=== PATIENT | male | born 1975 | race Caucasian/White ===

== ENCOUNTER 2023-11-27 23:06 | Inpatient (IN) | payer OTHER, SELFPAY ==
[2023-11-27 16:57] VITALS: BP 121/88
[2023-11-27 17:00] VITALS: BP 121/88
[2023-11-27 17:02] VITALS: BMI 22.4
[2023-11-27 17:19] LABS: % Basophils 0.9 % (0-2); % Eosinophils 2.1 % (0-6); % Immature Granulocytes 0.1 % (0-0.5); % Lymphocytes 33.2 % (20.5-51.1); % Neutrophils 55.7 % (42.2-75.2); Absolute Basophils 0.1 10^3/uL (0-0.2); Absolute Eosinophils 0.2 10^3/uL (0-0.7); Absolute Lymphocytes 2.9 10^3/uL (1.2-3.4); Absolute Monocytes 0.7 10^3/uL (0.1-0.6); Absolute Neutrophils 4.8 10^3/uL (1.4-6.5); Hematocrit 43.9 % (39.0-52.0); Hemoglobin 15.7 g/dL (13.0-18.0); Mean Corp Hgb Conc. 35.8 g/dL (33.0-37.0); Mean Corpuscular Hgb 34.9 pg (27.0-31.0); Mean Corpuscular Volume 97.6 fL (80.0-94.0); Mean Platelet Volume 10.1 fL (7.4-10.4); Nucleated Red Blood Cells % 0 % (-); Platelet Count 54 10^3/uL (130-400); Red Cell Dist. Width 15.9 % (11.5-14.5); White Blood Cell Count 8.6 10^3/uL (4.8-10.8)
[2023-11-27 17:39] LABS: ALT (SGPT) 108 U/L (0-50); AST (SGOT) 324 U/L (17-59); Albumin 3.6 g/dl (3.5-5.0); Alkaline Phosphatase 337 U/L (38-126); Blood Urea Nitrogen 4 mg/dl (9-20); Calcium 8.6 mg/dl (8.4-10.2); Carbon Dioxide 20 mmol/L (22-30); Chloride 105 mmol/L (98-107); Estimated Creatinine Clearance 109 ml/min; Glucose 125 mg/dl (70-99); Lipase 56 U/L (23-300); Sodium 136 mmol/L (135-145); Total Bilirubin 8.4 mg/dl (0.2-1.3); Total Protein 7.2 g/dl (6.3-8.2); eGFR > 60.00
[2023-11-27 18:00] VITALS: BP 116/87
--- NOTE | 2023-11-27 18:24 | ED.GENMED ---
History of Present Illness
General
Chief Complaint: Abdominal Pain
Source: patient
Time Seen by Provider: 11/27/23 18:05
Travel History
Have you had any contact with someone who has COVID-19?: No
Do you have any symptoms of coronavirus? Fever > 100 degrees, chills, cough, shortness of breath, sore throat, loss of taste or smell, muscle aches, or headache?: Yes
Symptoms:: chills
History of Present Illness
History of Present Illness:
48-year-old male with past medical history of hypertension, chronic alcohol abuse with alcoholic hepatitis, previous acute kidney injury presenting to the emergency department for evaluation via EMS for upper abdominal pain diffusely that has been
ongoing for around a week and a half accompanied with chills, decreased p.o. intake, intermittent vomiting and generally feeling unwell. Patient was recently at this facility for treatment of C. difficile colitis but he states he is no longer
having any diarrhea and he completed his antibiotics as prescribed. Patient does admit to still drinking heavily daily and also smokes 1 pack/day. He denies any chest pain, shortness of breath, palpitations, diaphoresis, exertional dyspnea,
orthopnea, lower extremity edema, melena or hematochezia, hematemesis or any other concerns.
Past History
Past History
ED Past Medical History: GERD, HTN, Renal failure and Other (Alcoholism, diverticulitis)
ED Past Surgical History: Orthopedic
Social History
Tobacco: Smoker
Alcohol: Chronic alcoholic
Drug: None
Personal: Single
Living: with family
Employment: Employed
Family History
Family History: Hypertension
Review of Systems
Review of Systems
All Other Systems: ROS reviewed and negative except as documented in HPI and ROS
Phy Exam
Physical Exam
Physical Exam:
GENERAL: Alert ,sleeping when entered the room but easily arousable to voice, appears older than stated age
EYE: Icteric sclera
HEAD: NCAT
ENT: o/p clr, mmm.
CARDIAC: Heart rate between 96 and 114 bpm
LUNGS: Clear breath sounds bilaterally, no acute respiratory distress, no wheezes/rales/rhonchi
ABDOMEN: Firm, diffusely tender, somewhat distended, no r/g, grimacing with palpation
NEUROLOGICAL: Alert and oriented
SKIN: Warm and dry, skin intact.
MUSCULOSKELETAL: No edema, well perfused.
PSYCH: Normal and appropriate interaction.
Scores
Heart Failure Risk
Heart Failure Risk Score: Not Applicable
Heart Score for Chest Pain Patients
STEMI patient?: Not applicable
Withdrawal Assessment of Alcohol
Withdrawal Assessment Completed?: Not applicable
Nausea and Vomiting: Mild nausea with no vomiting
Tactile Disturbances: None
Tremor: No tremor
Auditory Disturbances: Not present
Paroxysmal Sweats: No sweat visible
Visual Disturbances: Not present
Anxiety: No anxiety, at ease
Headache, Fullness in Head: Not present
Agitation: Normal activity
Orientation and clouding of sensorium: Oriented and can do serial additions
Total CIWA Score: 1
Alcohol Withdrawal Medication Recommendation: Equal to MSAS Score 0-4. Monitor & re-assess q2hrs, NO MEDICATION NEEDED
Course
Orders/Labs/Results
Orders:
Orders
11/27/23 17:06
Complete Blood Count/With Diff Urgent
Comprehensive Metabolic Panel Urgent
Lipase Urgent
11/27/23 18:14
0.9% Sodium Chloride 1000 ml [Nss] 1,000 ml IV BOLUS
Morphine Sulfate 4 mg IV NOW STA
11/27/23 18:17
CT Abd/pelvis W Iv Cont Urgent
Comment:
Reason For Exam: diffuse abd pain, hx of ETOH abuse
11/27/23 18:24
Blood Culture Q30M
MAHESH Source: Blood/Venous
Specimen Description:
11/27/23 18:25
Lactic Acid Q4H
Comment: CANCEL 2nd LACTIC ACID IF 1st LACTIC ACID IS LESS THAN 2
Magnesium Urgent
Blood Culture Q30M
MAHESH Source: Blood/Venous
Specimen Description:
11/27/23 18:55
0.9% Sodium Chloride 1000 ml [Nss] 1,300 ml IV NOW STA
11/27/23 19:39
US Abdomen Complete/Upper Urgent
Comment:
Reason For Exam: upper abd pain, gallstones
11/27/23 22:15
Lactic Acid Q4H
Comment: CANCEL 2nd LACTIC ACID IF 1st LACTIC ACID IS LESS THAN 2
11/27/23 22:23
Piperacillin/Tazo 3.375 Gram [Zosyn] 3.375 gram in 50 ml IV NOW
11/27/23 22:25
Potassium Chloride [KCl] 40 meq PO NOW STA
11/27/23 22:28
Morphine Sulfate 4 mg IV NOW STA
Ondansetron Injectable [Zofran] 4 mg IV NOW STA
Abnormal Lab Results
11/27/23 11/27/23
17:06 18:25
RBC 4.50 L 10^6/uL
(4.70-6.10)
MCV 97.6 H fL
(80.0-94.0)
MCH 34.9 H pg
(27.0-31.0)
RDW 15.9 H %
(11.5-14.5)
Plt Count 54 L 10^3/uL
(130-400)
Absolute Monos (auto) 0.7 H 10^3/uL
(0.1-0.6)
Potassium 3.0 L mmol/L
(3.5-5.1)
Carbon Dioxide 20 L mmol/L
(22-30)
BUN 4 L mg/dl
(9-20)
Glucose 125 H mg/dl
(70-99)
Lactic Acid 3.0 H mmol/L
(0.7-2.0)
Total Bilirubin 8.4 H mg/dl
(0.2-1.3)
AST 324 H U/L
(17-59)
ALT 108 H U/L
(0-50)
Alkaline Phosphatase 337 H U/L
(38-126)
11/27/23 17:06
11/27/23 17:06
Vital Signs
Initial and Last Documented VS:
Initial Vital Signs
Temp Pulse Resp BP Pulse Ox
97.6 F 102 18 121/88 96
11/27/23 16:57 11/27/23 16:57 11/27/23 16:57 11/27/23 16:57 11/27/23 16:57
Last Documented Vital Signs
Temp Pulse Resp BP Pulse Ox
97.6 F 99 18 124/89 94
11/27/23 16:57 11/27/23 21:00 11/27/23 21:00 11/27/23 21:00 11/27/23 21:00
MDM/Problems Addressed
Differential Diagnosis Includes:
Possible SBP given the reported chills combined with diffuse abdominal pain and distention, alcoholic gastritis, GERD, pancreatitis, cholecystitis, colitis, diverticulitis
MDM/Problems Addressed:
48-year-old male presenting emergency department for evaluation of abdominal pain that has been reportedly ongoing for about a week and a half. He appears chronically unwell. Tachycardia noted which could be either dehydration, alcohol withdrawal
versus infectious etiology. Patient did feel quite warm to the touch but was reportedly afebrile. Will repeat this. Labs had already been initiated in triage. There is no leukocytosis. Patient has hypokalemia likely secondary to alcohol use.
Liver function tests are chronically elevated and fall within patient's baseline. Normal renal function. Will check a CT. Pain control with morphine. Fluids ordered. Disposition pending but possible admission.
Chronic conditions affecting care: Psychiatric illness (Chronic alcohol use)
*Radiology
Radiology exam reviewed: radiology read reviewed
*Pulse Oximetry
Patient hypoxic: no
*Llama Farmer Interpretation
Rate: tachycardiac
Rhythm: sinus
*Critical Care Note
Total Time (30-74mins, 75-104mins- exclusive of procedures): Not Applicable
Data Reviewed
Review of Other/Old Records Reveals: Labs, Records and Discharge Summary
Source: patient and records
Comment
Comment:
7:45 PM: Patient's CT shows:
IMPRESSION:
1. Mild to moderate diffuse colonic wall thickening, which may be on the basis of an infectious/inflammatory colitis or portal colopathy.
2. Hepatosplenomegaly and hepatic steatosis.
3. Portal hypertension including recanalization of the umbilical vein, upper abdominal portosystemic collaterals, and distal paraesophageal varices.
4. Cholelithiasis and gallbladder distention.
5. Colonic diverticulosis.
There is no clear etiology for the cause of the patient's pain however given the cholelithiasis and gallbladder distention on the CT I decided to order an ultrasound of the abdomen to better evaluate the gallbladder. Patient remains resting and in
no acute distress. Disposition pending.
Patient Management
Discussion with other providers: Hospitalist and Classics Professor
Escalation/DeEscalation of care consider admission/obs:
10:15 PM: Patient's ultrasound shows cholelithiasis and mild gallbladder wall thickening which could be reactive or secondary to acute cholecystitis. There is also mild dilatation of the common bile duct measuring 9 mm. Based off patient's alcohol
history this could certainly be a contributing factor however his recurring pain, lab abnormalities and reported symptoms I do feel would be best for general surgery to evaluate the patient. Will start antibiotics preventatively. General surgery
is aware and will see in the morning. Hospitalist accepts for continued evaluation and treatment.
ED Attending Note
-
Portions of this chart may have been created with voice recognition software.� Occasional wrong word or��sound alike� substitutions may have occurred due to the inherent limitations of voice recognition software.
Discharge Plan
Departure
Patient Disposition: Admit
Date of Disposition: 11/27/23
Time of Disposition: 22:25
Presentation/result/management discussed w/ accepting MD/DO: Hospitalist
Discharge Problem:
Acute cholecystitis, Acute hypokalemia, Chronic alcohol use
Prescriptions:
No Action
folic acid 1 mg tablet
1 mg PO DAILY
gabapentin 300 mg capsule
300 mg PO TID
carvedilol [Coreg] 6.25 mg tablet
6.25 mg PO BID
trazodone 50 mg tablet
100 mg PO HS
duloxetine 30 mg capsule,delayed release(DR/EC)
30 mg PO DAILY
thiamine HCl (vitamin B1) 100 mg tablet
100 mg PO DAILY
midodrine 5 mg Tablet
5 mg PO Q4HPRN PRN (Reason: SBP<100) Qty: 30 0RF
Patient Comments:
10/08/2023, pt. states that he has never had to use this med.
potassium chloride 20 mEq Tablet,Er Particles/Crystals
40 meq PO DAILY Qty: 30 0RF
pantoprazole 40 mg tablet,delayed release (DR/EC)
40 mg PO DAILY Qty: 0 0RF
vancomycin 125 mg Capsule
125 mg PO Q6H
Patient Comments:
10/08/2023, pt. filled this med. on 10/01/2023 and is instructed to take one capsule Q6H for 14 days.
nicotine 14 mg/24 hr patch 24 hour
14 mg transdermal DAILY PRN (Reason: smoking cessation)
cholestyramine-aspartame [Cholestyramine Light] 4 gram Powder In Packet
4 g PO DAILY Qty: 60 0RF
Rx Instructions:
Separate from other medications by at least 4 hours
Referrals:
UNKNOWN - PT DOES,NOT KNOW [Family Provider] -
Interventions
Interventions:
*Risk Screen - Suicide Last Done: 11/27/23 16:57
*General Assessment Last Done: 11/27/23 16:57
*Neglect/Abuse Screening Last Done: 11/27/23 16:57
CM-Pcuytc-Tttofubkvj Assessment Last Done: 11/27/23 17:39
[2023-11-27] MEDS: NSS 1000 IV (18:25)
[2023-11-27] MEDS: MORPHINE SULFATE 4 MG IV ×2 (18:25→22:52)
[2023-11-27 19:22] VITALS: BP 125/97
[2023-11-27 19:25] LABS: Magnesium 1.7 mg/dl (1.6-2.3)
[2023-11-27] MEDS: NSS 1300 ML IV (19:40)
[2023-11-27 20:00] VITALS: BP 128/92
[2023-11-27 21:00] VITALS: BP 124/89
[2023-11-27 22:43] LABS: Lactic Acid 2.4 mmol/L (0.7-2.0)
[2023-11-27] MEDS: ZOSYN 50 IV (22:51)
[2023-11-27] MEDS: ZOFRAN 4 MG IV (22:52)
[2023-11-27] MEDS: KCL 40 MEQ PO (22:52)
--- NOTE | 2023-11-27 22:55 | HPS.HSE ---
Family Physician
-
Family Physician: NOT KNOW UNKNOWN - PT DOES
Chief Complaint
-
abdominal pain
History of Present Illness
48yo M alcoholic with liver cirrhosis came with 1.5 weeks of abdominal pain across his whole abdomen. STill was drinking pint of scotch daily, last drink at the night before admission. Lipase WNL. CT and US concerning for cholecystitis. Not much of
the signs of ascites
Medical History
Past Medical History
Past Medical History: Reports Other
Additional Past Medical History:
See HPI
Past Surgical History: Reports None
Social History
Tobacco: Smoker
Alcohol: Chronic Alcoholic
Drug: None
Family History
Family History: Not pertinent
Allergies / Home Medications
Allergies reflects when Allergies were last updated in [facility].
Home Medications with original date entered in [facility]
Allergy/Medication List:
Allergies
Allergy/AdvReac Type Severity Reaction Status Date / Time
wool Allergy Rash Verified 11/27/23 17:02
Home Medications
folic acid 1 mg tablet 1 mg PO DAILY Supplement 09/23/22
gabapentin 300 mg capsule 300 mg PO TID Pain 10/08/22
carvedilol 6.25 mg tablet (Coreg) 6.25 mg PO BID Blood Pressure 02/10/23
duloxetine 30 mg capsule,delayed release 30 mg PO DAILY Mental Health/Anxiety 09/14/23
thiamine HCl (vitamin B1) 100 mg tablet 100 mg PO DAILY energy 09/14/23
trazodone 50 mg tablet 100 mg PO HS Sleep 09/14/23
midodrine 5 mg tablet 5 mg PO Q4HPRN PRN SBP<100 #30 tabs 09/23/23
pantoprazole 40 mg tablet,delayed release 40 mg PO DAILY Gastrointestinal Issue #0 tabs 09/23/23
cholestyramine-aspartame 4 gram oral powder for susp in a packet (Prevalite) 1 ea PO DAILY 11/27/23
magnesium oxide 500 mg PO DAILY 11/27/23
Review of Systems
-
A 12 point ROS was completed and negative except as noted: Yes
Abdomen/GI: Reports See HPI
Physical Exam
Vital Signs
Vital Signs
Temp Pulse Resp BP Pulse Ox
97.6 F 99 18 124/89 94
11/27/23 16:57 11/27/23 21:00 11/27/23 21:00 11/27/23 21:00 11/27/23 21:00
Physical Exam
General: Well Developed and Well Nourished
HEENT: NormoCephalic and Other (icteric conjuctiva)
Respiratory: Clear; No Wheezes or Rales
Cardiac: S1/S2 and Regular Rhythm
GI: Tender and Distended
Musculoskeletal: No Clubbing, No Cyanosis and No Edema
Skin: Warm; No Dry or Rash
Neuro: Awake, Alert, Oriented and AO x 3
Hematologic/Lymphatic: No Lymphadenopathy
Psych: Calm
Laboratory Results
-
11/27/23 17:06
11/27/23 17:06
Laboratory Results
Lactic Acid 2.4 mmol/L (0.7-2.0) H 11/27/23 22:23
Total Bilirubin 8.4 mg/dl (0.2-1.3) H 11/27/23 17:06
AST 324 U/L (17-59) H 11/27/23 17:06
ALT 108 U/L (0-50) H 11/27/23 17:06
Alkaline Phosphatase 337 U/L (38-126) H 11/27/23 17:06
Lipase 56 U/L (23-300) 11/27/23 17:06
Data Reviewed
-
Diagnostic Radiology: Report Reviewed by me
Impression/Plan
-
A/P:
#cholecystitis
#Mild CBD dilation
NPO
Zosyn
GenSx
Bcx
#esophageal varices
#Alcoholic liver cirrhosis with acute on chronic transaminitis
#Chronic bilirubinemia
#Alcohol use d/o
MSAS protocol with Ativan
Thiamine/Folate
#Hypokalemia
replete and follow
#diffuse colonic wall thickening - unclear if colitis vs 2/2 portal HTN
follow clinically
Zosyn
DVT ppx hep
Full code
This encounter required high level of medical decision making due to complexity of PMHX and patient presenting symptoms
[2023-11-27 23:58] LABS: INR 1.52; PT 18.4 Sec (11.4-14.6)
[2023-11-28] MEDS: COMPAZINE 5 MG IV (01:56)
[2023-11-28] MEDS: DILAUDID 0.5 MG IV (02:21)
[2023-11-28] MEDS: D5W 1000 IV (04:47)
[2023-11-28] MEDS: ZOSYN 50 IV ×3 (05:45→17:11)
--- NOTE | 2023-11-28 06:38 | PTCARENOTE ---
Patient completed his pre-op wash. Patient ambulated back to bed and placed back on his IV fluids . Patient awaiting a time for OR .
[2023-11-28 07:23] LABS: % Basophils 0.9 % (0-2); % Eosinophils 1.1 % (0-6); % Immature Granulocytes 0.3 % (0-0.5); % Lymphocytes 16.7 % (20.5-51.1); % Monocytes 10.6 % (1.7-9.3); % Neutrophils 70.4 % (42.2-75.2); Absolute Basophils 0.1 10^3/uL (0-0.2); Absolute Eosinophils 0.1 10^3/uL (0-0.7); Absolute Lymphocytes 1.1 10^3/uL (1.2-3.4); Absolute Monocytes 0.7 10^3/uL (0.1-0.6); Absolute Neutrophils 4.5 10^3/uL (1.4-6.5); Hematocrit 39.9 % (39.0-52.0); Hemoglobin 14.2 g/dL (13.0-18.0); Mean Corp Hgb Conc. 35.6 g/dL (33.0-37.0); Mean Corpuscular Hgb 35.8 pg (27.0-31.0); Mean Corpuscular Volume 100.5 fL (80.0-94.0); Mean Platelet Volume 12.3 fL (7.4-10.4); Nucleated Red Blood Cells % 0 % (-); Platelet Count 43 10^3/uL (130-400); Red Blood Cell Count 3.97 10^6/uL (4.70-6.10); Red Cell Dist. Width 16.2 % (11.5-14.5); White Blood Cell Count 6.4 10^3/uL (4.8-10.8)
[2023-11-28 07:33] VITALS: BP 143/99
[2023-11-28 07:45] LABS: ALT (SGPT) 82 U/L (0-50); AST (SGOT) 302 U/L (17-59); Albumin 3.2 g/dl (3.5-5.0); Alkaline Phosphatase 284 U/L (38-126); Blood Urea Nitrogen 3 mg/dl (9-20); Calcium 7.9 mg/dl (8.4-10.2); Carbon Dioxide 16 mmol/L (22-30); Chloride 107 mmol/L (98-107); Direct Bilirubin 8.4 mg/dl (0.0-0.4); Estimated Creatinine Clearance 122 ml/min; Glucose 93 mg/dl (70-99); Potassium 3.9 mmol/L (3.5-5.1); Sodium 134 mmol/L (135-145); Total Protein 6.7 g/dl (6.3-8.2); eGFR > 60.00
[2023-11-28 07:54] LABS: INR 1.47; PT 17.9 Sec (11.4-14.6)
[2023-11-28 08:04] LABS: Hepatitis B Surface Antigen Negative (Negative)
[2023-11-28 08:14] LABS: Hepatitis B Core Ab, IgM Negative (Negative)
[2023-11-28 08:21] LABS: Hepatitis B Surface Antibody Negative; Hepatitis C Antibody Negative (Negative)
--- NOTE | 2023-11-28 08:48 | CON.GS ---
Addendum entered and electronically signed by Jose Romero MD 11/28/23 15:28:
Patient seen and examined with surgical COVERING MACHINE TENDER. Agree with documented consultation.
HPI: 48-year-old male with recent history of C. difficile colitis and alcohol abuse/cirrhosis/alcoholic hepatitis. He presents with a history of generalized abdominal pain for 7 to 10 days. Persistent, not related to dietary intake. He has not
been eating much though. He has had intermittent nausea and vomiting. He is moving his bowels and he states they continue to be loose as they have been since his last hospitalization. He continues to actively drink.
Afebrile, tachycardia into the low 100s, hypertensive
No acute distress, awake alert oriented x 3
Jaundice and scleral icterus
Abdomen softly distended, no fluid wave, generalized tenderness to palpation with voluntary guarding in all 4 quadrants.
Laboratory testing notable for white blood cell count 6.4 and without a shift, hemoglobin is 14.2 and platelet count of 43. INR 1.47. Sodium 134, elevated total and direct bilirubin, AST, ALT and alkaline phosphatase. Albumin low at 3.2. Lipase
normal 56.
Radiographic imaging obtained includes CT abdomen/pelvis 11/27/2023: Moderate to diffuse colonic wall thickening consistent with colitis or portal colopathy. Hepatosplenomegaly, scalloping of the liver consistent with cirrhosis, numerous signs of
portal hypertension including esophageal varices, recannulation of the umbilical vein and portosystemic collaterals. Cholelithiasis with gallbladder distention. Abdominal ultrasound with mild gallbladder wall thickening and cholelithiasis.
Negative sonographic Cook's. HIDA scan identifying patent cystic, common bile duct. Gallbladder visualized ruling out cystic duct obstruction/acute calculus cholecystitis.
Assessment/plan: 48-year-old male presenting with probable diffuse colitis -colonic wall thickening and inflammatory changes throughout and abdominal pain, diarrhea suggestive of colitis and nausea vomiting may be due to reactive ileus and worsening
liver function as evidence by significant portal hypertension, jaundice, thrombocytopenia. No CT imaging findings suggestive of colon ischemia or perforation.
Recent treatment for C. difficile colitis this past September. Consider repeat stool studies.
There are no clinical signs of acute calculus cholecystitis nor radiographic signs suggestive of acute calculus cholecystitis. Gallbladder findings are most consistent with reactive mild gallbladder wall thickening secondary to cirrhosis and portal
hypertension not primary gallbladder pathology.
Will sign off
Defer to hospitalist further workup and evaluation/management
Original Note:
Consultation
-
Date/Time Consultation Requested: 11/28/23414
Requesting Provider: Suresh
Performing Provider: Jersey Romero
Reason for Consultation: cholecystitis
Medical History
-
Chief Complaint: abdominal pain
History of Present Illness:
Mr Kelsey is a 48 yo male with a history of c-diff (September 2023), alcohol abuse (drinks about 1 pint of scotch per day), alcoholic hepatitis and ?cirrhosis who presents for generalized abdominal pain which began about 11 days ago awakening him from
sleep. He reports nausea and vomiting intermittently since that time as well. He denies acholic stools but notes his urine has been quite dark with yellowing of the skin and eyes. He denies constipation or diarrhea. He reports the majority of his
pain is like a band across the top of his abdomen. On exam, he is tender throughout with guarding.
Past Medical History
Past Medical History: HTN and Other (alcoholic cirrhosis)
Social History
Tobacco: Smoker
Alcohol: Daily (1 pt scotch daily)
Drug: None
Family History
Family History: Reviewed & Not Pertinent
Allergies / Home Medications
Allergy/AdvReac Type Severity Reaction Status Date / Time
wool Allergy Rash Verified 11/27/23 17:02
Medication Instructions Recorded Confirmed Type
folic acid 1 mg tablet 1 mg PO DAILY Supplement 09/23/22 11/27/23 History
gabapentin 300 mg capsule 300 mg PO TID Pain 10/08/22 11/27/23 History
carvedilol 6.25 mg tablet (Coreg) 6.25 mg PO BID Blood Pressure 02/10/23 11/27/23 History
duloxetine 30 mg capsule,delayed 30 mg PO DAILY Mental 09/14/23 11/27/23 History
release Health/Anxiety
thiamine HCl (vitamin B1) 100 mg 100 mg PO DAILY energy 09/14/23 11/27/23 History
tablet
trazodone 50 mg tablet 100 mg PO HS Sleep 09/14/23 11/27/23 History
midodrine 5 mg tablet 5 mg PO Q4HPRN PRN SBP<100 #30 tabs 09/23/23 11/27/23 Rx
pantoprazole 40 mg tablet,delayed 40 mg PO DAILY Gastrointestinal 09/23/23 11/27/23 Rx
release Issue #0 tabs
cholestyramine-aspartame 4 gram 1 ea PO DAILY High Cholesterol 11/27/23 11/27/23 History
oral powder for susp in a packet
(Prevalite)
magnesium oxide 500 mg PO DAILY Supplement 11/27/23 11/27/23 History
Review of Systems
-
History Source: Patient
All other systems: Negative unless noted
A 10 point review of systems was completed, and was negative except as per HPI.
Physical Exam
Vital Signs
Temp Pulse Resp BP Pulse Ox
98.2 F 111 16 143/99 95
11/28/23 07:33 11/28/23 07:33 11/28/23 07:33 11/28/23 07:33 11/28/23 07:33
11/27/23 11/28/23 11/29/23
06:59 06:59 06:59
Actual Weight 75 kg
Body Mass Index (BMI) 22.4
Lab Results
11/28/23 06:53
11/28/23 06:53
WBC 6.4 10^3/uL (4.8-10.8) 11/28/23 06:53
Hgb 14.2 g/dL (13.0-18.0) 11/28/23 06:53
Hct 39.9 % (39.0-52.0) 11/28/23 06:53
Plt Count 43 10^3/uL (130-400) L D 11/28/23 06:53
Abs Immat Gran (auto) 0.0 10^3/uL (0-0.05) 11/28/23 06:53
Neutrophils % 70.4 % (42.2-75.2) 11/28/23 06:53
Physical Exam
General: Negative Comfortable
HEENT: Scleral Icterus
Respiratory: Non Labored Respirations
GI: Soft, Tender (generalized with guarding) and Distended (mild)
Skin: Warm and Jaundice
Neuro: Awake, Alert and AO x 3
Psych: Calm
Data Reviewed
-
CT Scan: Image Personally Visualized and interpreted, Report Reviewed by me, Discussed with Physician and Discussed with Patient
Ultrasound: Image Personally Visualized and interpreted, Report Reviewed by me, Discussed with Physician and Discussed with Patient
Labs: Labs Reviewed by me, Discussed with Physician and Discussed with Patient
Assessment / Plan
-
48 yo male with h/o alcohol abuse currently drinking scotch daily and alcoholic liver disease presenting with an 11 day history of abdominal pain with intermittent nausea and vomiting. Jaundice noted. Labs concerning for evolving liver disease
(hyponatremia, low plts, elevated INR and elevated LFT's). Surgery evaluationg as imaging with cholelithiasis with concern for possible cholecystitis although suspect more reflective of chronic inflammatory changes upon review of prior studies.
Jaundice with markedly elevated LFT's. Lipase normal. No leukocytosis. C/O abdominal pain across the upper quadrants with generalized tenderness on exam. ?colitis on CT, however, denies bowel complaints. Afebrile with mild tachycardia.
--Will check HIDA scan
--NPO for testing
--Empiric abx until further imaging
--Discussed with hospitalist, will consult GI to follow
[2023-11-28 11:15] VITALS: BP 146/108
[2023-11-28] MEDS: ZOFRAN 4 MG IV ×2 (11:55→22:07)
[2023-11-28] MEDS: PROTONIX IV 40 MG IV (11:55)
[2023-11-28] MEDS: MORPHINE SULFATE 2 MG IV ×3 (11:55→22:03)
[2023-11-28] MEDS: NSS (PRESERVATIVE FREE) 10 ML IV (11:55)
[2023-11-28] MEDS: VITAMIN B1 100 MG PO (12:02)
[2023-11-28] MEDS: FOLVITE 1 MG PO (12:02)
[2023-11-28] MEDS: HEPARIN 5000 UNITS SC ×2 (12:03→17:11)
[2023-11-28 12:12] LABS: Alcohol None Detected
[2023-11-28 12:20] VITALS: BP 142/100
--- NOTE | 2023-11-28 12:26 | W.PN.HOSP.TC ---
Addendum entered and electronically signed by Felicitas Yen MD 11/28/23 13:04:
Per [facility], no ascites noted on CT AP or US, hence would not be able to perform paracentesis.
IR CS cancelled
Addendum entered and electronically signed by Felicitas Yen MD 11/28/23 12:49:
[facility] CS for paracentesis eval
Original Note:
Today's Communication/Plan
-
see A/P
Assessment / Plan
Assessment / Plan
48 yo M alcoholic with PMH liver cirrhosis ; p/w 1.5 weeks of abdominal pain across his whole abdomen. He continues to drink pint of scotch daily, last drink the night before admission. Lipase WNL. CT and US concerning for cholecystitis. No ascites
CT AP:
1. Mild to moderate diffuse colonic wall thickening, which may be on the basis of an infectious/inflammatory colitis or portal colopathy.
2. Hepatosplenomegaly and hepatic steatosis.
3. Portal hypertension including recanalization of the umbilical vein, upper abdominal portosystemic collaterals, and distal paraesophageal varices.
4. Cholelithiasis and gallbladder distention.
5. Colonic diverticulosis.
Abd US:
1. Cholelithiasis and mild gallbladder wall thickening, which could be reactive or secondary to acute cholecystitis. The sonographic Cook's sign was reportedly negative. A HIDA scan could be considered for further evaluation if there is persistent
clinical concern.
2. Mild dilatation of the common bile duct measuring 9 mm.
3. Hepatosplenomegaly.
4. Hepatic steatosis.
HIDA:
1. � Patent cystic and common bile ducts. Negative for acute cholecystitis.�
2. � Findings as above which are consistent with hepatocellular dysfunction.
A/P:
# upper Abd pain, ruled out acute cholecystitis from HIDA scan , ddx now include alcoholic hepatitis vs gastritis
# Mild to moderate diffuse colonic wall thickening, infectious/inflammatory colitis vs portal colopathy.
# Mild CBD dilation from Abd US
NPO
Cont Zosyn, follow blood Cx
GS on board
GI CS
# Esophageal varices
# Alcoholic liver cirrhosis with acute on chronic transaminitis
# Chronic bilirubinemia
# Alcohol use d/o
MSAS protocol with Ativan
Thiamine/Folate
trend LFT
Cont END STAPLER Coreg
GI CS
# Hypokalemia
repleted and resolved
# Active smoking with nicotine dependence
nicotine patch
DVT ppx hep SQ
Full code
Anticipated Discharge: > 48 hours
Subjective/Interval History
-
Date of Service: November 28, 2023
Objective Data
-
Labs:
Laboratory Results
11/28/23
06:53
WBC 6.4
Hgb 14.2
Hct 39.9
Plt Count 43 L D
PT 17.9 H
INR 1.47
Sodium 134 L
Potassium 3.9 D
Chloride 107
Carbon Dioxide 16 L
BUN 3 L
Creatinine 0.8
Glucose 93
Calcium 7.9 L
Total Bilirubin 11.0 H
AST 302 H
ALT 82 H
Alkaline Phosphatase 284 H
Vital Signs:
Vital Signs
Temp Pulse Resp BP Pulse Ox
36.7 C 108 18 142/100 98
11/28/23 11:15 11/28/23 11:15 11/28/23 11:15 11/28/23 12:20 11/28/23 11:15
Review of Systems
-
Abdomen/GI: Reports Abdominal Pain (upper abdomen)
Physical Exam
-
General: Well Developed, Well Nourished, No Apparent Distress, Comfortable and Appears Chronically Ill
HEENT: Normocephalic; Negative Anicteric
Respiratory: Clear to Auscultation and Non Labored Respirations; Negative Accessory Resp Muscle Use
Cardiac: Regular Rhythm and S1/S2
GI: Soft and Tender (upper quadrants)
Genito-urinary: Glover
Musculoskeletal: No Clubbing, No Cyanosis and No Edema
Skin: Warm, Dry and Jaundice
Neuro: Awake and Alert
Psych: Calm and Intact Judgement/Insight
Data Reviewed
-
CT Scan: Report Reviewed by me
Ultrasound: Report Reviewed by me
Medical Tests (Nuc Med, Echo etc): Report Reviewed by me (HIDA)
Labs: Labs Reviewed by me
[2023-11-28 13:39] LABS: Lactic Acid 2.9 mmol/L (0.7-2.0)
[2023-11-28] MEDS: LR 1000 IV (13:46)
[2023-11-28] MEDS: NICODERM TRANSDERMAL 14 MG TRANSDERM (13:46)
[2023-11-28] MEDS: D5W IV (13:47)
--- NOTE | 2023-11-28 14:34 | CON.GI ---
Addendum entered and electronically signed by Sony Scales MD 11/28/23 15:45:
I saw and examined the patient.
The FIELD REPRESENTATIVE/HEALTH EDUCATION or PA's note was reviewed and I agree with the note.
Comment: 48yo male presents with abd pain over the last couple weeks. He was recently admitted with EtOH hepatitis and jaundice, bili up to 20, and C diff infxn. US shows gallstones, mild GBWT and top normal CBD 9mm. CT shows colonic wall
thickening (possible infxn, inflammation, portal colopathy), portal HTN, gallstones, GB distention. HIDA shows patent cystic and CBD. Last EtOH 3 days ago
REC:
Start clears
Trend LFTs. DF is borderline so we will hold off on steroids for now. It is much improved since last admission
Check MRI/MRCP r/o CBD stone or other obstructing lesion
Advance diet as able.
Reinforced need for EtOH abstinence
Original Note:
Consultation
-
Date/Time Consultation Requested: 11/28/23 0807
Date/Time Consultation Performed: 11/28/23 1400
Requesting Provider: KEIKO Vazquez
Performing Provider: Dr. Scales/Delmy Rojas CNP
Reason for Consultation: elevated LFT/abd pain
Medical History
Chief Complaint / HPI
Chief Complaint: abd pain
History of Present Illness:
48-year-old male with past medical history significant for alcohol abuse with multiple hospitalizations in the past for this, alcoholic hepatitis, recent C. difficile infection treated with oral vancomycin and Dificid, hepatic encephalopathy on
Xifaxan, questionable cirrhosis versus hepatic steatosis, GERD who presents to the emergency room with complaints of abdominal pain. We are asked to evaluate for possible liver cirrhosis and concerns for acute cholecystitis. Upon review of prior
records the patient has been seen multiple times in this hospital by our service for alcoholic hepatitis and recurrent diarrhea with C. difficile infection. He has recurrent diarrhea refractory to treatment with vancomycin and Dificid for C.
difficile. At that time he was noted to have increased LFTs but had continued to drink alcohol despite being advised to stop. He was started on Questran and this improved his diarrhea. In regards to his liver he was advised to follow-up as an
outpatient with our physician assistant film editor Natasha in the office for further workup in October but he did not come to this visit. Noted with prior endoscopic evaluation in November 2022 which did not show esophageal varices. There is been ongoing concern
for underlying liver cirrhosis although imaging has not shown a nodularity of the liver and there is been presence of portal hypertension. During this admission in September he did have a persistently elevated total bilirubin as high as 20.9. Today
he reports approximately 1 week history of upper abdominal discomfort that he states is more of a pressure that extends from the left to the right that he describes as more of an intermittent dull discomfort. He states that lying on his abdomen
makes worse. Pain medication makes better. Any food makes him nauseated. He did stop drinking approximately 3 days ago. He states that he was drinking whiskey approximately 1 pint daily. The patient does state that he did vomit intermittently
during this time. The patient denies any fevers, chills, melena, hematochezia, dysphagia or odynophagia. He does not have much of an appetite. He has been tolerating sips of water without any discomfort. CT imaging on admission showed mild CBD
dilatation and signs of esophageal varices diffuse colonic wall thickening concerning for colitis along with concern for possible acute cholecystitis. Ultrasound imaging showed cholelithiasis and mild gallbladder wall thickening possibly reactive
versus acute cholecystitis with negative Cook sign, mild dilatation of the common bile duct measuring 9 mm, hepatosplenomegaly and hepatic steatosis. HIDA scan showed patent cystic and common bile duct. Negative for acute cholecystitis with
findings consistent for hepatocellular dysfunction. He was placed on IV Zosyn and admitted for further evaluation by GI and general surgery. Blood cultures were sent and are pending. Routine labs on admission showed a platelet count of 54,000.
WBC of 8.6. Hemoglobin of 15.7. INR 1.52. Sodium 136, potassium 3.0, BUN 4, creatinine 0.9, lactic acid 3.0, total bilirubin 8.4, AST of 324, ALT of 106, alk phos of 337.
Past Medical History
Past Medical History: Other (Gastroesophageal reflux disease Essential hypertension Alcohol use disorder Peripheral neuropathy, possible cirrhosis, ETOH live disease, mild C diff)
Social History
Tobacco: Smoker
Alcohol: Daily
Family History
Family History: Reviewed & Not Pertinent
Allergies / Home Medications
Allergy/AdvReac Type Severity Reaction Status Date / Time
wool Allergy Rash Verified 11/27/23 17:02
Medication Instructions Recorded
folic acid 1 mg tablet 1 mg PO DAILY Supplement 09/23/22
gabapentin 300 mg capsule 300 mg PO TID Pain 10/08/22
carvedilol 6.25 mg tablet (Coreg) 6.25 mg PO BID Blood Pressure 02/10/23
duloxetine 30 mg capsule,delayed 30 mg PO DAILY Mental 09/14/23
release Health/Anxiety
thiamine HCl (vitamin B1) 100 mg 100 mg PO DAILY energy 09/14/23
tablet
trazodone 50 mg tablet 100 mg PO HS Sleep 09/14/23
midodrine 5 mg tablet 5 mg PO Q4HPRN PRN SBP<100 #30 tabs 09/23/23
pantoprazole 40 mg tablet,delayed 40 mg PO DAILY Gastrointestinal 09/23/23
release Issue #0 tabs
cholestyramine-aspartame 4 gram 1 ea PO DAILY High Cholesterol 11/27/23
oral powder for susp in a packet
(Prevalite)
magnesium oxide 500 mg PO DAILY Supplement 11/27/23
Review of Systems
-
All other systems: A 12 pt ROS was Negative except as stated above in HPI
Vital Signs
Temp Pulse Resp BP Pulse Ox
98.1 F 108 18 142/100 98
11/28/23 11:15 11/28/23 11:15 11/28/23 11:15 11/28/23 12:20 11/28/23 11:15
Physical Exam
Exam
General: No Apparent Distress
HEENT: Other (Icteric)
Respiratory: Clear
Cardiac: Regular Rhythm
GI: Soft, Non Distended, Normal Bowel Sounds and Tender (Upper abdomen)
Musculoskeletal: No Edema
Skin: Warm and Dry
Neuro: AO x 3 and Other (No tremor or asterixis)
Psych: Calm
Results
WBC 6.4 10^3/uL (4.8-10.8) 11/28/23 06:53
Hgb 14.2 g/dL (13.0-18.0) 11/28/23 06:53
Hct 39.9 % (39.0-52.0) 11/28/23 06:53
MCV 100.5 fL (80.0-94.0) H 11/28/23 06:53
Plt Count 43 10^3/uL (130-400) L D 11/28/23 06:53
Absolute Neuts (auto) 4.5 10^3/uL (1.4-6.5) 11/28/23 06:53
PT 17.9 Sec (11.4-14.6) H 11/28/23 06:53
INR 1.47 11/28/23 06:53
Sodium 134 mmol/L (135-145) L 11/28/23 06:53
Potassium 3.9 mmol/L (3.5-5.1) D 11/28/23 06:53
Chloride 107 mmol/L (98-107) 11/28/23 06:53
Carbon Dioxide 16 mmol/L (22-30) L 11/28/23 06:53
BUN 3 mg/dl (9-20) L 11/28/23 06:53
Creatinine 0.8 mg/dL (0.7-1.3) 11/28/23 06:53
Calcium 7.9 mg/dl (8.4-10.2) L 11/28/23 06:53
Total Bilirubin 11.0 mg/dl (0.2-1.3) H 11/28/23 06:53
AST 302 U/L (17-59) H 11/28/23 06:53
ALT 82 U/L (0-50) H 11/28/23 06:53
Alkaline Phosphatase 284 U/L (38-126) H 11/28/23 06:53
Lipase 56 U/L (23-300) 11/27/23 17:06
Hep Bs Antibody Negative 11/28/23 06:53
Hep B Core IgM Ab Negative (Negative) 11/28/23 06:53
Hepatitis C Antibody Negative (Negative) 11/28/23 06:53
Diagnostic Image Results:
HIDA:
IMPRESSION:
1. � Patent cystic and common bile ducts. Negative for acute cholecystitis.�
2. � Findings as above which are consistent with hepatocellular dysfunction.
Electronically signed by Bryson Low DO 11/28/2023 11:18 [address] Abd/Pelvis:
IMPRESSION:
1. Mild to moderate diffuse colonic wall thickening, which may be on the basis of an infectious/inflammatory colitis or portal colopathy.
2. Hepatosplenomegaly and hepatic steatosis.
3. Portal hypertension including recanalization of the umbilical vein, upper abdominal portosystemic collaterals, and distal paraesophageal varices.
4. Cholelithiasis and gallbladder distention.
5. Colonic diverticulosis.
US Abd:
1. Cholelithiasis and mild gallbladder wall thickening, which could be reactive or secondary to acute cholecystitis. The sonographic Cook's sign was reportedly negative. A HIDA scan could be considered for further evaluation if there is persistent
clinical concern.
2. Mild dilatation of the common bile duct measuring 9 mm.
3. Hepatosplenomegaly.
4. Hepatic steatosis.
Prior GI Procedures:
EGD:
11/21/2022, Dr. Fonseca:
Impression:� � � � � � - Normal esophagus.
�� � � � � � � � � � � - Erythematous mucosa in the antrum. Biopsied.
�� � � � � � � � � � � - Erythematous duodenopathy.
Colonoscopy:� never
Assessment / Plan
-
48-year-old male with past medical history significant for alcohol abuse with multiple hospitalizations in the past for this, alcoholic hepatitis, recent C. difficile infection treated with oral vancomycin and Dificid, hepatic encephalopathy on
Xifaxan, questionable cirrhosis versus hepatic steatosis, GERD who presents to the emergency room with complaints of abdominal pain. We are asked to evaluate for possible liver cirrhosis and concerns for acute cholecystitis.
Abdominal pain
ETOH abuse
Cirrhosis vs hepatic steatosis
Elevated LFTs
Plan:
-Trend LFTs
-Obtain MRI/MRCP
-If with BM check stool studies although patient denies any BMs to me
Data Reviewed
-
Radiology: Report Reviewed by me
CT Scan: Report Reviewed by me
Ultrasound: Report Reviewed by me
Old Records: Reviewed
-
-
Thank you for consultation and allowing me to participate in the patient's care. Please call the micromatic hone operator GI physician during the after hours with any questions or concerns.
[2023-11-28 15:08] VITALS: BP 137/97
--- NOTE | 2023-11-28 15:18 | CM ---
Addendum entered by Katalina Interiano 11/28/23 15:27:
physician office is [facility] and his card lists a Dr. Dexter but patient reports that he is not sure if he is still assigned to that physician
Original Note:
Patient seen at bedside. Patient states that he lives alone in a 2 story home. Patient has no DME and declined need for alcohol treatment or supports. Patient states that he lost his phone about a week ago and his mother called today that his sister
would bring a phone for him. Patient stated that he uses the [facility] on [address] in [place] and he goes to a physicians office on [address]. in [place]. CM will follow for discharge planning needs.
Plan; home with no needs, declined alcohol treatment at this time.
[2023-11-28 16:35] VITALS: BMI 22.4
[2023-11-28] MEDS: COREG 6.25 MG PO (21:45)
[2023-11-28 23:00] VITALS: BP 117/81
[2023-11-29] MEDS: ZOSYN 50 IV ×5 (00:46→23:43)
[2023-11-29] MEDS: HEPARIN 5000 UNITS SC ×2 (00:47→08:36)
[2023-11-29 07:20] VITALS: BP 98/67
[2023-11-29 07:50] LABS: Hematocrit 36.5 % (39.0-52.0); Mean Corp Hgb Conc. 35.6 g/dL (33.0-37.0); Mean Corpuscular Hgb 35.5 pg (27.0-31.0); Mean Corpuscular Volume 99.7 fL (80.0-94.0); Mean Platelet Volume 11.4 fL (7.4-10.4); Platelet Count 40 10^3/uL (130-400); Red Blood Cell Count 3.66 10^6/uL (4.70-6.10); Red Cell Dist. Width 15.7 % (11.5-14.5); White Blood Cell Count 5.2 10^3/uL (4.8-10.8)
[2023-11-29 08:24] LABS: ALT (SGPT) 68 U/L (0-50); AST (SGOT) 185 U/L (17-59); Albumin 2.7 g/dl (3.5-5.0); Alkaline Phosphatase 213 U/L (38-126); Blood Urea Nitrogen < 2 mg/dl (9-20); Carbon Dioxide 22 mmol/L (22-30); Chloride 105 mmol/L (98-107); Direct Bilirubin 9.9 mg/dl (0.0-0.4); Estimated Creatinine Clearance 109 ml/min; Glucose 91 mg/dl (70-99); Magnesium 1.1 mg/dl (1.6-2.3); Potassium 3.3 mmol/L (3.5-5.1); Sodium 131 mmol/L (135-145); Total Bilirubin 11.9 mg/dl (0.2-1.3); Total Protein 5.8 g/dl (6.3-8.2); eGFR > 60.00
[2023-11-29] MEDS: LR 1000 IV (08:33)
[2023-11-29] MEDS: COREG 6.25 MG PO ×2 (08:35→21:01)
[2023-11-29] MEDS: FOLVITE 1 MG PO (08:35)
[2023-11-29] MEDS: PROTONIX IV 40 MG IV (08:35)
[2023-11-29] MEDS: VITAMIN B1 100 MG PO (08:35)
[2023-11-29] MEDS: NSS (PRESERVATIVE FREE) 10 ML IV (08:35)
[2023-11-29] MEDS: NICODERM TRANSDERMAL 14 MG TRANSDERM (08:36)
[2023-11-29] MEDS: MORPHINE SULFATE 2 MG IV (08:45)
[2023-11-29] MEDS: ZOFRAN 4 MG IV ×2 (08:45→18:19)
--- NOTE | 2023-11-29 13:20 | W.PN.HOSP.TC ---
Today's Communication/Plan
-
advanced diet
Assessment / Plan
Assessment / Plan
pt is a 48 year old male
alcoholic hepatitis vs gastritis --with upper Abd pain, ruled out acute cholecystitis from HIDA scan--apprec GI/surgery--diet advanced--MRI with hepatic cirrhosis and Mild to moderate diffuse colonic wall thickening, infectious/inflammatory
colitis--cont zosyn--eval pain med needs
Esophageal varices--Alcoholic liver cirrhosis with acute on chronic transaminitis/Chronic bilirubinemia/Alcohol use d/o--cont MSAS, thiamine, folate, coreg--apprec GI consult
Hypokalemia--repleted and resolved
Active smoking with nicotine dependence--nicotine patch
DVT ppx hep SQ
Full code
Anticipated Discharge: 24 - 48 hours
Subjective/Interval History
-
Date of Service: November 29, 2023
pt c/o midepigastric pain and wants pain meds adjusted
Objective Data
-
Labs:
Laboratory Results
11/29/23
07:27
WBC 5.2
Hgb 13.0
Hct 36.5 L
Plt Count 40 L
Sodium 131 L
Potassium 3.3 L
Chloride 105
Carbon Dioxide 22
BUN < 2 L
Creatinine 0.9
Glucose 91
Calcium 8.0 L
Total Bilirubin 11.9 H
AST 185 H
ALT 68 H
Alkaline Phosphatase 213 H
Vital Signs:
max temp for 24 hours
11/28/23
15:08
Temp 99.1 F
Vital Signs
Temp Pulse Resp BP Pulse Ox
98.2 F 96 14 121/84 96
11/29/23 07:20 11/29/23 08:35 11/29/23 07:20 11/29/23 08:35 11/29/23 07:20
I&O
11/28/23 11/29/23 11/30/23
06:59 06:59 06:59
Intake Total 1559
Balance 1559
Review of Systems
-
All other systems: Reviewed and negative
Physical Exam
-
General: Well Developed, Well Nourished and No Apparent Distress
HEENT: Normocephalic and Atraumatic
Respiratory: Clear to Auscultation; Negative Wheezes or Rhonchi
Cardiac: Regular Rhythm and S1/S2; Negative Murmur
GI: Soft, Normal Bowel Sounds, Tender (midepigastrium) and Organomegaly
Musculoskeletal: No Clubbing, No Cyanosis and No Edema
--- NOTE | 2023-11-29 13:32 | W.PN.GI.CBS2 ---
Today's Communication / Plan
-
Agree with advancing diet
Low suspicion for acute cholecystitis at this point.
Tbil up a little today, but transaminases going down
Will follow
Assessment / Plan
-
48-year-old male with past medical history significant for alcohol abuse with multiple hospitalizations in the past for this, alcoholic hepatitis, recent C. difficile infection treated with oral vancomycin and Dificid, hepatic encephalopathy on
Xifaxan, questionable cirrhosis versus hepatic steatosis, GERD who presents to the emergency room with complaints of abdominal pain. We are asked to evaluate for possible liver cirrhosis and concerns for acute cholecystitis.
US- Cholelithiasis and mild GBWT. Mild dilation CBD 9mm. HSM. Hepatic steatosis
CT- Mild moderate diffuse colonic wall thickening- infxn/inflammatory or portal colopathy. HSM and hepatic steatosis. Portal HTN, recanalization umbilical vein, distal paraesophageal varices. Cholelithiasis and GB distention
HIDA- negative
MRI- Severe diffuse hepatic steatosis with mild hepatic cirrhosis without suspicious lesions. Portal HTN changes. Cholelithiasis wtihout convincing evidence for acute cholecystitis. Mild diffuse colonic wall thickening may reflect nonspecific
colitis or portal colopathy
Impression:
Abdominal pain
ETOH abuse
Cirrhosis vs hepatic steatosis
Elevated LFTs
Subjective
Subjective
Date of Service: November 29, 2023
Tolerated clears for breakfast without problems. Still c/o abd pain and asking about pain regimen
Objective
Data Reviewed
Laboratory Data:
Laboratory Results
11/29/23 07:27
11/29/23 07:27
Laboratory Results
PT 17.9 Sec (11.4-14.6) H 11/28/23 06:53
INR 1.47 11/28/23 06:53
Magnesium 1.1 mg/dl (1.6-2.3) L 11/29/23 07:27
Total Bilirubin 11.9 mg/dl (0.2-1.3) H 11/29/23 07:27
AST 185 U/L (17-59) H 11/29/23 07:27
ALT 68 U/L (0-50) H 11/29/23 07:27
Alkaline Phosphatase 213 U/L (38-126) H 11/29/23 07:27
Lipase 56 U/L (23-300) 11/27/23 17:06
Vital Signs and I&O:
Vital Signs
Temp Pulse Resp BP Pulse Ox
98.2 F 96 14 121/84 96
11/29/23 07:20 11/29/23 08:35 11/29/23 07:20 11/29/23 08:35 11/29/23 07:20
I&O
11/28/23 11/29/23 11/30/23
06:59 06:59 06:59
Intake Total 1560 / 1560
Balance 1560 / 1560
Physical Exam
Physical Exam
GI: Soft, Non Distended and Tender
[2023-11-29] MEDS: ROXICODONE 5 MG PO ×3 (13:45→22:51)
[2023-11-29 15:45] VITALS: BP 113/77
[2023-11-29] MEDS: DESYREL 100 MG PO (21:42)
[2023-11-29 23:00] VITALS: BP 105/69
[2023-11-29] MEDS: FLUSH (NSS) 2 FLUSH IV (23:44)
[2023-11-30] MEDS: ZOSYN 50 IV ×4 (06:00→23:47)
[2023-11-30] MEDS: ROXICODONE 5 MG PO ×2 (06:06→20:39)
[2023-11-30] MEDS: ZOFRAN 4 MG IV ×2 (06:06→20:40)
[2023-11-30 07:20] VITALS: BP 91/58
[2023-11-30 07:29] LABS: Hematocrit 35.1 % (39.0-52.0); Hemoglobin 12.4 g/dL (13.0-18.0); Mean Corp Hgb Conc. 35.3 g/dL (33.0-37.0); Mean Corpuscular Hgb 34.9 pg (27.0-31.0); Mean Corpuscular Volume 98.9 fL (80.0-94.0); Mean Platelet Volume 12.8 fL (7.4-10.4); Platelet Count 38 10^3/uL (130-400); Red Blood Cell Count 3.55 10^6/uL (4.70-6.10); Red Cell Dist. Width 15.6 % (11.5-14.5); White Blood Cell Count 5.6 10^3/uL (4.8-10.8)
[2023-11-30 07:55] LABS: ALT (SGPT) 55 U/L (0-50); AST (SGOT) 137 U/L (17-59); Albumin 2.6 g/dl (3.5-5.0); Alkaline Phosphatase 199 U/L (38-126); Blood Urea Nitrogen 2 mg/dl (9-20); Calcium 8.1 mg/dl (8.4-10.2); Carbon Dioxide 22 mmol/L (22-30); Chloride 102 mmol/L (98-107); Estimated Creatinine Clearance 122 ml/min; Glucose 85 mg/dl (70-99); Magnesium 1.2 mg/dl (1.6-2.3); Potassium 3.2 mmol/L (3.5-5.1); Sodium 129 mmol/L (135-145); Total Bilirubin 11.7 mg/dl (0.2-1.3); Total Protein 5.6 g/dl (6.3-8.2); eGFR > 60.00
[2023-11-30] MEDS: COREG PO (08:06)
[2023-11-30] MEDS: VITAMIN B1 100 MG PO (08:06)
[2023-11-30] MEDS: FOLVITE 1 MG PO (08:06)
[2023-11-30] MEDS: NICODERM TRANSDERMAL 14 MG TRANSDERM (08:06)
[2023-11-30] MEDS: PROTONIX IV 40 MG IV (08:07)
[2023-11-30] MEDS: NSS (PRESERVATIVE FREE) 10 ML IV (08:07)
[2023-11-30] MEDS: KCL 40 MEQ PO ×2 (12:25→15:59)
[2023-11-30] MEDS: MAGNESIUM SULFATE 100 IV (12:25)
--- NOTE | 2023-11-30 12:45 | W.PN.HOSP.TC ---
Today's Communication/Plan
-
cont K and mag repletion
Assessment / Plan
Assessment / Plan
pt is a 48 year old male
alcoholic hepatitis vs gastritis --with upper Abd pain, ruled out acute cholecystitis from HIDA scan--apprec GI/surgery--tolerating advanced diet --MRI with hepatic cirrhosis and Mild to moderate diffuse colonic wall thickening,
infectious/inflammatory colitis--cont zosyn--eval pain med needs
Esophageal varices--Alcoholic liver cirrhosis with acute on chronic transaminitis/Chronic bilirubinemia/Alcohol use d/o--cont MSAS, thiamine, folate, coreg--apprec GI consult
Hypokalemia/hypomagnesemia--replete
Active smoking with nicotine dependence--nicotine patch
DVT ppx hep SQ
Full code
Anticipated Discharge: Within 24 hours
Subjective/Interval History
-
Date of Service: November 30, 2023
pt overall feeling better
Objective Data
-
Labs:
Laboratory Results
11/30/23
06:59
WBC 5.6
Hgb 12.4 L
Hct 35.1 L
Plt Count 38 L
Sodium 129 L
Potassium 3.2 L
Chloride 102
Carbon Dioxide 22
BUN 2 L
Creatinine 0.8
Glucose 85
Calcium 8.1 L
Total Bilirubin 11.7 H
AST 137 H
ALT 55 H
Alkaline Phosphatase 199 H
Vital Signs:
max temp for 24 hours
11/29/23
23:00
Temp 98.5 F
Vital Signs
Temp Pulse Resp BP Pulse Ox
98.3 F 85 16 102/68 95
11/30/23 07:20 11/30/23 08:06 11/30/23 07:20 11/30/23 08:06 11/30/23 07:20
I&O
11/29/23 11/30/23 12/01/23
06:59 06:59 06:59
Intake Total 1560 / 1560 1745 / 1745 150 / 150
Output Total 725 / 725
Balance 1560 / 1560 1020 / 1020 150 / 150
Review of Systems
-
All other systems: Reviewed and negative
Physical Exam
-
General: Well Developed, Well Nourished and No Apparent Distress
HEENT: Normocephalic, Atraumatic and Other (jaundiced); Negative Anicteric
Respiratory: Clear to Auscultation; Negative Wheezes, Rales or Rhonchi
Cardiac: Regular Rhythm and S1/S2; Negative Murmur
GI: Soft, Nontender, Nondistended and Normal Bowel Sounds
Musculoskeletal: No Clubbing, No Cyanosis and No Edema
Skin: Warm and Jaundice
Neuro: Awake and Alert
Psych: Calm
[2023-11-30 15:10] VITALS: BP 105/70
--- NOTE | 2023-11-30 16:45 | W.PN.GI.CBS2 ---
Today's Communication / Plan
-
Tolerating diet
No further pain
Getting K and Mg repletion and probably d/c in am
F/U with GI as outpt
Again reinforced need of EtOH abstinence
Would check repeat CBC, CMP, INR in 1 week to f/u on his EtOH hepatitis
Assessment / Plan
-
48-year-old male with past medical history significant for alcohol abuse with multiple hospitalizations in the past for this, alcoholic hepatitis, recent C. difficile infection treated with oral vancomycin and Dificid, hepatic encephalopathy on
Xifaxan, questionable cirrhosis versus hepatic steatosis, GERD who presents to the emergency room with complaints of abdominal pain. We are asked to evaluate for possible liver cirrhosis and concerns for acute cholecystitis.
US- Cholelithiasis and mild GBWT. Mild dilation CBD 9mm. HSM. Hepatic steatosis
CT- Mild moderate diffuse colonic wall thickening- infxn/inflammatory or portal colopathy. HSM and hepatic steatosis. Portal HTN, recanalization umbilical vein, distal paraesophageal varices. Cholelithiasis and GB distention
HIDA- negative
MRI- Severe diffuse hepatic steatosis with mild hepatic cirrhosis without suspicious lesions. Portal HTN changes. Cholelithiasis wtihout convincing evidence for acute cholecystitis. Mild diffuse colonic wall thickening may reflect nonspecific
colitis or portal colopathy
Impression:
Abdominal pain
ETOH abuse
Cirrhosis vs hepatic steatosis
Elevated LFTs
Subjective
Subjective
Date of Service: November 30, 2023
Tolerating diet. Denies abd pain.
Objective
Data Reviewed
Laboratory Data:
Laboratory Results
11/30/23 06:59
11/30/23 06:59
Laboratory Results
PT 17.9 Sec (11.4-14.6) H 11/28/23 06:53
INR 1.47 11/28/23 06:53
Magnesium 1.2 mg/dl (1.6-2.3) L 11/30/23 06:59
Total Bilirubin 11.7 mg/dl (0.2-1.3) H 11/30/23 06:59
AST 137 U/L (17-59) H 11/30/23 06:59
ALT 55 U/L (0-50) H 11/30/23 06:59
Alkaline Phosphatase 199 U/L (38-126) H 11/30/23 06:59
Lipase 56 U/L (23-300) 11/27/23 17:06
Vital Signs and I&O:
Vital Signs
Temp Pulse Resp BP Pulse Ox
97.8 F 81 14 105/70 98
11/30/23 15:10 11/30/23 15:10 11/30/23 15:10 11/30/23 15:10 11/30/23 15:10
I&O
11/29/23 11/30/23 12/01/23
06:59 06:59 06:59
Intake Total 1560 / 1560 1745 / 1745 150 / 150
Output Total 725 / 725
Balance 1560 / 1560 1020 / 1020 150 / 150
Physical Exam
Physical Exam
GI: Soft, Non Distended and Non Tender
[2023-11-30] MEDS: COREG 6.25 MG PO (20:32)
[2023-11-30] MEDS: DESYREL 100 MG PO (20:37)
[2023-11-30] MEDS: NEURONTIN 300 MG PO (21:19)
[2023-11-30 23:23] VITALS: BP 102/68
[2023-12-01] MEDS: ZOSYN 50 IV ×2 (05:43→12:20)
[2023-12-01 07:30] VITALS: BP 90/57
[2023-12-01] MEDS: COREG PO (08:12)
[2023-12-01] MEDS: VITAMIN B1 100 MG PO (08:25)
[2023-12-01] MEDS: FOLVITE 1 MG PO (08:25)
[2023-12-01] MEDS: NEURONTIN 300 MG PO (08:26)
[2023-12-01] MEDS: PROTONIX IV 40 MG IV (08:28)
[2023-12-01] MEDS: NSS (PRESERVATIVE FREE) 10 ML IV (08:39)
[2023-12-01] MEDS: FLUSH (NSS) 1 FLUSH IV ×2 (08:40→12:21)
[2023-12-01] MEDS: NICODERM TRANSDERMAL 14 MG TRANSDERM (08:43)
[2023-12-01 09:42] LABS: Hematocrit 37.1 % (39.0-52.0); Hemoglobin 13.2 g/dL (13.0-18.0); Mean Corp Hgb Conc. 35.6 g/dL (33.0-37.0); Mean Corpuscular Hgb 35.7 pg (27.0-31.0); Mean Corpuscular Volume 100.3 fL (80.0-94.0); Mean Platelet Volume 11.8 fL (7.4-10.4); Platelet Count 46 10^3/uL (130-400); Red Cell Dist. Width 16.6 % (11.5-14.5); White Blood Cell Count 5.6 10^3/uL (4.8-10.8)
--- NOTE | 2023-12-01 10:44 | CM ---
Patient seen bedside, reports no new concerns at this time. CM will continue to follow for discharge planning needs.
Plan; home no needs.
[2023-12-01 10:52] LABS: ALT (SGPT) 55 U/L (0-50); AST (SGOT) 141 U/L (17-59); Alkaline Phosphatase 215 U/L (38-126); Blood Urea Nitrogen < 2 mg/dl (9-20); Calcium 8.2 mg/dl (8.4-10.2); Carbon Dioxide 22 mmol/L (22-30); Chloride 103 mmol/L (98-107); Estimated Creatinine Clearance 109 ml/min; Glucose 95 mg/dl (70-99); Potassium 3.9 mmol/L (3.5-5.1); Sodium 131 mmol/L (135-145); Total Bilirubin 13.4 mg/dl (0.2-1.3); Total Protein 6.2 g/dl (6.3-8.2); eGFR > 60.00
--- NOTE | 2023-12-01 11:15 | W.PN.GI.CBS2 ---
Addendum entered and electronically signed by Sony Scales MD 12/01/23 12:01:
I saw and examined the patient.
The LINING CLEANER or PA's note was reviewed and I agree with the note.
Comment: No complaints. Tolerating diet
REC:
OK for d/c
Reinforced EtOH abstinence
Recheck LFTs, CBC, INR in 1 week
F/U with Elin NICKERSON NP 12/28.
Will sign off
Original Note:
Today's Communication / Plan
-
As per Plan
Assessment / Plan
-
48-year-old male with past medical history significant for alcohol abuse with multiple hospitalizations in the past for this, alcoholic hepatitis, recent C. difficile infection treated with oral vancomycin and Dificid, hepatic encephalopathy on
Xifaxan, questionable cirrhosis versus hepatic steatosis, GERD who presents to the emergency room with complaints of abdominal pain. We are asked to evaluate for possible liver cirrhosis and concerns for acute cholecystitis.
US- Cholelithiasis and mild GBWT. Mild dilation CBD 9mm. HSM. Hepatic steatosis
CT- Mild moderate diffuse colonic wall thickening- infxn/inflammatory or portal colopathy. HSM and hepatic steatosis. Portal HTN, recanalization umbilical vein, distal paraesophageal varices. Cholelithiasis and GB distention
HIDA- negative
MRI- Severe diffuse hepatic steatosis with mild hepatic cirrhosis without suspicious lesions. Portal HTN changes. Cholelithiasis wtihout convincing evidence for acute cholecystitis. Mild diffuse colonic wall thickening may reflect nonspecific
colitis or portal colopathy
Impression:
Abdominal pain
ETOH abuse
Cirrhosis vs hepatic steatosis
Elevated LFTs
Plan:
-Follow-up in the office with KEIKO Davis on December 29, 2023 at 11:30 AM
-Would recommend CBC, CMP, INR in 1 week
-Alcohol cessation advised
-Nothing further from a GI perspective. Will be available as needed or by request. Okay to discharge from GI perspective.
Subjective
Subjective
Date of Service: December 01, 2023
Patient has no further pain. He is lying in bed with his knees crossed up in the air. States he is ready to go home. He is tolerating solid diet. Follow-up appointment has been made with him on December 29, 2023 at 11:30 AM with Elin Hurtado,
KEIKO. Patient was notified.
Objective
Data Reviewed
Laboratory Data:
Laboratory Results
12/01/23 08:45
12/01/23 08:45
Laboratory Results
PT 17.9 Sec (11.4-14.6) H 11/28/23 06:53
INR 1.47 11/28/23 06:53
Magnesium 2.0 mg/dl (1.6-2.3) 12/01/23 08:45
Total Bilirubin 13.4 mg/dl (0.2-1.3) H 12/01/23 08:45
AST 141 U/L (17-59) H 12/01/23 08:45
ALT 55 U/L (0-50) H 12/01/23 08:45
Alkaline Phosphatase 215 U/L (38-126) H 12/01/23 08:45
Lipase 56 U/L (23-300) 11/27/23 17:06
Vital Signs and I&O:
Vital Signs
Temp Pulse Resp BP Pulse Ox
98.6 F 92 17 90/57 94
12/01/23 07:30 12/01/23 07:30 12/01/23 07:30 12/01/23 08:12 12/01/23 07:30
I&O
11/30/23 12/01/23 12/02/23
06:59 06:59 06:59
Intake Total 1745 / 1745 2460 / 2460
Output Total 725 / 725 280 / 280
Balance 1020 / 1020 2180 / 2180
Physical Exam
Physical Exam
HEENT: Other (Sclera icteric)
Cardiology: Normal Sinus Rhythm
Pulmonary: Clear (Anterior)
GI: Soft, Non Distended, Non Tender and Normal Bowel Sounds
Extremities: No Edema
Neuro: Non Focal
[2023-12-01 12:21] VITALS: BP 120/80
--- NOTE | 2023-12-01 12:40 | W.PN.HOSP.TC ---
Addendum entered and electronically signed by Felicitas Yen MD 12/01/23 15:41:
total DC time 35 min
Original Note:
Today's Communication/Plan
-
DC home today
Assessment / Plan
Assessment / Plan
A/P:
# alcoholic hepatitis vs gastritis with upper Abd pain (resolved)
ruled out acute cholecystitis from HIDA scan
MRI with hepatic cirrhosis and Mild to moderate diffuse colonic wall thickening, infectious/inflammatory colitis
received zosyn x5 days, no further Abx after discharge
Pt tolerating advanced diet
Recheck LFTs, CBC, INR in 1 week with results to PCP/GI
apprec GI/surgery
counselled extensively on alcohol cessation
# Esophageal varices
# Alcoholic liver cirrhosis with acute on chronic transaminitis/Chronic bilirubinemia/Alcohol use d/o
cont MSAS, thiamine, folate, coreg
apprec GI consult
# Hypokalemia/hypomagnesemia
lytes repleted
# Active smoking with nicotine dependence
nicotine patch
DVT ppx hep SQ
Full code
DW RN
Anticipated Discharge: Today
Subjective/Interval History
-
Date of Service: December 01, 2023
Objective Data
-
Labs:
Laboratory Results
12/01/23
08:45
WBC 5.6
Hgb 13.2
Hct 37.1 L
Plt Count 46 L D
Sodium 131 L
Potassium 3.9
Chloride 103
Carbon Dioxide 22
BUN < 2 L
Creatinine 0.9
Glucose 95
Calcium 8.2 L
Total Bilirubin 13.4 H
AST 141 H
ALT 55 H
Alkaline Phosphatase 215 H
Vital Signs:
Vital Signs
Temp Pulse Resp BP Pulse Ox
36.4 C 87 18 120/80 100
12/01/23 12:21 12/01/23 12:21 12/01/23 12:21 12/01/23 12:21 12/01/23 12:21
I&O
11/30/23 12/01/23 12/02/23
06:59 06:59 06:59
Intake Total 1745 / 1745 2460 / 2460 50 / 50
Output Total 725 / 725 280 / 280
Balance 1020 / 1020 2180 / 2180 50 / 50
Review of Systems
-
All other systems: Reviewed and negative
Physical Exam
-
General: Well Developed, Well Nourished, No Apparent Distress, Comfortable and Conversant
HEENT: Normocephalic, Atraumatic and Other (jaundiced); Negative Anicteric
Respiratory: Clear to Auscultation and Non Labored Respirations; Negative Wheezes, Rales, Rhonchi or Accessory Resp Muscle Use
Cardiac: Regular Rhythm and S1/S2; Negative Murmur
GI: Soft, Nontender, Nondistended and Normal Bowel Sounds
Musculoskeletal: No Clubbing, No Cyanosis and No Edema
Skin: Warm and Jaundice
Neuro: Awake and Alert
Psych: Calm and Intact Judgement/Insight
Data Reviewed
-
CT Scan: Report Reviewed by me
Ultrasound: Report Reviewed by me
Medical Tests (Nuc Med, Echo etc): Report Reviewed by me ([facility])
Labs: Labs Reviewed by me
--- NOTE | 2023-12-01 15:17 | W.DCSUMMARY ---
Discharge Summary
Discharge Data
Date of Admission: 11/27/23
Date of Discharge: 12/01/23
-
Pending Results: No
Hospital Course
Principal Diagnosis:
Abdominal pain (resolved) due to alcoholic hepatitis versus gastritis
Hypokalemia/hypomagnesemia, resolved after repletion
Chronic Diagnoses:�
Esophageal varices
Alcoholic liver cirrhosis with acute on chronic transaminitis/Chronic bilirubinemia/Alcohol use d/o
Active smoking with nicotine dependence
Consultations:�
Gastroenterology
Procedures:�
None
Clinical course:�
This is a 48-year-old male, with past medical history as stated above, who presented with abdominal pain.
Problem 1:
Abdominal pain (resolved) due to alcoholic hepatitis versus gastritis.
Acute cholecystitis was ruled out from HIDA scan.
His MRI showed hepatic cirrhosis and mild to moderate diffuse colonic wall thickening, infectious/inflammatory colitis.
His abdominal pain resolved uneventfully.
He received Zosyn x5 days while in the hospital. No further antibiotic was continued after discharge.
He can check LFTs, CBC, INR in 1 week with results to his PCP/GI.
He has been counselled extensively with regard to alcohol cessation
As for the rest of his medical problems, they were stable during his hospital stay.
Discharge Plan
-
Patient Disposition: Home (Routine Discharge)
Discharge Diagnosis/Procedures: Alcoholic hepatitis/gastritis, esophageal varices history, hypokalemia/hypomagnesemia, active smoker
Condition: Fair
Diet: 2 Gram Sodium
Activity: As tolerated
Driving Restrictions: As prior to admission
Bathing Restrictions: None
Blood Work: CBC, CMP, INR in 1 week, result to PCP
Activity Restrictions/Additional Instructions:
Avoid drinking alcohol going forward
Referrals:
Elin Hurtado NP [Specified Professional Personl] - 12/29/23 11:30 am
UNKNOWN - PT DOES,NOT KNOW [Family Provider] - in less than 1 week
Additional Discharge Medication Instructions: no change to your medication
Prescriptions:
Continued
folic acid 1 mg tablet
1 mg PO DAILY
gabapentin 300 mg capsule
300 mg PO TID
carvedilol [Coreg] 6.25 mg tablet
6.25 mg PO BID
trazodone 50 mg tablet
100 mg PO HS
duloxetine 30 mg capsule,delayed release(DR/EC)
30 mg PO DAILY
thiamine HCl (vitamin B1) 100 mg tablet
100 mg PO DAILY
midodrine 5 mg Tablet
5 mg PO Q4HPRN PRN (Reason: SBP<100) Qty: 30 0RF
Patient Comments:
10/08/2023, pt. states that he has never had to use this med.
pantoprazole 40 mg tablet,delayed release (DR/EC)
40 mg PO DAILY Qty: 0 0RF
magnesium oxide 500 mg magnesium tablet
500 mg PO DAILY
cholestyramine-aspartame [Prevalite] 4 gram powder in packet
1 ea PO DAILY
Discharge Orders:
Discharge Patient (As Directed); Ordered 12/01/23
Ordered By: Felicitas Yen
Discharge Date and Time
Discharge Date/Time: 12/01/23 13:17
== END 2023-12-01 13:17 | disposition home or self-care (01) | DRG 433 ==
LOC: 4 WEST ACU 23:06
PROVIDERS: Physician Assistant Medical; ADMITTING PHYSICIAN Internal Medicine; ATTENDING PHYSICIAN Internal Medicine; CONSULT PHYSICIAN Specialist; CONSULT PHYSICIAN Surgery; EMERGENCY PHYSICIAN Student in an Organized Health Care Education/Training Program
DX: K70.10 Alcoholic hepatitis without ascites (principal); I85.10 Secondary esophageal varices without bleeding; K76.6 Portal hypertension; K80.00 Calculus of gallbladder with acute cholecystitis without obstruction; F10.20 Alcohol dependence, uncomplicated; I10 Essential (primary) hypertension; F17.210 Nicotine dependence, cigarettes, uncomplicated; K29.70 Gastritis, unspecified, without bleeding; E87.6 Hypokalemia; E83.42 Hypomagnesemia; K70.30 Alcoholic cirrhosis of liver without ascites
CPT/HCPCS: 74177; 74183; 76700; 78226; 80048; 80053; 80076; 82077; 82248; 83605; 83690; 83735; 85025; 85027; 85610; 86705; 86706; 86803; 87040; 87340; 96361; 96374; 96375; 99285; 99406; A9537; A9581; Q9967

== ENCOUNTER 2023-12-23 09:39 | Emergency (ER) | payer OTHER, SELFPAY ==
[2023-12-23 09:39] VITALS: BMI 22.3
[2023-12-23 09:40] VITALS: BP 123/88
[2023-12-23 09:42] VITALS: BP 123/88
--- NOTE | 2023-12-23 09:49 | ED.GENMED ---
History of Present Illness
General
Chief Complaint: Abdominal Symptoms
Source: patient
Exam Limitations: none
Time Seen by Provider: 12/23/23 09:41
Nursing documentation reviewed up to this point in time: agreed with
Travel History
Have you had any contact with someone who has COVID-19?: No
Do you have any symptoms of coronavirus? Fever > 100 degrees, chills, cough, shortness of breath, sore throat, loss of taste or smell, muscle aches, or headache?: No
History of Present Illness
History of Present Illness:
Patient presents to ED secondary to persistent abdominal pain over the past 3 days. Abdominal pain described as sharp, left-sided, nonradiating, without any alleviating or exacerbating factors. Patient does report nonbloody diarrhea which started
2 days prior to onset of his abdominal pain, and is not continuing. Patient does have history of recent C. difficile colitis associated diarrhea, which patient states is completely different than what he is experiencing now. Denies fever or
chills. Denies chest pain or shortness of breath. Denies vomiting but with nausea sensation. Denies sick contact. Patient states that his abdominal pain started shortly after eating Malay hoagie from [employer]. Patient was admitted to the
hospital 1 month ago for similar abdominal pain, during which time, patient was discharged home with diagnosis of gastritis. Patient states that his abdominal discomfort today is different than 1 month ago.
Past History
Past History
ED Past Medical History: GERD, HTN, Renal failure and Other (Alcoholism, diverticulitis)
ED Past Surgical History: Orthopedic
Social History
Tobacco: Smoker
Alcohol: Chronic alcoholic
Drug: None
Personal: Single
Living: with family
Employment: Employed
Family History
Family History: Hypertension
Review of Systems
Review of Systems
Allergies reviewed?: Yes
All Other Systems: ROS reviewed and negative except as documented in HPI and ROS
Constitutional: Reports no symptoms; Denies fever
EENT: Reports no symptoms
Respiratory: Reports no symptoms
Cardiac: Reports no symptoms
ABD/GI: Reports abdominal pain, nausea and diarrhea; Denies vomiting
: Reports no symptoms
Musculoskeletal: Reports no symptoms
Skin: Reports no symptoms
Neurological: Reports no symptoms
Phy Exam
Physical Exam
Physical Exam:
Physical Exam
General: no apparent distress, not acutely ill. afebrile
Head: nc/at. eomi. icteric sclera noted.
Neck: supple. no meningeal signs.
Heart: s1/s2 regular rate and rhythm, no murmur. equal radial pulses.
Lungs: no acute respiratory distress. clear bilaterally
Abdomen: normal bowel sounds. not tender. no distention
Neuro: alert and oriented. no focal neurological deficits
Skin: no rash. jaundiced
Psychiatric: well kept. interactive and cooperative
Extremities: no edema. no calf tenderness.
Course
Orders/Labs/Results
Orders:
Orders
12/23/23 09:49
0.9% Sodium Chloride 1000 ml [Nss] 1,000 ml IV BOLUS
Ketorolac [Toradol] 15 mg IV NOW STA
Pantoprazole [Protonix IV] 40 mg IV NOW STA
12/23/23 09:56
Basic Metabolic Panel Urgent
Complete Blood Count/With Diff Urgent
Lactic Acid Q4H
Comment: CANCEL 2nd LACTIC ACID IF 1st LACTIC ACID IS LESS THAN 2
Lipase Urgent
Magnesium Urgent
12/23/23 10:03
CR Obstruct Series W/pa Chest Urgent
Comment:
Reason For Exam: abdominal pain
12/23/23 10:41
Comprehensive Metabolic Panel Urgent
12/23/23 11:22
Potassium Chloride [KCl] 40 meq PO NOW STA
Abnormal Lab Results
12/23/23 12/23/23
09:56 10:41
RBC 3.92 L 10^6/uL
(4.70-6.10)
Hct 38.4 L %
(39.0-52.0)
MCV 98.0 H fL
(80.0-94.0)
MCH 34.7 H pg
(27.0-31.0)
RDW 15.5 H %
(11.5-14.5)
Plt Count 99 L 10^3/uL
(130-400)
MPV 10.6 H fL
(7.4-10.4)
Sodium 134 L mmol/L
(135-145)
Potassium 2.9 L mmol/L
(3.5-5.1)
Chloride 109 H mmol/L 109 H mmol/L
(98-107) (98-107)
Carbon Dioxide 18 L mmol/L 20 L mmol/L
(22-30) (22-30)
BUN 5 L mg/dl 5 L mg/dl
(9-20) (9-20)
Glucose 114 H mg/dl 103 H mg/dl
(70-99) (70-99)
Magnesium 1.4 L mg/dl
(1.6-2.3)
Total Bilirubin 7.4 H mg/dl
(0.2-1.3)
AST 87 H U/L
(17-59)
Alkaline Phosphatase 207 H U/L
(38-126)
12/23/23 09:56
12/23/23 10:41
Vital Signs
Initial and Last Documented VS:
Initial Vital Signs
BP
123/88
12/23/23 09:40
Last Documented Vital Signs
Temp Pulse Resp BP Pulse Ox
98.5 F 72 16 134/94 100
12/23/23 09:42 12/23/23 09:42 12/23/23 09:42 12/23/23 12:00 12/23/23 12:15
MDM/Problems Addressed
MDM/Problems Addressed:
Blood work reviewed and discussed with patient, including hypokalemia. Patient already is taking potassium and magnesium supplements outpatient. Patient presenting symptoms likely secondary to underlying gastritis versus ileus versus nonspecific
viral illness. Otherwise, patient is afebrile, hemodynamically stable, and nontoxic-appearing. Patient reports hunger sensation. Patient already has an appointment with a GI physician in 1 week. Patient will be advised to continue hydration at
home along with bland diet, as well as PPI.
*Critical Care Note
Total Time (30-74mins, 75-104mins- exclusive of procedures): Not Applicable
ED Attending Note
-
Portions of this chart may have been created with voice recognition software.� Occasional wrong word or��sound alike� substitutions may have occurred due to the inherent limitations of voice recognition software.
Discharge Plan
Departure
Patient Disposition: Home (Routine Discharge)
Date of Disposition: 12/23/23
Time of Disposition: 13:05
Patient with high blood pressure during this ER visit?: Yes
Condition: Good
Discharge Problem:
Acute hypokalemia, Abdominal pain
Instructions: [place] Diet, Gastritis (DC), Ulcer and Gastritis Diet, Abdominal Pain
Prescriptions:
New
ondansetron 4 mg Tablet,Disintegrating
4 mg PO TIDPRN PRN (Reason: nausea/vomiting) Qty: 12 0RF
No Action
folic acid 1 mg tablet
1 mg PO DAILY
gabapentin 300 mg capsule
300 mg PO TID
carvedilol [Coreg] 6.25 mg tablet
6.25 mg PO BID
trazodone 50 mg tablet
100 mg PO HS
duloxetine 30 mg capsule,delayed release(DR/EC)
30 mg PO DAILY
thiamine HCl (vitamin B1) 100 mg tablet
100 mg PO DAILY
midodrine 5 mg Tablet
5 mg PO Q4HPRN PRN (Reason: SBP<100) Qty: 30 0RF
Patient Comments:
10/08/2023, pt. states that he has never had to use this med.
pantoprazole 40 mg tablet,delayed release (DR/EC)
40 mg PO DAILY Qty: 0 0RF
magnesium oxide 500 mg magnesium tablet
500 mg PO DAILY
cholestyramine-aspartame [Prevalite] 4 gram powder in packet
1 ea PO DAILY
Referrals:
Jatin Caceres MD [Family Provider] -
Activity Restrictions/Additional Instructions:
As discussed, please follow-up with your GI physician next week as scheduled. Your prescription has been sent electronically to [facility] in [place].
Interventions
Interventions:
*Risk Screen - Suicide Last Done: 12/23/23 09:47
*General Assessment Last Done: 12/23/23 09:44
*Neglect/Abuse Screening Last Done: 12/23/23 09:47
ED- Fall Risk Assessment Last Done: 12/23/23 12:55
*ED COVID-19 Vaccine History Last Done: 12/23/23 09:47
*Nursing Disposition Last Done: 12/23/23 13:17
GM-Dnttnp-Mjtkjplaeu Assessment Last Done: 12/23/23 09:48
Discharge Date and Time
Discharge Date/Time: 12/23/23 13:18
Print Language: VIET[place]ESE
[2023-12-23] MEDS: NSS 1000 IV (09:59)
[2023-12-23] MEDS: TORADOL 15 MG IV (09:59)
[2023-12-23] MEDS: PROTONIX IV 40 MG IV (10:00)
[2023-12-23 10:12] LABS: % Basophils 0.9 % (0-2); % Immature Granulocytes 0.5 % (0-0.5); % Lymphocytes 22.2 % (20.5-51.1); % Monocytes 6.2 % (1.7-9.3); % Neutrophils 69.2 % (42.2-75.2); Absolute Basophils 0.1 10^3/uL (0-0.2); Absolute Eosinophils 0.1 10^3/uL (0-0.7); Absolute Monocytes 0.6 10^3/uL (0.1-0.6); Absolute Neutrophils 6.1 10^3/uL (1.4-6.5); Hematocrit 38.4 % (39.0-52.0); Hemoglobin 13.6 g/dL (13.0-18.0); Mean Corp Hgb Conc. 35.4 g/dL (33.0-37.0); Mean Corpuscular Hgb 34.7 pg (27.0-31.0); Mean Platelet Volume 10.6 fL (7.4-10.4); Nucleated Red Blood Cells % 0 % (-); Platelet Count 99 10^3/uL (130-400); Red Blood Cell Count 3.92 10^6/uL (4.70-6.10); Red Cell Dist. Width 15.5 % (11.5-14.5); White Blood Cell Count 8.8 10^3/uL (4.8-10.8)
[2023-12-23 10:25] LABS: Lactic Acid 1.3 mmol/L (0.7-2.0)
[2023-12-23 10:33] LABS: Blood Urea Nitrogen 5 mg/dl (9-20); Calcium 9.4 mg/dl (8.4-10.2); Carbon Dioxide 18 mmol/L (22-30); Chloride 109 mmol/L (98-107); Estimated Creatinine Clearance > 125 ml/min; Glucose 114 mg/dl (70-99); Lipase 26 U/L (23-300); Magnesium 1.4 mg/dl (1.6-2.3); Sodium 134 mmol/L (135-145); eGFR > 60.00
[2023-12-23 11:00] VITALS: BP 131/90
[2023-12-23 11:14] LABS: ALT (SGPT) 27 U/L (0-50); AST (SGOT) 87 U/L (17-59); Albumin 3.5 g/dl (3.5-5.0); Alkaline Phosphatase 207 U/L (38-126); Blood Urea Nitrogen 5 mg/dl (9-20); Calcium 9.3 mg/dl (8.4-10.2); Carbon Dioxide 20 mmol/L (22-30); Chloride 109 mmol/L (98-107); Estimated Creatinine Clearance 122 ml/min; Glucose 103 mg/dl (70-99); Potassium 2.9 mmol/L (3.5-5.1); Sodium 136 mmol/L (135-145); Total Bilirubin 7.4 mg/dl (0.2-1.3); Total Protein 6.9 g/dl (6.3-8.2); eGFR > 60.00
[2023-12-23] MEDS: KCL 40 MEQ PO (11:25)
[2023-12-23 12:00] VITALS: BP 134/94
== END 2023-12-23 13:18 | disposition home or self-care (01) ==
LOC: EMR 09:39
PROVIDERS: EMERGENCY PHYSICIAN Emergency Medicine; FAMILY PHYSICIAN Family Medicine
DX: E87.6 Hypokalemia (principal); R10.9 Unspecified abdominal pain; R19.7 Diarrhea, unspecified; K21.9 Gastro-esophageal reflux disease without esophagitis; I12.9 Hypertensive chronic kidney disease with stage 1 through stage 4 chronic kidney disease, or unspecified chronic kidney disease; N18.9 Chronic kidney disease, unspecified; K57.92 Diverticulitis of intestine, part unspecified, without perforation or abscess without bleeding; K74.60 Unspecified cirrhosis of liver; F41.9 Anxiety disorder, unspecified; F10.20 Alcohol dependence, uncomplicated; F17.210 Nicotine dependence, cigarettes, uncomplicated; Z91.048 Other nonmedicinal substance allergy status
CPT/HCPCS: 99284; 96374; 96375; 96361; 74022; 80048; 80053; 83605; 83690; 83735; 85025

== ENCOUNTER 2024-02-11 04:22 | Inpatient (IN) | payer OTHER, SELFPAY ==
[2024-02-10 20:53] VITALS: BP 127/100
[2024-02-10 21:29] LABS: ALT (SGPT) 50 U/L (0-50); AST (SGOT) 166 U/L (17-59); Albumin 3.8 g/dl (3.5-5.0); Alcohol 227 mg/dl; Alkaline Phosphatase 240 U/L (38-126); Blood Urea Nitrogen 8 mg/dl (9-20); Calcium 9.3 mg/dl (8.4-10.2); Carbon Dioxide 20 mmol/L (22-30); Glucose 128 mg/dl (70-99); Lipase 84 U/L (23-300); Total Bilirubin 5.7 mg/dl (0.2-1.3); Total Protein 7.4 g/dl (6.3-8.2); eGFR > 60.00
[2024-02-10 21:34] LABS: Chloride 102 mmol/L (98-107); Potassium 3.1 mmol/L (3.5-5.1); Sodium 138 mmol/L (135-145)
[2024-02-10 22:25] VITALS: BP 122/90
[2024-02-10 22:41] LABS: % Basophils 0.8 % (0-2); % Eosinophils 1.6 % (0-6); % Immature Granulocytes 0.3 % (0-0.5); % Lymphocytes 33.2 % (20.5-51.1); % Monocytes 8.1 % (1.7-9.3); Absolute Basophils 0.1 10^3/uL (0-0.2); Absolute Eosinophils 0.2 10^3/uL (0-0.7); Absolute Lymphocytes 3.2 10^3/uL (1.2-3.4); Absolute Monocytes 0.8 10^3/uL (0.1-0.6); Absolute Neutrophils 5.4 10^3/uL (1.4-6.5); Hematocrit 43.3 % (39.0-52.0); Hemoglobin 15.6 g/dL (13.0-18.0); Mean Corpuscular Hgb 34.7 pg (27.0-31.0); Mean Corpuscular Volume 96.2 fL (80.0-94.0); Mean Platelet Volume 12.4 fL (7.4-10.4); Nucleated Red Blood Cells % 0 % (-); Platelet Count 38 10^3/uL (130-400); Red Cell Dist. Width 15.5 % (11.5-14.5); White Blood Cell Count 9.7 10^3/uL (4.8-10.8)
[2024-02-10 23:00] VITALS: BP 120/72
[2024-02-11] VITALS (12 sets, daily range): BP systolic 118–146; BP diastolic 81–102; BMI 20.9; BMI 25.1
[2024-02-11] MEDS: PROTONIX IV 40 MG IV ×3 (00:15→20:44)
[2024-02-11] MEDS: NSS 1000 IV ×3 (00:18→23:01)
[2024-02-11] MEDS: ZOFRAN 4 MG IV ×4 (00:23→20:45)
--- NOTE | 2024-02-11 00:24 | ED.GENMED ---
History of Present Illness
General
Chief Complaint: Alcohol Problem
Source: patient and records
Exam Limitations: none
Time Seen by Provider: 02/10/24 23:57
Nursing documentation reviewed up to this point in time: agreed with
Travel History
Have you had any contact with someone who has COVID-19?: No
Do you have any symptoms of coronavirus? Fever > 100 degrees, chills, cough, shortness of breath, sore throat, loss of taste or smell, muscle aches, or headache?: No
History of Present Illness
History of Present Illness:
49-year male presents with abdominal pain he is a binge drinker has been drinking alcohol about a pint of whiskey daily for the past 2 to 3 weeks, submitted previously with abdominal pain told he may need his gallbladder out and told he did not, has
been in rehab previously is not sure if he is interested in it now states he has not been able to eat or drink for 2 to 3 weeks, no diarrhea has diffuse abdominal pain
Past History
Past History
ED Past Medical History: GERD, HTN, Renal failure and Other (Alcoholism, diverticulitis)
ED Past Surgical History: Orthopedic
Social History
Tobacco: Smoker
Alcohol: Chronic alcoholic
Drug: None
Personal: Single
Living: with family
Employment: Employed
Family History
Family History: Hypertension
Review of Systems
Review of Systems
All Other Systems: Not applicable
Constitutional: Denies fever or fatigue
EENT: Reports no symptoms
Respiratory: Reports no symptoms
Cardiac: Reports no symptoms
ABD/GI: Reports abdominal pain, nausea, vomiting and pain; Denies diarrhea
: Reports no symptoms
Musculoskeletal: Reports no symptoms
Neurological: Reports no symptoms
Phy Exam
Physical Exam
Physical Exam:
Physical Exam
General: 49 male appears older than stated age
Neck: Lips are dry positive jaundice
Heart: s1/s2 regular rate and rhythm, no murmur. equal radial pulses.
Lungs: no acute respiratory distress. clear bilaterally
Abdomen: Diffuse tenderness most pronounced in the epigastrium
Neuro: alert and oriented. no focal neurological deficits nontremulous
Skin: no rash
Psychiatric: Disheveled but cooperative
Extremities: no edema.
Scores
Withdrawal Assessment of Alcohol
Withdrawal Assessment Completed?: No
Course
Orders/Labs/Results
Orders:
Orders
02/10/24 20:56
IV Insert/Care/Rem.- Treatment PRN
02/10/24 21:03
Alcohol Urgent
Comprehensive Metabolic Panel Urgent
Lipase Urgent
02/10/24 22:27
Complete Blood Count/With Diff Urgent
02/11/24 00:08
0.9% Sodium Chloride 1000 ml [Nss] 1,000 ml IV BOLUS
02/11/24 00:09
CT Abd/pelvis W Iv Cont Urgent
Comment:
Reason For Exam: pain vomiting
Ondansetron Injectable [Zofran] 4 mg IV NOW STA
Pantoprazole [Protonix IV] 40 mg IV NOW STA
02/11/24 00:43
Warm Handoff Consult ONCE
Patient agreeable to Warm Hand off: Yes
Call made to [phone]: Left Message for followup
02/11/24 01:00
0.9% Sodium Chloride 1000 ml [Nss] 1,000 ml Mvi, Adult [Multivitamin] 10 ml Thiamine Injection 100 mg Magnesium Sulfate 2 grams IV 200 mls/hr
02/11/24 02:26
POTASSIUM PHOSPHATE 1mEq=0.7mM [Potassium Phosphate] 40 meq 0.9% Sodium Chloride 250 ml [Nss] 250 ml IV NOW
Abnormal Lab Results
02/10/24 02/10/24
21:03 22:27
RBC 4.50 L 10^6/uL
(4.70-6.10)
MCV 96.2 H fL
(80.0-94.0)
MCH 34.7 H pg
(27.0-31.0)
RDW 15.5 H %
(11.5-14.5)
Plt Count 38 L 10^3/uL
(130-400)
MPV 12.4 H fL
(7.4-10.4)
Absolute Monos (auto) 0.8 H 10^3/uL
(0.1-0.6)
Potassium 3.1 L mmol/L
(3.5-5.1)
Carbon Dioxide 20 L mmol/L
(22-30)
BUN 8 L mg/dl
(9-20)
Glucose 128 H mg/dl
(70-99)
Total Bilirubin 5.7 H mg/dl
(0.2-1.3)
AST 166 H U/L
(17-59)
Alkaline Phosphatase 240 H U/L
(38-126)
02/10/24 22:27
02/10/24 21:03
Vital Signs
Initial and Last Documented VS:
Initial Vital Signs
Temp Pulse Resp BP Pulse Ox
98.3 F 111 19 127/100 96
02/10/24 20:53 02/10/24 20:53 02/10/24 20:53 02/10/24 20:53 02/10/24 20:53
Last Documented Vital Signs
Temp Pulse Resp BP Pulse Ox
98.3 F 103 20 119/81 96
02/10/24 20:53 02/11/24 02:18 02/11/24 02:18 02/11/24 02:00 02/11/24 02:25
MDM/Problems Addressed
Differential Diagnosis Includes:
Gastritis pancreatitis duodenitis per viscus dehydration electrolyte abnormality
MDM/Problems Addressed:
Abdominal pain nausea vomiting
Chronic conditions affecting care:
GERD alcoholism
Acute Exacerbation and/or Progression of Chronic Illness:
GERD alcoholism
*Radiology
Radiology exam reviewed: preliminary read by ED provider
*Pulse Oximetry
Patient hypoxic: no
*Family Engagement Specialist Interpretation
Rate: normal
Interpretation: normal
Heart Rate: 78
Rhythm: sinus
*Critical Care Note
Total Time (30-74mins, 75-104mins- exclusive of procedures): Not Applicable
Data Reviewed
Review of Other/Old Records Reveals: Labs, Records and Radiology Studies
Source: patient
Update Note
Update Note:
Update labs are noted we will check CT to rule out perforation
Thiamine folate
Warm handoff has been consulted
1:30 AM patient refused warm handoff already with outpatient services CT reviewed with [facility] no perforation no obstruction does have some small bowel intussusception
2:30 AM, patient with diffuse tenderness still, concerned about him being able to keep himself hydrated believe he would benefit from rehab
ED Attending Note
-
Portions of this chart may have been created with voice recognition software.� Occasional wrong word or��sound alike� substitutions may have occurred due to the inherent limitations of voice recognition software.
Discharge Plan
Departure
Patient Disposition: Admit
Date of Disposition: 02/11/24
Time of Disposition: 02:27
Admit to: Med/Surg
Presentation/result/management discussed w/ accepting MD/DO: Hospitalist
Patient with high blood pressure during this ER visit?: Yes
Condition: Fair
Discharge Problem:
Alcohol abuse, Alcoholic polyneuropathy, Hepatitis, alcoholic, GERD (gastroesophageal reflux disease), Alcoholic liver disease, Acute alcoholic hepatitis, Acute hypokalemia, Chronic alcohol use
Prescriptions:
No Action
folic acid 1 mg tablet
1 mg PO DAILY
gabapentin 300 mg capsule
300 mg PO TID
carvedilol [Coreg] 6.25 mg tablet
6.25 mg PO BID
trazodone 50 mg tablet
100 mg PO HS
duloxetine 30 mg capsule,delayed release(DR/EC)
30 mg PO DAILY
thiamine HCl (vitamin B1) 100 mg tablet
100 mg PO DAILY
midodrine 5 mg Tablet
5 mg PO Q4HPRN PRN (Reason: SBP<100) Qty: 30 0RF
Patient Comments:
10/08/2023, pt. states that he has never had to use this med.
pantoprazole 40 mg tablet,delayed release (DR/EC)
40 mg PO DAILY Qty: 0 0RF
magnesium oxide 500 mg magnesium tablet
500 mg PO DAILY
ondansetron 4 mg Tablet,Disintegrating
4 mg PO TIDPRN PRN (Reason: nausea/vomiting) Qty: 12 0RF
Referrals:
Jatin Caceres MD [Family Provider] -
Interventions
Interventions:
*Risk Screen - Suicide Last Done: 02/10/24 20:53
*General Assessment Last Done: 02/10/24 20:53
*Neglect/Abuse Screening Last Done: 02/10/24 20:53
ED- Fall Risk Assessment Last Done: 02/10/24 23:18
*ED COVID-19 Vaccine History Last Done: 02/10/24 20:53
ED- Neurological Assessment Last Done: 02/10/24 23:18
ED-Psychological Assessment Last Done: 02/10/24 22:29
Discharge Date and Time
Print Language: SETS[place]
[2024-02-11] MEDS: MULTIVITAMIN 1015 GRAMS IV (00:45)
[2024-02-11] MEDS: MULTIVITAMIN 1015 MG IV (00:45)
[2024-02-11] MEDS: MULTIVITAMIN 1015 ML IV (00:45)
--- NOTE | 2024-02-11 03:03 | HPS.HSE ---
Family Physician
-
Family Physician: Jatin Caceres MD
Chief Complaint
-
abdominal pain
History of Present Illness
49M HX ETOH Cirrhosis liver, esophageal varix, severe ETOH use disorder, cholelithiasis , ruled out acute cholecystitis by HIDA in last admission seen at ER for evalaution iof diffuse abdominal pain
Worsening generalized abdominal pain
- drank a pint of fire ball today
- No N/V
- No diarrhea
- No fever and chills
Elevated TB but tending down
nl WCC
Medical History
Past Medical History
Past Medical History: Reports Other
Additional Past Medical History:
Esophageal varices
Alcoholic liver cirrhosis with acute on chronic transaminitis/Chronic bilirubinemia/Alcohol use d/o
Active smoking with nicotine dependence
GERD, HTN
Alcoholism, diverticulitis
Past Surgical History: Reports Orthopedic
Social History
Tobacco: Smoker
Alcohol: Chronic Alcoholic
Drug: None
Personal: Single
Living: With Family
Family History
Family History: Not pertinent
Allergies / Home Medications
Allergies reflects when Allergies were last updated in [employer].
Home Medications with original date entered in [employer]
Allergy/Medication List:
Allergies
Allergy/AdvReac Type Severity Reaction Status Date / Time
wool Allergy Rash Verified 02/10/24 20:53
Home Medications
folic acid 1 mg tablet 1 mg PO DAILY Supplement 09/23/22
gabapentin 300 mg capsule 300 mg PO TID Pain 10/08/22
carvedilol 6.25 mg tablet (Coreg) 6.25 mg PO BID Blood Pressure 02/10/23
duloxetine 30 mg capsule,delayed release 30 mg PO DAILY Mental Health/Anxiety 09/14/23
thiamine HCl (vitamin B1) 100 mg tablet 100 mg PO DAILY energy 09/14/23
trazodone 50 mg tablet 100 mg PO HS Sleep 09/14/23
midodrine 5 mg tablet 5 mg PO Q4HPRN PRN SBP<100 #30 tabs 09/23/23
pantoprazole 40 mg tablet,delayed release 40 mg PO DAILY Gastrointestinal Issue #0 tabs 09/23/23
magnesium oxide 500 mg PO DAILY Supplement 11/27/23
ondansetron 4 mg disintegrating tablet 4 mg PO TIDPRN PRN nausea/vomiting #12 tabs 12/23/23
Review of Systems
-
Constitutional: Reports No Symptoms
EENT: Reports No Symptoms
Respiratory: Reports No Symptoms
Cardiac: Reports No Symptoms
Abdomen/GI: Reports Abdominal Pain
: Reports No Symptoms
Musculoskeletal: Reports No Symptoms
Skin: Reports No Symptoms
Neurological: Reports No Symptoms
Endocrine: Reports No Symptoms
Hematologic/Lymphatic: Reports No Symptoms
Psych: Reports No Symptoms
Physical Exam
Vital Signs
Vital Signs
Temp Pulse Resp BP Pulse Ox
98.3 F 103 20 119/81 96
02/10/24 20:53 02/11/24 02:18 02/11/24 02:18 02/11/24 02:00 02/11/24 02:25
Physical Exam
General: Other ( Disheveled)
HEENT: Anicteric (Icteric sclera )
Respiratory: Clear; No Wheezes, Rales or Rhonchi
Cardiac: S1/S2, Regular Rhythm and Tachycardia
Breast: Deferred by me
GI: Soft and Tender (Diffuse tenderness especially in the epigastrium)
Rectal: Deferred by Provider
Skin: No Rash
Neuro: Awake and Alert
Psych: Other (unkempt )
Laboratory Results
-
02/10/24 22:27
02/10/24 21:03
Laboratory Results
Total Bilirubin 5.7 mg/dl (0.2-1.3) H 02/10/24 21:03
AST 166 U/L (17-59) H 02/10/24 21:03
ALT 50 U/L (0-50) 02/10/24 21:03
Alkaline Phosphatase 240 U/L (38-126) H 02/10/24 21:03
Lipase 84 U/L (23-300) 02/10/24 21:03
Data Reviewed
-
CT Scan: Report Reviewed by me
Lab Data: Labs Reviewed by me
Old Records: Reviewed
Impression/Plan
-
Reviewed VS: Afebrile borderline tachycardia Normotensive
Data
Unremarkable CBC
K 3.1
CO2 20
nl Cr eGFR > 60
TB 5.7 - was 7.4 on 12/23/23
AST 166
AKP 240
nl Lipase
ETOH 227
02/10/24 CT AP with IV contrast
GS with distended GB
No biliary dilatation
Hepatomegaly
Mildly nodular suggest cirrhosis
Abdominal varix
Last hospitalist admission: 11/27/23 - 12/01/23
Abdominal pain (resolved) due to alcoholic hepatitis versus gastritis
Hypokalemia/hypomagnesemia, resolved after repletion
ASSESSMENT & PLAN
Diffuse abdominal pain DDX: ETOH associated gastritis or hepatitis
Interval improved elevated TB and LFTs
- 11/28/23 : HIDA scan ruled out acute cholecystitis
- 11/29/23 MRI with hepatic cirrhosis and Mild to moderate diffuse colonic wall thickening, infectious/inflammatory colitis
- IVF and Clear diet - ADAT
- trend LFTs
- counselled on alcohol cessation
- GI consult
CT suggest GS with distended GB and No biliary dilatation
- 11/28/23 : HIDA scan ruled out acute cholecystitis
- Trend LFTs
Esophageal varices
ETOH c liver cirrhosis
Chronic bilirubinemia trending down
ETOH use d/o
- wait GI eval
- MSAs protocol
Hypokalemia
- s/p IV K [place]
- check Mg
Active smoking with nicotine dependence
nicotine patch
DVT Px: SQH
Code: Full
IP MS
[2024-02-11] MEDS: KCL 270 MEQ IV (03:53)
[2024-02-11] MEDS: ATIVAN 1 MG IV (04:54)
[2024-02-11 07:56] LABS: Hematocrit 34.9 % (39.0-52.0); Hemoglobin 12.6 g/dL (13.0-18.0); Mean Corp Hgb Conc. 36.1 g/dL (33.0-37.0); Mean Corpuscular Hgb 35.2 pg (27.0-31.0); Mean Corpuscular Volume 97.5 fL (80.0-94.0); Red Blood Cell Count 3.58 10^6/uL (4.70-6.10); Red Cell Dist. Width 15.5 % (11.5-14.5); White Blood Cell Count 6.3 10^3/uL (4.8-10.8)
[2024-02-11 07:59] LABS: INR 1.57; PT 18.9 Sec (11.4-14.6)
[2024-02-11 08:33] LABS: Mean Platelet Volume 11.8 fL (7.4-10.4); Platelet Count 31 10^3/uL (130-400)
[2024-02-11 08:35] LABS: ALT (SGPT) 43 U/L (0-50); AST (SGOT) 143 U/L (17-59); Alkaline Phosphatase 206 U/L (38-126); Blood Urea Nitrogen 6 mg/dl (9-20); Calcium 8.2 mg/dl (8.4-10.2); Carbon Dioxide 21 mmol/L (22-30); Chloride 106 mmol/L (98-107); Estimated Creatinine Clearance 107 ml/min; Glucose 110 mg/dl (70-99); Lipase 75 U/L (23-300); Potassium 3.5 mmol/L (3.5-5.1); Sodium 136 mmol/L (135-145); Total Bilirubin 8.2 mg/dl (0.2-1.3); Total Protein 6.2 g/dl (6.3-8.2); eGFR > 60.00
--- NOTE | 2024-02-11 08:51 | CON.GI ---
Addendum entered and electronically signed by Margo Castellon MD 02/11/24 16:40:
I saw and examined the patient.
The FRONT DESK HOST's note was reviewed and I agree with the note.
Comment: This is a 49-year-old male who has a history of alcoholism with alcohol hepatitis, alcohol cirrhosis and has evidence of gastroesophageal varices on CT but endoscopy in November 2022 did not reveal gastric or esophageal varices and showed
gastritis and duodenitis. He now presents with abdominal pain ongoing for the past 2 weeks but he is also been excessively drinking for the past couple of weeks and had nausea vomiting. No fevers or chills. he did report dark stools a couple of
days ago but none recently and his hemoglobin is stable and close to his baseline from prior admission. He does have a history of gallstones and had a prior HIDA scan which was negative for acute cholecystitis in November. He also had repeat CT this
admission which did not reveal any obvious etiology for his abdominal pain other than gallstones he did have evidence of small bowel intussusception but no bowel obstruction noted
Assessment and plan 1 epigastric pain but also complains of diffuse abdominal pain with nausea vomiting most likely etiology is alcohol gastritis he has been drinking excessive amounts of alcohol prior to admission. Continue PPI twice daily will
also add Carafate, continue Zofran as needed consider Reglan if no improvement of symptoms. Hold on endoscopy for now. He does have gallstones also some of his symptoms could be symptomatic gallstones although he did have workup for this during
his prior admission including HIDA scan which was unremarkable. Consider eventual cholecystectomy if symptoms persist
2 abnormal LFTs secondary to alcohol hepatitis with DF of 35.3 but will hold on prednisolone for now given his symptoms of nausea vomiting and possible alcohol gastritis will continue to trend his LFTs and DF.
3. Alcohol cirrhosis advised strict alcohol abstinence although he does not seem motivated to quit alcohol or to go to rehab. He has hepatosplenomegaly, thrombocytopenia and also has evidence of gastroesophageal varices on CT but prior EGD from
November 2022 did not reveal varices he is currently on carvedilol continue. Will need eventual repeat endoscopy if no bleeding can be done as outpatient he did report episode of melena few days ago which could be related to gastritis or portal
gastropathy but none since then and his hemoglobin is close to his baseline from prior admission his initial hemoglobin was slightly higher but could have been hemoconcentrated from dehydration. Will also need eventual colonoscopy for screening
which also can be done as outpatient
Numeral 4.
Original Note:
Consultation
-
Date/Time Consultation Requested: 02/11/24 @ 05:08
Date/Time Consultation Performed: 02/11/24 @ 09:15
Requesting Provider: Dr. Rodgers
Performing Provider: KEIKO Davis; Dr. Margo Castellon
Reason for Consultation: Diffuse abdominla pain , ETOH use d/o, Hyperbilirubinemia
Medical History
Chief Complaint / HPI
Chief Complaint: abdominal pain
History of Present Illness:
The patient is a 49-year-old male with a past medical history significant for alcohol abuse, liver cirrhosis, history of esophageal/gastric varices (on imaging not on EGD), portal HTN, C. difficile, hepatic encephalopathy, GERD, hypertension, who
presented to the emergency room with complaints of abdominal pain. We are being asked to evaluate for the presenting symptoms with concern for alcoholic hepatitis with known history of alcoholic liver cirrhosis. Upon review of prior records, the
patient has been seen here in the hospital numerous times for alcoholic hepatitis. He was most recently admitted in November of this year for evaluation of possible liver cirrhosis with concern for acute cholecystitis. He has historically continues
to drink despite being advised to abstain from alcohol. He did have an admission in November of last year in which he underwent EGD which did not show esophageal varices, although CT imaging did show evidence of this along with gastric varices.
During his visit in November his HIDA scan was negative and cholecystectomy was deferred at that time. He had MRI imaging showing findings consistent with cirrhosis without any suspicious lesions and changes consistent with portal hypertension. Due
to his improving LFTs and bilirubin steroids were deferred for management of his alcoholic hepatitis. At the time of discharge he was advised to follow-up in our office, but the patient did not show up to this appointment. Historically he has been
noncompliant with follow-up and continues to drink alcohol. He presents again with complaints of abdominal pain. He reports that 2 weeks ago he developed severe abdominal pain diffusely throughout his upper abdomen. He notes that he has been on a
2-week mckeon drinking at least a pint of liquor daily. He notes that prior to the onset of this pain he did eat from [employer] that had been sitting in his fridge for 3 days. He reports that the pain is intermittent and comes and goes but feels that
his abdomen has been more distended than usual since the onset. He does admit to a headache and feeling of sweats but denies any fevers or chills. He does also endorse nausea with vomiting and constantly is feeling nauseated. He notes that he has
been vomiting anywhere up to 3 times a day with no evidence of blood. He denies any bright red blood per rectum but does note that his stool has appeared somewhat black in color recently. He denies any use of blood thinners, iron supplementation,
or use of Pepto-Bismol. He also endorses about 30 pounds of weight loss although he does not quantify the timeframe of this loss. He notes that since he has been feeling unwell he has not been eating much. He otherwise denies any lower extremity
swelling, confusion, lethargy, chest pain, or shortness of breath. He denies use of NSAIDs. He denies any drug use. He continues to smoke 1 pack/day of cigarettes. He reports he is compliant with any prescribed medications. He denies any recent
travel or recent sick contacts. He has never had a colonoscopy. Prior EGD as noted below. He notes that he has attempted alcohol rehab in the past but has not been able to stay sober.
Routine labs showing WBC 6.3, hemoglobin 12.6, platelets 31,000, INR 1.57, PT 18.9, sodium 136, potassium 3.5, BUN 6, creatinine 0.8, total bilirubin 8.2, AST 143, ALT 43, alk phos 206, albumin 3.0, lipase 75. CT of the abdomen and pelvis was done
with IV contrast showing 2 focal areas of small bowel intussusception within the left mid abdomen not associated with intestinal obstruction appearance similar to prior scan, gallstones within the gallbladder which is mildly distended, and diffusely
heterogeneous attenuation pattern of the liver consistent with cirrhosis with recanalized umbilical vein and gastroesophageal varices consistent with portal hypertension. Other findings as noted below. He was placed on a clear liquid diet, started
on IV fluids, potassium supplementation, and admitted for further evaluation by GI.
Past Medical History
Past Medical History: GERD, HTN and Other ( Alcoholic liver cirrhosis, alcoholic hepatitis, alcohol abuse, history of C. difficile, hepatic encephalopathy, gastroesophageal varices (on imaging))
Past Surgical History: None
Social History
Tobacco: Smoker (1 PPD)
Alcohol: Chronic Alcoholic (1 pt of liquor daily)
Drug: None
Family History
Family History: Reviewed & Not Pertinent
Allergies / Home Medications
Allergy/AdvReac Type Severity Reaction Status Date / Time
wool Allergy Rash Verified 02/10/24 20:53
�Medication �Instructions �Recorded
folic acid 1 mg tablet 1 mg PO DAILY Supplement 09/23/22
gabapentin 300 mg capsule 300 mg PO TID Pain 10/08/22
carvedilol 6.25 mg tablet (Coreg) 6.25 mg PO BID Blood Pressure 02/10/23
duloxetine 30 mg capsule,delayed 30 mg PO DAILY Mental 09/14/23
release Health/Anxiety
thiamine HCl (vitamin B1) 100 mg 100 mg PO DAILY energy 09/14/23
tablet
trazodone 50 mg tablet 100 mg PO HS Sleep 09/14/23
midodrine 5 mg tablet 5 mg PO Q4HPRN PRN SBP<100 #30 tabs 09/23/23
pantoprazole 40 mg tablet,delayed 40 mg PO DAILY Gastrointestinal 09/23/23
release Issue #0 tabs
magnesium oxide 500 mg PO DAILY Supplement 11/27/23
ondansetron 4 mg disintegrating 4 mg PO TIDPRN PRN nausea/vomiting 12/23/23
tablet #12 tabs
Review of Systems
-
History Source: Patient
Constitutional: Reports Weight Loss
EENT: Reports No Symptoms
Respiratory: Reports No Symptoms
Cardiac: Reports No Symptoms
Abdomen/GI: Reports Abdominal Pain, Nausea, Vomiting and Black Stools
: Reports No Symptoms
Musculoskeletal: Reports No Symptoms
Skin: Reports No Symptoms
Neurological: Reports Headache
Endocrine: Reports No Symptoms
Hematologic/Lymphatic: Reports No Symptoms
Vital Signs
Temp Pulse Resp BP Pulse Ox
99.1 F 117 18 144/98 95
02/11/24 05:17 02/11/24 05:17 02/11/24 05:17 02/11/24 05:17 02/11/24 05:18
Physical Exam
Exam
General: Well Developed, Pain and Other (Appears older than stated age)
HEENT: Normocephalic, Atraumatic and Other (bilateral scleral icterus)
Respiratory: Clear
Cardiac: S1/S2 and Regular Rhythm
Breast: Deferred by me
GI: Soft, Normal Bowel Sounds, Tender (diffusely tender with guarding) and Distended (minimal distention, no appreciated ascites)
Rectal: Deferred by Provider
Musculoskeletal: No Edema
Skin: Warm, Dry and Other (jaundice)
Neuro: Awake, Alert, Oriented and Other (no asterixis)
Psych: Calm
Results
WBC 6.3 10^3/uL (4.8-10.8) 02/11/24 06:58
Hgb 12.6 g/dL (13.0-18.0) L 02/11/24 06:58
Hct 34.9 % (39.0-52.0) L 02/11/24 06:58
MCV 97.5 fL (80.0-94.0) H 02/11/24 06:58
Plt Count 31 10^3/uL (130-400) L 02/11/24 06:58
Absolute Neuts (auto) 5.4 10^3/uL (1.4-6.5) 02/10/24 22:27
PT 18.9 Sec (11.4-14.6) H 02/11/24 06:58
INR 1.57 02/11/24 06:58
Sodium 136 mmol/L (135-145) 02/11/24 06:58
Potassium 3.5 mmol/L (3.5-5.1) 02/11/24 06:58
Chloride 106 mmol/L (98-107) 02/11/24 06:58
Carbon Dioxide 21 mmol/L (22-30) L 02/11/24 06:58
BUN 6 mg/dl (9-20) L 02/11/24 06:58
Creatinine 0.8 mg/dL (0.7-1.3) 02/11/24 06:58
Calcium 8.2 mg/dl (8.4-10.2) L 02/11/24 06:58
Total Bilirubin 8.2 mg/dl (0.2-1.3) H 02/11/24 06:58
AST 143 U/L (17-59) H 02/11/24 06:58
ALT 43 U/L (0-50) 02/11/24 06:58
Alkaline Phosphatase 206 U/L (38-126) H 02/11/24 06:58
Lipase 75 U/L (23-300) 02/11/24 06:58
Diagnostic Image Results:
02/11/24 CT A/P w/IV contrast: IMPRESSION:
'1. Two focal areas of small bowel intussusception within the left mid abdomen as detailed above, not associated with intestinal obstruction. Similar appearance on prior CT.
2. Gallstones within the gallbladder, which is mildly distended. Findings are similar compared to prior CT.
3. Diffusely heterogeneous attenuation pattern of the liver, consistent with cirrhosis and possible fatty infiltration. Recanalized umbilical vein and gastroesophageal varices, consistent with portal hypertension.
4. Hepatosplenomegaly.'
11/29/23 Abd MRI: IMPRESSION: 'Severe diffuse hepatic steatosis along with mild hepatic cirrhosis without suspicious lesions identified, progressed from prior. Portal hypertension changes. Cholelithiasis without convincing evidence for acute
cholecystitis. Mild diffuse colonic wall thickening may reflect nonspecific colitis or portal colopathy change.'
11/28/23 HIDA: IMPRESSION:
'1. Patent cystic and common bile ducts. Negative for acute cholecystitis.
2. Findings as above which are consistent with hepatocellular dysfunction.'
Prior GI Procedures:
EGD: 11/21/2022 Dr. Fonseca: Normal esophagus. Erythematous mucosa in the antrum. Biopsied. Erythematous duodenopathy.
Colonoscopy: none
Assessment / Plan
-
The patient is a 49-year-old male with a past medical history significant for alcohol abuse, liver cirrhosis, history of esophageal varices, C. difficile, hepatic encephalopathy, GERD, hypertension, who presented to the emergency room with
complaints of abdominal pain. We are being asked to evaluate for alcoholic hepatitis with known history of alcoholic liver cirrhosis. The patient presents with 2 weeks of abdominal pain after drinking significant amounts of alcohol during that
timeframe. He notes that he did eat leftover stromboli that had been sitting for 3 days prior to the onset as well. CT imaging revealed no acute findings, but did again show a distended gallbladder with gallstones and findings consistent with
cirrhosis. His LFTs are elevated with a calculated discriminant function of 35.3 and MELD 3.0 score of 21. He continues to drink alcohol despite being told multiple times to abstain. He also admits to melena recently although with a stable
hemoglobin here, his platelets are severely low at 31,000. Prior imaging did show evidence of gastroesophageal varices and he is on carvedilol 6.25 mg p.o. twice daily which he reports compliance with. Prior w/u for cholecystitis in November was
unrevealing with negative HIDA scan.
Problem list:
-abdominal pain
-Alcohol abuse, with concern for alcoholic hepatitis, discriminant function 35.3
-Alcoholic liver cirrhosis, MELD 3.0 - 21
-Severe thrombocytopenia
-Coagulopathy
-Hypokalemia, improved
-melena
-CT imaging showing distended gallbladder and gallstones
Other pertinent medical hx:
-GERD
-HTN
-hx Cdiff
-neuropathy
Recommendations:
-Etiology of abdominal pain possibly secondary to biliary etiology with findings of gallstones/distended gallbladder on imaging versus alcoholic gastritis given his significant increase in alcohol use over the last 2 weeks versus other. Also concern
for alcoholic hepatitis with elevated DF.
-Reviewed with Dr. Castellon, will obtain an MRI with MRCP for further evaluation
-Trend LFTs
-With elevated discriminant function may need to consider initiation of prednisolone but will hold off and monitor labs for now
-Calculate daily MELD score
-Will continue PPI but increase to IV twice daily
-To consider EGD during this visit for varices screening along with evaluation for reported melena
-Monitor stool output, check occult stool
-Trend H/H. currently with no overt signs of bleeding
-Follow platelet count, may need to transfuse with platelets if these do not improve or if he has active signs of bleeding, but for now we will follow
-I advised him that if he continues to drink alcohol this will likely result in mortality given his diagnosis of liver cirrhosis. He will need to abstain completely going forward. I did offer him a discussion with the social work case manager which he
declined
-OK for CLD for now
-Alcohol withdrawal protocol
-PRN analgesics/anti-emetics as per hospitalist
-Avoid NSAID's/blood thinning agents
-Further plan pending above
Data Reviewed
-
CT Scan: Report Reviewed by me and Discussed with Physician
-
-
Thank you for consultation and allowing me to participate in the patient's care. Please call the chief engineer production GI physician during the after hours with any questions or concerns.
[2024-02-11] MEDS: MAGNESIUM OXIDE 500 MG PO (08:52)
[2024-02-11] MEDS: CYMBALTA DELAYED RELEASE 30 MG PO (08:52)
[2024-02-11] MEDS: FOLVITE 1 MG PO (08:52)
[2024-02-11] MEDS: COREG 6.25 MG PO ×2 (08:52→20:44)
[2024-02-11] MEDS: THIAMINE INJECTION 200 MG IV ×2 (08:53→20:45)
[2024-02-11] MEDS: HEPARIN 5000 UNITS SC (08:53)
[2024-02-11] MEDS: ATIVAN 1 MG PO ×2 (09:41→20:56)
[2024-02-11] MEDS: ROXICODONE 5 MG PO (11:11)
[2024-02-11 12:45] LABS: Magnesium 1.8 mg/dl (1.6-2.3)
--- NOTE | 2024-02-11 14:34 | CM ---
Initial assessment completed with patient who lives alone in a 2 story home with B/B on 2nd floor, no bath on 1st, 3 steps to enter, [employer] was independent, drove and worked FT. Patient has a B/P machine at home, no in-home services, no psychiatric
hospitalizations. [facility]acy is [facility] in [place] and PCP is Dr. Jatin Caceres.
Received consult request from attending for substance abuse counseling. Discussed with patient who previously received literature and guidance from other staff. Patient did not feel the need for additional services at this time. He is not feeling
well and layed in bed with eyes closed during assessment.
[2024-02-11 14:35] LABS: Hematocrit 36.3 % (39.0-52.0)
[2024-02-11] MEDS: NSS (PRESERVATIVE FREE) 10 ML IV (20:45)
[2024-02-11] MEDS: DESYREL 100 MG PO (21:53)
[2024-02-12] MEDS: ROXICODONE 5 MG PO ×5 (00:10→17:51)
[2024-02-12] MEDS: ZOFRAN 4 MG IV ×3 (04:20→17:20)
[2024-02-12 05:59] VITALS: BMI 25.5
[2024-02-12 07:02] VITALS: BP 106/73
[2024-02-12] MEDS: PROTONIX IV 40 MG IV ×2 (09:07→19:50)
[2024-02-12] MEDS: MAGNESIUM OXIDE 500 MG PO (09:07)
[2024-02-12] MEDS: NSS (PRESERVATIVE FREE) 10 ML IV ×2 (09:07→19:50)
[2024-02-12] MEDS: CYMBALTA DELAYED RELEASE 30 MG PO (09:07)
[2024-02-12] MEDS: COREG 6.25 MG PO ×2 (09:07→19:50)
[2024-02-12] MEDS: THIAMINE INJECTION 200 MG IV ×2 (09:08→19:50)
[2024-02-12] MEDS: NICODERM TRANSDERMAL 14 MG TRANSDERM (09:08)
[2024-02-12] MEDS: FOLVITE 1 MG PO (09:08)
[2024-02-12 09:17] LABS: Hematocrit 36.4 % (39.0-52.0); Hemoglobin 12.7 g/dL (13.0-18.0); Mean Corp Hgb Conc. 34.9 g/dL (33.0-37.0); Mean Corpuscular Hgb 35.3 pg (27.0-31.0); Mean Corpuscular Volume 101.1 fL (80.0-94.0); Mean Platelet Volume 12.3 fL (7.4-10.4); Red Cell Dist. Width 14.9 % (11.5-14.5); White Blood Cell Count 5.5 10^3/uL (4.8-10.8)
[2024-02-12 09:20] LABS: INR 1.66; PT 19.5 Sec (11.4-14.6); Platelet Count 24 10^3/uL (130-400)
[2024-02-12 10:23] LABS: ALT (SGPT) 36 U/L (0-50); AST (SGOT) 108 U/L (17-59); Albumin 2.9 g/dl (3.5-5.0); Alkaline Phosphatase 173 U/L (38-126); Blood Urea Nitrogen 7 mg/dl (9-20); Calcium 8.6 mg/dl (8.4-10.2); Carbon Dioxide 22 mmol/L (22-30); Chloride 104 mmol/L (98-107); Direct Bilirubin 8.7 mg/dl (0.0-0.4); Estimated Creatinine Clearance 107 ml/min; Glucose 80 mg/dl (70-99); Potassium 3.3 mmol/L (3.5-5.1); Sodium 133 mmol/L (135-145); Total Bilirubin 10.9 mg/dl (0.2-1.3); Total Protein 6.1 g/dl (6.3-8.2); eGFR > 60.00
--- NOTE | 2024-02-12 12:17 | W.PN.HOSP.TC ---
Today's Communication/Plan
-
UA
f/u hbg level
continue IV protonix
monitor for blood in stool/urine
Assessment / Plan
Assessment / Plan
1. Abdominal pain
Suspected alcoholic gastritis
-CT AP did not show any signs of ascites. Cannot be SBP
-Incidental finding of small bowel intussusception, chronic finding
-Cholelithiasis, no signs of cholecystitis. HIDA scan in November was negative for acute abnormality.
-Suspected gastritis with ongoing alcohol use. Manage medically.
-EGD in 12/05 showed normal esophagus, erythematous antral mucosa and duodenum
-GI following and help appreciated
2. Bright red blood in stool
h/o esophageal varices
-Patient reported some blood in stool today
-With history of cirrhosis no reported internal hemorrhoids
-Thrombocytopenic and may explain some minor bleed. Hemoglobin stable
3. Acute on chronic thrombocytopenia
-Platelets down to 24 K today, baseline close to 50k
-Hold subcu heparin. Not on any antiplatelet medication.
-Secondary to liver dysfunction likely
4. Alcoholic cirrhosis
Chronic hyponatremia
Coagulopathy
-MELD Na of 24, 3 month mortality risk of 19.6%
-f/u daily LFT/INR
-No signs of decompensated cirrohosis
5. R/o Hematuria
-Dark brown urine, possible bilirubinemia + hematuria
-UA check ordered
-Bladder scan and Glover catheter if any sign of retention
6. Hypokalemia
-replace PRN
7. Alcohol use disorder
-Last drink was on Friday
-Continue MSAS/Ativan
-Complaining feeling anxious although MSAS score is not significantly elevated
8. Active tobacco use
-nicotine patch
DVT Px: scd
Code: Full
Anticipated Discharge: 24 - 48 hours
Subjective/Interval History
-
Date of Service: February 12, 2024
Patient still complaining some abdominal discomfort
no nausea/vomiting
Objective Data
-
Labs:
Laboratory Results
02/12/24
08:41
WBC 5.5
Hgb 12.7 L
Hct 36.4 L
Plt Count 24 L* D
PT 19.5 H
INR 1.66
Sodium 133 L
Potassium 3.3 L
Chloride 104
Carbon Dioxide 22
BUN 7 L
Creatinine 0.8
Glucose 80
Calcium 8.6
Total Bilirubin 10.9 H
AST 108 H
ALT 36
Alkaline Phosphatase 173 H
Vital Signs:
Vital Signs
Temp Pulse Resp BP Pulse Ox
98.2 F 84 16 106/73 93
02/12/24 07:02 02/12/24 09:07 02/12/24 07:02 02/12/24 09:07 02/12/24 10:55
I&O
02/11/24 02/12/24 02/13/24
06:59 06:59 06:59
Intake Total 1560 / 1560
Output Total 600 / 600
Balance 960 / 960
Review of Systems
-
Respiratory: Reports No Symptoms
Cardiac: Reports No Symptoms
Abdomen/GI: Reports No Symptoms
Physical Exam
-
General: Comfortable and Conversant
HEENT: Other (Jaundice)
Respiratory: Clear to Auscultation
Cardiac: Regular Rhythm and S1/S2; Negative Murmur
GI: Soft, Nontender and Nondistended
Musculoskeletal: No Edema
Skin: Jaundice
Neuro: Awake, Alert, Oriented and No Motor Deficits
Psych: Calm
[2024-02-12 13:56] LABS: Urine Albumin Trace (Neg - Trace); Urine Bilirubin 3+ (Negative); Urine Character Clear (Clear); Urine Color Amber; Urine Glucose Negative (Negative); Urine Ketone Trace (Negative); Urine Leukocyte Trace (Negative); Urine Nitrite Negative (Negative); Urine Occult Blood Negative (Negative); Urine Urobilinogen 4+ (Neg - 1+)
[2024-02-12 14:30] LABS: Urine Mucus Moderate
[2024-02-12 14:31] LABS: Urine Amorphous Seen; Urine Red Blood Cell 0-2 /HPF (0-2); Urine White Cell 0-2 /HPF (0-5)
[2024-02-12 15:16] VITALS: BP 103/73
--- NOTE | 2024-02-12 15:25 | CM ---
Discharge Plan of Care: Home with no needs. Medical follow-up as outpatient.
[2024-02-12] MEDS: ROXICODONE 2.5 MG PO (15:32)
--- NOTE | 2024-02-12 16:50 | PTCARENOTE ---
Addendum entered by Katharine Schilling RN 02/12/24 17:59:
Patient ate approximately 75% of low fat dinner, stated abdominal pain is persistent but has not worsened after eating, states pain feels like 'pressure' in abdomen. Bladder scan 161 ml. PRN 5 mg roxicodone given for abdominal pain rated 8/10. MD
made aware, PRN doses of PO roxicodone increased per MD.
Original Note:
Patient voiding into urinal dark tea color. MD made aware, UA ordered per MD, sample obtained and sent to lab. Patient denies pain/trouble urinating, MD made aware of patient stating continuous abdominal pain throughout abdomen partially relieved
with PRN 5 mg roxicodone; pain decreased from 10/10 to 7/10 after administration. Diet advanced to low fat per MD.
[2024-02-12 16:58] LABS: Hematocrit 36.1 % (39.0-52.0); Hemoglobin 12.6 g/dL (13.0-18.0); Mean Corp Hgb Conc. 34.9 g/dL (33.0-37.0); Mean Corpuscular Hgb 35.4 pg (27.0-31.0); Mean Corpuscular Volume 101.4 fL (80.0-94.0); Mean Platelet Volume 12.8 fL (7.4-10.4); Red Blood Cell Count 3.56 10^6/uL (4.70-6.10); Red Cell Dist. Width 14.6 % (11.5-14.5); White Blood Cell Count 5.5 10^3/uL (4.8-10.8)
[2024-02-12 17:01] LABS: Platelet Count 24 10^3/uL (130-400)
--- NOTE | 2024-02-12 19:55 | W.PN.GI.CBS2 ---
Today's Communication / Plan
-
Start prednisolone 40 mg daily
add carafate
Assessment / Plan
-
The patient is a 49-year-old male with a past medical history significant for alcohol abuse, liver cirrhosis, history of esophageal varices, C. difficile, hepatic encephalopathy, GERD, hypertension, who presented to the emergency room with
complaints of abdominal pain. We are being asked to evaluate for alcoholic hepatitis with known history of alcoholic liver cirrhosis. The patient presents with 2 weeks of abdominal pain after drinking significant amounts of alcohol during that
timeframe. He notes that he did eat leftover stromboli that had been sitting for 3 days prior to the onset as well. CT imaging revealed no acute findings, but did again show a distended gallbladder with gallstones and findings consistent with
cirrhosis. His LFTs are elevated with a calculated discriminant function of 35.3 and MELD 3.0 score of 21. He continues to drink alcohol despite being told multiple times to abstain. He also admits to melena recently although with a stable
hemoglobin here, his platelets are severely low at 31,000. Prior imaging did show evidence of gastroesophageal varices and he is on carvedilol 6.25 mg p.o. twice daily which he reports compliance with. Prior w/u for cholecystitis in November was
unrevealing with negative HIDA scan.
Problem list:
-abdominal pain
-Alcohol abuse, with concern for alcoholic hepatitis, discriminant function 35.3
-Alcoholic liver cirrhosis, MELD 3.0 - 21
-Severe thrombocytopenia
-Coagulopathy
-Hypokalemia, improved
-melena
-CT imaging showing distended gallbladder and gallstones
Other pertinent medical hx:
-GERD
-HTN
-hx Cdiff
-neuropathy
Recommendations:
1. abdominal pain with nausea vomiting most likely etiology is alcohol gastritis he has been drinking excessive amounts of alcohol prior to admission. Continue PPI twice daily add Carafate, continue Zofran as needed consider Reglan if no
improvement of symptoms. Hold on endoscopy for now. He does have gallstones also some of his symptoms could be symptomatic gallstones although he did have workup for this during his prior admission including HIDA scan which was unremarkable.
Consider eventual cholecystectomy if symptoms persist
2. abnormal LFTs secondary to alcohol hepatitis with increased DF of 45 today will start prednisolone 40 mg daily and calculate Lille score day 7 to assess response
3. Alcohol cirrhosis advised strict alcohol abstinence although he does not seem motivated to quit alcohol or to go to rehab. He has hepatosplenomegaly, severe thrombocytopenia and also has evidence of gastroesophageal varices on CT but prior EGD
from November 2022 did not reveal varices he is currently on carvedilol continue. Will need eventual repeat endoscopy if no bleeding can be done as outpatient he did report episode of melena few days ago which could be related to gastritis or portal
gastropathy but none since then and his hemoglobin is close to his baseline from prior admission his initial hemoglobin was slightly higher but could have been hemoconcentrated from dehydration. Will also need eventual colonoscopy for screening
which also can be done as outpatient
Subjective
Subjective
Date of Service: February 12, 2024
Still with abdominal pain but improved, no melena or rectal bleeding was reported, hemoglobin remained stable at 12.6
Objective
Data Reviewed
Laboratory Data:
Laboratory Results
02/12/24 16:52
02/12/24 08:41
Laboratory Results
PT 19.5 Sec (11.4-14.6) H 02/12/24 08:41
INR 1.66 02/12/24 08:41
Magnesium 1.8 mg/dl (1.6-2.3) 02/11/24 06:58
Total Bilirubin 10.9 mg/dl (0.2-1.3) H 02/12/24 08:41
AST 108 U/L (17-59) H 02/12/24 08:41
ALT 36 U/L (0-50) 02/12/24 08:41
Alkaline Phosphatase 173 U/L (38-126) H 02/12/24 08:41
Lipase 75 U/L (23-300) 02/11/24 06:58
Vital Signs and I&O:
Vital Signs
Temp Pulse Resp BP Pulse Ox
98.2 F 67 16 108/72 96
02/12/24 15:16 02/12/24 19:50 02/12/24 15:16 02/12/24 19:50 02/12/24 15:16
I&O
02/11/24 02/12/24 02/13/24
06:59 06:59 06:59
Intake Total 1560 / 1560 900 / 900
Output Total 600 / 600 350 / 350
Balance 960 / 960 550 / 550
Physical Exam
Physical Exam
HEENT: Other (icteric)
Cardiology: Normal Sinus Rhythm
GI: Soft, Non Distended and Tender (epigastric tenderness)
[2024-02-12] MEDS: PRELONE 40 MG PO (20:52)
[2024-02-12] MEDS: NEURONTIN 300 MG PO (21:06)
[2024-02-12] MEDS: CARAFATE SUSPENSION 1 GM PO (22:01)
[2024-02-12] MEDS: ROXICODONE 10 MG PO (22:01)
[2024-02-12] MEDS: DESYREL 100 MG PO (22:01)
[2024-02-12 22:51] VITALS: BP 109/70
[2024-02-13] MEDS: ZOFRAN 4 MG IV ×3 (04:30→16:40)
[2024-02-13] MEDS: ROXICODONE 10 MG PO ×2 (04:30→10:25)
[2024-02-13 05:23] VITALS: BMI 25.9
--- NOTE | 2024-02-13 06:27 | W.PN.GI.CBS2 ---
Today's Communication / Plan
-
Please see assessment and plan for details.
Assessment / Plan
-
1. Abdominal pain: with nausea vomiting most likely etiology is alcohol gastritis he has been drinking excessive amounts of alcohol prior to admission. Continue PPI twice daily and Carafate, discussed minimizing narcotics. There was report of
black stool, though hemoglobin is remained stable, no further signs of bleeding now.
2. Alcoholic liver disease: With underlying cirrhosis and likely acute alcoholic hepatitis, with significantly elevated discriminant function, now on prednisolone, with probable portal hypertension and possible varices on imaging though none on EGD
from 2022, with thrombocytopenia which is likely multifactorial including direct alcohol effects. At this point will await morning labs, will calculate Beronica score at day 7, continue prednisolone for now. Plan eventual outpatient EGD to evaluate
for varices and possible colonoscopy, though again we will plan as outpatient.
Subjective
Subjective
Date of Service: February 13, 2024
Patient still complaining of pain, but no vomiting, melena, fevers or chills.
Objective
Data Reviewed
Laboratory Data:
Laboratory Results
PT 19.5 Sec (11.4-14.6) H 02/12/24 08:41
INR 1.66 02/12/24 08:41
Magnesium 1.8 mg/dl (1.6-2.3) 02/11/24 06:58
Total Bilirubin 10.9 mg/dl (0.2-1.3) H 02/12/24 08:41
AST 108 U/L (17-59) H 02/12/24 08:41
ALT 36 U/L (0-50) 02/12/24 08:41
Alkaline Phosphatase 173 U/L (38-126) H 02/12/24 08:41
Lipase 75 U/L (23-300) 02/11/24 06:58
Vital Signs and I&O:
Vital Signs
Temp Pulse Resp BP Pulse Ox
98.6 F 63 16 109/70 97
02/12/24 22:51 02/12/24 22:51 02/12/24 22:51 02/12/24 22:51 02/12/24 22:51
I&O
02/11/24 02/12/24 02/13/24
06:59 06:59 06:59
Intake Total 1560 / 1560 900 / 900
Output Total 600 / 600 350 / 350
Balance 960 / 960 550 / 550
Physical Exam
Physical Exam
General: NAD
Abdomen: normal bowel sounds, soft, no tenderness, no masses or bruits, no ascites
[2024-02-13 06:28] LABS: Hematocrit 35.7 % (39.0-52.0); Hemoglobin 12.7 g/dL (13.0-18.0); Mean Corp Hgb Conc. 35.6 g/dL (33.0-37.0); Mean Corpuscular Hgb 35.3 pg (27.0-31.0); Mean Corpuscular Volume 99.2 fL (80.0-94.0); Mean Platelet Volume 12.9 fL (7.4-10.4); Red Cell Dist. Width 14.7 % (11.5-14.5); White Blood Cell Count 3.8 10^3/uL (4.8-10.8)
[2024-02-13 06:38] LABS: Platelet Count 30 10^3/uL (130-400)
[2024-02-13 06:55] LABS: ALT (SGPT) 36 U/L (0-50); AST (SGOT) 104 U/L (17-59); Albumin 3.1 g/dl (3.5-5.0); Alkaline Phosphatase 161 U/L (38-126); Blood Urea Nitrogen 6 mg/dl (9-20); Calcium 9.1 mg/dl (8.4-10.2); Carbon Dioxide 20 mmol/L (22-30); Chloride 100 mmol/L (98-107); Estimated Creatinine Clearance 122 ml/min; Glucose 164 mg/dl (70-99); Potassium 3.8 mmol/L (3.5-5.1); Sodium 130 mmol/L (135-145); Total Bilirubin 11.9 mg/dl (0.2-1.3); Total Protein 6.4 g/dl (6.3-8.2); eGFR > 60.00
[2024-02-13 07:00] VITALS: BP 116/75
[2024-02-13] MEDS: CARAFATE SUSPENSION 1 GM PO ×4 (10:01→22:23)
[2024-02-13] MEDS: COREG 6.25 MG PO ×2 (10:02→20:40)
[2024-02-13] MEDS: FOLVITE 1 MG PO (10:02)
[2024-02-13] MEDS: CYMBALTA DELAYED RELEASE 30 MG PO (10:02)
[2024-02-13] MEDS: NEURONTIN 300 MG PO ×3 (10:02→22:24)
[2024-02-13] MEDS: NICODERM TRANSDERMAL 14 MG TRANSDERM (10:03)
[2024-02-13] MEDS: MAGNESIUM OXIDE 500 MG PO (10:03)
[2024-02-13] MEDS: PRELONE 40 MG PO (10:03)
[2024-02-13] MEDS: THIAMINE INJECTION 200 MG IV ×2 (10:04→20:40)
[2024-02-13] MEDS: NSS (PRESERVATIVE FREE) 10 ML IV ×2 (10:05→20:40)
[2024-02-13] MEDS: PROTONIX IV 40 MG IV ×2 (10:05→20:40)
[2024-02-13] MEDS: NICODERM TRANSDERMAL 21 MG TRANSDERM (12:11)
--- NOTE | 2024-02-13 12:12 | W.PN.HOSP.TC ---
Today's Communication/Plan
-
continue on prednisolone
f/u LFT
Assessment / Plan
Assessment / Plan
1. Abdominal pain
Suspected alcoholic gastritis
-CT AP did not show any signs of ascites. Cannot be SBP
-Incidental finding of small bowel intussusception, chronic finding
-Cholelithiasis, no signs of cholecystitis. HIDA scan in November was negative for acute abnormality.
-Suspected gastritis with ongoing alcohol use. Manage medically.
-EGD in 12/05 showed normal esophagus, erythematous antral mucosa and duodenum
-GI following and help appreciated
2. Bright red blood in stool
h/o esophageal varices
-Patient reported some blood in stool today
-With history of cirrhosis no reported internal hemorrhoids
-Thrombocytopenic and may explain some minor bleed. Hemoglobin stable
3. Acute on chronic thrombocytopenia
-Platelets down to 24 K today, baseline close to 50k
-Hold subcu heparin. Not on any antiplatelet medication.
-Secondary to liver dysfunction likely
4. Alcoholic cirrhosis -decompensated
Chronic hyponatremia
Coagulopathy
-MELD Na of 24, 3 month mortality risk of 19.6%
-Bilirubin up trending. Sodium downtrending
-Patient was started on prednisolone for liver decompensation
5. Bilirubinuria
-Dark brown urine, possible bilirubinemia
-UA showing bilirubin 3+ urobilinogen 4+. No blood.
-Bladder scan and Glover catheter if any sign of retention
6. Hypokalemia
-replace PRN
7. Alcohol use disorder
-Last drink was on Friday
-Continue MSAS/Ativan
-Complaining feeling anxious although MSAS score is not significantly elevated
8. Active tobacco use
-nicotine patch
DVT Px: scd
Code: Full
Anticipated Discharge: 24 - 48 hours
Subjective/Interval History
-
Date of Service: February 13, 2024
Denies of having issues overnight except some nausea no vomiting
Not complaining of any abdominal pain
Objective Data
-
Labs:
Laboratory Results
02/13/24
05:38
WBC 3.8 L
Hgb 12.7 L
Hct 35.7 L
Plt Count 30 L D
Sodium 130 L
Potassium 3.8
Chloride 100
Carbon Dioxide 20 L
BUN 6 L
Creatinine 0.7
Glucose 164 H
Calcium 9.1
Total Bilirubin 11.9 H
AST 104 H
ALT 36
Alkaline Phosphatase 161 H
Vital Signs:
Vital Signs
Temp Pulse Resp BP Pulse Ox
98.1 F 63 18 116/75 97
02/13/24 07:00 02/13/24 10:02 02/13/24 07:00 02/13/24 10:02 02/13/24 07:00
I&O
02/12/24 02/13/24 02/14/24
06:59 06:59 06:59
Intake Total 1560 / 1560 1380 / 1380
Output Total 600 / 600 350 / 350
Balance 960 / 960 1030 / 1030
Review of Systems
-
Respiratory: Reports No Symptoms
Cardiac: Reports No Symptoms
Abdomen/GI: Denies Abdominal Pain or Nausea
Physical Exam
-
General: Comfortable and Conversant
HEENT: Other (Jaundice)
Respiratory: Clear to Auscultation
Cardiac: Regular Rhythm and S1/S2; Negative Murmur
GI: Soft, Nontender and Nondistended
Musculoskeletal: No Edema
Skin: Jaundice
Neuro: Awake, Alert, Oriented and No Motor Deficits
Psych: Calm
[2024-02-13 15:00] VITALS: BP 123/79
--- NOTE | 2024-02-13 15:43 | CM ---
Steroids, following LFT's. Discharge Plan of Care: Home with no needs and follow-up as outpatient.
[2024-02-13 20:38] VITALS: BP 121/79
[2024-02-13] MEDS: DESYREL 100 MG PO (22:23)
[2024-02-13 23:10] VITALS: BP 117/69
[2024-02-14 05:23] VITALS: BMI 25.6
[2024-02-14 06:43] LABS: Hematocrit 33.1 % (39.0-52.0); Hemoglobin 11.9 g/dL (13.0-18.0); Mean Corpuscular Hgb 35.4 pg (27.0-31.0); Mean Corpuscular Volume 98.5 fL (80.0-94.0); Mean Platelet Volume 12.7 fL (7.4-10.4); Platelet Count 34 10^3/uL (130-400); Red Blood Cell Count 3.36 10^6/uL (4.70-6.10); Red Cell Dist. Width 15.4 % (11.5-14.5); White Blood Cell Count 6.9 10^3/uL (4.8-10.8)
[2024-02-14 07:00] VITALS: BP 102/64
[2024-02-14 07:18] LABS: ALT (SGPT) 43 U/L (0-50); AST (SGOT) 140 U/L (17-59); Alkaline Phosphatase 143 U/L (38-126); Blood Urea Nitrogen 6 mg/dl (9-20); Calcium 9.2 mg/dl (8.4-10.2); Carbon Dioxide 22 mmol/L (22-30); Chloride 104 mmol/L (98-107); Estimated Creatinine Clearance 122 ml/min; Glucose 121 mg/dl (70-99); Potassium 3.6 mmol/L (3.5-5.1); Sodium 133 mmol/L (135-145); Total Bilirubin 9.4 mg/dl (0.2-1.3); Total Protein 6.2 g/dl (6.3-8.2); eGFR > 60.00
--- NOTE | 2024-02-14 08:11 | W.PN.GI.CBS2 ---
Today's Communication / Plan
-
See assessment and plan for details.
Assessment / Plan
-
1. Abdominal pain: with nausea vomiting most likely etiology is alcohol gastritis he has been drinking excessive amounts of alcohol prior to admission, overall improved, tolerating diet. Continue PPI twice daily and Carafate, discussed minimizing
narcotics. There was report of black stool, though hemoglobin is remained stable, no further signs of bleeding now.
2. Alcoholic liver disease: With underlying cirrhosis and likely acute alcoholic hepatitis, with significantly elevated discriminant function, now on prednisolone day #3, with probable portal hypertension and possible varices on imaging though none
on EGD from 2022, with thrombocytopenia which is likely multifactorial including direct alcohol effects. Labs continue to improve, with improved platelets and decreased LFTs. Plan eventual outpatient EGD to evaluate for varices and possible
colonoscopy, though again we will plan as outpatient.
Subjective
Subjective
Date of Service: February 14, 2024
Patient feeling okay, less abdominal pain, some significant diarrhea yesterday, the light moore, no signs of bleeding, no fever or chills.
Objective
Data Reviewed
Laboratory Data:
Laboratory Results
02/14/24 05:56
02/14/24 05:56
Laboratory Results
PT 19.5 Sec (11.4-14.6) H 02/12/24 08:41
INR 1.66 02/12/24 08:41
Magnesium 1.8 mg/dl (1.6-2.3) 02/11/24 06:58
Total Bilirubin 9.4 mg/dl (0.2-1.3) H 02/14/24 05:56
AST 140 U/L (17-59) H 02/14/24 05:56
ALT 43 U/L (0-50) 02/14/24 05:56
Alkaline Phosphatase 143 U/L (38-126) H 02/14/24 05:56
Lipase 75 U/L (23-300) 02/11/24 06:58
Vital Signs and I&O:
Vital Signs
Temp Pulse Resp BP Pulse Ox
98.3 F 68 16 102/64 95
02/14/24 07:00 02/14/24 07:00 02/14/24 07:00 02/14/24 07:00 02/14/24 07:00
I&O
02/13/24 02/14/24 02/15/24
06:59 06:59 06:59
Intake Total 1380 / 1380 1560 / 1560
Output Total 350 / 350 1250 / 1250
Balance 1030 / 1030 310 / 310
Physical Exam
Physical Exam
General: NAD
Abdomen: normal bowel sounds, soft, no tenderness, no masses or bruits, no ascites
[2024-02-14] MEDS: NICODERM TRANSDERMAL 21 MG TRANSDERM (08:38)
[2024-02-14] MEDS: NEURONTIN 300 MG PO ×3 (08:38→22:41)
[2024-02-14] MEDS: CYMBALTA DELAYED RELEASE 30 MG PO (08:38)
[2024-02-14] MEDS: MAGNESIUM OXIDE 500 MG PO (08:38)
[2024-02-14] MEDS: VITAMIN B1 100 MG PO ×2 (08:38→20:20)
[2024-02-14] MEDS: COREG 6.25 MG PO ×2 (08:38→20:17)
[2024-02-14] MEDS: NSS (PRESERVATIVE FREE) 10 ML IV ×2 (08:39→20:20)
[2024-02-14] MEDS: CARAFATE SUSPENSION 1 GM PO ×3 (08:39→22:40)
[2024-02-14] MEDS: FOLVITE 1 MG PO (08:39)
[2024-02-14] MEDS: PRELONE 40 MG PO (08:39)
[2024-02-14] MEDS: PROTONIX IV 40 MG IV ×2 (08:39→20:21)
[2024-02-14] MEDS: ZOFRAN 4 MG IV ×2 (08:43→17:37)
[2024-02-14] MEDS: ROXICODONE 5 MG PO ×2 (08:43→23:51)
[2024-02-14 10:45] LABS: Lipase 52 U/L (23-300)
[2024-02-14] MEDS: CARAFATE SUSPENSION PO (12:11)
--- NOTE | 2024-02-14 12:31 | W.PN.HOSP.TC ---
Today's Communication/Plan
-
f/u cdiff
stop mag oxide
continue steroids
d/c in 24-48 hrs
Assessment / Plan
Assessment / Plan
1. Abdominal pain
Suspected alcoholic gastritis
-CT AP did not show any signs of ascites. Cannot be SBP
-Incidental finding of small bowel intussusception, chronic finding
-Cholelithiasis, no signs of cholecystitis. HIDA scan in November was negative for acute abnormality.
-Suspected gastritis with ongoing alcohol use. Manage medically.
-EGD in 12/05 showed normal esophagus, erythematous antral mucosa and duodenum
-GI following and help appreciated
2. Bright red blood in stool
h/o esophageal varices
-Patient reported some blood in stool day 2
-With history of cirrhosis no reported internal hemorrhoids
-Thrombocytopenic and may explain some minor bleed. Hemoglobin stable
-No further episode
3. Acute on chronic thrombocytopenia
-Platelets slowly improving. baseline close to 50k
-Hold subcu heparin. Not on any antiplatelet medication.
-Secondary to liver dysfunction likely
4. Alcoholic cirrhosis -decompensated
Chronic hyponatremia
Coagulopathy
-MELD Na of 24, 3 month mortality risk of 19.6%
-Bilirubin up trending. Sodium downtrending
-Patient was started on prednisolone for liver decompensation
5. Bilirubinuria
-Dark brown urine with bilirubinuria
-UA showing bilirubin 3+ urobilinogen 4+. No blood.
-Bladder scan and Glover catheter if any sign of retention
6. Hypokalemia
-replace PRN
7. Alcohol use disorder
-Last drink was on Friday
-stop MSAS/Ativan, out of withdrawal window.
8. Active tobacco use
-nicotine patch
9. Acute diarrhea
-stop mag oxide pills
-GI ordered cdiff check
DVT Px: scd
Code: Full
Anticipated Discharge: 24 - 48 hours
Subjective/Interval History
-
Date of Service: February 14, 2024
Complaining of some abdominal pain
Having some loose stools, 3 episodes today
Denies any blood in stool
Objective Data
-
Labs:
Laboratory Results
02/14/24
05:56
WBC 6.9
Hgb 11.9 L
Hct 33.1 L
Plt Count 34 L
Sodium 133 L
Potassium 3.6
Chloride 104
Carbon Dioxide 22
BUN 6 L
Creatinine 0.7
Glucose 121 H
Calcium 9.2
Total Bilirubin 9.4 H
AST 140 H
ALT 43
Alkaline Phosphatase 143 H
Vital Signs:
Vital Signs
Temp Pulse Resp BP Pulse Ox
98.3 F 68 16 102/64 95
02/14/24 07:00 02/14/24 07:00 02/14/24 07:00 02/14/24 07:00 02/14/24 10:05
I&O
02/13/24 02/14/24 02/15/24
06:59 06:59 06:59
Intake Total 1380 / 1380 1560 / 1560
Output Total 350 / 350 1250 / 1250
Balance 1030 / 1030 310 / 310
Review of Systems
-
Respiratory: Reports No Symptoms
Cardiac: Reports No Symptoms
Abdomen/GI: Reports Abdominal Pain and Diarrhea
Physical Exam
-
General: Comfortable and Conversant
HEENT: Other (Jaundice)
GI: Soft, Nondistended and Tender
Musculoskeletal: No Edema
Skin: Jaundice
Neuro: Awake, Alert, Oriented and No Motor Deficits
Psych: Calm
[2024-02-14 15:05] VITALS: BP 105/69
[2024-02-14] MEDS: FIRVANQ 125 MG PO ×2 (17:36→23:51)
[2024-02-14] MEDS: DESYREL 100 MG PO (22:41)
[2024-02-14 22:51] VITALS: BP 113/72
[2024-02-15 06:00] VITALS: BMI 26.2
[2024-02-15] MEDS: FIRVANQ 125 MG PO ×4 (06:10→23:00)
[2024-02-15 07:08] LABS: Hematocrit 36.7 % (39.0-52.0); Hemoglobin 12.9 g/dL (13.0-18.0); Mean Corp Hgb Conc. 35.1 g/dL (33.0-37.0); Mean Corpuscular Hgb 35.8 pg (27.0-31.0); Mean Corpuscular Volume 101.9 fL (80.0-94.0); Mean Platelet Volume 12.5 fL (7.4-10.4); Platelet Count 35 10^3/uL (130-400); Red Cell Dist. Width 16.1 % (11.5-14.5); White Blood Cell Count 5.8 10^3/uL (4.8-10.8)
[2024-02-15 07:28] LABS: ALT (SGPT) 61 U/L (0-50); AST (SGOT) 148 U/L (17-59); Albumin 3.2 g/dl (3.5-5.0); Alkaline Phosphatase 167 U/L (38-126); Blood Urea Nitrogen 8 mg/dl (9-20); Calcium 9.1 mg/dl (8.4-10.2); Carbon Dioxide 27 mmol/L (22-30); Chloride 101 mmol/L (98-107); Estimated Creatinine Clearance 107 ml/min; Glucose 110 mg/dl (70-99); Potassium 3.7 mmol/L (3.5-5.1); Sodium 135 mmol/L (135-145); Total Protein 6.4 g/dl (6.3-8.2); eGFR > 60.00
[2024-02-15 07:29] VITALS: BP 112/71
[2024-02-15] MEDS: VITAMIN B1 100 MG PO ×2 (08:06→19:58)
[2024-02-15] MEDS: NSS (PRESERVATIVE FREE) 10 ML IV ×2 (08:06→19:58)
[2024-02-15] MEDS: PROTONIX IV 40 MG IV ×2 (08:06→19:58)
[2024-02-15] MEDS: PRELONE 40 MG PO (08:06)
[2024-02-15] MEDS: NEURONTIN 300 MG PO ×3 (08:06→21:48)
[2024-02-15] MEDS: ROXICODONE 5 MG PO ×3 (08:07→21:48)
[2024-02-15] MEDS: CYMBALTA DELAYED RELEASE 30 MG PO (08:07)
[2024-02-15] MEDS: COREG 6.25 MG PO ×2 (08:07→19:58)
[2024-02-15] MEDS: FOLVITE 1 MG PO (08:07)
[2024-02-15] MEDS: ZOFRAN 4 MG IV ×2 (08:08→17:09)
[2024-02-15] MEDS: NICODERM TRANSDERMAL 21 MG TRANSDERM (08:08)
[2024-02-15] MEDS: CARAFATE SUSPENSION 1 GM PO ×4 (08:09→21:48)
[2024-02-15] MEDS: COMPAZINE 5 MG IV (13:14)
[2024-02-15] MEDS: VISBIOME 2 CAP PO (13:14)
[2024-02-15] MEDS: ROXICODONE 10 MG PO (13:14)
--- NOTE | 2024-02-15 13:31 | W.PN.GI.CBS2 ---
Today's Communication / Plan
-
stop prednisolone, vanco for CDI
Assessment / Plan
-
1. Abdominal pain: with nausea vomiting most likely etiology is alcohol gastritis he has been drinking excessive amounts of alcohol prior to admission, overall improved, tolerating diet. Continue PPI twice daily and Carafate, discussed minimizing
narcotics. There was report of black stool, though hemoglobin is remained stable, no further signs of bleeding now. Could also be related to CDI.
2. Alcoholic liver disease: With underlying cirrhosis and likely acute alcoholic hepatitis, with significantly elevated discriminant function, yesterday was prednisolone day #3, with probable portal hypertension and possible varices on imaging
though none on EGD from 2022, with thrombocytopenia which is likely multifactorial including direct alcohol effects. Labs continue to improve, with improved platelets and decreased LFTs. Plan eventual outpatient EGD to evaluate for varices and
possible colonoscopy. Now with CDI prednisolone stopped.
3. C diff - Started on vancomycin, primary team consulted ID.
I d/w hospitalist Dr. Palacios.
Subjective
Subjective
Date of Service: February 15, 2024
still with abd pain, 4 loose BM today.
Found to have CDI and started on vanco last pm
Objective
Data Reviewed
Laboratory Data:
Laboratory Results
02/15/24 06:19
02/15/24 06:19
Laboratory Results
PT 19.5 Sec (11.4-14.6) H 02/12/24 08:41
INR 1.66 02/12/24 08:41
Magnesium 1.8 mg/dl (1.6-2.3) 02/11/24 06:58
Total Bilirubin 9.0 mg/dl (0.2-1.3) H 02/15/24 06:19
AST 148 U/L (17-59) H 02/15/24 06:19
ALT 61 U/L (0-50) H 02/15/24 06:19
Alkaline Phosphatase 167 U/L (38-126) H 02/15/24 06:19
Lipase 52 U/L (23-300) 02/14/24 05:56
Vital Signs and I&O:
Vital Signs
Temp Pulse Resp BP Pulse Ox
98.3 F 85 16 112/71 100
02/15/24 07:29 02/15/24 08:07 02/15/24 07:29 02/15/24 08:07 02/15/24 11:00
I&O
02/14/24 02/15/24 02/16/24
06:59 06:59 06:59
Intake Total 1560 / 1560 1740 / 1740
Output Total 1250 / 1250 200 / 200
Balance 310 / 310 1540 / 1540
Physical Exam
Physical Exam
GI: Non Distended and Non Tender
--- NOTE | 2024-02-15 13:55 | CON.ID ---
Consultation
-
Date/Time Consultation Requested: 02/15/2024 08:24
Date/Time Consultation Performed: 02/15/2024 1336
Requesting Provider: Dr. Palacios
Performing Provider: Dr. Montero
Reason for Consultation: C. difficile
Chief Complaint / Past History
History of Present Illness
Bryson Kelsey is a 49-year-old man being evaluated at the request of Dr. Palacios in regards to C. difficile. History is obtained from chart review, along with patient interview.
The patient presents to [facility] on 02/10/2024 with noted abdominal discomfort. He has a history of alcoholic binge drinking, and has been reportedly drinking approximately 1 pint of whiskey daily for the past 2 to 3 weeks. He presents
following the development of abdominal pain which has been ongoing for the prior 2 weeks. He admits to nausea and vomiting. No history of fevers or chills. Since admission he has been evaluated by GI, and diagnosed with alcoholic cirrhosis. He
has been noted to have some blood in the stool.
Patient reports that he was having diarrhea approximately 3-4 times a day for at least 4 days prior to admission. He reports that it was intermittently watery and mushy. He denies any fevers but does report occasional chills. He reports that he
has had C. difficile in the past, most recently in September. He notes that abdominal discomfort was across the mid abdomen, and not localized to any particular area.
Past History
Additional Past Medical History:
GERD
HTN
Renal insufficiency
Diverticulitis
Alcohol abuse disorder
Additional Past Surgical History:
Orthopedic surgery
Allergy History:
wool Allergy (Verified 02/10/24 20:53)
Rash
Medications Reviewed: Yes
Current Antibiotics:
Vancomycin 125 mg p.o. every 6 hours
Social History
Tobacco: Smoker (1 PPD)
Alcohol: Daily (1-2 pints)
Drug: None
Personal: Single
Living: With Family
Employment: Employed
Family History
Family History: Not Pertinent
Review of Systems
Vital Signs
Temp Pulse Resp BP Pulse Ox
98.3 F 85 16 112/71 100
02/15/24 07:29 02/15/24 08:07 02/15/24 07:29 02/15/24 08:07 02/15/24 11:00
Physical Exam
Physical Exam
Constitutional: Comfortable, Chronically Ill and Non-toxic
Head: Normocephalic
Eyes: Pupils Equal, Pupils Round, No Conjunctival Hemorrhage and Other (Scleral icterus)
Pharynx: Benign
Oral: No Thrush and No Ulcers
Cardiovascular: Regular Rate and S1/S2; Negative S3/S4
Pulmonary: Clear; Negative Wheezes or Rales
Gastrointestinal: Soft, Tender, Distended, Normal Bowel Sounds, No Rebound and No Guarding
Extremities: Negative Edema, Cyanosis or Erythema
Neurological: Awake and Alert
Psychological: Calm
Lab / Diagnostic Study Results
02/15/24 06:19
02/15/24 06:19
Abs Immat Gran (auto) 0.0 10^3/uL (0-0.05) 02/10/24 22:27
Absolute Neuts (auto) 5.4 10^3/uL (1.4-6.5) 02/10/24 22:27
Absolute Lymphs (auto) 3.2 10^3/uL (1.2-3.4) 02/10/24 22:27
Absolute Monos (auto) 0.8 10^3/uL (0.1-0.6) H 02/10/24 22:27
Absolute Basos (auto) 0.1 10^3/uL (0-0.2) 02/10/24 22:27
Immature Gran % 0.3 % (0-0.5) 02/10/24 22:27
Neutrophils % 56.0 % (42.2-75.2) 02/10/24 22:27
Lymphocytes % 33.2 % (20.5-51.1) 02/10/24 22:27
Monocytes % 8.1 % (1.7-9.3) 02/10/24 22:
Eosinophils % 1.6 % (0-6) 02/10/24 22:27
Basophils % 0.8 % (0-2) 02/10/24 22:27
PT 19.5 Sec (11.4-14.6) H 02/12/24 08:41
INR 1.66 02/12/24 08:41
Urine WBC 0-2 /HPF (0-5) 02/12/24 13:44
Microbiology Results
Micro:
02/14/24 14:19 C. difficile [facility]DH Antigen & Toxins - Final
Feces/Stool Toxigenic C.difficile Positive
Assessment / Plan
C. difficile antigen positive/toxin positive
Alcoholic hepatitis
Alcoholic cirrhosis
Alcohol use disorder
Elevated bilirubin
Hx diverticulitis
GERD
HTN
Recommendations:
At present, not clear whether positive C. difficile testing is contributing to overall abdominal discomfort. No colitis was seen on recent CT scanning.
Patient does have history of prior C. difficile testing and February 2023, and again in August 2023.
For now, agree with initiation of vancomycin at current dose.
Monitor for improvement of diarrhea.
Discontinue further probiotics.
Follow white count temperature curve.
Will continue to follow clinically.
--- NOTE | 2024-02-15 14:05 | W.PN.HOSP.TC ---
Addendum entered and electronically signed by Andrew Palacios MD 02/18/24 07:59:
Adjust diagnosis:
Alcohol use with mild withdrawal - resolved
Original Note:
Today's Communication/Plan
-
ID consult
oral vancomycin
steroids stopped
Assessment / Plan
Assessment / Plan
1. Abdominal pain
Suspected alcoholic gastritis
-CT AP did not show any signs of ascites. Cannot be SBP
-Incidental finding of small bowel intussusception, chronic finding
-Cholelithiasis, no signs of cholecystitis. HIDA scan in November was negative for acute abnormality.
-Suspected gastritis with ongoing alcohol use. Manage medically.
-EGD in 12/05 showed normal esophagus, erythematous antral mucosa and duodenum
-GI following and help appreciated
2. C diff colitis
- 3rd episode
- started back on oral vancomycin
- added probiotic
- ID asked to help
3. Bright red blood in stool - resolved
h/o esophageal varices
-Patient reported some blood in stool day 2
-With history of cirrhosis no reported internal hemorrhoids
-Thrombocytopenic and may explain some minor bleed. Hemoglobin stable
-No further episode
4. Acute on chronic thrombocytopenia
-Platelets slowly improving. baseline close to 50k
-Hold subcu heparin. Not on any antiplatelet medication.
-Secondary to liver dysfunction likely
5. Alcoholic cirrhosis -decompensated
Chronic hyponatremia
Coagulopathy
-MELD Na of 24, 3 month mortality risk of 19.6%
-Bilirubin up trending. Sodium downtrending
-Prednisolone stopped as patient has C. difficile colitis.
6. Hypokalemia
-replace PRN
7. Alcohol use disorder
-Last drink was on Friday
-stop MSAS/Ativan, out of withdrawal window.
8. Active tobacco use
-nicotine patch
9. Acute diarrhea
-stop mag oxide pills
-GI ordered cdiff check
10. Bilirubinuria
-Dark brown urine with bilirubinuria
-UA showing bilirubin 3+ urobilinogen 4+. No blood.
-Bladder scan and Glover catheter if any sign of retention
DVT Px: scd
Code: Full
Anticipated Discharge: 24 - 48 hours
Subjective/Interval History
-
Date of Service: February 15, 2024
Denies of any problems overnight
Objective Data
-
Labs:
Laboratory Results
02/15/24
06:19
WBC 5.8
Hgb 12.9 L
Hct 36.7 L
Plt Count 35 L
Sodium 135
Potassium 3.7
Chloride 101
Carbon Dioxide 27
BUN 8 L
Creatinine 0.8
Glucose 110 H
Calcium 9.1
Total Bilirubin 9.0 H
AST 148 H
ALT 61 H
Alkaline Phosphatase 167 H
Vital Signs:
Vital Signs
Temp Pulse Resp BP Pulse Ox
98.3 F 85 16 112/71 100
02/15/24 07:29 02/15/24 08:07 02/15/24 07:29 02/15/24 08:07 02/15/24 11:00
I&O
02/14/24 02/15/24 02/16/24
06:59 06:59 06:59
Intake Total 1560 / 1560 1740 / 1740
Output Total 1250 / 1250 200 / 200
Balance 310 / 310 1540 / 1540
Review of Systems
-
Respiratory: Reports No Symptoms
Cardiac: Reports No Symptoms
Abdomen/GI: Reports No Symptoms
Physical Exam
-
General: Comfortable and Conversant
HEENT: Other (Jaundice)
GI: Soft, Nondistended and Tender
Musculoskeletal: No Edema
Skin: Jaundice
Neuro: Awake, Alert, Oriented and No Motor Deficits
Psych: Calm
[2024-02-15 15:20] VITALS: BP 110/70
[2024-02-15 20:07] VITALS: BP 116/85
[2024-02-15] MEDS: DESYREL 100 MG PO (21:48)
[2024-02-15 23:49] VITALS: BP 116/79
--- NOTE | 2024-02-16 06:06 | W.PN.GI.CBS2 ---
Today's Communication / Plan
-
Please see assessment and plan for details.
Assessment / Plan
-
1. Abdominal pain: with nausea vomiting most likely etiology is alcohol gastritis he has been drinking excessive amounts of alcohol prior to admission, overall improved, tolerating diet. Continue PPI twice daily and Carafate, discussed minimizing
narcotics. There was report of black stool, though hemoglobin is remained stable, no further signs of bleeding now. Could also be related to CDI given improvement with treatment.
2. Alcoholic liver disease: With underlying cirrhosis and likely acute alcoholic hepatitis, with significantly elevated discriminant function, completed 3 days of prednisolone though stopped given C. difficile infection,, with probable portal
hypertension and possible varices on imaging though none on EGD from 2022, with thrombocytopenia which is likely multifactorial including direct alcohol effects. Labs continue to improve, with improved platelets and decreased LFTs. Plan eventual
outpatient EGD to evaluate for varices and possible colonoscopy.
3. C diff - Started on vancomycin, stools more formed, abdominal pain less, less diarrhea, consistent with infection. Would complete 2 weeks of oral vancomycin. Awaiting labs this morning, though if continue to improve and symptoms improve is okay
to NM from GI standpoint, would follow-up in the office in 1 month.
Subjective
Subjective
Date of Service: February 16, 2024
Patient feeling better overall, more formed stools, less pain, no fever or chills.
Objective
Data Reviewed
Laboratory Data:
Laboratory Results
PT 19.5 Sec (11.4-14.6) H 02/12/24 08:41
INR 1.66 02/12/24 08:41
Magnesium 1.8 mg/dl (1.6-2.3) 02/11/24 06:58
Total Bilirubin 9.0 mg/dl (0.2-1.3) H 02/15/24 06:19
AST 148 U/L (17-59) H 02/15/24 06:19
ALT 61 U/L (0-50) H 02/15/24 06:19
Alkaline Phosphatase 167 U/L (38-126) H 02/15/24 06:19
Lipase 52 U/L (23-300) 02/14/24 05:56
Vital Signs and I&O:
Vital Signs
Temp Pulse Resp BP Pulse Ox
98.3 F 61 16 116/79 99
02/15/24 23:49 02/15/24 23:49 02/15/24 23:49 02/15/24 23:49 02/15/24 23:49
I&O
02/14/24 02/15/24 02/16/24
06:59 06:59 06:59
Intake Total 1560 / 1560 1740 / 1740 960 / 960
Output Total 1250 / 1250 200 / 200
Balance 310 / 310 1540 / 1540 960 / 960
Physical Exam
Physical Exam
General: NAD
Abdomen: normal bowel sounds, soft, no tenderness, no masses or bruits, no significant ascites
[2024-02-16] MEDS: FIRVANQ 125 MG PO ×4 (06:26→23:19)
[2024-02-16 06:50] LABS: Hematocrit 33.8 % (39.0-52.0); Hemoglobin 11.9 g/dL (13.0-18.0); Mean Corp Hgb Conc. 35.2 g/dL (33.0-37.0); Mean Corpuscular Hgb 35.4 pg (27.0-31.0); Mean Corpuscular Volume 100.6 fL (80.0-94.0); Mean Platelet Volume 12.2 fL (7.4-10.4); Platelet Count 40 10^3/uL (130-400); Red Blood Cell Count 3.36 10^6/uL (4.70-6.10); Red Cell Dist. Width 16.9 % (11.5-14.5); White Blood Cell Count 5.6 10^3/uL (4.8-10.8)
[2024-02-16 06:53] LABS: INR 1.41; PT 17.1 Sec (11.4-14.6)
[2024-02-16 07:26] LABS: AST (SGOT) 113 U/L (17-59); Blood Urea Nitrogen 8 mg/dl (9-20); Calcium 9.1 mg/dl (8.4-10.2); Carbon Dioxide 24 mmol/L (22-30); Direct Bilirubin 5.9 mg/dl (0.0-0.4); Estimated Creatinine Clearance 107 ml/min; Glucose 97 mg/dl (70-99); Potassium 3.8 mmol/L (3.5-5.1); Total Bilirubin 7.2 mg/dl (0.2-1.3); eGFR > 60.00
[2024-02-16 07:44] LABS: ALT (SGPT) 61 U/L (0-50); Alkaline Phosphatase 143 U/L (38-126); Chloride 103 mmol/L (98-107); Sodium 135 mmol/L (135-145)
[2024-02-16 08:21] VITALS: BP 114/77
--- NOTE | 2024-02-16 08:38 | W.PN.HOSP.TC ---
Today's Communication/Plan
-
Patient stated he wants to stay 1 more day and see if he feels better tomorrow
Anticipated discharge tomorrow
Assessment / Plan
Assessment / Plan
Physical Exam
General: Comfortable and Conversant
HEENT: Other (Jaundice)
GI: Soft, Nondistended and Tender. Positive bowel sounds.
Musculoskeletal: No Edema
Skin: Jaundice
Neuro: Awake, Alert, Oriented and No Motor Deficits
Psych: Calm
Assessment/Plan
1. Abdominal pain
Suspected alcoholic gastritis
-CT AP did not show any signs of ascites. Cannot be SBP
-Incidental finding of small bowel intussusception, chronic finding
-Cholelithiasis, no signs of cholecystitis. HIDA scan in November was negative for acute abnormality.
-Suspected gastritis with ongoing alcohol use. Manage medically.
-EGD in 12/05 showed normal esophagus, erythematous antral mucosa and duodenum
-GI following and help appreciated
-Continue PPI twice daily and Carafate, discussed minimizing narcotics
2. C diff colitis
- 3rd episode
- started back on oral vancomycin
- added probiotic
- ID asked to help
- Continue with PO vancomycin to complete a 10-14 day course.
- Prednisolone was stopped because of this.
3. Bright red blood in stool - resolved
h/o esophageal varices
-Patient reported some blood in stool day 2
-With history of cirrhosis no reported internal hemorrhoids
-Thrombocytopenic and may explain some minor bleed. Hemoglobin stable
-No further episode
4. Acute on chronic thrombocytopenia
-Platelets slowly improving. baseline close to 50k
-Hold subcu heparin. Not on any antiplatelet medication.
-Secondary to liver dysfunction likely
5. Alcoholic cirrhosis -decompensated
Chronic hyponatremia
Coagulopathy
-MELD Na of 24, 3 month mortality risk of 19.6%
-Bilirubin downtrending. Sodium better.
-Prednisolone stopped as patient has C. difficile colitis.
6. Hypokalemia
-replace PRN
7. Alcohol use disorder
-Last drink was about 1 week ago
-stop MSAS/Ativan, out of withdrawal window.
8. Active tobacco use
-nicotine patch
9. Acute diarrhea
-stop mag oxide pills
-GI ordered cdiff check
10. Bilirubinuria
-Dark brown urine with bilirubinuria
-UA showing bilirubin 3+ urobilinogen 4+. No blood.
-Bladder scan and Glover catheter if any sign of retention
DVT Px: scd
Code: Full
Anticipated Discharge: Within 24 hours
Subjective/Interval History
-
Date of Service: February 16, 2024
Patient was seen and examined. He denied abdominal pain or any other symptoms or complaints.
Objective Data
-
Labs:
Laboratory Results
02/16/24
06:08
WBC 5.6
Hgb 11.9 L
Hct 33.8 L
Plt Count 40 L
PT 17.1 H
INR 1.41
Sodium 135
Potassium 3.8
Chloride 103
Carbon Dioxide 24
BUN 8 L
Creatinine 0.8
Glucose 97
Calcium 9.1
Total Bilirubin 7.2 H
AST 113 H
ALT 61 H
Alkaline Phosphatase 143 H
Vital Signs:
Vital Signs
Temp Pulse Resp BP Pulse Ox
98.2 F 61 18 114/77 98
02/16/24 08:21 02/16/24 08:21 02/16/24 08:21 02/16/24 08:21 02/16/24 08:21
I&O
02/15/24 02/16/24 02/17/24
06:59 06:59 06:59
Intake Total 1740 / 1740 1560 / 1560
Output Total 200 / 200
Balance 1540 / 1540 1560 / 1560
[2024-02-16] MEDS: FOLVITE 1 MG PO (08:42)
[2024-02-16] MEDS: CYMBALTA DELAYED RELEASE 30 MG PO (08:42)
[2024-02-16] MEDS: NEURONTIN 300 MG PO ×3 (08:42→20:55)
[2024-02-16] MEDS: NSS (PRESERVATIVE FREE) 10 ML IV ×2 (08:42→20:48)
[2024-02-16] MEDS: PROTONIX IV 40 MG IV ×2 (08:43→20:47)
[2024-02-16] MEDS: NICODERM TRANSDERMAL 21 MG TRANSDERM (08:43)
[2024-02-16] MEDS: CARAFATE SUSPENSION 1 GM PO ×4 (08:47→20:55)
[2024-02-16] MEDS: VITAMIN B1 100 MG PO ×2 (08:47→20:48)
[2024-02-16] MEDS: COREG 6.25 MG PO ×2 (08:47→20:48)
[2024-02-16] MEDS: ROXICODONE 10 MG PO (08:52)
[2024-02-16] MEDS: ZOFRAN 4 MG IV (08:53)
--- NOTE | 2024-02-16 12:04 | W.PN.ID1 ---
Date of Service
Date of Service: February 16, 2024
Today's Communication
Continue enteral vancomycin (d#2)
Assessment / Plan
C. difficile antigen positive/toxin positive
Alcoholic hepatitis
Alcoholic cirrhosis
Alcohol use disorder
Elevated bilirubin
Hx diverticulitis
GERD
HTN
Recommendations:
At present, not clear whether positive C. difficile testing is contributing to overall abdominal discomfort. No colitis was seen on recent CT scanning.
Patient does have history of prior C. difficile testing and February 2023, and again in August 2023.
Continue with vancomycin to complete a 10-14 day course.
Monitor for improvement of diarrhea.
����������������������������������������������������������
Chief Complaint
-: Other (Abdominal pain)
Subjective / Review of Systems
Review of Systems: Abdominal Pain, No Nausea and Diarrhea ('loose', 'mushy'. Not especially watery)
Vital Signs / Physical Exam
Vital Signs
Vital Signs
Temp Pulse Resp BP Pulse Ox
98.2 F 61 18 114/77 98
02/16/24 08:21 02/16/24 08:47 02/16/24 08:21 02/16/24 08:47 02/16/24 08:21
Physical Exam
Constitutional: Comfortable, Chronically Ill and Non-toxic
Eyes: Other (Scleral icterus)
Cardiovascular: S1/S2; Negative S3/S4
Pulmonary: Non Labored
Gastrointestinal: Soft, Tender, Distended, Normal Bowel Sounds, No Rebound and No Guarding
Neurological: Awake and Alert
Psychological: Calm
Objective Data
Lab Data
Lab Results
02/16/24 06:08
02/16/24 06:08
PT 17.1 Sec (11.4-14.6) H 02/16/24 06:08
INR 1.41 02/16/24 06:08
Estimated Creat Clear 107 ml/min 02/16/24 06:08
Total Bilirubin 7.2 mg/dl (0.2-1.3) H 02/16/24 06:08
AST 113 U/L (17-59) H 02/16/24 06:08
ALT 61 U/L (0-50) H 02/16/24 06:08
Alkaline Phosphatase 143 U/L (38-126) H 02/16/24 06:08
Most recent labs reviewed.
Micro Results:
02/14/24 14:19 C. difficile GDH Antigen & Toxins - Final
Feces/Stool Toxigenic C.difficile Positive
[2024-02-16 15:50] VITALS: BP 96/63
--- NOTE | 2024-02-16 16:24 | CM ---
Discharge Plan of Care: Home with no needs.
[2024-02-16] MEDS: DESYREL 100 MG PO (20:55)
[2024-02-16 21:01] VITALS: BP 117/60
[2024-02-16 23:40] VITALS: BP 112/73
[2024-02-17] MEDS: FIRVANQ 125 MG PO ×3 (05:10→16:22)
--- NOTE | 2024-02-17 06:32 | W.PN.GI.CBS2 ---
Today's Communication / Plan
-
outpatient f/u
Assessment / Plan
-
1. Abdominal pain: with nausea vomiting most likely etiology is alcohol gastritis he has been drinking excessive amounts of alcohol prior to admission, overall improved, tolerating diet. Continue PPI twice daily and Carafate, discussed minimizing
narcotics. There was report of black stool, though hemoglobin is remained stable, no further signs of bleeding now. Could also be related to CDI given improvement with treatment.
2. Alcoholic liver disease: With underlying cirrhosis and likely acute alcoholic hepatitis, with significantly elevated discriminant function, completed 3 days of prednisolone though stopped given C. difficile infection,, with probable portal
hypertension and possible varices on imaging though none on EGD from 2022, with thrombocytopenia which is likely multifactorial including direct alcohol effects. Labs continue to improve, with improved platelets and decreased LFTs. Plan eventual
outpatient EGD to evaluate for varices and possible colonoscopy.
3. C diff - Started on vancomycin Would complete 2 weeks of oral vancomycin.
No further inpatient GI issues. can f/u as outpatient in 1 month
Subjective
Subjective
Date of Service: February 17, 2024
Pt with a no diarrhea, tolerating po
Objective
Data Reviewed
Laboratory Data:
Laboratory Results
02/16/24 06:08
02/16/24 06:08
Laboratory Results
PT 17.1 Sec (11.4-14.6) H 02/16/24 06:08
INR 1.41 02/16/24 06:08
Magnesium 1.8 mg/dl (1.6-2.3) 02/11/24 06:58
Total Bilirubin 7.2 mg/dl (0.2-1.3) H 02/16/24 06:08
AST 113 U/L (17-59) H 02/16/24 06:08
ALT 61 U/L (0-50) H 02/16/24 06:08
Alkaline Phosphatase 143 U/L (38-126) H 02/16/24 06:08
Lipase 52 U/L (23-300) 02/14/24 05:56
Vital Signs and I&O:
Vital Signs
Temp Pulse Resp BP Pulse Ox
98.8 F 79 18 112/73 98
02/16/24 23:40 02/16/24 23:40 02/16/24 23:40 02/16/24 23:40 02/16/24 23:40
I&O
02/15/24 02/16/24 02/17/24
06:59 06:59 06:59
Intake Total 1740 / 1740 1560 / 1560 1080 / 1080
Output Total 200 / 200
Balance 1540 / 1540 1560 / 1560 1080 / 1080
Physical Exam
Physical Exam
GI: Soft and Non Tender
[2024-02-17 07:00] VITALS: BP 107/67
[2024-02-17] MEDS: CARAFATE SUSPENSION 1 GM PO ×3 (08:32→16:22)
[2024-02-17] MEDS: FOLVITE 1 MG PO (08:32)
[2024-02-17] MEDS: VITAMIN B1 100 MG PO (08:32)
[2024-02-17] MEDS: NICODERM TRANSDERMAL 21 MG TRANSDERM (08:32)
[2024-02-17] MEDS: NEURONTIN 300 MG PO ×2 (08:33→16:22)
[2024-02-17] MEDS: PROTONIX IV 40 MG IV (08:34)
[2024-02-17] MEDS: CYMBALTA DELAYED RELEASE 30 MG PO (08:34)
[2024-02-17] MEDS: NSS (PRESERVATIVE FREE) 10 ML IV (08:34)
[2024-02-17] MEDS: COREG 6.25 MG PO (08:34)
--- NOTE | 2024-02-17 10:57 | W.PN.HOSP.TC ---
Today's Communication/Plan
-
Discharge today
Assessment / Plan
Assessment / Plan
Physical Exam
General: Comfortable and Conversant
HEENT: Normocephalic.
GI: Soft, Nondistended and Tender. Positive bowel sounds.
Musculoskeletal: No Edema
Skin: Warm. Dry.
Neuro: Awake, Alert, Oriented and No Motor Deficits
Psych: Calm

CT Abdomen Pelvis Results as per radiologist's report:
IMPRESSION:
1. Two focal areas of small bowel intussusception within the left mid abdomen as detailed above, not associated with intestinal obstruction. Similar appearance on prior CT.
2. Gallstones within the gallbladder, which is mildly distended. Findings are similar compared to prior CT.
3. Diffusely heterogeneous attenuation pattern of the liver, consistent with cirrhosis and possible fatty infiltration. Recanalized umbilical vein and gastroesophageal varices, consistent with portal hypertension.
4. Hepatosplenomegaly.

Assessment/Plan
1. Abdominal pain suspected secondary to alcoholic gastritis
-CT AP did not show any signs of ascites. Cannot be SBP
-Incidental finding of small bowel intussusception, chronic finding
-Cholelithiasis, no signs of cholecystitis. HIDA scan in November was negative for acute abnormality.
-Suspected gastritis with ongoing alcohol use. Manage medically.
-EGD in 12/05 showed normal esophagus, erythematous antral mucosa and duodenum
-GI following and help appreciated
-Continue PPI twice daily and Carafate, GI discussed minimizing narcotics
2. C diff colitis
- 3rd episode
- started back on oral vancomycin
- added probiotic
- ID asked to help
- Continue with PO vancomycin to complete a 10-14 day course (56 total doses) -- will do 45 doses on discharge
- Prednisolone was stopped because of this.
3. Bright red blood in stool - resolved
h/o esophageal varices
-Patient reported some blood in stool day 2
-With history of cirrhosis no reported internal hemorrhoids
-Thrombocytopenic and may explain some minor bleed. Hemoglobin stable
-No further episodes
-Recheck CBC outpatient in 2 to 3 days
4. Acute on chronic thrombocytopenia
-Platelets slowly improving. baseline close to 50k
-Hold subcu heparin. Not on any antiplatelet medication.
-Secondary to liver dysfunction likely
-Recheck CBC outpatient in 2 to 3 days
5. Alcoholic cirrhosis -decompensated
Chronic hyponatremia
Coagulopathy
-MELD Na of 24, 3 month mortality risk of 19.6%
-Bilirubin downtrending. Sodium better.
-Prednisolone stopped as patient has C. difficile colitis.
6. Hypokalemia
-replace PRN
7. Alcohol use disorder
-Last drink was about 1 week ago
-stop MSAS/Ativan, out of withdrawal window.
8. Active tobacco use
-nicotine patch
9. Acute diarrhea
-stop mag oxide pills
-GI ordered cdiff check
10. Bilirubinuria
-Dark brown urine with bilirubinuria
-UA showing bilirubin 3+ urobilinogen 4+. No blood.
-Bladder scan and Glover catheter if any sign of retention
DVT Px: scd
Code: Full
More than 30 minutes spent in discharge including
Final examination of the patient
Summarizing hospital stay
Instructions for continuing care to all relevant caregivers
Preparation of discharge records, prescriptions, and referral forms
Total time spent (in minutes): 36
Anticipated Discharge: Today
Subjective/Interval History
-
Date of Service: February 17, 2024
Patient was seen and examined. He reported he had a normal bowel movement this morning, no diarrhea or any other significant symptoms or complaints.
Objective Data
-
Vital Signs:
Vital Signs
Temp Pulse Resp BP Pulse Ox
98.5 F 75 16 107/67 96
02/17/24 07:00 02/17/24 08:34 02/17/24 07:00 02/17/24 08:34 02/17/24 07:00
I&O
02/16/24 02/17/24 02/18/24
06:59 06:59 06:59
Intake Total 1560 / 1560 1080 / 1080
Balance 1560 / 1560 1080 / 1080
--- NOTE | 2024-02-17 11:54 | PN.CDI ---
CDI
- -
CDI:
Physician Documentation Request
Admit Date: 02/11/24 04:22
Dear Doctor Philip,
Patient admitted with gastritis.
02/11 Hospitalist PN: 'Alcohol use disorder- Last drink was on Friday -Continue MSAS/Ativan -Complaining feeling anxious although MSAS score is not significantly elevated'
Lorazapam 1mg IV administered 02/10 04:54, 09:41, 20:56
Selected Entries
02/11/24
05:00 02/11/24
11:00 02/11/24
20:00
MSAS SCORE 5 5 5
If possible, please provide further specificity as outlined below:
Alcohol use with withdrawal
Alcohol use only
Other
Use of terms such as suspected, likely, concern for, or probable (associated with a specific diagnosis that is being evaluated, monitored, or treated as if it exists) are acceptable and can be coded in the inpatient setting, when documented at the
time of discharge.
Thank you,
Tiara Wright RN, BSN
CDI Specialist
Available via [employer] text
Please use your independent medical judgment in providing your response.
--- NOTE | 2024-02-17 12:13 | W.DS.TRANS ---
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
-
Discharge Instructions:
Discharge Diagnosis/Procedures Abdominal pain suspected secondary to alcoholic
gastritis
C diff colitis and diarrhea
Bright red blood in stool - resolved
History of esophageal varices
Acute on chronic thrombocytopenia
Alcoholic cirrhosis
Hypokalemia
Alcohol use disorder
Active tobacco use
Bilirubinuria
Diet Low Residue,As tolerated
Activity As tolerated
Instructions: Alcohol use - when is drinking a problem?
Alcohol withdrawal
Alcohol Use Disorder (DC)
C. difficile infection
Stand-Alone Forms: Return to Work
Changes to Home Medications: Yes
Discharge Medications:
DC Medications w/original date entered in [employer]
folic acid 1 mg tablet 1 mg PO DAILY Supplement 09/23/22
gabapentin 300 mg capsule 300 mg PO TID Pain 10/08/22
carvedilol 6.25 mg tablet (Coreg) 6.25 mg PO BID Blood Pressure 02/10/23
duloxetine 30 mg capsule,delayed release 30 mg PO DAILY Mental Health/Anxiety 09/14/23
thiamine HCl (vitamin B1) 100 mg tablet 100 mg PO DAILY energy 09/14/23
trazodone 50 mg tablet 100 mg PO HS Sleep 09/14/23
midodrine 5 mg tablet 5 mg PO Q4HPRN PRN SBP<100 #30 tabs 09/23/23
magnesium oxide 500 mg PO DAILY Supplement 11/27/23
nicotine 21 mg/24 hr daily transdermal patch 21 mg transdermal DAILY #28 ea 02/17/24
pantoprazole 40 mg tablet,delayed release 40 mg PO BID Gastrointestinal Issue #60 tabs 02/17/24
sucralfate 100 mg/mL oral suspension 1 g (10 mL) PO ACHS #1,000 mL 02/17/24
vancomycin 50 mg/mL oral solution (Firvanq) 125 mg (2.5 mL) PO Q6 11 days #113 mL 02/17/24
Home Medication Changes
Nicotine patch, Sucralfate and Vancomycin are new.
Pantoprazole changed to twice a day.
Ondansetron stopped.
Pending Results: No
Total time spent discharging patient (in min): 36
--- NOTE | 2024-02-17 13:07 | CM ---
Patient has been medically cleared for discharge to home with no additional skilled services. Patient has declined substance abuse counseling or services. He has previously been given literature. Patient has arranged for transport home.
[2024-02-17 14:40] VITALS: BP 104/69
--- NOTE | 2024-02-17 15:20 | PTCARENOTE ---
Discharge instructions printed and given to patient for review (patient shows understanding, allowed time for questions). IV pulled out. Patient in room waiting for Dr Smith (currently at IR), to sign 'return letter for work'.
--- NOTE | 2024-02-20 11:23 | W.DCSUMMARY ---
Discharge Summary
Discharge Data
Date of Admission: 02/11/24
Date of Discharge: 02/17/24
Total time spent discharging patient (in min): 36
-
Pending Results: No
Hospital Course
49-year-old male with past medical history of alcoholism with alcohol hepatitis and alcohol cirrhosis presented with abdominal pain. The impression was that patient was having alcoholic gastritis and gastroenterology was consulted. Patient was
started on Carafate in addition to proton pump inhibitor medication. Patient was noted to have bright red blood in the stool. Patient had an incidental finding of small bowel intussusception on CT imaging, for which nothing needed to be done.
Patient was started on Prednisolone given his alcoholic hepatitis/cirrhosis. Patient's bleeding later resolved. Patient was found to have C. diff for which oral Vancomycin was started and for which the prednisolone was stopped. Infectious Disease
was consulted given patient's C. diff. Patient's symptoms improved and he was stable for discharge on oral vancomycin.
Discharge Plan
-
Patient Disposition: Home (Routine Discharge)
Discharge Diagnosis/Procedures: Abdominal pain suspected secondary to alcoholic gastritis
C diff colitis and diarrhea
Bright red blood in stool - resolved
History of esophageal varices
Acute on chronic thrombocytopenia
Alcoholic cirrhosis
Hypokalemia
Alcohol use disorder
Active tobacco use
Bilirubinuria
Condition: Fair
Diet: As tolerated and Low Residue
Activity: As tolerated
Activity Restrictions/Additional Instructions:
You should stop drinking alcohol.
You should follow C. diff prevention measures, including washing your hands. A handout on C. difficile infection is being provided to you on discharge -- please read and follow it.
Instructions: Alcohol use - when is drinking a problem?, Alcohol withdrawal, Alcohol Use Disorder (DC), C. difficile infection
Stand Alone Forms: Return to Work
Referrals:
Chace Fonseca MD [Active] - in one month (Hospital follow-up)
Jatin Caceres MD [Family Provider] -
Additional Discharge Medication Instructions: Nicotine patch, Sucralfate and Vancomycin are new.
Pantoprazole changed to twice a day.
Ondansetron stopped.
Prescriptions:
New
sucralfate 100 mg/mL Suspension
1 g PO ACHS Qty: 1000 1RF
vancomycin [Firvanq] 50 mg/mL Recon Soln
125 mg PO Q6 11 Days Qty: 113 0RF
Rx Instructions:
Continue taking for 45 more doses of 125 mg PO Q6H
nicotine 21 mg/24 hr Patch 24 Hour
21 mg transdermal DAILY Qty: 28 0RF
Continued
folic acid 1 mg tablet
1 mg PO DAILY
gabapentin 300 mg capsule
300 mg PO TID
carvedilol [Coreg] 6.25 mg tablet
6.25 mg PO BID
trazodone 50 mg tablet
100 mg PO HS
duloxetine 30 mg capsule,delayed release(DR/EC)
30 mg PO DAILY
thiamine HCl (vitamin B1) 100 mg tablet
100 mg PO DAILY
midodrine 5 mg Tablet
5 mg PO Q4HPRN PRN (Reason: SBP<100) Qty: 30 0RF
Patient Comments:
10/08/2023, pt. states that he has never had to use this med.
magnesium oxide 500 mg magnesium tablet
500 mg PO DAILY
Changed
pantoprazole 40 mg tablet,delayed release (DR/EC)
40 mg PO BID Qty: 60 1RF
Discontinued
ondansetron 4 mg Tablet,Disintegrating
4 mg PO TIDPRN PRN (Reason: nausea/vomiting) Qty: 12 0RF
Discharge Orders:
Discharge Patient (As Directed); Ordered 02/17/24
Ordered By: Maik Smith
Discharge Date and Time
Discharge Date/Time: 02/17/24 16:44
Print Language: FRISIAN
== END 2024-02-17 16:44 | disposition home or self-care (01) | DRG 378 ==
LOC: 2 NORTH 04:22
PROVIDERS: Emergency Medicine; Hospitalist; Internal Medicine Gastroenterology; Nurse Practitioner Family; ADMITTING PHYSICIAN Internal Medicine; ATTENDING PHYSICIAN Hospitalist; CONSULT PHYSICIAN Internal Medicine Gastroenterology; CONSULT PHYSICIAN Internal Medicine Infectious Disease; EMERGENCY PHYSICIAN Emergency Medicine; FAMILY PHYSICIAN Family Medicine
DX: K29.21 Alcoholic gastritis with bleeding (principal); A04.72 Enterocolitis due to Clostridium difficile, not specified as recurrent; E87.1 Hypo-osmolality and hyponatremia; K57.92 Diverticulitis of intestine, part unspecified, without perforation or abscess without bleeding; F10.939 Alcohol use, unspecified with withdrawal, unspecified; K21.9 Gastro-esophageal reflux disease without esophagitis; E87.6 Hypokalemia; K70.10 Alcoholic hepatitis without ascites; G62.1 Alcoholic polyneuropathy; K70.30 Alcoholic cirrhosis of liver without ascites; F17.210 Nicotine dependence, cigarettes, uncomplicated; D69.6 Thrombocytopenia, unspecified; I85.01 Esophageal varices with bleeding
CPT/HCPCS: 74177; 80048; 80053; 80076; 81003; 81015; 82077; 82248; 83690; 83735; 85014; 85018; 85025; 85027; 85610; 87324; 87449; 96361; 96374; 96375; 99285; 99406; Q9967

== ENCOUNTER 2024-03-08 01:01 | Inpatient (IN) | payer OTHER, SELFPAY ==
[2024-03-07 19:05] VITALS: BP 132/89
--- NOTE | 2024-03-07 19:52 | ED.GENMED ---
History of Present Illness
General
Chief Complaint: Abdominal Pain
Source: patient
Exam Limitations: none
Time Seen by Provider: 03/07/24 19:34
History of Present Illness
History of Present Illness:
This is a 49 year old male that comes in with c/o upper abd pain. States that this has been going on for the past 2 days. States that today he started with vomiting. States that he has been drinking all day. States that he drink anywhere from a pint
to a 1/2 gallon daily of Whiskey. States that he feels slightly SOB, nauseated, vomiting, has had diarrhea and a headache. States that occasionally he is dizzy. Denies any fever, chills, chest pain, urinary burning.
Past History
Past History
ED Past Medical History: GERD, HTN, Renal failure, Psychiatric (Anxiety, ) and Other (Alcoholism, diverticulitis, Neuropathy Cirrhosis of the liver, Fatty liver, Alcoholic hepatitis, Ulcers)
ED Past Surgical History: Orthopedic (Right leg surgery)
Social History
Tobacco: Smoker
Alcohol: Chronic alcoholic (daily whiskey pint to 1/2 gallon)
Drug: None
Personal: Single
Living: alone
Employment: Employed
Family History
Family History: Hypertension
Review of Systems
Review of Systems
All Other Systems: ROS reviewed and negative except as documented in HPI and ROS
Constitutional: Reports no symptoms; Denies fever or chills
EENT: Reports no symptoms
Respiratory: Reports trouble breathing (occasionally); Denies cough
Cardiac: Reports no symptoms; Denies chest pain
ABD/GI: Reports abdominal pain, nausea, vomiting and diarrhea
: Reports no symptoms; Denies frequency or urgency
Musculoskeletal: Reports no symptoms
Skin: Reports no symptoms
Neurological: Reports dizzy (Occasional) and headache
Psychiatric: Reports no symptoms
Phy Exam
General Physical Exam
General Presentation: no apparent distress
General age: appears stated age
General Skin: warm and dry
General Habitus: normal
General Mental: alert
General Hydration: appears well hydrated
ENT Exam
ENT Exam: TM's normal, pharynx normal and neck supple
Eye Exam
Eye Exam: EOMI and other (Sclera is jaundice)
Cardiovascular Exam
Cardiovascular Exam: regular rate/rhythm, no edema and normal peripheral pulses
Pulmonary Exam
Pulmonary Exam: no respiratory distress, no rales, chest non tender, no crackles, no rhonchi, no cough and other (occasional insp right sided wheeze noted)
Gastrointestinal Exam
Gastrointestinal Exam: soft, no pulsatile mass, non distended, tender (epigastric and right sided abd tenderness with palpation. ) and other (Hypoactive bowel douns)
Musculoskeletal Exam
Musculoskeletal Exam: full ROM and no edema
Skin Exam
Skin Exam: warm/dry, no petechia, jaundice and other (Red spot with scap on upper abd, patient states that it is a spider bite and it hurts around this also)
Psychiatric Exam
Psychiatric Exam: normal mood/affect
Course
Orders/Labs/Results
Orders:
Orders
03/07/24 19:43
0.9% Sodium Chloride 500 ml [Nss] 500 ml IV BOLUS
US Abdomen Complete/Upper Urgent
Comment:
Reason For Exam: upper abd pain
03/07/24 19:44
HYDROmorphone [Dilaudid] 1 mg IV NOW STA
Ondansetron Injectable [Zofran] 4 mg IV NOW STA
03/07/24 19:55
Pantoprazole [Protonix IV] 40 mg IV NOW STA
03/07/24 20:12
Alcohol Urgent
Complete Blood Count/With Diff Urgent
Comprehensive Metabolic Panel Urgent
Lipase Urgent
Prothrombin Time Urgent
Abnormal Lab Results
03/07/24
20:12
WBC 11.3 H 10^3/uL
(4.8-10.8)
RBC 3.22 L 10^6/uL
(4.70-6.10)
Hgb 11.5 L g/dL
(13.0-18.0)
Hct 32.0 L %
(39.0-52.0)
MCV 99.4 H fL
(80.0-94.0)
MCH 35.7 H pg
(27.0-31.0)
RDW 17.5 H %
(11.5-14.5)
Absolute Neuts (auto) 7.8 H 10^3/uL
(1.4-6.5)
Absolute Monos (auto) 1.4 H 10^3/uL
(0.1-0.6)
Lymphocytes % 16.1 L %
(20.5-51.1)
Monocytes % 12.7 H %
(1.7-9.3)
PT 16.1 H Sec
(11.4-14.6)
Potassium 3.4 L mmol/L
(3.5-5.1)
Chloride 109 H mmol/L
(98-107)
Carbon Dioxide 18 L mmol/L
(22-30)
BUN 5 L mg/dl
(9-20)
Creatinine 0.6 L mg/dL
(0.7-1.3)
Total Bilirubin 9.8 H mg/dl
(0.2-1.3)
AST 132 H U/L
(17-59)
Alkaline Phosphatase 172 H U/L
(38-126)
03/07/24 20:12
03/07/24 20:12
Leukocytosis, H/H slightly low, Anemia, PT 16.1 with INR 1.31, lipase normal at 80, Alcohol 23, chloride slightly elevated. total radha elevation. AST elevation. Alk phos elevation.
Vital Signs
Initial and Last Documented VS:
Initial Vital Signs
Temp Pulse Resp BP Pulse Ox
99 F 104 16 132/89 99
03/07/24 19:05 03/07/24 19:05 03/07/24 19:05 03/07/24 19:05 03/07/24 19:05
Last Documented Vital Signs
Temp Pulse Resp BP Pulse Ox
99 F 96 16 128/70 98
03/07/24 19:05 03/07/24 20:20 03/07/24 20:20 03/07/24 20:20 03/07/24 20:20
MDM/Problems Addressed
Differential Diagnosis Includes:
pancreatitis, Gallbladder disease
MDM/Problems Addressed:
This is a 49 year old male that comes in with c/o abd pain and vomiting. States that he has been drinking all day and drinks daily. States that he drinks whiskey about a pint to a 1/2 gallon daily. State that 2 days ago he started with abd pain and
to day he started with vomiting.
will get labs, US and medicate for pain. Explained to patient that he will most likely be admitted as he is also Jaundice.
Back into see patient. Explained that his blood work shows that his AST and total radha area elevated. Patient US is negative or any acute process. Patient also spoke with Taryn and they will be working with patient for possible inpatient or out
patent help to detox. Will admit for ABd pain and detox. hospitalist notified.
Chronic conditions affecting care:
Alcoholism
Acute Exacerbation and/or Progression of Chronic Illness:
Alcoholism, Alcoholic hepatitis.
*Radiology
Radiology exam reviewed: radiology read reviewed (US- Hepatomegaly with findings suggesting underlying chronic liver disease. Splenomegaly)
*Pulse Oximetry
Patient hypoxic: no
*EKG
Interpreted by ED Provider?: NA
Rate: EKG- N/A
*Milk Inspector Interpretation
Rate: Milk Inspector- N/A
*Critical Care Note
Total Time (30-74mins, 75-104mins- exclusive of procedures): Not Applicable
ED Attending Note
-
Portions of this chart may have been created with voice recognition software.� Occasional wrong word or��sound alike� substitutions may have occurred due to the inherent limitations of voice recognition software.
Discharge Plan
Departure
Patient Disposition: Admit
Date of Disposition: 03/07/24
Time of Disposition: 22:00
Admit to: Telemetry
Presentation/result/management discussed w/ accepting MD/DO: Hospitalist
Patient with high blood pressure during this ER visit?: No
Condition: Good
Covid-19: Not Applicable
Discharge Problem:
Acute upper abdominal pain, Alcohol abuse, Jaundice
Prescriptions:
No Action
folic acid 1 mg tablet
1 mg PO DAILY
gabapentin 300 mg capsule
300 mg PO TID
carvedilol [Coreg] 6.25 mg tablet
6.25 mg PO BID
trazodone 50 mg tablet
100 mg PO HS
duloxetine 30 mg capsule,delayed release(DR/EC)
30 mg PO DAILY
thiamine HCl (vitamin B1) 100 mg tablet
100 mg PO DAILY
midodrine 5 mg Tablet
5 mg PO Q4HPRN PRN (Reason: SBP<100) Qty: 30 0RF
Patient Comments:
10/08/2023, pt. states that he has never had to use this med.
magnesium oxide 500 mg magnesium tablet
500 mg PO DAILY
sucralfate 100 mg/mL Suspension
1 g PO ACHS Qty: 1000 1RF
vancomycin [Firvanq] 50 mg/mL Recon Soln
125 mg PO Q6 11 Days Qty: 113 0RF
Rx Instructions:
Continue taking for 45 more doses of 125 mg PO Q6H
nicotine 21 mg/24 hr Patch 24 Hour
21 mg transdermal DAILY Qty: 28 0RF
pantoprazole 40 mg tablet,delayed release (DR/EC)
40 mg PO BID Qty: 60 1RF
Referrals:
Alfred Dexter MD [Family Provider] -
Interventions
Interventions:
*Risk Screen - Suicide Last Done: 03/07/24 19:05
*General Assessment Last Done: 03/07/24 19:05
*Neglect/Abuse Screening Last Done: 03/07/24 19:05
HC-Ubrcfy-Tmzxlyalsg Assessment Last Done: 03/07/24 20:20
Discharge Date and Time
Print Language: HEBREW
[2024-03-07 20:05] VITALS: BMI 23.0
[2024-03-07] MEDS: NSS 500 IV (20:17)
[2024-03-07] MEDS: ZOFRAN 4 MG IV (20:17)
[2024-03-07] MEDS: PROTONIX IV 40 MG IV (20:18)
[2024-03-07] MEDS: DILAUDID 1 MG IV (20:18)
[2024-03-07 20:19] LABS: % Eosinophils 0.5 % (0-6); % Immature Granulocytes 0.3 % (0-0.5); % Lymphocytes 16.1 % (20.5-51.1); % Monocytes 12.7 % (1.7-9.3); % Neutrophils 69.4 % (42.2-75.2); Absolute Basophils 0.1 10^3/uL (0-0.2); Absolute Eosinophils 0.1 10^3/uL (0-0.7); Absolute Lymphocytes 1.8 10^3/uL (1.2-3.4); Absolute Monocytes 1.4 10^3/uL (0.1-0.6); Absolute Neutrophils 7.8 10^3/uL (1.4-6.5); Hemoglobin 11.5 g/dL (13.0-18.0); Mean Corp Hgb Conc. 35.9 g/dL (33.0-37.0); Mean Corpuscular Hgb 35.7 pg (27.0-31.0); Mean Corpuscular Volume 99.4 fL (80.0-94.0); Mean Platelet Volume 10.1 fL (7.4-10.4); Nucleated Red Blood Cells % 0 % (-); Platelet Count 186 10^3/uL (130-400); Red Blood Cell Count 3.22 10^6/uL (4.70-6.10); Red Cell Dist. Width 17.5 % (11.5-14.5); White Blood Cell Count 11.3 10^3/uL (4.8-10.8)
[2024-03-07 20:20] VITALS: BP 128/70
[2024-03-07 20:29] LABS: INR 1.31; PT 16.1 Sec (11.4-14.6)
[2024-03-07 20:33] LABS: ALT (SGPT) 33 U/L (0-50); AST (SGOT) 132 U/L (17-59); Albumin 3.5 g/dl (3.5-5.0); Alcohol 23 mg/dl; Alkaline Phosphatase 172 U/L (38-126); Blood Urea Nitrogen 5 mg/dl (9-20); Calcium 9.1 mg/dl (8.4-10.2); Carbon Dioxide 18 mmol/L (22-30); Chloride 109 mmol/L (98-107); Estimated Creatinine Clearance > 125 ml/min; Glucose 91 mg/dl (70-99); Lipase 80 U/L (23-300); Potassium 3.4 mmol/L (3.5-5.1); Sodium 140 mmol/L (135-145); Total Bilirubin 9.8 mg/dl (0.2-1.3); Total Protein 7.1 g/dl (6.3-8.2); eGFR > 60.00
[2024-03-07 22:39] VITALS: BP 110/74
[2024-03-07 22:59] VITALS: BP 143/96
--- NOTE | 2024-03-07 23:14 | HPS.HSE ---
Family Physician
-
Family Physician: Alfred Dexter MD
Chief Complaint
-
abdominal pain, vomiting
History of Present Illness
The patient is a 49-year-old male with past medical history of alcoholism with alcohol hepatitis and alcohol cirrhosis, recently admitted 02/10-02/17/24 due to abdominal pain and alcohol gastritis, C.Difficile colitis (dc'd on oral Vancomycin for 11
more days), and rectal bleeding, and then was admitted to [facility] shortly after DC from here for same symptoms (and had further imaging and testing there with similar findings), who presents to ED today due to abdominal pain for the past 2
days. He had vomiting today, and has been drinking all day. He drinks a pint to 1/2 gallon whiskey daily. He has increased SOB, nausea, vomiting, and diarrhea and KINGSLEY.
no fever, no CP, no chills, no bleeding, no urinary complaints.
ED provider spoke to Cris, and they will be working with patient for possible inpatient vs outpatient rehab/detox.
Medical History
Past Medical History
Past Medical History: Reports Other
Additional Past Medical History:
Esophageal varices
Alcoholic liver cirrhosis with acute on chronic transaminitis/Chronic bilirubinemia/Alcohol use d/o
Active smoking with nicotine dependence
GERD, HTN
Alcoholism, diverticulitis
Past Surgical History: Reports Orthopedic
Social History
Tobacco: Smoker
Alcohol: Chronic Alcoholic (daily use 1 pint to 1/2 gallon whiskey daily)
Drug: None
Personal: Single
Living: With Family
Family History
Family History: Not pertinent
Allergies / Home Medications
Allergies reflects when Allergies were last updated in [employer].
Home Medications with original date entered in [employer]
Allergy/Medication List:
Allergies
Allergy/AdvReac Type Severity Reaction Status Date / Time
wool Allergy Rash Verified 02/10/24 20:53
Home Medications
folic acid 1 mg tablet 1 mg PO DAILY Supplement 09/23/22
gabapentin 300 mg capsule 300 mg PO TID Pain 10/08/22
carvedilol 6.25 mg tablet (Coreg) 6.25 mg PO BID Blood Pressure 02/10/23
duloxetine 30 mg capsule,delayed release 30 mg PO DAILY Mental Health/Anxiety 09/14/23
thiamine HCl (vitamin B1) 100 mg tablet 100 mg PO DAILY energy 09/14/23
trazodone 50 mg tablet 100 mg PO HS Sleep 09/14/23
midodrine 5 mg tablet 5 mg PO Q4HPRN PRN SBP<100 #30 tabs 09/23/23
pantoprazole 40 mg tablet,delayed release 40 mg PO BID Gastrointestinal Issue #60 tabs 02/17/24
Review of Systems
-
A 12 point ROS was completed and negative except as noted: Yes
Physical Exam
Vital Signs
Vital Signs
Temp Pulse Resp BP Pulse Ox
98.8 F 96 16 143/96 98
03/07/24 22:59 03/07/24 22:59 03/07/24 22:59 03/07/24 22:59 03/07/24 22:59
Physical Exam
General: Well Developed, Well Nourished, Conversant and Appears Chronically Ill
HEENT: NormoCephalic, Anicteric and Moist mucous membranes
Respiratory: Clear
Cardiac: S1/S2 and Regular Rhythm
GI: Soft, Distended and Other (decreased bowel sounds, voluntary guarding diffusely)
Musculoskeletal: No Clubbing, No Cyanosis and No Edema
Skin: Warm and Dry
Neuro: AO x 3, No Motor Deficits and Nonfocal/grossly intact
Psych: Calm
Laboratory Results
-
03/07/24 20:12
03/07/24 20:12
Laboratory Results
PT 16.1 Sec (11.4-14.6) H 06/23/24 20:12
INR 1.31 03/07/24 20:12
Total Bilirubin 9.8 mg/dl (0.2-1.3) H 03/07/24 20:12
AST 132 U/L (17-59) H 03/07/24 20:12
ALT 33 U/L (0-50) 03/07/24 20:12
Alkaline Phosphatase 172 U/L (38-126) H 03/07/24 20:12
Lipase 80 U/L (23-300) 03/07/24 20:12
Data Reviewed
-
Ultrasound: Report Reviewed by me (US abdomen - Hepatomegaly and findings suggesting underlying chronic liver disease. Splenomegaly.)
Impression/Plan
-
IMPRESSION:The patient is a 49-year-old male with past medical history of alcoholism with alcohol hepatitis and alcohol cirrhosis, recently admitted 02/10-02/17/24 due to abdominal pain and alcohol gastritis and rectal bleeding, C.Difficile colitis
(dc'd on oral Vancomycin for 11 more days), and then was admitted to [facility] shortly after DC from here for same symptoms (and had further imaging and testing there with similar findings), who presents to ED today due to abdominal pain for
the past 2 days. He had vomiting today, and has been drinking all day. He drinks a pint to 1/2 gallon whiskey daily. He has increased SOB, nausea, vomiting, and diarrhea and KINGSLEY.
no fever, no CP, no chills, no bleeding, no urinary complaints.
ED provider spoke to Cris, and they will be working with patient for possible inpatient vs outpatient rehab/detox.
ED txt:
IVF 250 mL bolus, Zofran 4 mg IV, Dilaudid 1 mg IV, Protonix 40 mg IV
#Alcohol hepatitis associated with abdominal pain and vomiting, now with metabolic acidosis, hypokalemia, leukocytosis (11.3 WBC), and likely volume depletion
-abdominal pain likely due to alcohol gastritis as he continues to drink 1/2 gallon whiskey daily
-continue IV PPI BID and Carafate daily for now
-GI consultation - discuss if diagnostic paracentesis would be possible - does not appear to have ascites as this time, not sure he has fluid to tap
-monitor after IVF in ED, gentle IV hydration
-alcohol withdrawal protocol w phenobarbitol
-supportive management
-repeat LFTs in am
-[facility]ares/CM consultation for detox program if medically stable
#Severe alcohol use disorder
-he will likely require and benefit from intensive inpatient alcohol withdrawal program that includes long-term pharmacological treatment of severe alcohol use disorder to prevent relapse
-CM consult for placement in rehab/detox -[facility]are
- will need alcohol counseling
# Diarrhea-
-stool studies for C. Difficile, recently treated for C. Diff, not currently on treatment
-repeat stool studies
#Typically thrombocytopenia though platelets are normal today, possibly hemoconcentrated
-given IVF bolus in ED, continue gentle IVF tonight and repeat labs in am
#Hypokalemia K 3.4
-replete and monitor
-check Mg
#Splenomegaly, chronic
#Esophageal varices, no active bleeding
-IV PPI and monitor
#Alcoholic cirrhosis with acute on chronic transaminitis/Chronic bilirubinemia/Alcohol use d/o
-as above
#Active smoking with nicotine dependence
#GERD,
#HTN
DVT proph-PCDs
Full Code
Dispo-CM consult for Bcares/detox IP vs OP
[2024-03-08] VITALS (9 sets, daily range): BP systolic 124–155; BP diastolic 80–103; BMI 24.0
[2024-03-08 01:03] LABS: Magnesium 1.4 mg/dl (1.6-2.3)
[2024-03-08] MEDS: THIAMINE INJECTION 200 MG IV ×3 (02:00→20:46)
[2024-03-08] MEDS: NSS 1000 IV (02:00)
[2024-03-08] MEDS: ZOFRAN 4 MG IV ×4 (02:01→21:03)
[2024-03-08] MEDS: DILAUDID 0.5 MG IV ×4 (02:01→21:02)
[2024-03-08] MEDS: KCL ELIXIR 40 MEQ TUBE (02:09)
[2024-03-08] MEDS: TYLENOL 650 MG PO (02:10)
[2024-03-08] MEDS: VITAMIN B1 PO ×2 (02:10→20:45)
--- NOTE | 2024-03-08 02:57 | PTCARENOTE ---
pt is aaox3, reports abd pain 10/10, tender, nauseous, and diarrhea. see MAR re: pain medication and zofran. pt msas=3. pt oriented to room w/ call nichole in reach.
reevaluated pt- sleeping.
[2024-03-08 06:00] LABS: Urine Albumin Trace (Neg - Trace); Urine Bilirubin 3+ (Negative); Urine Character Clear (Clear); Urine Color Amber; Urine Glucose Negative (Negative); Urine Ketone Trace (Negative); Urine Leukocyte Trace (Negative); Urine Nitrite Positive (Negative); Urine Occult Blood Negative (Negative); Urine Urobilinogen 4+ (Neg - 1+); Urine pH 6.5 (5.0-9.0)
[2024-03-08 06:25] LABS: Urine Bacteria Few (Negative); Urine Red Blood Cell 0-2 /HPF (0-2); Urine Squamous Cell 0-2 /LPF (Few)
--- NOTE | 2024-03-08 06:47 | CON.GI ---
Addendum entered and electronically signed by Sony Scales MD 03/08/24 08:37:
I saw and examined the patient.
The TRIAL MANAGEMENT ASSOCIATE or PA's note was reviewed and I agree with the note.
Comment: 49yo male with hx of multiple hospital admissions for EtOH, cirrhosis, c diff, recent alcoholic hepatitis treated with steroid initially but stopped due to C diff. More recently he was admitted at [facility] for abd pain, n/v and reports having
imaging and EGD done, describes finding ulcer and possible CBD stone per pt report. He has been recommended EtOH inpt rehab but preferred to try on his own outpt. He admits to stopping at liquor store on his way home from hospital discharge. He is
drinking 1/2 gallon liquor daily.
REC:
DF currently calculates to 23. No need for steroids at this time
He is now agreeable to inpatient rehab. Explained that EtOH abstinence is most important at this point and may lead to resolution of his acute GI symptoms
Repeat C diff given recent diarrhea
Watch for DTs
Requested records from [facility] to confirm possible ulcer or CBD stone and see if any f/u is required at this time
Original Note:
Consultation
-
Date/Time Consultation Requested: 03/08/24 0130
Date/Time Consultation Performed: 03/08/24 0645
Requesting Provider: Lianne Mtz DO
Performing Provider: KEIKO Padilla, Sony Scales MD
Reason for Consultation: ETOH abuse/cirrhosis
Medical History
Chief Complaint / HPI
Chief Complaint: abdominal pain
History of Present Illness:
The patient is a 49-year-old male with a past medical history significant for alcohol abuse, liver cirrhosis, history of esophageal/gastric varices (on imaging not on EGD), portal HTN, C. difficile, covid, hepatic encephalopathy, GERD, hypertension,
who presented to the emergency room with complaints of abdominal pain with concern for ETOH hepatitis. He relates he just spent 10 days at [facility] with discharge on Friday with noted PUD on EGD and concern for ETOH withdrawal with
abdominal pain. He states there was also concern for gallstones but no ERCP required. He relates he was recommended ETOH rehab but opted for outpatient services though admits to stopping at the liquor store on his uber ride home from the hospital.
Over the weekend was drinking about 1/2 gallon on [employer] and continued with abdominal pain but presents to for evaluation. On admission repeat US with change of cirrhosis with hepatomegaly and splenomegaly. Labs notable for WBD 11.5,
platelets 186 bili 9.8, AST 132, ALT 33, alk phos 172, INR 1.3 albumin 3.5.
Pt admits to increased abdominal pain with nausea. He has seen some dark stools and dark urine. he denies dysphagia, GERD or diarrhea. Last EGD at [place] last week- pt recall PUD.
Past Medical History
Past Medical History: GERD, HTN and Other ( Alcoholic liver cirrhosis, alcoholic hepatitis, alcohol abuse, history of C. difficile, PUD, covid infection, hepatic encephalopathy, gastroesophageal varices (on imaging))
Past Surgical History: None
Social History
Tobacco: Smoker (1 PPD)
Alcohol: Chronic Alcoholic (1 pt of liquor daily)
Drug: None
Living: With Family
Employment: Employed
Family History
Family History: Reviewed & Not Pertinent
Allergies / Home Medications
Allergy/AdvReac Type Severity Reaction Status Date / Time
wool Allergy Rash Verified 02/10/24 20:53
�Medication �Instructions �Recorded
folic acid 1 mg tablet 1 mg PO DAILY Supplement 09/23/22
gabapentin 300 mg capsule 300 mg PO TID Pain 10/08/22
carvedilol 6.25 mg tablet (Coreg) 6.25 mg PO BID Blood Pressure 02/10/23
duloxetine 30 mg capsule,delayed 30 mg PO DAILY Mental 09/14/23
release Health/Anxiety
thiamine HCl (vitamin B1) 100 mg 100 mg PO DAILY energy 09/14/23
tablet
trazodone 50 mg tablet 100 mg PO HS Sleep 09/14/23
midodrine 5 mg tablet 5 mg PO Q4HPRN PRN SBP<100 #30 tabs 09/23/23
pantoprazole 40 mg tablet,delayed 40 mg PO BID Gastrointestinal 02/17/24
release Issue #60 tabs
Review of Systems
-
History Source: Patient
Constitutional: Reports Other (decreased appetite )
EENT: Reports No Symptoms
Cardiac: Reports Chest Pain (rare episode last few months )
Abdomen/GI: Reports Abdominal Pain and Nausea
: Reports Dark Urine
Musculoskeletal: Reports No Symptoms
Skin: Reports No Symptoms
Neurological: Reports Numbness
Endocrine: Reports No Symptoms
Hematologic/Lymphatic: Reports No Symptoms
Vital Signs
Temp Pulse Resp BP Pulse Ox
98.2 F 91 18 124/90 97
03/08/24 04:50 03/08/24 04:50 03/08/24 04:50 03/08/24 04:50 03/08/24 01:50
Physical Exam
Exam
General: Other (some distress with abdominal pain but awake and alert )
HEENT: Other (jaundice )
Respiratory: Clear
Cardiac: Other (tachy )
GI: Soft, Tender and Distended
Musculoskeletal: No Clubbing and No Cyanosis
Skin: Warm and Dry
Neuro: Awake, Alert and AO x 3
Psych: Calm
Results
WBC 11.3 10^3/uL (4.8-10.8) H 03/07/24 20:12
Hgb 11.5 g/dL (13.0-18.0) L 03/07/24 20:12
Hct 32.0 % (39.0-52.0) L 03/07/24 20:12
MCV 99.4 fL (80.0-94.0) H 03/07/24 20:12
Plt Count 186 10^3/uL (130-400) 03/07/24 20:12
Absolute Neuts (auto) 7.8 10^3/uL (1.4-6.5) H 03/07/24 20:12
PT 16.1 Sec (11.4-14.6) H 03/07/24 20:12
INR 1.31 03/07/24 20:12
Sodium 140 mmol/L (135-145) 03/07/24 20:12
Potassium 3.4 mmol/L (3.5-5.1) L 03/07/24 20:12
Chloride 109 mmol/L (98-107) H 03/07/24 20:12
Carbon Dioxide 18 mmol/L (22-30) L 03/07/24 20:12
BUN 5 mg/dl (9-20) L 03/07/24 20:12
Creatinine 0.6 mg/dL (0.7-1.3) L 03/07/24 20:12
Calcium 9.1 mg/dl (8.4-10.2) 03/07/24 20:12
Total Bilirubin 9.8 mg/dl (0.2-1.3) H 03/07/24 20:12
AST 132 U/L (17-59) H 03/07/24 20:12
ALT 33 U/L (0-50) 03/07/24 20:12
Alkaline Phosphatase 172 U/L (38-126) H 03/07/24 20:12
Lipase 80 U/L (23-300) 03/07/24 20:12
Diagnostic Image Results:
03/07/24- US abdomen
1. Hepatomegaly and findings suggesting underlying chronic liver disease.
2. Splenomegaly
02/11/24 CT A/P w/IV contrast: IMPRESSION:
'1. Two focal areas of small bowel intussusception within the left mid abdomen as detailed above, not associated with intestinal obstruction. Similar appearance on prior CT.
2. Gallstones within the gallbladder, which is mildly distended. Findings are similar compared to prior CT.
3. Diffusely heterogeneous attenuation pattern of the liver, consistent with cirrhosis and possible fatty infiltration. Recanalized umbilical vein and gastroesophageal varices, consistent with portal hypertension.
4. Hepatosplenomegaly.'
11/29/23 Abd MRI: IMPRESSION: 'Severe diffuse hepatic steatosis along with mild hepatic cirrhosis without suspicious lesions identified, progressed from prior. Portal hypertension changes. Cholelithiasis without convincing evidence for acute
cholecystitis. Mild diffuse colonic wall thickening may reflect nonspecific colitis or portal colopathy change.'
11/28/23 HIDA: IMPRESSION:
'1. Patent cystic and common bile ducts. Negative for acute cholecystitis.
2. Findings as above which are consistent with hepatocellular dysfunction.'
Prior GI Procedures:
EGD: 11/21/2022 Dr. Fonseca: Normal esophagus. Erythematous mucosa in the antrum. Biopsied. Erythematous duodenopathy.
Colonoscopy: none
Assessment / Plan
-
The patient is a 49-year-old male with a past medical history significant for alcohol abuse, liver cirrhosis, history of esophageal/gastric varices (on imaging not on EGD), portal HTN, C. difficile, covid, hepatic encephalopathy, GERD, hypertension,
who presented to the emergency room with complaints of abdominal pain with concern for ETOH hepatitis. He relates he just spent 10 days at [facility] with discharge on Friday with noted PUD on EGD and concern for ETOH withdrawal with
abdominal pain. He states there was also concern for gallstones but no ERCP required. He relates he was recommended ETOH rehab but opted for outpatient services though admits to stopping at the liquor store on his uber ride home from the hospital.
Over the weekend was drinking about 1/2 gallon on [employer] and continued with abdominal pain but presents to for evaluation. On admission repeat US with change of cirrhosis with hepatomegaly and splenomegaly. Labs notable for WBD 11.5,
platelets 186 bili 9.8, AST 132, ALT 33, alk phos 172, INR 1.3 albumin 3.5.
Problem list:
-abdominal pain
-Alcohol abuse, with concern for alcoholic hepatitis, discriminant function 23.6 03/07
-Alcoholic liver cirrhosis, MELD 3.0 -19 03/07
-recent admission to [place] with PUD, ETOH withdrawal and discharge 03/05
-hx thrombocytopenia with normal platelets on admission
-Hypokalemia
-diarrrhea with hx c-diff
Other pertinent medical hx:
-GERD
-HTN
-neuropathy- ETOH related
-gallstones
-covid
Recommendations:
Etiology of abdominal pain related to ETOH gastritis, PUD, ETOH hepatitis vs other
current MELD 3.0-19 and DF 23.6 based on admission labs
no need for Prednisolone at this time-- was on prior Prednisolone but stopped with c-diff infection
cont to trend labs
supportive care
recheck c-diff with diarrhea and hx several prior c-diff infection in past
Pt counseled on ETOH abstinence as admits to drinking binge over weekend after [place] discharge
encouraged inpatient rehab
monitor for withdrawal
cont PPI BID and carafate QID
clear diet advance as tolerated
requested [facility] records
-
-
Thank you for consultation and allowing me to participate in the patient's care. Please call the paediatric surgeon GI physician during the after hours with any questions or concerns.
[2024-03-08 06:54] LABS: % Basophils 1.1 % (0-2); % Immature Granulocytes 0.4 % (0-0.5); % Lymphocytes 27.5 % (20.5-51.1); % Monocytes 11.6 % (1.7-9.3); % Neutrophils 58.4 % (42.2-75.2); Absolute Basophils 0.1 10^3/uL (0-0.2); Absolute Eosinophils 0.1 10^3/uL (0-0.7); Absolute Monocytes 0.8 10^3/uL (0.1-0.6); Absolute Neutrophils 4.3 10^3/uL (1.4-6.5); Hematocrit 30.1 % (39.0-52.0); Hemoglobin 10.4 g/dL (13.0-18.0); Mean Corp Hgb Conc. 34.6 g/dL (33.0-37.0); Mean Corpuscular Hgb 35.3 pg (27.0-31.0); Mean Platelet Volume 10.6 fL (7.4-10.4); Nucleated Red Blood Cells % 0 % (-); Platelet Count 155 10^3/uL (130-400); Red Blood Cell Count 2.95 10^6/uL (4.70-6.10); Red Cell Dist. Width 17.4 % (11.5-14.5); White Blood Cell Count 7.3 10^3/uL (4.8-10.8)
[2024-03-08 07:12] LABS: ALT (SGPT) 28 U/L (0-50); AST (SGOT) 102 U/L (17-59); Albumin 3.1 g/dl (3.5-5.0); Alkaline Phosphatase 157 U/L (38-126); Blood Urea Nitrogen 3 mg/dl (9-20); Calcium 8.7 mg/dl (8.4-10.2); Carbon Dioxide 20 mmol/L (22-30); Chloride 108 mmol/L (98-107); Estimated Creatinine Clearance > 125 ml/min; GGTP 271 U/L (15-73); Glucose 83 mg/dl (70-99); Phosphorus 3.9 mg/dl (2.5-4.5); Potassium 3.9 mmol/L (3.5-5.1); Sodium 137 mmol/L (135-145); Total Protein 6.3 g/dl (6.3-8.2); eGFR > 60.00
[2024-03-08 07:19] LABS: B-Hydroxybutyrate 0.03 mmol/L (0.02-0.27)
[2024-03-08] MEDS: ATIVAN 1 MG PO ×2 (07:51→12:42)
--- NOTE | 2024-03-08 08:39 | W.PN.HOSP.TC ---
Today's Communication/Plan
-
continue Phenobarb
Pt unable to eat, will continue IVF until appetite improves
follow labs
input of GI appreciated, they requested records from [facility]
Assessment / Plan
Assessment / Plan
IMPRESSION:The patient is a 49-year-old male with past medical history of alcoholism with alcohol hepatitis and alcohol cirrhosis, recently admitted 02/10-02/17/24 due to abdominal pain and alcohol gastritis and rectal bleeding, C.Difficile colitis
(dc'd on oral Vancomycin for 11 more days), and then was admitted to [facility] shortly after DC from here for same symptoms (and had further imaging and testing there with similar findings) states was dc from [facility] on 03/05 and went
directly to liquor store to obtain bottle of liquor, who presents to ED today due to abdominal pain for the past 2 days. He had vomiting on day of admission, and had been drinking all day. He drinks a pint to 1/2 gallon whiskey daily, with minimal
to no food intake. He has increased SOB, nausea, vomiting, and diarrhea and KINGSLEY.
no fever, no CP, no chills, no bleeding, no urinary complaints.
ED provider spoke to Cris, and they will be working with patient for possible inpatient vs outpatient rehab/detox. Discussed with pt, needs to strongly consider inpt [facility] rehab.
ED txt:
IVF 250 mL bolus, Zofran 4 mg IV, Dilaudid 1 mg IV, Protonix 40 mg IV
#Alcohol hepatitis associated with abdominal pain and vomiting, now with metabolic acidosis, hypokalemia (3.4-->3.9), leukocytosis (11.3-->7.3k WBC), and likely volume depletion
-abdominal pain likely due to alcohol gastritis as he continues to drink 1/2 gallon whiskey daily
-continue IV PPI BID and Carafate daily for now
-GI consultation noted and appreciated
Abd US: Liver is enlarged measuring up to 25 cm and increased in echotexture without evidence of focal lesion. The portal and hepatic vessels appear grossly patent.
Borderline extrahepatic biliary ductal dilatation with the visualized portion of the common duct measuring 6.8 mm. No gallstones, gallbladder wall thickening, pericholecystic fluid or sonographic Cook's sign.
Limited visualization of the tail of the pancreas, with the visualized portion of the pancreas unremarkable. Spleen measures 19.0 cm in length, which is enlarged. No free fluid in the upper abdomen.
Right kidney measures 12.1 cm, and the left kidney measures 12.4 cm in length. No hydronephrosis.
Visualized portions of the abdominal aorta and inferior vena cava appear unremarkable.
-continue gentle IV hydration
-alcohol withdrawal protocol w phenobarbitol
-supportive management
-repeat LFTs in am
-BCares/ consultation for detox program if medically stable
#Severe alcohol use disorder
-he will likely require and benefit from intensive inpatient alcohol withdrawal program that includes long-term pharmacological treatment of severe alcohol use disorder to prevent relapse
-CM consult for placement in rehab/detox -[facility]are
- will need alcohol counseling
# Diarrhea-
-stool studies for C. Difficile, recently treated for C. Diff, not currently on treatment
-repeat stool studies
#Typically thrombocytopenia though platelets are normal today, plt 186-->155k
#Hypokalemia better K 3.4-->3.9
-replete and monitor
- Mg 1.4
#Splenomegaly, chronic
#Esophageal varices, no active bleeding
-IV PPI and monitor
#Alcoholic cirrhosis with acute on chronic transaminitis/Chronic bilirubinemia/Alcohol use d/o
-as above
#Active smoking with nicotine dependence
will order patch
#GERD,
#HTN
DVT proph-PCDs
Full Code
Dispo-CM consult for [facility]cares/detox IP vs OP
Anticipated Discharge: > 48 hours
Subjective/Interval History
-
Date of Service: March 08, 2024
Tremulous
Objective Data
-
Labs:
Laboratory Results
03/08/24
05:47
WBC 7.3
Hgb 10.4 L
Hct 30.1 L
Plt Count 155
Sodium 137
Potassium 3.9
Chloride 108 H
Carbon Dioxide 20 L
BUN 3 L
Creatinine 0.7
Glucose 83
Calcium 8.7
Total Bilirubin 11.0 H
AST 102 H
ALT 28
Alkaline Phosphatase 157 H
Vital Signs:
Vital Signs
Temp Pulse Resp BP Pulse Ox
98.3 F 103 20 155/103 98
03/08/24 07:33 03/08/24 07:33 03/08/24 07:33 03/08/24 07:33 03/08/24 07:33
I&O
03/07/24 03/08/24 03/09/24
06:59 06:59 06:59
Intake Total 780 / 780
Balance 780 / 780
Review of Systems
-
History Source: Patient, Physician (reviewed with Dr. Scales) and Coordinated Provider
Constitutional: Denies Fever
EENT: Reports No Symptoms Reported
Respiratory: Reports No Symptoms
Cardiac: Reports No Symptoms
Abdomen/GI: Reports Abdominal Pain, Nausea, Vomiting and Diarrhea (liquid stools)
Musculoskeletal: Reports No Symptoms
Physical Exam
-
General: Well Developed, Well Nourished, Appears in Distress, Conversant and Appears Chronically Ill
HEENT: Normocephalic and Atraumatic
Respiratory: Clear to Auscultation; Negative Wheezes, Rales or Rhonchi
Cardiac: Regular Rhythm and S1/S2
GI: Soft, Normal Bowel Sounds, Tender and Distended
Musculoskeletal: No Clubbing, No Cyanosis and No Edema
Neuro: Awake, Alert, Oriented and Tremors (asterixis - mild)
[2024-03-08] MEDS: VITAMIN B1 100 MG PO (08:51)
[2024-03-08] MEDS: LUMINAL 97.2000000000000028 MG PO ×3 (08:51→22:56)
[2024-03-08] MEDS: CYMBALTA DELAYED RELEASE 30 MG PO (08:51)
[2024-03-08] MEDS: CARAFATE 1 GRAM PO ×4 (08:51→22:56)
[2024-03-08] MEDS: NEURONTIN 300 MG PO ×3 (08:51→22:54)
[2024-03-08] MEDS: COREG 6.25 MG PO ×2 (08:52→20:45)
[2024-03-08] MEDS: FOLVITE 1 MG PO (08:52)
[2024-03-08] MEDS: PROTONIX IV 40 MG IV ×2 (08:53→20:49)
[2024-03-08] MEDS: NICODERM TRANSDERMAL 21 MG TRANSDERM (08:53)
[2024-03-08] MEDS: D5/0.45%NSS with KCL 20 MEQ 1000 IV (10:29)
[2024-03-08] MEDS: ULTRAM 50 MG PO (12:42)
--- NOTE | 2024-03-08 13:53 | PTOTSP ---
ST Acute Care Evaluation
Pt currently presents with oral, pharyngeal, and esophageal phases of swallow that are within functional limits for safe PO intake of all solids and liquids. No overt s/s of penetration or aspiration observed at bedside.
Recommendations:
- Initiate PO diet of regular solids, thin liquids, meds as tolerated.
- GERD precautions.
- Aspiration precautions while going through ETOH withdrawal.
- CLASSIFIED COPY CONTROL CLERK to sign off. If pt's condition changes, pt's mentation declines, or if pt needs more sedation per CIWA scale, please make pt NPO and re-consult CLASSIFIED COPY CONTROL CLERK services. Thank you!
--- NOTE | 2024-03-08 14:08 | CM ---
Initial assessment completed. The following information was obtained on last hospitalization in Jan, 2024. All information was confirmed with patient on this date and remains accurate. Patient is jaundice and very lethargic. Having difficulty
opening eyes and enunciating. Nodded head in agreement to questions asked.
Patient lives alone in a 2 story home with B/B on 2nd floor, no bath on 1st, 3 steps to enter, [employer] was independent, drove and worked FT. Patient has a B/P machine at home, no in-home services, no psychiatric hospitalizations. [facility]acy is [facility]
in [place] and PCP is Dr. Jatin Caceres.
TAMMY has been consulted. Liaison came to floor for report. He will visit patient later in week since patient is not feeling well.
[2024-03-08] MEDS: DESYREL 100 MG PO (22:53)
[2024-03-09] MEDS: D5/0.45%NSS with KCL 20 MEQ 1000 IV (00:49)
[2024-03-09 03:27] VITALS: BP 100/64
[2024-03-09 06:00] VITALS: BMI 24.0
--- NOTE | 2024-03-09 06:32 | W.PN.GI.CBS2 ---
Today's Communication / Plan
-
Please see assessment and plan for details.
Assessment / Plan
-
1. Abdominal pain: Most consistent with alcoholic gastritis, has been chronic with otherwise extensive workup in the past. Will continue PPI and Carafate, again discussed alcohol abstinence. His LFTs are elevated though have fluctuated, likely
all secondary to alcohol. There is question about CBD stone though ultrasound here without significant duct dilation, possible ulcer on endoscopy at [facility]. Await records from [facility]. If he tolerates diet and labs are improving is okay to DC
from GI standpoint.
2. Diarrhea: Chronic, with C. difficile toxin positive in the past, status post multiple treatment regimens, now toxin negative, with resolved leukocytosis, doubt active infection currently.
3. Alcoholic liver disease: With underlying cirrhosis with probable portal hypertension by imaging, no appreciable ascites. Will continue to trend labs, if significantly continue to worsen would need to reconsider prednisolone.
Subjective
Subjective
Date of Service: March 09, 2024
Patient feeling better overall, denies abdominal pain overnight. Still having diarrhea which is been chronic for him over the past year, does not really change with treatment for C. difficile. No fevers or chills overnight.
Objective
Data Reviewed
Laboratory Data:
Laboratory Results
PT 16.1 Sec (11.4-14.6) H 03/07/24 20:12
INR 1.31 03/07/24 20:12
Phosphorus 3.9 mg/dl (2.5-4.5) 03/08/24 05:47
Magnesium 1.4 mg/dl (1.6-2.3) L 03/07/24 20:12
Total Bilirubin 11.0 mg/dl (0.2-1.3) H 03/08/24 05:47
AST 102 U/L (17-59) H 03/08/24 05:47
ALT 28 U/L (0-50) 03/08/24 05:47
Alkaline Phosphatase 157 U/L (38-126) H 03/08/24 05:47
Lipase 80 U/L (23-300) 03/07/24 20:12
Vital Signs and I&O:
Vital Signs
Temp Pulse Resp BP Pulse Ox
98.7 F 83 18 100/64 95
03/09/24 03:27 03/09/24 03:27 03/09/24 03:27 03/09/24 03:27 03/09/24 03:27
I&O
03/07/24 03/08/24 03/09/24
06:59 06:59 06:59
Intake Total 780 / 780 6623 / 3584
Balance 780 / 780 9293 / 3580
Physical Exam
Physical Exam
General: NAD
Abdomen: normal bowel sounds, soft, no tenderness now, no masses or bruits, no appreciable ascites
[2024-03-09 07:15] VITALS: BP 100/66
[2024-03-09 07:30] LABS: Hematocrit 27.2 % (39.0-52.0); Hemoglobin 9.5 g/dL (13.0-18.0); Mean Corp Hgb Conc. 34.9 g/dL (33.0-37.0); Mean Corpuscular Hgb 35.8 pg (27.0-31.0); Mean Corpuscular Volume 102.6 fL (80.0-94.0); Mean Platelet Volume 10.5 fL (7.4-10.4); Platelet Count 127 10^3/uL (130-400); Red Blood Cell Count 2.65 10^6/uL (4.70-6.10); Red Cell Dist. Width 16.5 % (11.5-14.5); White Blood Cell Count 5.2 10^3/uL (4.8-10.8)
[2024-03-09 07:36] LABS: INR 1.49; PT 17.9 Sec (11.4-14.6)
[2024-03-09 08:07] LABS: ALT (SGPT) 24 U/L (0-50); AST (SGOT) 91 U/L (17-59); Albumin 2.8 g/dl (3.5-5.0); Alkaline Phosphatase 147 U/L (38-126); Blood Urea Nitrogen 3 mg/dl (9-20); Carbon Dioxide 20 mmol/L (22-30); Chloride 105 mmol/L (98-107); Estimated Creatinine Clearance > 125 ml/min; Glucose 87 mg/dl (70-99); Potassium 3.9 mmol/L (3.5-5.1); Sodium 131 mmol/L (135-145); Total Bilirubin 10.2 mg/dl (0.2-1.3); Total Protein 5.6 g/dl (6.3-8.2); eGFR > 60.00
--- NOTE | 2024-03-09 08:35 | W.PN.HOSP.TC ---
Today's Communication/Plan
-
stop IVF
empiric oral Vancomycin
follow LFT's
pt still with significant abd pain, await further input from GI
Assessment / Plan
Assessment / Plan
IMPRESSION:The patient is a 49-year-old male with past medical history of alcoholism with alcohol hepatitis and alcohol cirrhosis, recently admitted 02/10-02/17/24 due to abdominal pain and alcohol gastritis and rectal bleeding, C.Difficile colitis
(dc'd on oral Vancomycin for 11 more days), and then was admitted to [facility] shortly after DC from here for same symptoms (and had further imaging and testing there with similar findings) states was dc from [place] [facility] on 03/05 and went
directly to liquor store to obtain bottle of liquor, who presents to ED today due to abdominal pain for the past 2 days. He had vomiting on day of admission, and had been drinking all day. He drinks a pint to 1/2 gallon whiskey daily, with minimal
to no food intake. He has increased SOB, nausea, vomiting, and diarrhea and KINGSLEY.
no fever, no CP, no chills, no bleeding, no urinary complaints.
ED provider spoke to Cris, and they will be working with patient for possible inpatient vs outpatient rehab/detox. Discussed with pt, needs to strongly consider inpt [facility] rehab.
ED txt:
IVF 250 mL bolus, Zofran 4 mg IV, Dilaudid 1 mg IV, Protonix 40 mg IV
GI was planning to contact [facility], await results of recent EGD
03/07 US: Liver is enlarged measuring up to 25 cm and increased in echotexture without evidence of focal lesion. The portal and hepatic vessels appear grossly patent.
Borderline extrahepatic biliary ductal dilatation with the visualized portion of the common duct measuring 6.8 mm. No gallstones, gallbladder wall thickening, pericholecystic fluid or sonographic Cook's sign.
Limited visualization of the tail of the pancreas, with the visualized portion of the pancreas unremarkable. Spleen measures 19.0 cm in length, which is enlarged. No free fluid in the upper abdomen.
#Alcohol hepatitis associated with abdominal pain and vomiting, now with metabolic acidosis, hypokalemia (3.4-->3.9), leukocytosis (11.3-->7.3k WBC), and likely volume depletion
Bili 11.0-->10.2
-abdominal pain likely due to alcohol gastritis as he continues to drink 1/2 gallon whiskey daily
-continue IV PPI BID and Carafate daily for now
-GI consultation noted and appreciated
Abd US: Liver is enlarged measuring up to 25 cm and increased in echotexture without evidence of focal lesion. The portal and hepatic vessels appear grossly patent.
Borderline extrahepatic biliary ductal dilatation with the visualized portion of the common duct measuring 6.8 mm. No gallstones, gallbladder wall thickening, pericholecystic fluid or sonographic Cook's sign.
Limited visualization of the tail of the pancreas, with the visualized portion of the pancreas unremarkable. Spleen measures 19.0 cm in length, which is enlarged. No free fluid in the upper abdomen.
Right kidney measures 12.1 cm, and the left kidney measures 12.4 cm in length. No hydronephrosis.
Visualized portions of the abdominal aorta and inferior vena cava appear unremarkable.
-with improved oral intake, will stop IVF
-alcohol withdrawal protocol w phenobarbitol
-supportive management
-repeat LFTs in am
-BCares/CM consultation for detox program if medically stable
#Severe alcohol use disorder
-he will likely require and benefit from intensive inpatient alcohol withdrawal program that includes long-term pharmacological treatment of severe alcohol use disorder to prevent relapse
- consult for placement in rehab/detox -[facility]are
- will need alcohol counseling
# Diarrhea-
-stool studies for C. Difficile, recently treated for C. Diff, not currently on treatment
-repeat stool studies negative, no WBC seen
in pt with hx of recent C.Diff, will empirically tx with oral Vanco to see if there is any response, even with neg studies
#Typically thrombocytopenia though platelets are better than prior hospitalization plt 186-->155-->127k
#Hypokalemia resolved K 3.4-->3.9-->3.9
-replete and monitor
- Mg 1.4
#Splenomegaly, chronic
#Esophageal varices, no active bleeding
-IV PPI and monitor
#Alcoholic cirrhosis with acute on chronic transaminitis/Chronic bilirubinemia/Alcohol use d/o
-as above
#Active smoking with nicotine dependence
will order patch
#GERD,
#HTN
DVT proph-PCDs
Full Code
Dispo-CM consult for Bcares/detox IP vs OP
Anticipated Discharge: > 48 hours
Subjective/Interval History
-
Date of Service: March 09, 2024
Tolerating diet, fluids. Still with diarrhea
Objective Data
-
Labs:
Laboratory Results
03/09/24
06:19
WBC 5.2
Hgb 9.5 L
Hct 27.2 L
Plt Count 127 L
PT 17.9 H
INR 1.49
Sodium 131 L
Potassium 3.9
Chloride 105
Carbon Dioxide 20 L
BUN 3 L
Creatinine 0.6 L
Glucose 87
Calcium 9.0
Total Bilirubin 10.2 H
AST 91 H
ALT 24
Alkaline Phosphatase 147 H
Vital Signs:
Vital Signs
Temp Pulse Resp BP Pulse Ox
98.7 F 83 18 100/64 95
03/09/24 03:27 03/09/24 03:27 03/09/24 03:27 03/09/24 03:27 03/09/24 03:27
I&O
03/08/24 03/09/24 03/10/24
06:59 06:59 06:59
Intake Total 780 / 780 5463 / 3588
Balance 780 / 780 3583 / 3583
Review of Systems
-
History Source: Patient and Coordinated Provider
Constitutional: Denies Fever
EENT: Reports No Symptoms Reported
Respiratory: Reports No Symptoms
Cardiac: Reports No Symptoms
Abdomen/GI: Reports Abdominal Pain (remains very tender), Nausea (better, not resolved), Vomiting (denied) and Diarrhea (liquid stools, persisting)
Musculoskeletal: Reports No Symptoms
Physical Exam
-
General: Well Developed, Well Nourished, Appears in Distress, Conversant and Appears Chronically Ill
HEENT: Normocephalic and Atraumatic
Respiratory: Clear to Auscultation; Negative Wheezes, Rales or Rhonchi
Cardiac: Regular Rhythm and S1/S2
GI: Soft, Normal Bowel Sounds, Tender and Distended
Musculoskeletal: No Clubbing, No Cyanosis and No Edema
Neuro: Awake, Alert, Oriented and Tremors (asterixis - mild)
[2024-03-09] MEDS: CARAFATE 1 GRAM PO ×4 (08:41→21:01)
[2024-03-09] MEDS: COREG 6.25 MG PO ×2 (08:42→19:31)
[2024-03-09] MEDS: VITAMIN B1 100 MG PO (08:43)
[2024-03-09] MEDS: CYMBALTA DELAYED RELEASE 30 MG PO (08:43)
[2024-03-09] MEDS: LUMINAL 97.2000000000000028 MG PO ×3 (08:43→21:01)
[2024-03-09] MEDS: NEURONTIN 300 MG PO ×3 (08:43→21:01)
[2024-03-09] MEDS: FOLVITE 1 MG PO (08:43)
[2024-03-09] MEDS: PROTONIX IV 40 MG IV ×2 (08:44→19:31)
[2024-03-09] MEDS: THIAMINE INJECTION 200 MG IV ×2 (08:44→19:30)
[2024-03-09] MEDS: NICODERM TRANSDERMAL 21 MG TRANSDERM (08:46)
[2024-03-09] MEDS: DILAUDID 0.5 MG IV ×3 (09:06→20:51)
[2024-03-09 11:10] VITALS: BP 107/70
[2024-03-09] MEDS: FIRVANQ 125 MG PO ×3 (11:34→23:03)
[2024-03-09] MEDS: ZOFRAN 4 MG IV (11:40)
--- NOTE | 2024-03-09 11:40 | W.PN.UPDATE ---
Update Note
Progress Note Update
I reviewed records from [facility] including CAT scan, ultrasound, endoscopy labs and progress note. CAT scan had suggestion of possible cholecystitis, ultrasound though did not have changes consistent with cholecystitis. There was a stone noted
near the gallbladder neck though the CBD was normal. His endoscopy showed some mild gastric erythema and signs of portal gastropathy and grade 2 nonbleeding esophageal varices though otherwise was unremarkable. At this point given resolution of
his leukocytosis and ultrasound here cholecystitis is very unlikely, though given previous CAT scan and recurrent pain requiring multiple hospitalizations we will try HIDA scan, though could be nondiagnostic given his underlying cirrhosis. Still
more likely related to alcoholic related gastritis and will continue PPI and Carafate.
--- NOTE | 2024-03-09 14:06 | PTCARENOTE ---
Vital signs obtained prior to medication administration for HIDA scan Hr 79, RR 16, Bp 103/70, room air 98%. Morphine 2mg given via left forearm INT as per order prior to scan. Vital signs after medication administration Hr 82, RR 16, Bp 104/70,
room air 97%. Patient without complaints.
[2024-03-09 15:45] VITALS: BP 118/83
[2024-03-09] MEDS: ROCEPHIN 1000 MG IV (16:15)
[2024-03-09] MEDS: STERILE WATER FOR INJECTION 10 ML IV (16:15)
--- NOTE | 2024-03-09 16:45 | CON.GS ---
Medical History
-
Chief Complaint: Abdominal pain
History of Present Illness:
Patient is a 49 yo M with a PMH of GERD, HTN, PUD, h/o C. difficile, and EtOH abuse c/b cirrhosis with abdominal ascites, encephalopathy, and varices. He presents with upper abdominal pain. Symptoms are constant and across his upper abdomen. No
association or worsening with oral intake. States that he occasionally gets sharp stabbing pains within the LUQ. He is fixated preoccupied with a spider bite in his epigastrium. He continues to consume large quantities of alcohol most recently
just prior to admission. He was recently hospitalized at [place] for 10 days during which time there was concern for PUD and EtOH withdrawal. He was noted to have gallstones at that time but no intervention was performed. He reports looser
stools. Jaundice. Darker urine. No fevers.
Past Medical History
Past Medical History: GERD, HTN and Other (PUD, EtOH abuse)
Past Surgical History: None
Social History
Tobacco: Smoker (1 PPD)
Alcohol: Chronic Alcoholic (1 pint of liquor a day)
Personal: Single
Living: With Family
Family History
Family History: Reviewed & Not Pertinent
Allergies / Home Medications
Allergy/AdvReac Type Severity Reaction Status Date / Time
wool Allergy Rash Verified 02/10/24 20:53
�Medication �Instructions �Recorded �Confirmed �Type
folic acid 1 mg tablet 1 mg PO DAILY Supplement 09/23/22 03/07/24 History
gabapentin 300 mg capsule 300 mg PO TID Pain 10/08/22 03/07/24 History
carvedilol 6.25 mg tablet (Coreg) 6.25 mg PO BID Blood Pressure 02/10/23 03/07/24 History
duloxetine 30 mg capsule,delayed 30 mg PO DAILY Mental 09/14/23 03/07/24 History
release Health/Anxiety
thiamine HCl (vitamin B1) 100 mg 100 mg PO DAILY energy 09/14/23 03/07/24 History
tablet
trazodone 50 mg tablet 100 mg PO HS Sleep 09/14/23 03/07/24 History
midodrine 5 mg tablet 5 mg PO Q4HPRN PRN SBP<100 #30 tabs 09/23/23 03/07/24 Rx
pantoprazole 40 mg tablet,delayed 40 mg PO BID Gastrointestinal 02/17/24 03/07/24 Rx
release Issue #60 tabs
Review of Systems
-
A 10 point review of systems was completed, and was negative except as per HPI.
Physical Exam
Vital Signs
Temp Pulse Resp BP Pulse Ox
98.0 F 90 18 118/83 98
03/09/24 15:45 03/09/24 15:45 03/09/24 15:45 03/09/24 15:45 03/09/24 15:45
03/08/24 03/09/24 03/10/24
06:59 06:59 06:59
Actual Weight 75.92 kg
Body Mass Index (BMI) 24.0
Lab Results
03/09/24 06:19
03/09/24 06:19
WBC 5.2 10^3/uL (4.8-10.8) 03/09/24 06:19
Hgb 9.5 g/dL (13.0-18.0) L 03/09/24 06:19
Hct 27.2 % (39.0-52.0) L 03/09/24 06:19
Plt Count 127 10^3/uL (130-400) L 03/09/24 06:19
Abs Immat Gran (auto) 0.0 10^3/uL (0-0.05) 03/08/24 05:47
Neutrophils % 58.4 % (42.2-75.2) 03/08/24 05:47
Physical Exam
General: Well Developed, Well Nourished and No Apparent Distress
HEENT: Normocephalic and Scleral Icterus
Respiratory: Non Labored Respirations
Cardiac: Regular Rhythm
GI: Soft, Tender (mild upper abdominal tenderness, negative Cook's sign), Obese and Other (Non-peritoneal)
Musculoskeletal: No Edema
Skin: Warm, Dry and Jaundice
Neuro: Nonfocal/Grossly Intact
Data Reviewed
-
CT Scan: Image Personally Visualized and interpreted and Report Reviewed by me
Ultrasound: Image Personally Visualized and interpreted and Report Reviewed by me
Medical Tests (Nuc Med, Echo etc): Image Personally Visualized and interpreted and Report Reviewed by me
Labs: Labs Reviewed by me
Old Records: Reviewed
Assessment / Plan
-
Patient is a 49 yo M p/w acute on chronic liver failure.
Clinically patient does not appear to have cholecystitis - no focal pain to the RUQ, no worsening of symptoms with oral intake and tolerating food at this time, normalization of WBC, negative sonographic Cook sign. HIDA shows nonvisualization of
gallbladder, however, study limited in the setting of severe liver disease. Ultrasound does not demonstrate any evidence of cholecystitis, and negative sonographic Cook sign. CT demonstrates a distended gallbladder with gallstones but no clear
signs of cholecystitis. Significantly increased risk for operative complications as it relates to bleeding and worsening of underlying liver disease (no plans for cholecystectomy at at point in time here at ). Any attempts at management of his
GB would be with a percutaneous cholecystostomy tube, however, clinically do not believe that his current issues are related to cholecystitis and will hold at this time. All questions answered. Please call with any questions or concerns.
-- No plans for cholecystectomy or cholecystostomy tube
-- Low fat diet
-- Call with questions or concerns
[2024-03-09 19:22] VITALS: BP 103/70
[2024-03-09] MEDS: VITAMIN B1 PO ×2 (19:29→19:35)
[2024-03-09] MEDS: NSS (PRESERVATIVE FREE) 10 ML IV (19:39)
[2024-03-09] MEDS: DESYREL 100 MG PO (22:51)
[2024-03-09 23:27] VITALS: BP 108/71
[2024-03-10 03:39] VITALS: BP 105/64
[2024-03-10] MEDS: FIRVANQ 125 MG PO ×3 (05:30→18:04)
[2024-03-10] MEDS: ULTRAM 50 MG PO (05:31)
--- NOTE | 2024-03-10 06:40 | W.PN.GI.CBS2 ---
Today's Communication / Plan
-
Please see assessment and plan for details.
Assessment / Plan
-
1. Abdominal pain: Most consistent with alcoholic gastritis, has been chronic with otherwise extensive workup in the past. Will continue PPI and Carafate, again discussed alcohol abstinence. His LFTs are elevated though have fluctuated, likely
all secondary to alcohol. I reviewed records from [place] as well, no suggestion of CBD stone. HIDA scan did not show filling of the gallbladder, though agree with surgery that clinically not consistent with cholecystitis. Will continue empiric
antibiotics and supportive care for now, trend labs.
2. Diarrhea: Chronic, with C. difficile toxin positive in the past, status post multiple treatment regimens, now toxin negative, with resolved leukocytosis, though symptoms have improved on oral vancomycin, will continue.
3. Alcoholic liver disease: With underlying cirrhosis with probable portal hypertension by imaging, no appreciable ascites. Will continue to trend labs, the likely hold on prednisolone with concern of underlying infection.
Subjective
Subjective
Date of Service: March 10, 2024
Patient feeling better overall, still complains of abdominal pain, more diffuse, more left-sided. Appreciate surgery evaluation. Still with diarrhea though improved. Afebrile overnight.
Objective
Data Reviewed
Laboratory Data:
Laboratory Results
PT 17.9 Sec (11.4-14.6) H 03/09/24 06:19
INR 1.49 03/09/24 06:19
Phosphorus 3.9 mg/dl (2.5-4.5) 03/08/24 05:47
Magnesium 1.4 mg/dl (1.6-2.3) L 03/07/24 20:12
Total Bilirubin 10.2 mg/dl (0.2-1.3) H 03/09/24 06:19
AST 91 U/L (17-59) H 03/09/24 06:19
ALT 24 U/L (0-50) 03/09/24 06:19
Alkaline Phosphatase 147 U/L (38-126) H 03/09/24 06:19
Lipase 80 U/L (23-300) 03/07/24 20:12
Vital Signs and I&O:
Vital Signs
Temp Pulse Resp BP Pulse Ox
98.6 F 90 18 105/64 95
03/10/24 03:39 03/10/24 03:39 03/10/24 03:39 03/10/24 03:39 03/10/24 03:39
I&O
03/08/24 03/09/24 03/10/24
06:59 06:59 06:59
Intake Total 780 / 780 3583 / 3583 2520 / 2520
Balance 780 / 780 3583 / 3583 2520 / 2520
Physical Exam
Physical Exam
General: NAD
Abdomen: normal bowel sounds, soft, minimal epigastric tenderness, no masses or bruits, no ascites
[2024-03-10 06:42] LABS: % Basophils 0.8 % (0-2); % Eosinophils 1.2 % (0-6); % Immature Granulocytes 0.6 % (0-0.5); % Lymphocytes 23.1 % (20.5-51.1); % Monocytes 8.5 % (1.7-9.3); % Neutrophils 65.8 % (42.2-75.2); Absolute Eosinophils 0.1 10^3/uL (0-0.7); Absolute Lymphocytes 1.2 10^3/uL (1.2-3.4); Absolute Monocytes 0.4 10^3/uL (0.1-0.6); Absolute Neutrophils 3.4 10^3/uL (1.4-6.5); Hematocrit 26.2 % (39.0-52.0); Hemoglobin 9.2 g/dL (13.0-18.0); Mean Corp Hgb Conc. 35.1 g/dL (33.0-37.0); Mean Corpuscular Hgb 36.1 pg (27.0-31.0); Mean Corpuscular Volume 102.7 fL (80.0-94.0); Mean Platelet Volume 11.1 fL (7.4-10.4); Nucleated Red Blood Cells % 0 % (-); Platelet Count 111 10^3/uL (130-400); Red Blood Cell Count 2.55 10^6/uL (4.70-6.10); Red Cell Dist. Width 16.9 % (11.5-14.5); White Blood Cell Count 5.2 10^3/uL (4.8-10.8)
[2024-03-10 07:14] LABS: ALT (SGPT) 21 U/L (0-50); AST (SGOT) 75 U/L (17-59); Albumin 2.7 g/dl (3.5-5.0); Alkaline Phosphatase 142 U/L (38-126); Blood Urea Nitrogen 4 mg/dl (9-20); Calcium 8.6 mg/dl (8.4-10.2); Carbon Dioxide 21 mmol/L (22-30); Chloride 104 mmol/L (98-107); Estimated Creatinine Clearance > 125 ml/min; Glucose 88 mg/dl (70-99); Sodium 131 mmol/L (135-145); Total Bilirubin 9.8 mg/dl (0.2-1.3); Total Protein 5.7 g/dl (6.3-8.2); eGFR > 60.00
[2024-03-10 07:15] VITALS: BP 102/65
[2024-03-10] MEDS: NSS (PRESERVATIVE FREE) 10 ML IV (08:21)
[2024-03-10] MEDS: PROTONIX IV 40 MG IV (08:21)
[2024-03-10] MEDS: CARAFATE 1 GRAM PO ×4 (08:21→22:38)
[2024-03-10] MEDS: CYMBALTA DELAYED RELEASE 30 MG PO (08:22)
[2024-03-10] MEDS: VITAMIN B1 100 MG PO ×2 (08:22→20:26)
[2024-03-10] MEDS: NEURONTIN 300 MG PO ×3 (08:22→22:38)
[2024-03-10] MEDS: COREG 6.25 MG PO ×2 (08:22→20:25)
[2024-03-10] MEDS: FOLVITE 1 MG PO (08:22)
[2024-03-10] MEDS: ZOFRAN 4 MG IV (08:22)
[2024-03-10] MEDS: LUMINAL 64.7999999999999972 MG PO ×3 (08:22→22:38)
[2024-03-10] MEDS: NICODERM TRANSDERMAL 21 MG TRANSDERM (08:23)
[2024-03-10] MEDS: THIAMINE INJECTION 200 MG IV (08:24)
--- NOTE | 2024-03-10 08:53 | W.PN.HOSP.TC ---
Today's Communication/Plan
-
cautious wean off Phenobarb
continue Rocephin
Assessment / Plan
Assessment / Plan
IMPRESSION:The patient is a 49-year-old male with past medical history of alcoholism with alcohol hepatitis and alcohol cirrhosis, recently admitted 02/10-02/17/24 due to abdominal pain and alcohol gastritis and rectal bleeding, C.Difficile colitis
(dc'd on oral Vancomycin for 11 more days), and then was admitted to [facility] shortly after DC from here for same symptoms (and had further imaging and testing there with similar findings) states was dc from [place] on 03/05 and went
directly to liquor store to obtain bottle of liquor, who presents to ED today due to abdominal pain for the past 2 days. He had vomiting on day of admission, and had been drinking all day. He drinks a pint to 1/2 gallon whiskey daily, with minimal
to no food intake. He then had increased SOB, nausea, vomiting, and diarrhea and KINGSLEY, that generally has improved.
no fever, no CP, no chills, no bleeding, no urinary complaints.
ED provider spoke to [facility], and they will be working with patient for possible inpatient vs outpatient rehab/detox. Discussed with pt, needs to strongly consider inpt [facility] rehab.
ED txt:
IVF 250 mL bolus, Zofran 4 mg IV, Dilaudid 1 mg IV, Protonix 40 mg IV
GI (Dr Fonseca) obtained records from [place],
EGD demonstrated mild gastric erythema and signs of portal gastropathy and grade 2 nonbleeding esophageal varices though otherwise was unremarkable.
Dr. Munoz was consulted: 'Clinically patient does not appear to have cholecystitis - no focal pain to the RUQ, no worsening of symptoms with oral intake and tolerating food at this time, normalization of WBC, negative sonographic Cook sign.
HIDA shows nonvisualization of gallbladder, however, study limited in the setting of severe liver disease. Ultrasound does not demonstrate any evidence of cholecystitis, and negative sonographic Cook sign. CT demonstrates a distended gallbladder
with gallstones but no clear signs of cholecystitis. Significantly increased risk for operative complications as it relates to bleeding and worsening of underlying liver disease (no plans for cholecystectomy at at point in time here at ). Any
attempts at management of his GB would be with a percutaneous cholecystostomy tube, however, clinically do not believe that his current issues are related to cholecystitis and will hold at this time.'
03/09 HIDA scan: 1. No filling of the gallbladder on the 60 minute delayed phase images, nor following administration of morphine. Findings are suggestive of acute cholecystitis in the correct clinical setting.
2. Delayed hepatic excretion of tracer suggestive of hepatocellular dysfunction.
03/07 US: Liver is enlarged measuring up to 25 cm and increased in echotexture without evidence of focal lesion. The portal and hepatic vessels appear grossly patent.
Borderline extrahepatic biliary ductal dilatation with the visualized portion of the common duct measuring 6.8 mm. No gallstones, gallbladder wall thickening, pericholecystic fluid or sonographic Cook's sign.
Limited visualization of the tail of the pancreas, with the visualized portion of the pancreas unremarkable. Spleen measures 19.0 cm in length, which is enlarged. No free fluid in the upper abdomen.
#Alcohol hepatitis associated with abdominal pain and vomiting, presented with metabolic acidosis (Better CO2 18-->21), hypokalemia (3.4-->3.9-->4.0), leukocytosis (11.3-->7.3-->5.2k WBC), and likely volume depletion
Bili 11.0-->10.2-->9.8
-abdominal pain likely due to alcohol gastritis as he continued to drink 1/2 gallon whiskey daily
-change IV PPI BID to oral and Carafate daily for now
GI requested pt start Rocephin when concern for acute sylvia, discussed with Dr. Fonseca 03/10, recommended to continue for now
-GI consultation noted and appreciated
Abd US: Liver is enlarged measuring up to 25 cm and increased in echotexture without evidence of focal lesion. The portal and hepatic vessels appear grossly patent.
Borderline extrahepatic biliary ductal dilatation with the visualized portion of the common duct measuring 6.8 mm. No gallstones, gallbladder wall thickening, pericholecystic fluid or sonographic Cook's sign.
Limited visualization of the tail of the pancreas, with the visualized portion of the pancreas unremarkable. Spleen measures 19.0 cm in length, which is enlarged. No free fluid in the upper abdomen.
Right kidney measures 12.1 cm, and the left kidney measures 12.4 cm in length. No hydronephrosis.
Visualized portions of the abdominal aorta and inferior vena cava appear unremarkable.
-with improved oral intake, will stop IVF
-alcohol withdrawal protocol w phenobarbitol
-supportive management
-repeat LFTs in am
-[facility] consultation for detox program if medically stable
#Severe alcohol use disorder
-he will likely require and benefit from intensive inpatient alcohol withdrawal program that includes long-term pharmacological treatment of severe alcohol use disorder to prevent relapse
-CM consult for placement in rehab/detox -[facility]
- will need alcohol counseling
alcohol withdrawal improved not resolved. Much less tremulous, Phenobarbital being weaned
# Diarrhea-
-stool studies for C. Difficile, recently treated for C. Diff, not currently on treatment
-repeat stool studies negative, no WBC seen
in pt with hx of recent C.Diff, will empirically tx with oral Vanco to see if there is any response, even with neg studies
#Typically thrombocytopenia though platelets are better than prior hospitalization plt 186-->155-->127-->111k
#Hypokalemia resolved K 3.4-->3.9-->3.9-->4.0
-replete and monitor
- Mg 1.4
#Splenomegaly, chronic
#Esophageal varices, no active bleeding
-IV PPI and monitor
#Alcoholic cirrhosis with acute on chronic transaminitis/Chronic bilirubinemia/Alcohol use d/o
-as above
#Active smoking with nicotine dependence
will order patch
#GERD,
#HTN
DVT proph-PCDs
Full Code
Dispo-CM consult for [facility]/detox IP vs OP
Anticipated Discharge: 24 - 48 hours
Subjective/Interval History
-
Date of Service: March 10, 2024
Diarrhea slowing during day, was more pronounced last evening
Objective Data
-
Labs:
Laboratory Results
03/10/24
05:38
WBC 5.2
Hgb 9.2 L
Hct 26.2 L
Plt Count 111 L
Sodium 131 L
Potassium 4.0
Chloride 104
Carbon Dioxide 21 L
BUN 4 L
Creatinine 0.7
Glucose 88
Calcium 8.6
Total Bilirubin 9.8 H
AST 75 H
ALT 21
Alkaline Phosphatase 142 H
Vital Signs:
Vital Signs
Temp Pulse Resp BP Pulse Ox
98.7 F 93 16 102/65 94
03/10/24 07:15 03/10/24 08:22 03/10/24 07:15 03/10/24 08:22 03/10/24 07:15
I&O
03/09/24 03/10/24 03/11/24
06:59 06:59 06:59
Intake Total 3583 / 3583 2520 / 2520
Balance 3583 / 3583 2520 / 2520
Review of Systems
-
History Source: Patient and Coordinated Provider
Constitutional: Denies Fever
EENT: Reports No Symptoms Reported
Respiratory: Reports No Symptoms
Cardiac: Reports No Symptoms
Abdomen/GI: Reports Abdominal Pain (has lessened, nt rsolved), Nausea (better), Vomiting (denied) and Diarrhea (liquid stools, persisting)
Musculoskeletal: Reports No Symptoms
Neuro: Reports Other (much calmer and more attentive, but states has had episodes of hallucinations at times)
Physical Exam
-
General: Well Developed, Well Nourished, Appears in Distress, Conversant and Appears Chronically Ill
HEENT: Normocephalic and Atraumatic
Respiratory: Clear to Auscultation; Negative Wheezes, Rales or Rhonchi
Cardiac: Regular Rhythm and S1/S2
GI: Soft, Normal Bowel Sounds, Tender and Distended
Musculoskeletal: No Clubbing, No Cyanosis and No Edema
Neuro: Awake, Alert, Oriented and Tremors (resolved)
[2024-03-10] MEDS: DILAUDID 0.5 MG IV ×3 (09:53→20:39)
--- NOTE | 2024-03-10 10:08 | PTCARENOTE ---
pt verbalizing 7/10 abdominal pain throughout. prn dilaudid given through L wrist IV access. pt stated that he 'drank a 5 hour energy and it probably did not do him any good'. this nurse educated patient on the negative affects this can have on him
especially when he was already communicating stomach pain. pt had another one within the room and this nurse moved to the counter.
[2024-03-10 11:05] VITALS: BP 97/64
--- NOTE | 2024-03-10 15:11 | CM ---
Weaning Phenobarb, IV/AB. [facility] involved. Discharge Plan of Care: TBD. Does not need SNF or HH. Hopefully will agree to inpatient alcohol rehab.
[2024-03-10 15:35] VITALS: BP 101/66
[2024-03-10] MEDS: STERILE WATER FOR INJECTION 10 ML IV (16:27)
[2024-03-10] MEDS: ROCEPHIN 1000 MG IV (16:27)
[2024-03-10 19:05] VITALS: BP 116/78
[2024-03-10] MEDS: NSS (PRESERVATIVE FREE) IV (20:24)
[2024-03-10] MEDS: PROTONIX 40 MG PO (20:25)
[2024-03-10] MEDS: DESYREL 100 MG PO (22:38)
[2024-03-10 23:42] VITALS: BP 111/68
[2024-03-11] MEDS: FIRVANQ 125 MG PO ×5 (00:50→23:55)
[2024-03-11 03:35] VITALS: BP 115/75
--- NOTE | 2024-03-11 06:36 | W.PN.GI.CBS2 ---
Today's Communication / Plan
-
Please assessment and plan for details.
Assessment / Plan
-
1. Abdominal pain: Most consistent with alcoholic gastritis, has been chronic with otherwise extensive workup in the past. Will continue PPI and Carafate, again discussed alcohol abstinence. His LFTs are elevated though have fluctuated, likely
all secondary to alcohol. I reviewed records from [place] as well, no suggestion of CBD stone. HIDA scan did not show filling of the gallbladder, though agree with surgery that clinically not consistent with cholecystitis. Will await morning
labs, if okay and tolerating diet is okay to DC from GI standpoint, likely finish a total of 5 days of Cipro and Flagyl along with oral vancomycin coverage.
2. Diarrhea: Chronic, with C. difficile toxin positive in the past, status post multiple treatment regimens, now toxin negative, with resolved leukocytosis, though symptoms have improved on oral vancomycin, would complete 2-week course, especially
if finishing other antibiotics.
3. Alcoholic liver disease: With underlying cirrhosis with probable portal hypertension by imaging, no appreciable ascites. Will continue to trend labs, the likely hold on prednisolone with concern of underlying infection, await morning labs.
Subjective
Subjective
Date of Service: March 11, 2024
Patient feeling okay, pain is overall improved, still with some diarrhea, though no signs of bleeding, no fevers or chills overnight.
Objective
Data Reviewed
Laboratory Data:
Laboratory Results
PT 17.9 Sec (11.4-14.6) H 03/09/24 06:19
INR 1.49 03/09/24 06:19
Phosphorus 3.9 mg/dl (2.5-4.5) 03/08/24 05:47
Magnesium 1.4 mg/dl (1.6-2.3) L 03/07/24 20:12
Total Bilirubin 9.8 mg/dl (0.2-1.3) H 03/10/24 05:38
AST 75 U/L (17-59) H 03/10/24 05:38
ALT 21 U/L (0-50) 03/10/24 05:38
Alkaline Phosphatase 142 U/L (38-126) H 03/10/24 05:38
Lipase 80 U/L (23-300) 03/07/24 20:12
Vital Signs and I&O:
Vital Signs
Temp Pulse Resp BP Pulse Ox
98.0 F 88 18 115/75 98
03/11/24 03:35 03/11/24 03:35 03/11/24 03:35 03/11/24 03:35 03/11/24 03:35
I&O
03/09/24 03/10/24 03/11/24
06:59 06:59 06:59
Intake Total 3583 / 3583 2520 / 2520 2340 / 2340
Balance 3583 / 3583 2520 / 2520 2340 / 2340
Physical Exam
Physical Exam
General: NAD
Abdomen: normal bowel sounds, soft, no tenderness, no masses or bruits, no significant ascites
[2024-03-11 06:54] LABS: Hematocrit 26.9 % (39.0-52.0); Hemoglobin 9.4 g/dL (13.0-18.0); Mean Corp Hgb Conc. 34.9 g/dL (33.0-37.0); Mean Corpuscular Hgb 35.7 pg (27.0-31.0); Mean Corpuscular Volume 102.3 fL (80.0-94.0); Red Blood Cell Count 2.63 10^6/uL (4.70-6.10); Red Cell Dist. Width 17.1 % (11.5-14.5); White Blood Cell Count 5.8 10^3/uL (4.8-10.8)
[2024-03-11 07:02] LABS: INR 1.52; PT 18.4 Sec (11.4-14.6)
[2024-03-11 07:19] LABS: ALT (SGPT) 19 U/L (0-50); AST (SGOT) 66 U/L (17-59); Albumin 2.9 g/dl (3.5-5.0); Alkaline Phosphatase 149 U/L (38-126); Blood Urea Nitrogen 3 mg/dl (9-20); Calcium 8.5 mg/dl (8.4-10.2); Carbon Dioxide 21 mmol/L (22-30); Chloride 103 mmol/L (98-107); Direct Bilirubin 7.4 mg/dl (0.0-0.4); Estimated Creatinine Clearance > 125 ml/min; Glucose 92 mg/dl (70-99); Sodium 130 mmol/L (135-145); Total Bilirubin 8.9 mg/dl (0.2-1.3); Total Protein 5.8 g/dl (6.3-8.2); eGFR > 60.00
[2024-03-11 08:00] VITALS: BP 104/68
[2024-03-11 08:32] LABS: Mean Platelet Volume 10.2 fL (7.4-10.4); Platelet Count 97 10^3/uL (130-400)
[2024-03-11] MEDS: CYMBALTA DELAYED RELEASE 30 MG PO (09:13)
[2024-03-11] MEDS: VITAMIN B1 100 MG PO ×2 (09:14→20:39)
[2024-03-11] MEDS: CARAFATE 1 GRAM PO ×4 (09:14→22:34)
[2024-03-11] MEDS: FOLVITE 1 MG PO (09:14)
[2024-03-11] MEDS: LUMINAL 64.7999999999999972 MG PO ×3 (09:14→22:34)
[2024-03-11] MEDS: NICODERM TRANSDERMAL 21 MG TRANSDERM (09:14)
[2024-03-11] MEDS: NEURONTIN 300 MG PO ×3 (09:15→22:34)
[2024-03-11] MEDS: COREG 6.25 MG PO ×2 (09:15→20:39)
[2024-03-11] MEDS: NSS (PRESERVATIVE FREE) IV ×2 (09:15→20:41)
[2024-03-11] MEDS: PROTONIX 40 MG PO ×2 (09:15→20:39)
--- NOTE | 2024-03-11 09:20 | W.PN.HOSP.TC ---
Today's Communication/Plan
-
continue Phenobarb taper
Assessment / Plan
Assessment / Plan
IMPRESSION:The patient is a 49-year-old male with past medical history of alcoholism with alcohol hepatitis and alcohol cirrhosis, recently admitted 02/10-02/17/24 due to abdominal pain and alcohol gastritis and rectal bleeding, C.Difficile colitis
(dc'd on oral Vancomycin for 11 more days), and then was admitted to [facility] shortly after DC from here for same symptoms (and had further imaging and testing there with similar findings) states was dc from [place] on 03/05 and went
directly to liquor store to obtain bottle of liquor, who presents to ED today due to abdominal pain for the past 2 days. He had vomiting on day of admission, and had been drinking all day. He drinks a pint to 1/2 gallon whiskey daily, with minimal
to no food intake. He then had increased SOB, nausea, vomiting, and diarrhea and KINGSLEY, that generally has improved.
no fever, no CP, no chills, no bleeding, no urinary complaints.
ED provider spoke to [facility], and they will be working with patient for possible inpatient vs outpatient rehab/detox. Discussed with pt, needs to strongly consider inpt [facility] rehab.
ED txt:
IVF 250 mL bolus, Zofran 4 mg IV, Dilaudid 1 mg IV, Protonix 40 mg IV
GI (Dr Fonseca) obtained records from [place],
EGD demonstrated mild gastric erythema and signs of portal gastropathy and grade 2 nonbleeding esophageal varices though otherwise was unremarkable.
Dr. Munoz was consulted: 'Clinically patient does not appear to have cholecystitis - no focal pain to the RUQ, no worsening of symptoms with oral intake and tolerating food at this time, normalization of WBC, negative sonographic Cook sign.
HIDA shows nonvisualization of gallbladder, however, study limited in the setting of severe liver disease. Ultrasound does not demonstrate any evidence of cholecystitis, and negative sonographic Cook sign. CT demonstrates a distended gallbladder
with gallstones but no clear signs of cholecystitis. Significantly increased risk for operative complications as it relates to bleeding and worsening of underlying liver disease (no plans for cholecystectomy at at point in time here at ). Any
attempts at management of his GB would be with a percutaneous cholecystostomy tube, however, clinically do not believe that his current issues are related to cholecystitis and will hold at this time.'
03/09 HIDA scan: 1. No filling of the gallbladder on the 60 minute delayed phase images, nor following administration of morphine. Findings are suggestive of acute cholecystitis in the correct clinical setting.
2. Delayed hepatic excretion of tracer suggestive of hepatocellular dysfunction.
03/07 US: Liver is enlarged measuring up to 25 cm and increased in echotexture without evidence of focal lesion. The portal and hepatic vessels appear grossly patent.
Borderline extrahepatic biliary ductal dilatation with the visualized portion of the common duct measuring 6.8 mm. No gallstones, gallbladder wall thickening, pericholecystic fluid or sonographic Cook's sign.
Limited visualization of the tail of the pancreas, with the visualized portion of the pancreas unremarkable. Spleen measures 19.0 cm in length, which is enlarged. No free fluid in the upper abdomen.
#Alcohol hepatitis associated with abdominal pain and vomiting, presented with metabolic acidosis (Better CO2 18-->21), hypokalemia (3.4-->3.9-->4.0), leukocytosis (11.3-->7.3-->5.2k WBC), and likely volume depletion
Bili 11.0-->10.2-->9.8-->8.9
AST 132-->66
-abdominal pain likely due to alcohol gastritis as he continued to drink 1/2 gallon whiskey daily
-change IV PPI BID to oral and Carafate daily for now
GI requested pt start Rocephin when concern for acute sylvia, discussed with Dr. Fonseca 03/10, recommended to continue for now
-GI consultation noted and appreciated
Abd US: Liver is enlarged measuring up to 25 cm and increased in echotexture without evidence of focal lesion. The portal and hepatic vessels appear grossly patent.
Borderline extrahepatic biliary ductal dilatation with the visualized portion of the common duct measuring 6.8 mm. No gallstones, gallbladder wall thickening, pericholecystic fluid or sonographic Cook's sign.
Limited visualization of the tail of the pancreas, with the visualized portion of the pancreas unremarkable. Spleen measures 19.0 cm in length, which is enlarged. No free fluid in the upper abdomen.
Right kidney measures 12.1 cm, and the left kidney measures 12.4 cm in length. No hydronephrosis.
Visualized portions of the abdominal aorta and inferior vena cava appear unremarkable.
-with improved oral intake, will stop IVF
-alcohol withdrawal protocol w phenobarbitol
-supportive management
-repeat LFTs in am
-[facility]/ consultation for detox program if medically stable
#Severe alcohol use disorder
-he will likely require and benefit from intensive inpatient alcohol withdrawal program that includes long-term pharmacological treatment of severe alcohol use disorder to prevent relapse
- consult for placement in rehab/detox -[facility]
- will need alcohol counseling
alcohol withdrawal improved not resolved. Much less tremulous, Phenobarbital being weaned
# Diarrhea-
-stool studies for C. Difficile, recently treated for C. Diff, not currently on treatment
-repeat stool studies negative, no WBC seen
in pt with hx of recent C.Diff, will empirically tx with oral Vanco, as per GI, to continue while on abx
#Typically thrombocytopenia though platelets are better than prior hospitalization plt 186-->155-->127-->111-->97k
#Hypokalemia resolved K 3.4-->3.9-->3.9-->4.0
-replete and monitor
- Mg 1.4
#Splenomegaly, chronic
#Esophageal varices, no active bleeding
-IV PPI and monitor
#Alcoholic cirrhosis with acute on chronic transaminitis/Chronic bilirubinemia/Alcohol use d/o
-as above
#Active smoking with nicotine dependence
will order patch
#GERD,
#HTN
DVT proph-PCDs
Full Code
Dispo-CM consult for [facility]/detox IP vs OP. If inpt detox can be arranged, pt should be okay for dc next 24 hrs. Tremor has markedly diminished, should complete phenobarb taper by 03/13 22:01
Anticipated Discharge: > 48 hours
Subjective/Interval History
-
Date of Service: March 11, 2024
Not as tremulous
Objective Data
-
Labs:
Laboratory Results
03/11/24
06:41
WBC 5.8
Hgb 9.4 L
Hct 26.9 L
Plt Count 97 L
PT 18.4 H
INR 1.52
Sodium 130 L
Potassium 4.0
Chloride 103
Carbon Dioxide 21 L
BUN 3 L
Creatinine 0.6 L
Glucose 92
Calcium 8.5
Total Bilirubin 8.9 H
AST 66 H
ALT 19
Alkaline Phosphatase 149 H
Vital Signs:
Vital Signs
Temp Pulse Resp BP Pulse Ox
98.3 F 83 18 104/68 96
03/11/24 08:00 03/11/24 08:00 03/11/24 08:00 03/11/24 08:00 03/11/24 08:00
I&O
03/10/24 03/11/24 03/12/24
06:59 06:59 06:59
Intake Total 2520 / 2520 2340 / 2340
Balance 2520 / 2520 2340 / 2340
Review of Systems
-
History Source: Patient and Coordinated Provider
Constitutional: Denies Fever
EENT: Reports No Symptoms Reported
Respiratory: Reports No Symptoms
Cardiac: Reports No Symptoms
Abdomen/GI: Reports Abdominal Pain (has lessened, not resolved), Nausea (better), Vomiting (denied) and Diarrhea (liquid stools, persisting, worsened when abx resumed)
Musculoskeletal: Reports No Symptoms
Neuro: Reports Tremors (resolved) and Other (much calmer and more attentive, but states has had episodes of hallucinations at times, tremor resolved)
Physical Exam
-
General: Well Developed, Well Nourished, No Apparent Distress, Conversant and Appears Chronically Ill
HEENT: Normocephalic and Atraumatic
Respiratory: Clear to Auscultation; Negative Wheezes, Rales or Rhonchi
Cardiac: Regular Rhythm and S1/S2
GI: Soft, Normal Bowel Sounds, Tender (less pronounced, pain is not over GB, generally pain/tenderness in LUQ) and Distended
Musculoskeletal: No Clubbing, No Cyanosis and No Edema
Neuro: Awake, Alert, Oriented and Tremors (resolved)
[2024-03-11] MEDS: DILAUDID 0.5 MG IV ×3 (09:28→21:23)
[2024-03-11] MEDS: ZOFRAN 4 MG IV (09:29)
--- NOTE | 2024-03-11 14:44 | CM ---
TAMMY met with and evaluated patient. Patient has declined inpatient substance abuse rehab services. He has been given literature and resources for outpatient rehab services. He plans on following up as outpatient. Patient does work FT. He has
no need for any skilled services.
[2024-03-11 15:20] VITALS: BP 104/63
[2024-03-11] MEDS: FLAGYL 500 MG PO ×2 (17:22→23:55)
[2024-03-11] MEDS: STERILE WATER FOR INJECTION IV (17:23)
[2024-03-11] MEDS: TYLENOL 650 MG PO (17:37)
--- NOTE | 2024-03-11 18:59 | PTCARENOTE ---
Pt given PRN pain medication throughout shift for abdominal pain, with some relief. Pt walked around unit, drank Vicki Maria R, and repositioned himself in bed which was effective for reducing nausea.
[2024-03-11] MEDS: CIPRO 500 MG PO (20:39)
[2024-03-11] MEDS: DESYREL 100 MG PO (22:34)
[2024-03-11 23:13] VITALS: BP 103/70
[2024-03-12] MEDS: FIRVANQ 125 MG PO ×4 (05:37→23:09)
[2024-03-12 06:58] LABS: % Basophils 0.8 % (0-2); % Eosinophils 1.2 % (0-6); % Immature Granulocytes 0.5 % (0-0.5); % Lymphocytes 17.5 % (20.5-51.1); % Monocytes 8.9 % (1.7-9.3); % Neutrophils 71.1 % (42.2-75.2); Absolute Basophils 0.1 10^3/uL (0-0.2); Absolute Eosinophils 0.1 10^3/uL (0-0.7); Absolute Monocytes 0.5 10^3/uL (0.1-0.6); Absolute Neutrophils 4.2 10^3/uL (1.4-6.5); Hemoglobin 9.8 g/dL (13.0-18.0); Mean Corpuscular Volume 102.9 fL (80.0-94.0); Mean Platelet Volume 10.9 fL (7.4-10.4); Nucleated Red Blood Cells % 0 % (-); Platelet Count 91 10^3/uL (130-400); Red Blood Cell Count 2.72 10^6/uL (4.70-6.10); Red Cell Dist. Width 16.8 % (11.5-14.5)
[2024-03-12 07:16] VITALS: BP 98/59
[2024-03-12 07:22] LABS: ALT (SGPT) 19 U/L (0-50); AST (SGOT) 62 U/L (17-59); Alkaline Phosphatase 154 U/L (38-126); Blood Urea Nitrogen 3 mg/dl (9-20); Calcium 8.8 mg/dl (8.4-10.2); Carbon Dioxide 22 mmol/L (22-30); Chloride 102 mmol/L (98-107); Estimated Creatinine Clearance > 125 ml/min; Glucose 99 mg/dl (70-99); Magnesium 1.5 mg/dl (1.6-2.3); Potassium 3.8 mmol/L (3.5-5.1); Sodium 130 mmol/L (135-145); Total Bilirubin 8.4 mg/dl (0.2-1.3); Total Protein 6.1 g/dl (6.3-8.2); eGFR > 60.00
[2024-03-12] MEDS: LUMINAL 32.3999999999999986 MG PO ×3 (08:36→21:35)
[2024-03-12] MEDS: PROTONIX 40 MG PO ×2 (08:36→19:50)
[2024-03-12] MEDS: CYMBALTA DELAYED RELEASE 30 MG PO (08:36)
[2024-03-12] MEDS: CARAFATE 1 GRAM PO ×4 (08:36→21:35)
[2024-03-12] MEDS: CIPRO 500 MG PO (08:36)
[2024-03-12] MEDS: FOLVITE 1 MG PO (08:36)
[2024-03-12] MEDS: VITAMIN B1 100 MG PO ×2 (08:36→19:50)
[2024-03-12] MEDS: FLAGYL 500 MG PO (08:36)
[2024-03-12] MEDS: NEURONTIN 300 MG PO ×3 (08:37→21:32)
[2024-03-12] MEDS: COREG PO (08:37)
[2024-03-12] MEDS: NSS (PRESERVATIVE FREE) IV ×2 (08:38→19:51)
[2024-03-12] MEDS: NICODERM TRANSDERMAL 21 MG TRANSDERM (08:38)
[2024-03-12] MEDS: DILAUDID 0.5 MG IV ×3 (08:52→21:32)
--- NOTE | 2024-03-12 10:12 | W.PN.HOSP.TC ---
Today's Communication/Plan
-
await CM input on potential inpt Etoh rehab placement
remains on abx (as per GI) for potential GB issues, await further input from GI
Still with diarrhea, GI is aware
Assessment / Plan
Assessment / Plan
IMPRESSION:The patient is a 49-year-old male with past medical history of alcoholism with alcohol hepatitis and alcohol cirrhosis, recently admitted 02/10-02/17/24 due to abdominal pain and alcohol gastritis and rectal bleeding, C.Difficile colitis
(dc'd on oral Vancomycin for 11 more days), and then was admitted to [facility] shortly after DC from here for same symptoms (and had further imaging and testing there with similar findings) states was dc from [place] on 03/05 and went
directly to liquor store to obtain bottle of liquor, who presents to ED today due to abdominal pain for the past 2 days. He had vomiting on day of admission, and had been drinking all day. He drinks a pint to 1/2 gallon whiskey daily, with minimal
to no food intake. He then had increased SOB, nausea, vomiting, and diarrhea and KINGSLEY, that generally has improved.
no fever, no CP, no chills, no bleeding, no urinary complaints.
ED provider spoke to Cris, and they will be working with patient for possible inpatient vs outpatient rehab/detox. Discussed with pt, needs to strongly consider inpt Etoh rehab.
Case Management notes that pt declined inpt rehab. Pt states this is not correct, that he has not spoken to [facility] and that he would like inpt care. Nurse notified of discrepancy and requested contact CM to hopefully move ahead with placement
ED txt:
IVF 250 mL bolus, Zofran 4 mg IV, Dilaudid 1 mg IV, Protonix 40 mg IV
GI (Dr Fonseca) obtained records from [place],
EGD demonstrated mild gastric erythema and signs of portal gastropathy and grade 2 nonbleeding esophageal varices though otherwise was unremarkable.
Dr. Munoz was consulted: 'Clinically patient does not appear to have cholecystitis - no focal pain to the RUQ, no worsening of symptoms with oral intake and tolerating food at this time, normalization of WBC, negative sonographic Cook sign.
HIDA shows nonvisualization of gallbladder, however, study limited in the setting of severe liver disease. Ultrasound does not demonstrate any evidence of cholecystitis, and negative sonographic Cook sign. CT demonstrates a distended gallbladder
with gallstones but no clear signs of cholecystitis. Significantly increased risk for operative complications as it relates to bleeding and worsening of underlying liver disease (no plans for cholecystectomy at at point in time here at ). Any
attempts at management of his GB would be with a percutaneous cholecystostomy tube, however, clinically do not believe that his current issues are related to cholecystitis and will hold at this time.'
03/09 HIDA scan: 1. No filling of the gallbladder on the 60 minute delayed phase images, nor following administration of morphine. Findings are suggestive of acute cholecystitis in the correct clinical setting.
2. Delayed hepatic excretion of tracer suggestive of hepatocellular dysfunction.
03/07 US: Liver is enlarged measuring up to 25 cm and increased in echotexture without evidence of focal lesion. The portal and hepatic vessels appear grossly patent.
Borderline extrahepatic biliary ductal dilatation with the visualized portion of the common duct measuring 6.8 mm. No gallstones, gallbladder wall thickening, pericholecystic fluid or sonographic Cook's sign.
Limited visualization of the tail of the pancreas, with the visualized portion of the pancreas unremarkable. Spleen measures 19.0 cm in length, which is enlarged. No free fluid in the upper abdomen.
03/12 Pt notes abd pain is present, but not at Cook's point, generally in area of splenic flexure. Discussed with Dr. Fonseca 03/11, he would like the abx for now. Concern that the abx may be worsening the diarrhea, KEIKO Rivas updated on
this aspect
#Alcohol hepatitis associated with abdominal pain and vomiting, presented with metabolic acidosis (Better CO2 18-->21), hypokalemia (3.4-->3.9-->4.0), leukocytosis (11.3-->7.3-->5.2k WBC), and likely volume depletion
Bili 11.0-->10.2-->9.8-->8.9-->8.4
AST 132-->66-->62
-abdominal pain likely due to alcohol gastritis as he continued to drink 1/2 gallon whiskey daily
-changed IV PPI BID to oral and Carafate daily for now
-GI consultation noted and appreciated
Abd US: Liver is enlarged measuring up to 25 cm and increased in echotexture without evidence of focal lesion. The portal and hepatic vessels appear grossly patent.
Borderline extrahepatic biliary ductal dilatation with the visualized portion of the common duct measuring 6.8 mm. No gallstones, gallbladder wall thickening, pericholecystic fluid or sonographic Cook's sign.
Limited visualization of the tail of the pancreas, with the visualized portion of the pancreas unremarkable. Spleen measures 19.0 cm in length, which is enlarged. No free fluid in the upper abdomen.
Right kidney measures 12.1 cm, and the left kidney measures 12.4 cm in length. No hydronephrosis.
Visualized portions of the abdominal aorta and inferior vena cava appear unremarkable.
-with improved oral intake, stopped IVF
-alcohol withdrawal protocol w phenobarbital, currently 32.4 mg tid
-supportive management
-follow LFTs
-[facility]/CM consultation for detox program if medically stable
#Severe alcohol use disorder
-he will likely require and benefit from intensive inpatient alcohol withdrawal program that includes long-term pharmacological treatment of severe alcohol use disorder to prevent relapse
- consult for placement in rehab/detox -[facility]
- will need alcohol counseling
# Diarrhea-
-stool studies for C. Difficile, recently treated for C. Diff, antigen pos, toxin neg
-repeat stool studies negative, no WBC seen
in pt with hx of recent C.Diff, will empirically tx with oral Vanco, as per GI, to continue while on abx
#Typically thrombocytopenia though platelets are better than prior hospitalization plt 186-->155-->127-->111-->97-->91k
#Hypokalemia resolved K 3.4-->3.9-->3.9-->4.0-->3.8
-replete and monitor
- Mg 1.4-->1.5
#Splenomegaly, chronic
#Esophageal varices, no active bleeding
-IV PPI and monitor
#Alcoholic cirrhosis with acute on chronic transaminitis/Chronic bilirubinemia/Alcohol use d/o
-as above
#Active smoking with nicotine dependence
will order patch
#GERD,
#HTN
DVT proph-PCDs
Full Code
Dispo-CM consult for [facility]/detox IP vs OP. If inpt detox can be arranged, pt should be okay for dc next 24 hrs. Tremor has markedly diminished, should complete phenobarb taper by 03/13 22:01
Anticipated Discharge: > 48 hours
Subjective/Interval History
-
Date of Service: March 12, 2024
Awake, alert. States he is still awaiting hearing from [facility] regarding inpt rehab
Objective Data
-
Labs:
Laboratory Results
03/12/24
06:30
WBC 6.0
Hgb 9.8 L
Hct 28.0 L
Plt Count 91 L
Sodium 130 L
Potassium 3.8
Chloride 102
Carbon Dioxide 22
BUN 3 L
Creatinine 0.6 L
Glucose 99
Calcium 8.8
Total Bilirubin 8.4 H
AST 62 H
ALT 19
Alkaline Phosphatase 154 H
Vital Signs:
Vital Signs
Temp Pulse Resp BP Pulse Ox
98.0 F 81 18 98/59 97
03/12/24 07:16 03/12/24 07:16 03/12/24 07:16 03/12/24 07:16 03/12/24 07:16
I&O
03/11/24 03/12/24 03/13/24
06:59 06:59 06:59
Intake Total 2340 / 2340 1480 / 1480
Output Total 200 / 200
Balance 2340 / 2340 1280 / 1280
Review of Systems
-
History Source: Patient and Coordinated Provider
Constitutional: Denies Fever
EENT: Reports No Symptoms Reported
Respiratory: Reports No Symptoms
Cardiac: Reports No Symptoms
Abdomen/GI: Reports Abdominal Pain (has lessened, not resolved), Nausea (better), Vomiting (denied) and Diarrhea (liquid stools, persisting, worsened when abx resumed)
Musculoskeletal: Reports No Symptoms
Neuro: Reports Tremors (resolved) and Other (much calmer and more attentive, but states has had episodes of hallucinations at times, tremor resolved)
Physical Exam
-
General: Well Developed, Well Nourished, No Apparent Distress, Conversant and Appears Chronically Ill
HEENT: Normocephalic and Atraumatic
Respiratory: Clear to Auscultation; Negative Wheezes, Rales or Rhonchi
Cardiac: Regular Rhythm and S1/S2
GI: Soft, Normal Bowel Sounds, Tender (less pronounced, pain is not over GB, generally pain/tenderness in LUQ) and Distended
Musculoskeletal: No Clubbing, No Cyanosis and No Edema
Neuro: Awake, Alert, Oriented and Tremors (resolved)
--- NOTE | 2024-03-12 10:47 | W.PN.GI.CBS2 ---
Today's Communication / Plan
-
d/c cipro/flagyl, complete 2 week course of vancomycin, advancing diet to regular, pt should go to inpt rehab. GI s/o.
Assessment / Plan
-
1. Abdominal pain: Most consistent with alcoholic gastritis, has been chronic with otherwise extensive workup in the past. Agree with PPI and Carafate, pt is now agreeable for inpt rehab for alcohol. His LFTs are improving gradually. HIDA scan
did not show filling of the gallbladder, though agree with surgery that clinically not consistent with cholecystitis. Given the low suspicion for cholecystitis, can d/c cipro/flagyl now.
2. Diarrhea: Chronic, with C. difficile toxin positive in the past, status post multiple treatment regimens, now toxin negative, with resolved leukocytosis, though symptoms have improved on oral vancomycin, would complete 2-week course.
3. Alcoholic liver disease: With underlying cirrhosis with probable portal hypertension by imaging, no appreciable ascites. LFT improving. No indication for steroids.
Total Time Spent with Patient (in minutes): 30
Subjective
Subjective
Date of Service: March 12, 2024
Pt feels his diarrhea remains unchanged.
Objective
Data Reviewed
Laboratory Data:
Laboratory Results
03/12/24 06:30
03/12/24 06:30
Laboratory Results
PT 18.4 Sec (11.4-14.6) H 03/11/24 06:41
INR 1.52 03/11/24 06:41
Phosphorus 3.9 mg/dl (2.5-4.5) 03/08/24 05:47
Magnesium 1.5 mg/dl (1.6-2.3) L 03/12/24 06:30
Total Bilirubin 8.4 mg/dl (0.2-1.3) H 03/12/24 06:30
AST 62 U/L (17-59) H 03/12/24 06:30
ALT 19 U/L (0-50) 03/12/24 06:30
Alkaline Phosphatase 154 U/L (38-126) H 03/12/24 06:30
Lipase 80 U/L (23-300) 03/07/24 20:12
Vital Signs and I&O:
Vital Signs
Temp Pulse Resp BP Pulse Ox
98.0 F 81 18 98/59 97
03/12/24 07:16 03/12/24 07:16 03/12/24 07:16 03/12/24 07:16 03/12/24 07:16
I&O
03/11/24 03/12/24 03/13/24
06:59 06:59 06:59
Intake Total 2340 / 2340 1480 / 1480
Output Total 200 / 200
Balance 2340 / 2340 1280 / 1280
--- NOTE | 2024-03-12 11:45 | PN.CDI ---
CDI
- -
CDI:
Physician Documentation Request
Admit Date: 03/08/24 01:01
Dear Doctor Kady,
Patient was admitted with alcohol hepatitis associated with abdominal pain and vomiting.
Na levels documented below:
Patient received IV NSS.
Laboratory Tests
03/09/24 03/10/24 03/11/24
06:19 05:38 06:41
Sodium 131 L 131 L 130 L
03/12/24
06:30
Sodium 130 L
Based on the above, please clarify in the progress notes, the appropriate diagnosis, if significant, that supports the above abnormalities and additional evaluation, monitoring and/or treatment rendered:
Hyponatremia
Insignificant abnormal lab findings
Other
Use of terms such as suspected, likely, concern for, or probable (associated with a specific diagnosis that is being evaluated, monitored, or treated as if it exists) are acceptable and can be coded in the inpatient setting, when documented at the
time of discharge.
Thank you,
Loraine HERNANDEZN,RN,CCDS
CDI Specialist
Available via tiger text
Please use your independent medical judgment in providing your response.
[2024-03-12] MEDS: QUESTRAN 4 GRAM PO (12:32)
[2024-03-12] MEDS: MAGNESIUM OXIDE 500 MG PO (12:33)
[2024-03-12 15:28] VITALS: BP 96/49
--- NOTE | 2024-03-12 16:20 | CM ---
Discussed inpatient ETOH rehab with patient. Patient wanted to discuss his options with TAMMY again. TAMMY tovar has contacted [facility] in the [facility]. They do not accept his insurance but are willing to offer him a scholarship for the
inpatient program. TAMMY liaison met with patient and explained program. Patient has accepted the offer. Reviewed plan with Attending and he is in agreement. Discharge plan of care: Patient to be discharged to [facility] in the [facility] on
03/14/24. Transport will be provided by [facility]. Awaiting transport time. TAMMY liaison, Sebastian, will be at on Friday and will have additional information regarding transport pick-up. Attending, team and patient aware.
[2024-03-12] MEDS: STERILE WATER FOR INJECTION IV (17:24)
--- NOTE | 2024-03-12 17:49 | PTCARENOTE ---
Pt had no c/o nausea during shift. Diet changed to regular and is tolerating it well. Pt understands the plan is for him to be discharged on Friday, he is requesting to leave as early as possible on Friday. Will pass info to next shift.
[2024-03-12 19:38] VITALS: BP 116/68
[2024-03-12] MEDS: COREG 6.25 MG PO (19:50)
[2024-03-12] MEDS: DESYREL 100 MG PO (21:32)
[2024-03-12] MEDS: FLUSH (NSS) 2 FLUSH IV (21:33)
[2024-03-12 23:14] VITALS: BP 113/72
[2024-03-13 05:25] LABS: % Basophils 0.9 % (0-2); % Eosinophils 1.2 % (0-6); % Immature Granulocytes 0.7 % (0-0.5); % Lymphocytes 21.1 % (20.5-51.1); % Monocytes 12.2 % (1.7-9.3); % Neutrophils 63.9 % (42.2-75.2); Absolute Basophils 0.1 10^3/uL (0-0.2); Absolute Eosinophils 0.1 10^3/uL (0-0.7); Absolute Lymphocytes 1.2 10^3/uL (1.2-3.4); Absolute Monocytes 0.7 10^3/uL (0.1-0.6); Absolute Neutrophils 3.7 10^3/uL (1.4-6.5); Hematocrit 25.8 % (39.0-52.0); Hemoglobin 9.1 g/dL (13.0-18.0); Mean Corp Hgb Conc. 35.3 g/dL (33.0-37.0); Mean Platelet Volume 11.2 fL (7.4-10.4); Nucleated Red Blood Cells % 0 % (-); Platelet Count 84 10^3/uL (130-400); Red Blood Cell Count 2.53 10^6/uL (4.70-6.10); Red Cell Dist. Width 17.2 % (11.5-14.5); White Blood Cell Count 5.8 10^3/uL (4.8-10.8)
[2024-03-13 05:47] LABS: ALT (SGPT) 17 U/L (0-50); AST (SGOT) 66 U/L (17-59); Albumin 2.8 g/dl (3.5-5.0); Alkaline Phosphatase 129 U/L (38-126); Blood Urea Nitrogen 4 mg/dl (9-20); Calcium 8.5 mg/dl (8.4-10.2); Carbon Dioxide 23 mmol/L (22-30); Chloride 103 mmol/L (98-107); Estimated Creatinine Clearance > 125 ml/min; Glucose 102 mg/dl (70-99); Potassium 3.8 mmol/L (3.5-5.1); Sodium 131 mmol/L (135-145); Total Bilirubin 7.2 mg/dl (0.2-1.3); Total Protein 5.6 g/dl (6.3-8.2); eGFR > 60.00
[2024-03-13] MEDS: FIRVANQ 125 MG PO ×3 (05:57→23:03)
[2024-03-13] MEDS: DILAUDID 0.5 MG IV ×3 (06:03→19:34)
[2024-03-13] MEDS: FLUSH (NSS) 2 FLUSH IV ×2 (06:04→19:35)
[2024-03-13 07:05] VITALS: BP 103/65
[2024-03-13] MEDS: COREG 6.25 MG PO ×2 (08:49→19:34)
[2024-03-13] MEDS: VITAMIN B1 100 MG PO ×2 (08:49→19:34)
[2024-03-13] MEDS: FOLVITE 1 MG PO (08:49)
[2024-03-13] MEDS: MAGNESIUM OXIDE 500 MG PO (08:49)
[2024-03-13] MEDS: NEURONTIN 300 MG PO ×3 (08:50→22:07)
[2024-03-13] MEDS: LUMINAL 32.3999999999999986 MG PO ×3 (08:50→22:08)
[2024-03-13] MEDS: NICODERM TRANSDERMAL 21 MG TRANSDERM (08:50)
[2024-03-13] MEDS: PROTONIX 40 MG PO ×2 (08:50→19:34)
[2024-03-13] MEDS: CARAFATE 1 GRAM PO ×4 (08:50→22:08)
[2024-03-13] MEDS: QUESTRAN 4 GRAM PO (08:50)
[2024-03-13] MEDS: CYMBALTA DELAYED RELEASE 30 MG PO (08:50)
[2024-03-13] MEDS: NSS (PRESERVATIVE FREE) IV ×2 (08:51→19:34)
--- NOTE | 2024-03-13 09:30 | W.PN.HOSP.TC ---
Addendum entered and electronically signed by Awais Hillman MD 03/13/24 09:46:
Hyponatremia persists
Original Note:
Today's Communication/Plan
-
complete phenobarb taper
Assessment / Plan
Assessment / Plan
IMPRESSION:The patient is a 49-year-old male with past medical history of alcoholism with alcohol hepatitis and alcohol cirrhosis, recently admitted 02/10-02/17/24 due to abdominal pain and alcohol gastritis and rectal bleeding, C.Difficile colitis
(dc'd on oral Vancomycin for 11 more days), and then was admitted to [facility] shortly after DC from here for same symptoms (and had further imaging and testing there with similar findings) states was dc from [place] on 03/05 and went
directly to liquor store to obtain bottle of liquor, who presents to ED today due to abdominal pain for the past 2 days. He had vomiting on day of admission, and had been drinking all day. He drinks a pint to 1/2 gallon whiskey daily, with minimal
to no food intake. He then had increased SOB, nausea, vomiting, and diarrhea and KINGSLEY, that generally has improved.
no fever, no CP, no chills, no bleeding, no urinary complaints.
ED provider spoke to [facility], and they will be working with patient for possible inpatient vs outpatient rehab/detox. Discussed with pt, needs to strongly consider inpt Etoh rehab.
Case Management notes that pt declined inpt rehab. Pt states this is not correct, that he has not spoken to [facility] and that he would like inpt care. Nurse notified of discrepancy and requested contact CM to hopefully move ahead with placement
ED txt:
IVF 250 mL bolus, Zofran 4 mg IV, Dilaudid 1 mg IV, Protonix 40 mg IV
GI (Dr Fonseca) obtained records from [place],
EGD demonstrated mild gastric erythema and signs of portal gastropathy and grade 2 nonbleeding esophageal varices though otherwise was unremarkable.
Dr. Munoz was consulted: 'Clinically patient does not appear to have cholecystitis - no focal pain to the RUQ, no worsening of symptoms with oral intake and tolerating food at this time, normalization of WBC, negative sonographic Cook sign.
HIDA shows nonvisualization of gallbladder, however, study limited in the setting of severe liver disease. Ultrasound does not demonstrate any evidence of cholecystitis, and negative sonographic Cook sign. CT demonstrates a distended gallbladder
with gallstones but no clear signs of cholecystitis. Significantly increased risk for operative complications as it relates to bleeding and worsening of underlying liver disease (no plans for cholecystectomy at at point in time here at ). Any
attempts at management of his GB would be with a percutaneous cholecystostomy tube, however, clinically do not believe that his current issues are related to cholecystitis and will hold at this time.'
03/09 HIDA scan: 1. No filling of the gallbladder on the 60 minute delayed phase images, nor following administration of morphine. Findings are suggestive of acute cholecystitis in the correct clinical setting.
2. Delayed hepatic excretion of tracer suggestive of hepatocellular dysfunction.
03/07 US: Liver is enlarged measuring up to 25 cm and increased in echotexture without evidence of focal lesion. The portal and hepatic vessels appear grossly patent.
Borderline extrahepatic biliary ductal dilatation with the visualized portion of the common duct measuring 6.8 mm. No gallstones, gallbladder wall thickening, pericholecystic fluid or sonographic Cook's sign.
Limited visualization of the tail of the pancreas, with the visualized portion of the pancreas unremarkable. Spleen measures 19.0 cm in length, which is enlarged. No free fluid in the upper abdomen.
03/13 Pt notes abd pain is present, but not at Cook's point, generally in area of splenic flexure. GI okay with stopping abx at this point and cholestyramine added. Pt states pain is down to a 4
#Alcohol hepatitis associated with abdominal pain and vomiting, presented with metabolic acidosis (Better CO2 18-->21-->23), hypokalemia (3.4-->3.9-->4.0-->3.8), leukocytosis (11.3-->7.3-->5.2k WBC), and likely volume depletion
Bili 11.0-->10.2-->9.8-->8.9-->8.4-->7.2
AST 132-->66-->62-->66
-abdominal pain likely due to alcohol gastritis as he continued to drink 1/2 gallon whiskey daily
-changed IV PPI BID to oral and Carafate daily for now
-GI consultation noted and appreciated
Abd US: Liver is enlarged measuring up to 25 cm and increased in echotexture without evidence of focal lesion. The portal and hepatic vessels appear grossly patent.
Borderline extrahepatic biliary ductal dilatation with the visualized portion of the common duct measuring 6.8 mm. No gallstones, gallbladder wall thickening, pericholecystic fluid or sonographic Cook's sign.
Limited visualization of the tail of the pancreas, with the visualized portion of the pancreas unremarkable. Spleen measures 19.0 cm in length, which is enlarged. No free fluid in the upper abdomen.
Right kidney measures 12.1 cm, and the left kidney measures 12.4 cm in length. No hydronephrosis.
Visualized portions of the abdominal aorta and inferior vena cava appear unremarkable.
-with improved oral intake, stopped IVF
-alcohol withdrawal protocol w phenobarbital, currently 32.4 mg tid, which will complete tonight
-supportive management
-follow LFTs
-Updated by EMMA Esteves. Pt has been accepted to go to [facility] the [facility] to leave morning of 03/14 for alcohol rehab
#Severe alcohol use disorder
-he will likely require and benefit from intensive inpatient alcohol withdrawal program that includes long-term pharmacological treatment of severe alcohol use disorder to prevent relapse
# Diarrhea-
-stool studies for C. Difficile, recently treated for C. Diff, antigen pos, toxin neg
-repeat stool studies negative, no WBC seen
in pt with hx of recent C.Diff, will empirically tx with oral Vanco, as per GI, to continue for next 10 days
#Typically thrombocytopenia though platelets are better than prior hospitalization plt 186-->155-->127-->111-->97-->91-->84k
#Hypokalemia resolved K 3.4-->3.9-->3.9-->4.0-->3.8
-replete and monitor
- Mg 1.4-->1.5
continue Mag supplement
#Splenomegaly, chronic
#Esophageal varices, no active bleeding
-IV PPI and monitor
#Alcoholic cirrhosis with acute on chronic transaminitis/Chronic bilirubinemia/Alcohol use d/o
-as above
#Active smoking with nicotine dependence
will order patch
#GERD,
#HTN
DVT proph-PCDs
Full Code
Dispo-CM consult for [facility]/detox IP, plan dc 03/14 Tremor has markedly diminished, should complete phenobarb taper by 03/13 22:01
Anticipated Discharge: Within 24 hours
Subjective/Interval History
-
Date of Service: March 13, 2024
In good spirits, still with diarrhea and stomach pain, but both have lessened in past 24 hrs
Objective Data
-
Labs:
Laboratory Results
03/13/24
05:13
WBC 5.8
Hgb 9.1 L
Hct 25.8 L
Plt Count 84 L
Sodium 131 L
Potassium 3.8
Chloride 103
Carbon Dioxide 23
BUN 4 L
Creatinine 0.6 L
Glucose 102 H
Calcium 8.5
Total Bilirubin 7.2 H
AST 66 H
ALT 17
Alkaline Phosphatase 129 H
Vital Signs:
Vital Signs
Temp Pulse Resp BP Pulse Ox
98.1 F 79 18 103/65 99
03/13/24 07:05 03/13/24 08:49 03/13/24 07:05 03/13/24 08:49 03/13/24 07:05
I&O
03/12/24 03/13/24 03/14/24
06:59 06:59 06:59
Intake Total 1480 / 1480 1740 / 1740
Output Total 200 / 200
Balance 1280 / 1280 1740 / 1740
Review of Systems
-
History Source: Patient and Coordinated Provider
Constitutional: Denies Fever
EENT: Reports No Symptoms Reported
Respiratory: Reports No Symptoms
Cardiac: Reports No Symptoms
Abdomen/GI: Reports Abdominal Pain (has lessened, not resolved), Nausea (better), Vomiting (denied) and Diarrhea (liquid stools, persisting, worsened when abx resumed, seemed to have lessened since starting cholestyramine)
Musculoskeletal: Reports No Symptoms
Neuro: Reports Tremors (resolved) and Other (much calmer and more attentive, but states has had episodes of hallucinations at times, tremor resolved)
Physical Exam
-
General: Well Developed, Well Nourished, No Apparent Distress, Conversant and Appears Chronically Ill
HEENT: Normocephalic and Atraumatic
Respiratory: Clear to Auscultation; Negative Wheezes, Rales or Rhonchi
Cardiac: Regular Rhythm and S1/S2
GI: Soft, Normal Bowel Sounds, Tender (less pronounced, pain is not over GB, generally pain/tenderness in LUQ) and Distended
Musculoskeletal: No Clubbing, No Cyanosis and No Edema
Neuro: Awake, Alert, Oriented and Tremors (resolved)
[2024-03-13 15:05] VITALS: BP 101/60
[2024-03-13] MEDS: STERILE WATER FOR INJECTION IV (15:57)
--- NOTE | 2024-03-13 16:17 | CM ---
CM left message with TAMMY to confirm plan for transfer to [place] tomorrow.
[2024-03-13] MEDS: FIRVANQ PO (17:21)
[2024-03-13 19:20] VITALS: BP 109/73
[2024-03-13] MEDS: DESYREL 100 MG PO (22:08)
[2024-03-13 23:01] VITALS: BP 104/67
[2024-03-14 05:12] LABS: % Basophils 0.9 % (0-2); % Eosinophils 1.5 % (0-6); % Immature Granulocytes 0.9 % (0-0.5); % Lymphocytes 25.1 % (20.5-51.1); % Monocytes 12.6 % (1.7-9.3); Absolute Basophils 0.1 10^3/uL (0-0.2); Absolute Eosinophils 0.1 10^3/uL (0-0.7); Absolute Immature Granulocytes 0.1 10^3/uL (0-0.05); Absolute Lymphocytes 1.6 10^3/uL (1.2-3.4); Absolute Monocytes 0.8 10^3/uL (0.1-0.6); Absolute Neutrophils 3.9 10^3/uL (1.4-6.5); Hematocrit 26.7 % (39.0-52.0); Hemoglobin 9.4 g/dL (13.0-18.0); Mean Corp Hgb Conc. 35.2 g/dL (33.0-37.0); Mean Corpuscular Hgb 35.7 pg (27.0-31.0); Mean Corpuscular Volume 101.5 fL (80.0-94.0); Mean Platelet Volume 11.3 fL (7.4-10.4); Nucleated Red Blood Cells % 0 % (-); Platelet Count 88 10^3/uL (130-400); Red Blood Cell Count 2.63 10^6/uL (4.70-6.10); White Blood Cell Count 6.5 10^3/uL (4.8-10.8)
[2024-03-14 05:34] LABS: ALT (SGPT) 18 U/L (0-50); AST (SGOT) 87 U/L (17-59); Albumin 2.8 g/dl (3.5-5.0); Alkaline Phosphatase 134 U/L (38-126); Blood Urea Nitrogen 5 mg/dl (9-20); Calcium 8.5 mg/dl (8.4-10.2); Carbon Dioxide 24 mmol/L (22-30); Chloride 103 mmol/L (98-107); Estimated Creatinine Clearance > 125 ml/min; Glucose 85 mg/dl (70-99); Magnesium 1.8 mg/dl (1.6-2.3); Potassium 3.8 mmol/L (3.5-5.1); Sodium 132 mmol/L (135-145); Total Bilirubin 7.6 mg/dl (0.2-1.3); Total Protein 5.6 g/dl (6.3-8.2); eGFR > 60.00
[2024-03-14] MEDS: FIRVANQ 125 MG PO (05:46)
[2024-03-14] MEDS: DILAUDID 0.5 MG IV ×2 (05:51→10:01)
[2024-03-14] MEDS: FLUSH (NSS) 2 FLUSH IV (05:52)
[2024-03-14 07:05] VITALS: BP 104/62
--- NOTE | 2024-03-14 07:50 | W.PN.HOSP.TC ---
Today's Communication/Plan
-
dc to [facility]
Assessment / Plan
Assessment / Plan
IMPRESSION:The patient is a 49-year-old male with past medical history of alcoholism with alcohol hepatitis and alcohol cirrhosis, recently admitted 02/10-02/17/24 due to abdominal pain and alcohol gastritis and rectal bleeding, C.Difficile colitis
(dc'd on oral Vancomycin for 11 more days), and then was admitted to [facility] shortly after DC from here for same symptoms (and had further imaging and testing there with similar findings) states was dc from [place] on 03/05 and went
directly to liquor store to obtain bottle of liquor, who presents to ED today due to abdominal pain for the past 2 days. He had vomiting on day of admission, and had been drinking all day. He drinks a pint to 1/2 gallon whiskey daily, with minimal
to no food intake. He then had increased SOB, nausea, vomiting, and diarrhea and KINGSLEY, that generally has improved.
no fever, no CP, no chills, no bleeding, no urinary complaints.
GI (Dr Fonseca) obtained records from [place],
EGD demonstrated mild gastric erythema and signs of portal gastropathy and grade 2 nonbleeding esophageal varices though otherwise was unremarkable.
Dr. Munoz was consulted: 'Clinically patient does not appear to have cholecystitis - no focal pain to the RUQ, no worsening of symptoms with oral intake and tolerating food at this time, normalization of WBC, negative sonographic Cook sign.
HIDA shows nonvisualization of gallbladder, however, study limited in the setting of severe liver disease. Ultrasound does not demonstrate any evidence of cholecystitis, and negative sonographic Cook sign. CT demonstrates a distended gallbladder
with gallstones but no clear signs of cholecystitis. Significantly increased risk for operative complications as it relates to bleeding and worsening of underlying liver disease (no plans for cholecystectomy at at point in time here at ). Any
attempts at management of his GB would be with a percutaneous cholecystostomy tube, however, clinically do not believe that his current issues are related to cholecystitis and will hold at this time.'
03/09 HIDA scan: 1. No filling of the gallbladder on the 60 minute delayed phase images, nor following administration of morphine. Findings are suggestive of acute cholecystitis in the correct clinical setting.
2. Delayed hepatic excretion of tracer suggestive of hepatocellular dysfunction.
03/07 US: Liver is enlarged measuring up to 25 cm and increased in echotexture without evidence of focal lesion. The portal and hepatic vessels appear grossly patent.
Borderline extrahepatic biliary ductal dilatation with the visualized portion of the common duct measuring 6.8 mm. No gallstones, gallbladder wall thickening, pericholecystic fluid or sonographic Cook's sign.
Limited visualization of the tail of the pancreas, with the visualized portion of the pancreas unremarkable. Spleen measures 19.0 cm in length, which is enlarged. No free fluid in the upper abdomen.
03/14 Abd pain has fully resolved. Hopefully with continued improvement in hepatic fxn, he will be able to follow this up in the future
#Alcohol hepatitis associated with abdominal pain and vomiting, presented with metabolic acidosis (Better CO2 18-->21-->23), hypokalemia (3.4-->3.9-->4.0-->3.8), leukocytosis (11.3-->7.3-->5.2k WBC), and likely volume depletion
Bili 11.0-->10.2-->9.8-->8.9-->8.4-->7.2-->7.6
AST 132-->66-->62-->66-->87
-abdominal pain likely due to alcohol gastritis as he continued to drink 1/2 gallon whiskey daily
-changed IV PPI BID to oral and Carafate daily for now
-GI consultation noted and appreciated
Abd US: Liver is enlarged measuring up to 25 cm and increased in echotexture without evidence of focal lesion. The portal and hepatic vessels appear grossly patent.
Borderline extrahepatic biliary ductal dilatation with the visualized portion of the common duct measuring 6.8 mm. No gallstones, gallbladder wall thickening, pericholecystic fluid or sonographic Cook's sign.
Limited visualization of the tail of the pancreas, with the visualized portion of the pancreas unremarkable. Spleen measures 19.0 cm in length, which is enlarged. No free fluid in the upper abdomen.
Right kidney measures 12.1 cm, and the left kidney measures 12.4 cm in length. No hydronephrosis.
Visualized portions of the abdominal aorta and inferior vena cava appear unremarkable.
-with improved oral intake, stopped IVF
-alcohol withdrawal protocol w phenobarbital, currently 32.4 mg tid, which will complete tonight
-supportive management
-follow LFTs
-Updated by [facility]. Pt has been accepted to go to [facility] in the [facility] to leave this morning (03/14) for alcohol rehab
#Severe alcohol use disorder
-he will likely require and benefit from intensive inpatient alcohol withdrawal program that includes long-term pharmacological treatment of severe alcohol use disorder to prevent relapse
Hyponatremia
multifactorial, but certainly a component would be the diarrhea. With resolution of the diarrhea, hopefully will progressively resolve (slight improvement 130-->132)
# Diarrhea-stopped. Adding cholestyramine (to absorb if any toxin still present) was probably what made the difference
-stool studies for C. Difficile, recently treated for C. Diff, antigen pos, toxin neg
-repeat stool studies negative, no WBC seen
in pt with hx of recent C.Diff, will empirically tx with oral Vanco, as per GI,
#Typically thrombocytopenia though platelets are better than prior hospitalization plt 186-->155-->127-->111-->97-->91-->84k
#Hypokalemia resolved K 3.4-->3.9-->3.9-->4.0-->3.8
-replete and monitor
- Mg 1.4-->1.5-->1.8
with normalization and cessation of diarrhea, will stop supplement
#Splenomegaly, chronic
#Esophageal varices, no active bleeding
-continue oral PPI and monitor
#Alcoholic cirrhosis with acute on chronic transaminitis/Chronic bilirubinemia/Alcohol use d/o
-as above
#Active smoking with nicotine dependence
will order patch
#GERD,
#HTN
DVT proph-PCDs
Full Code
complex dc
see dictated note
More than 30 minutes spent in discharge including
Final examination of the patient
Summarizing hospital stay
Instructions for continuing care to all relevant caregivers
Preparation of discharge records, prescriptions, and referral forms
Total time spent (in minutes): 45
Anticipated Discharge: Today
Subjective/Interval History
-
Date of Service: March 14, 2024
Diarrhea has fully resolved
Abd pain significantly better
Denies active tremor
Objective Data
-
Labs:
Laboratory Results
03/14/24
04:22
WBC 6.5
Hgb 9.4 L
Hct 26.7 L
Plt Count 88 L
Sodium 132 L
Potassium 3.8
Chloride 103
Carbon Dioxide 24
BUN 5 L
Creatinine 0.7
Glucose 85
Calcium 8.5
Total Bilirubin 7.6 H
AST 87 H
ALT 18
Alkaline Phosphatase 134 H
Vital Signs:
Vital Signs
Temp Pulse Resp BP Pulse Ox
98.0 F 78 16 104/62 98
03/14/24 07:05 03/14/24 07:05 03/14/24 07:05 03/14/24 07:05 03/14/24 07:05
I&O
03/13/24 03/14/24 03/15/24
06:59 06:59 06:59
Intake Total 1740 / 1740 1800 / 1800
Balance 1740 / 1740 1800 / 1800
Review of Systems
-
History Source: Patient and Coordinated Provider
Constitutional: Denies Fever
EENT: Reports No Symptoms Reported
Respiratory: Reports No Symptoms
Cardiac: Reports No Symptoms
Abdomen/GI: Reports Abdominal Pain (essentially resolved), Nausea (resolved), Vomiting (denied) and Diarrhea (appears to have resolved over past 24 hrs)
Musculoskeletal: Reports No Symptoms
Neuro: Reports Tremors (resolved) and Other (much calmer and more attentive, but states has had episodes of hallucinations at times, tremor resolved)
Physical Exam
-
General: Well Developed, Well Nourished, No Apparent Distress, Conversant and Appears Chronically Ill
HEENT: Normocephalic and Atraumatic
Respiratory: Clear to Auscultation; Negative Wheezes, Rales or Rhonchi
Cardiac: Regular Rhythm and S1/S2
GI: Soft, Normal Bowel Sounds and Tender (resolved); Negative Distended
Musculoskeletal: No Clubbing, No Cyanosis and No Edema
Neuro: Awake, Alert, Oriented and Tremors (resolved)
[2024-03-14 07:55] VITALS: BP 104/62
--- NOTE | 2024-03-14 08:32 | W.DS.TRANS ---
DC Summary - [employer]
-
Discharge Instructions:
Discharge Diagnosis/Procedures Alcohol Withdrawal
Diet Regular
Activity No restrictions
Driving Restrictions Not until seen by your Dr
Bathing Restrictions None
Blood Work CBC, CMP, Mag in 1 week
Instructions:
Stand-Alone Forms:
Changes to Home Medications: Yes
Discharge Medications:
DC Medications w/original date entered in [employer]
folic acid 1 mg tablet 1 mg PO DAILY Supplement 09/23/22
gabapentin 300 mg capsule 300 mg PO TID Pain 10/08/22
carvedilol 6.25 mg tablet (Coreg) 6.25 mg PO BID Blood Pressure 02/10/23
duloxetine 30 mg capsule,delayed release 30 mg PO DAILY Mental Health/Anxiety 09/14/23
thiamine HCl (vitamin B1) 100 mg tablet 100 mg PO DAILY energy 09/14/23
trazodone 50 mg tablet 100 mg PO HS Sleep 09/14/23
midodrine 5 mg tablet 5 mg PO Q4HPRN PRN SBP<100 #30 tabs 09/23/23
pantoprazole 40 mg tablet,delayed release 40 mg PO BID Gastrointestinal Issue #60 tabs 02/17/24
cholestyramine (with sugar) 4 gram powder for susp in a packet 1 ea PO DAILY #0 ea 03/14/24
nicotine 21 mg/24 hr daily transdermal patch 21 mg transdermal DAILY #0 ea 03/14/24
sucralfate 1 gram tablet 1 g PO ACHS #0 tabs 03/14/24
vancomycin 250 mg capsule 250 mg PO BID #20 caps 03/14/24
Home Medication Changes
short course of Cholestyramine and Vancomycin are new
Nicoderm patch added
Carafate added
Pending Results: No
[2024-03-14] MEDS: CARAFATE 1 GRAM PO (08:39)
[2024-03-14] MEDS: NICODERM TRANSDERMAL 21 MG TRANSDERM (08:39)
[2024-03-14] MEDS: MAGNESIUM OXIDE 500 MG PO (08:41)
[2024-03-14] MEDS: PROTONIX 40 MG PO (08:41)
[2024-03-14] MEDS: FOLVITE 1 MG PO (08:41)
[2024-03-14] MEDS: NEURONTIN 300 MG PO (08:41)
[2024-03-14] MEDS: CYMBALTA DELAYED RELEASE 30 MG PO (08:41)
[2024-03-14] MEDS: VITAMIN B1 100 MG PO (08:41)
[2024-03-14] MEDS: COREG 6.25 MG PO (08:42)
[2024-03-14] MEDS: NSS (PRESERVATIVE FREE) IV (08:43)
--- NOTE | 2024-03-14 09:40 | CM ---
Patient for discharge today to [facility]. Per Sebastian from [facility] patient to be picked up at 11am and has a scholarship to cover costs. Patient with no concerns at this time. CM will continue to follow for discharge planning needs.
Plan; drug and alcohol treatment; [facility]
[2024-03-14] MEDS: QUESTRAN 4 GRAM PO (09:46)
== END 2024-03-14 11:15 | disposition home or self-care (01) | DRG 433 ==
LOC: 2 NORTH 01:01
PROVIDERS: Clinical Nurse Specialist Family Health; Internal Medicine Gastroenterology; Nurse Practitioner Adult Health; ADMITTING PHYSICIAN Internal Medicine; ATTENDING PHYSICIAN Internal Medicine; CONSULT PHYSICIAN Specialist; CONSULT PHYSICIAN Surgery; EMERGENCY PHYSICIAN Emergency Medicine; FAMILY PHYSICIAN Internal Medicine
DX: K70.30 Alcoholic cirrhosis of liver without ascites (principal); E87.20 Acidosis, unspecified; F10.239 Alcohol dependence with withdrawal, unspecified; I85.10 Secondary esophageal varices without bleeding; K76.6 Portal hypertension; K70.10 Alcoholic hepatitis without ascites; G62.1 Alcoholic polyneuropathy; K29.20 Alcoholic gastritis without bleeding; I10 Essential (primary) hypertension; K27.9 Peptic ulcer, site unspecified, unspecified as acute or chronic, without hemorrhage or perforation; R16.2 Hepatomegaly with splenomegaly, not elsewhere classified; E87.6 Hypokalemia; F17.210 Nicotine dependence, cigarettes, uncomplicated; K21.9 Gastro-esophageal reflux disease without esophagitis; K80.20 Calculus of gallbladder without cholecystitis without obstruction; R19.7 Diarrhea, unspecified; Z79.899 Other long term (current) drug therapy; Z86.19 Personal history of other infectious and parasitic diseases; Z86.16 Personal history of COVID-19
CPT/HCPCS: 76700; 78226; 80053; 81003; 81015; 82010; 82077; 82248; 82977; 83690; 83735; 84100; 85025; 85027; 85610; 87045; 87046; 87086; 87324; 87427; 87449; 89055; 92610; 96361; 96374; 96375; 99285; 99406; A9537

== ENCOUNTER → 2024-03-24 11:48 | Outpatient (REF) | payer OTHER, SELFPAY | LOC: RADI 11:48 | PROVIDERS: ATTENDING PHYSICIAN Obstetrics & Gynecology Gynecology | DX: R18.8 Other ascites (principal); Z53.8 Procedure and treatment not carried out for other reasons | CPT/HCPCS: 76705 ==

== ENCOUNTER 2024-07-22 11:36 | Emergency (ER) | payer OTHER, SELFPAY ==
[2024-07-22 11:37] VITALS: BP 137/92
[2024-07-22 12:12] LABS: ALT (SGPT) 26 U/L (0-50); AST (SGOT) 46 U/L (17-59); Albumin 4.6 g/dl (3.5-5.0); Alkaline Phosphatase 191 U/L (38-126); Blood Urea Nitrogen 7 mg/dl (9-20); Calcium 9.1 mg/dl (8.4-10.2); Carbon Dioxide 21 mmol/L (22-30); Chloride 109 mmol/L (98-107); Glucose 155 mg/dl (70-99); Potassium 3.9 mmol/L (3.5-5.1); Sodium 149 mmol/L (135-145); Total Bilirubin 2.4 mg/dl (0.2-1.3); eGFR > 60.00
[2024-07-22 12:31] LABS: Hematocrit 39.7 % (39.0-52.0); Mean Corp Hgb Conc. 35.3 g/dL (33.0-37.0); Mean Corpuscular Hgb 31.6 pg (27.0-31.0); Mean Corpuscular Volume 89.6 fL (80.0-94.0); Mean Platelet Volume 10.4 fL (7.4-10.4); Platelet Count 119 10^3/uL (130-400); Red Blood Cell Count 4.43 10^6/uL (4.70-6.10); Red Cell Dist. Width 15.8 % (11.5-14.5); White Blood Cell Count 12.5 10^3/uL (4.8-10.8)
--- NOTE | 2024-07-22 12:46 | ED.GENMED ---
History of Present Illness
General
Chief Complaint: Male Genito-Urinary Symptoms
Source: patient
Exam Limitations: none
Time Seen by Provider: 07/22/24 12:20
History of Present Illness
History of Present Illness:
49-year-old male presents for gross hematuria persistent over the past 3 to 4 days. He also notes recent relapse with his alcohol abuse. He has been on a binge for several days. Drink half a gallon of fireball today already. He is interested in
getting help for his alcohol addiction. He denies any injury but does note hematuria. Notes occasional flank pain. No fevers. No chest pain or shortness of breath. No other complaints at this time.
Past History
Past History
ED Past Medical History: GERD, HTN, Renal failure, Psychiatric (Anxiety, ) and Other (Alcoholism, diverticulitis, Neuropathy Cirrhosis of the liver, Fatty liver, Alcoholic hepatitis, Ulcers)
ED Past Surgical History: Orthopedic (Right leg surgery)
Social History
Tobacco: Smoker
Alcohol: Chronic alcoholic (daily whiskey pint to 1/2 gallon)
Drug: None
Personal: Single
Living: alone
Employment: Employed
Family History
Family History: Hypertension
Phy Exam
Physical Exam
Physical Exam:
General: Well-appearing male no acute respiratory distress HEENT: Normocephalic atraumatic
Heart: Regular rate and rhythm no murmurs lungs: Clear no wheeze
Abdomen soft nontender
Extremities: No cyanosis
Course
Orders/Labs/Results
Orders:
Orders
07/22/24 11:46
Complete Blood Count/With Diff Urgent
Comprehensive Metabolic Panel Urgent
07/22/24 12:42
CT Abd/pel Without Iv Or Oral Urgent
Comment:
Reason For Exam: hematuria
0.9% Sodium Chloride 1000 ml [Nss] 1,000 ml IV BOLUS
07/22/24 13:20
Alcohol Urgent
07/22/24 14:01
Add On- LAB Urgent
Tests Added?: urine drug screen
07/22/24 14:08
Urinalysis Reflex To Culture Urgent
Date Specimen was Collected: 07/22/24
Time Specimen was Collected: 11:41
Urine Microscopic Reflex Cult Urgent
Urine Culture Urgent
MAHESH Source: U
Specimen Description:
Date Specimen was Collected: 07/22/24
Time Specimen was Collected: 11:41
07/22/24 14:10
Urine Drug Abuse Screen Urgent
Date Specimen was Collected: 07/22/24
Time Specimen was Collected: 11:41
Abnormal Lab Results
07/22/24 07/22/24 07/22/24
11:46 14:08 14:10
WBC 12.5 H 10^3/uL
(4.8-10.8)
RBC 4.43 L 10^6/uL
(4.70-6.10)
MCH 31.6 H pg
(27.0-31.0)
RDW 15.8 H %
(11.5-14.5)
Plt Count 119 L 10^3/uL
(130-400)
Abs Immat Gran (auto) 0.1 H 10^3/uL
(0-0.05)
Absolute Lymphs (auto) 5.5 H 10^3/uL
(1.2-3.4)
Absolute Monos (auto) 0.8 H 10^3/uL
(0.1-0.6)
Sodium 149 H mmol/L
(135-145)
Chloride 109 H mmol/L
(98-107)
Carbon Dioxide 21 L mmol/L
(22-30)
BUN 7 L mg/dl
(9-20)
Glucose 155 H mg/dl
(70-99)
Total Bilirubin 2.4 H mg/dl
(0.2-1.3)
Alkaline Phosphatase 191 H U/L
(38-126)
Urine Ketones Trace A
(Negative)
Ur Occult Blood Reflex 4+ A
(Negative)
Urine Nitrite (Reflex) Positive A
(Negative)
Urine Bilirubin 2+ A
(Negative)
Urine Urobilinogen 4+ A
(Neg - 1+)
Leukocyte Esterase Rfl Trace A
(Negative)
Urine RBC >100 A /HPF
(0-2)
Urine Bacteria (Reflex) Many A
(Negative)
Urine Albumin (Reflex) 1+ A
(Neg - Trace)
Ur Tricyclics Screen Positive H
(Negative)
07/22/24 11:46
07/22/24 11:46
Vital Signs
Initial and Last Documented VS:
Initial Vital Signs
Temp Pulse Resp BP Pulse Ox
98.3 F 100 19 137/92 93
07/22/24 11:37 07/22/24 11:37 07/22/24 11:37 07/22/24 11:37 07/22/24 11:37
Last Documented Vital Signs
Temp Pulse Resp BP Pulse Ox
98.3 F 104 20 126/81 93
07/22/24 11:37 07/22/24 13:15 07/22/24 13:15 07/22/24 13:05 07/22/24 11:37
MDM/Problems Addressed
Differential Diagnosis Includes:
Patient has multiple complaints. First issue is hematuria. Consider UTI of her cystitis versus renal colic versus trauma. Urinalysis pending will check lab and CT
Second issue is alcohol abuse. He drank a large amount of alcohol today. [facility] been contacted for potential rehab placement
*Critical Care Note
Total Time (30-74mins, 75-104mins- exclusive of procedures): Not Applicable
Update Note
Update Note:
CT negative for acute finding. Labs reviewed. Alcohol level 292
ED Attending Note
-
Portions of this chart may have been created with voice recognition software.� Occasional wrong word or��sound alike� substitutions may have occurred due to the inherent limitations of voice recognition software.
Discharge Plan
Departure
Patient Disposition: Home (Routine Discharge)
Date of Disposition: 07/22/24
Time of Disposition: 15:14
Patient with high blood pressure during this ER visit?: No
Discharge Problem:
Alcohol abuse, Acute UTI
Instructions: Blood in the Urine (Hematuria), Adult (DC)
Prescriptions:
New
cefdinir 300 mg capsule
300 mg PO BID Qty: 14 0RF
No Action
gabapentin 300 mg capsule
300 mg PO TID
carvedilol [Coreg] 6.25 mg tablet
6.25 mg PO BID
trazodone 50 mg tablet
100 mg PO HS
duloxetine 30 mg capsule,delayed release(DR/EC)
60 mg PO DAILY
thiamine HCl (vitamin B1) 100 mg tablet
100 mg PO DAILY
pantoprazole 40 mg tablet,delayed release (DR/EC)
40 mg PO BID Qty: 60 1RF
sucralfate 1 gram Tablet
1 g PO ACHS Qty: 0 0RF
cholestyramine (with sugar) 4 gram Powder In Packet
1 ea PO DAILY Qty: 0 0RF
furosemide [Lasix] 40 mg Tablet
40 mg PO DAILYPRN PRN (Reason: fluid retension)
quetiapine [Seroquel] 200 mg Tablet
200 mg PO HS
ibuprofen 600 mg Tablet
600 mg PO Q6HPRN PRN (Reason: mild pain)
amoxicillin-pot clavulanate [Augmentin] 500-125 mg Tablet
1 tab PO BID
Referrals:
Jatin Caceres MD [Family Provider] -
Activity Restrictions/Additional Instructions:
Please seek further treatment at rehab facility. Take antibiotics as directed for your urinary tract infection. Return if needed otherwise
Interventions
Interventions:
*Risk Screen - Suicide Last Done: 07/22/24 11:37
*General Assessment Last Done: 07/22/24 11:37
*Neglect/Abuse Screening Last Done: 07/22/24 11:37
ED- Fall Risk Assessment Last Done: 07/22/24 13:05
ED-Male Genitourinary Assessment Last Done: 07/22/24 13:05
Discharge Date and Time
Print Language: JAPANESE
[2024-07-22 12:59] VITALS: BMI 28.6
[2024-07-22 13:05] VITALS: BP 126/81
[2024-07-22 13:11] LABS: % Immature Granulocytes 0.4 % (0-0.5); % Lymphocytes 44.1 % (20.5-51.1); % Monocytes 6.5 % (1.7-9.3); Absolute Basophils 0.1 10^3/uL (0-0.2); Absolute Immature Granulocytes 0.1 10^3/uL (0-0.05); Absolute Lymphocytes 5.5 10^3/uL (1.2-3.4); Absolute Monocytes 0.8 10^3/uL (0.1-0.6); Nucleated Red Blood Cells % 0 % (-)
[2024-07-22] MEDS: NSS 1000 IV (13:18)
[2024-07-22 13:52] LABS: Alcohol 292 mg/dl
--- NOTE | 2024-07-22 14:20 | PHANOTE ---
med rec note- patient has all drug bottles with his in his back pack, told the nurse he took him and and hs medication while in room.
[2024-07-22 14:41] LABS: Urine Albumin 1+ (Neg - Trace); Urine Bilirubin 2+ (Negative); Urine Character Slightly Cloudy (Clear); Urine Color Amber; Urine Glucose Negative (Negative); Urine Ketone Trace (Negative); Urine Leukocyte Trace (Negative); Urine Nitrite Positive (Negative); Urine Occult Blood 4+ (Negative); Urine Urobilinogen 4+ (Neg - 1+)
[2024-07-22 14:53] LABS: Urine Bacteria Many (Negative); Urine Red Blood Cell >100 /HPF (0-2)
[2024-07-22 14:56] LABS: Amphetamines Negative (Negative); Barbiturates Negative (Negative); Benzodiazepines Negative (Negative); Buprenorphine Negative (Negative); Cocaine Negative (Negative); Marijuana Negative (Negative); Methadone Negative (Negative); Methamphetamines Negative (Negative); Opiates Negative (Negative); Phencyclidine Negative (Negative); Tricyclic Antidepressants Positive (Negative)
[2024-07-22 15:00] VITALS: BP 92/61
[2024-07-22 15:20] VITALS: BP 110/74
--- NOTE | 2024-07-22 15:59 | EDRN ---
Reviewed discharge instructions with patient. Verbalized understanding. Patient's money counted in front of him with Tevin from [employer]. Patient had $812.00 that was placed in a bag and put into the back pocket of his back pack along with his wallet
and a ring. Patient 2 cell phones placed in the front pocket. Patient verbalized how much money was in his back pack and where it was located along with his wallet,ring and cellphones. Patient taken to lobby in wheelchair by Tevin from [employer] to wait
for his Uber to [place].
== END 2024-07-22 15:20 | disposition home or self-care (01) ==
LOC: EMR 11:36
PROVIDERS: Emergency Medicine; Physician Assistant; EMERGENCY PHYSICIAN Student in an Organized Health Care Education/Training Program; FAMILY PHYSICIAN Family Medicine
DX: N39.0 Urinary tract infection, site not specified (principal); F10.20 Alcohol dependence, uncomplicated; R31.0 Gross hematuria; K21.9 Gastro-esophageal reflux disease without esophagitis; I10 Essential (primary) hypertension; F41.9 Anxiety disorder, unspecified; F17.200 Nicotine dependence, unspecified, uncomplicated; Z82.49 Family history of ischemic heart disease and other diseases of the circulatory system
CPT/HCPCS: 99284; 96360; 74176; 80053; 80306; 81003; 81015; 82077; 85025; 87086

== ENCOUNTER 2024-07-26 09:49 | Emergency (ER) | payer OTHER, SELFPAY ==
[2024-07-26 09:55] VITALS: BMI 28.6
[2024-07-26 10:04] VITALS: BP 149/96
--- NOTE | 2024-07-26 10:14 | ED.GENMED ---
History of Present Illness
General
Chief Complaint: Alcohol Problem
Source: patient
Exam Limitations: none
Time Seen by Provider: 07/26/24 10:03
History of Present Illness
History of Present Illness:
49-year-old male presents for reevaluation. He was here 3 days ago. He has alcohol addiction. He was seen here and sent to [place] however he was dropped off at the wrong place and was not the facility. He ended up getting Uber ride home and
fell off the wagon. He had 2 half gallons of fireball over the weekend. He may have had a couple sips this morning. States overall he feels unwell.
Past History
Past History
ED Past Medical History: GERD, HTN, Renal failure, Psychiatric (Anxiety, ) and Other (Alcoholism, diverticulitis, Neuropathy Cirrhosis of the liver, Fatty liver, Alcoholic hepatitis, Ulcers)
ED Past Surgical History: Orthopedic (Right leg surgery)
Social History
Tobacco: Smoker
Alcohol: Chronic alcoholic (daily whiskey pint to 1/2 gallon)
Drug: None
Personal: Single
Living: alone
Employment: Employed
Family History
Family History: Hypertension
Phy Exam
Physical Exam
Physical Exam:
General: Unkempt male no acute respiratory distress
HEENT: Normocephalic atraumatic
Heart: Regular in rate and rhythm
Lungs: Clear no wheeze
Extremities: No cyanosis
Abdomen is soft nontender normal bowel sounds
Scores
Withdrawal Assessment of Alcohol
Withdrawal Assessment Completed?: Yes
Nausea and Vomiting: No nausea and no vomiting
Tactile Disturbances: None
Tremor: No tremor
Auditory Disturbances: Not present
Paroxysmal Sweats: No sweat visible
Visual Disturbances: Not present
Anxiety: Moderately anxious, or guarded, so anxiety is inferred
Headache, Fullness in Head: Very mild
Agitation: Moderately fidgety and restless
Orientation and clouding of sensorium: Oriented and can do serial additions
Total CIWA Score: 9
Alcohol Withdrawal Medication Recommendation: Equal to MSAS Score 5-7. Lorazepam 1mg IV or PO NOW & re-assess q2hrs
Course
Orders/Labs/Results
Orders:
Orders
07/26/24 10:14
Lorazepam [Ativan] 1 mg IV NOW STA
07/26/24 10:20
Alcohol Urgent
Complete Blood Count/With Diff Urgent
Comprehensive Metabolic Panel Urgent
Abnormal Lab Results
07/26/24
10:20
RBC 4.26 L 10^6/uL
(4.70-6.10)
MCH 31.9 H pg
(27.0-31.0)
RDW 17.0 H %
(11.5-14.5)
Plt Count 96 L 10^3/uL
(130-400)
Abs Immat Gran (auto) 0.1 H 10^3/uL
(0-0.05)
Absolute Neuts (auto) 6.7 H 10^3/uL
(1.4-6.5)
Absolute Monos (auto) 0.7 H 10^3/uL
(0.1-0.6)
Sodium 147 H mmol/L
(135-145)
Chloride 111 H mmol/L
(98-107)
Carbon Dioxide 17 L mmol/L
(22-30)
BUN 6 L mg/dl
(9-20)
Glucose 133 H mg/dl
(70-99)
Total Bilirubin 2.8 H mg/dl
(0.2-1.3)
AST 65 H U/L
(17-59)
Alkaline Phosphatase 227 H U/L
(38-126)
07/26/24 10:20
07/26/24 10:20
Vital Signs
Initial and Last Documented VS:
Initial Vital Signs
Temp Pulse Resp BP Pulse Ox
98.7 F 95 18 149/96 98
07/26/24 10:04 07/26/24 10:04 07/26/24 10:04 07/26/24 10:04 07/26/24 10:04
Last Documented Vital Signs
Temp Pulse Resp BP Pulse Ox
98.7 F 107 19 148/93 95
07/26/24 10:04 07/26/24 12:46 07/26/24 12:15 07/26/24 13:00 07/26/24 14:00
MDM/Problems Addressed
Differential Diagnosis Includes:
Patient here with alcohol addiction. Looking for help. Stress here 3 days ago for the same. Currently vital signs are stable will hydrate check labs administer Ativan if needed. Will involve drug and alcohol abuse specialist from [facility].
*Critical Care Note
Total Time (30-74mins, 75-104mins- exclusive of procedures): Not Applicable
Update Note
Update Note:
Patient evaluated by drug and alcohol access control specialist. He has placement at [facility] facility. Will be discharged and will be taken right there.
ED Attending Note
-
Portions of this chart may have been created with voice recognition software.� Occasional wrong word or��sound alike� substitutions may have occurred due to the inherent limitations of voice recognition software.
Discharge Plan
Departure
Patient Disposition: Acute Rehab Facility
Date of Disposition: 07/26/24
Time of Disposition: 16:16
Patient with high blood pressure during this ER visit?: No
Discharge Problem:
Alcohol abuse
Instructions: Alcohol Use Disorder (DC)
Prescriptions:
No Action
gabapentin 300 mg capsule
300 mg PO TID
carvedilol [Coreg] 6.25 mg tablet
6.25 mg PO BID
trazodone 50 mg tablet
100 mg PO HS
duloxetine 30 mg capsule,delayed release(DR/EC)
60 mg PO DAILY
thiamine HCl (vitamin B1) 100 mg tablet
100 mg PO DAILY
pantoprazole 40 mg tablet,delayed release (DR/EC)
40 mg PO BID Qty: 60 1RF
sucralfate 1 gram Tablet
1 g PO ACHS Qty: 0 0RF
cholestyramine (with sugar) 4 gram Powder In Packet
1 ea PO DAILY Qty: 0 0RF
furosemide [Lasix] 40 mg Tablet
40 mg PO DAILYPRN PRN (Reason: fluid retension)
quetiapine [Seroquel] 200 mg Tablet
200 mg PO HS
ibuprofen 600 mg Tablet
600 mg PO Q6HPRN PRN (Reason: mild pain)
amoxicillin-pot clavulanate [Augmentin] 500-125 mg Tablet
1 tab PO BID
cefdinir 300 mg capsule
300 mg PO BID Qty: 14 0RF
Referrals:
Jatin Caceres MD [Family Provider] -
Activity Restrictions/Additional Instructions:
Please seek treatment as directed at rehab facility.
Interventions
Interventions:
*Risk Screen - Suicide Last Done: 07/26/24 09:55
*General Assessment Last Done: 07/26/24 09:55
*Neglect/Abuse Screening Last Done: 07/26/24 09:55
ED- Fall Risk Assessment Last Done: 07/26/24 09:55
*ED COVID-19 Vaccine History Last Done: 07/26/24 09:55
ED- Neurological Assessment Last Done: 07/26/24 09:55
ED-Psychological Assessment Last Done: 07/26/24 09:55
Discharge Date and Time
Print Language: [place]
[2024-07-26] MEDS: ATIVAN 1 MG IV (10:17)
[2024-07-26 10:33] LABS: % Basophils 1.1 % (0-2); % Immature Granulocytes 0.5 % (0-0.5); % Lymphocytes 24.3 % (20.5-51.1); % Monocytes 6.7 % (1.7-9.3); % Neutrophils 67.4 % (42.2-75.2); Absolute Basophils 0.1 10^3/uL (0-0.2); Absolute Immature Granulocytes 0.1 10^3/uL (0-0.05); Absolute Lymphocytes 2.4 10^3/uL (1.2-3.4); Absolute Monocytes 0.7 10^3/uL (0.1-0.6); Absolute Neutrophils 6.7 10^3/uL (1.4-6.5); Hematocrit 39.1 % (39.0-52.0); Hemoglobin 13.6 g/dL (13.0-18.0); Mean Corp Hgb Conc. 34.8 g/dL (33.0-37.0); Mean Corpuscular Hgb 31.9 pg (27.0-31.0); Mean Corpuscular Volume 91.8 fL (80.0-94.0); Mean Platelet Volume 10.1 fL (7.4-10.4); Nucleated Red Blood Cells % 0 % (-); Platelet Count 96 10^3/uL (130-400); Red Blood Cell Count 4.26 10^6/uL (4.70-6.10); White Blood Cell Count 9.9 10^3/uL (4.8-10.8)
[2024-07-26 10:44] LABS: ALT (SGPT) 29 U/L (0-50); AST (SGOT) 65 U/L (17-59); Albumin 4.3 g/dl (3.5-5.0); Alcohol 131 mg/dl; Alkaline Phosphatase 227 U/L (38-126); Blood Urea Nitrogen 6 mg/dl (9-20); Calcium 8.9 mg/dl (8.4-10.2); Carbon Dioxide 17 mmol/L (22-30); Chloride 111 mmol/L (98-107); Estimated Creatinine Clearance 100 ml/min; Glucose 133 mg/dl (70-99); Sodium 147 mmol/L (135-145); Total Bilirubin 2.8 mg/dl (0.2-1.3); Total Protein 7.6 g/dl (6.3-8.2); eGFR > 60.00
[2024-07-26 12:25] VITALS: BP 158/98
[2024-07-26 13:00] VITALS: BP 148/93
== END 2024-07-26 16:47 ==
LOC: EMR 09:49
PROVIDERS: Physician Assistant; EMERGENCY PHYSICIAN Emergency Medicine; FAMILY PHYSICIAN Family Medicine
DX: F10.20 Alcohol dependence, uncomplicated (principal); Y90.6 Blood alcohol level of 120-199 mg/100 ml; K21.9 Gastro-esophageal reflux disease without esophagitis; I10 Essential (primary) hypertension; F17.200 Nicotine dependence, unspecified, uncomplicated
CPT/HCPCS: 99285; 96374; 80053; 82077; 85025

== ENCOUNTER 2024-08-30 12:32 | Inpatient (IN) | payer OTHER, SELFPAY ==
[2024-08-30] VITALS (18 sets, daily range): BP systolic 131–220; BP diastolic 87–111; BMI 27.2; BMI 25.7
--- NOTE | 2024-08-30 09:29 | ED.GENMED ---
History of Present Illness
General
Chief Complaint: Vomiting Blood
Time Seen by Provider: 08/30/24 09:29
History of Present Illness
History of Present Illness:
TIME OF INITIAL ENCOUNTER: 10 AM
HPI: The patient presents with recurrent hematemesis. He reportedly had banding of esophageal varices recently at [facility]. He came in by ambulance and refused to go back by [place]. He demanded to come to [place]. He does have some
left upper quadrant discomfort. He continues to drink alcohol.
EXAM:
GENERAL: The patient appears somewhat uncomfortable and generally weak
HEENT: Moist oral mucosa, scleral icterus
CARDIOVASCULAR: No murmurs, normal heart rate, regular rhythm, No chest wall tenderness
PULMONARY: No respiratory distress, breath sounds are clear and equal
ABDOMEN: Soft with no peritoneal signs, mild left upper quadrant tenderness
NEUROLOGIC: Good strength all extremities, no coordination deficits
PSYCHIATRIC: Appropriate mental status, normal insight and judgement, does not appear to be encephalopathic and does not appear to be intoxicated
EXTREMITIES: Nontender, no edema, moves all extremities equally
SKIN: Mild jaundice
NUMBER AND COMPLEXITY OF PROBLEMS ADDRESSED AT THE ENCOUNTER
� Chronic conditions affecting care: Alcoholic cirrhosis with history of esophageal varices
� Acute Exacerbation and/or Progression of Chronic Illness: This is an acute problem
� Differential Diagnosis includes: Bleeding esophageal varices, progression of alcoholic cirrhosis, coagulopathy, thrombocytopenia, anemia
AMOUNT AND/OR COMPLEXITY OF DATA TO BE REVIEWED AND ANALYZED
� I performed an independent evaluation of and my interpretation is:
EKG:
CT:
X-rays:
Laboratory Studies: Ammonia 75, white count 12.2, hemoglobin 15.1, INR 1.38, sodium 147, total bili 4
Other:
� Review of other/old records: I reviewed records from [place], the patient had no esophageal varices in 2022 but most recently had an endoscopy in July that showed grade 3 varices and then a few days later had these varices
banded�there was no bleeding on endoscopy
� Clinical information was obtained by an independent historian: None needed
� Prescriptions/Medications Considered but not given:
� Further testing considered but not performed:
RISK OF COMPLICATIONS AND/OR MORBIDITY OR MORTALITY OF PATIENT MANAGEMENT
� Social determinants of health affecting care: Lives at home, continues to drink alcohol
� Discussion with other providers: I discussed case with Dr. Johnson who agrees with octreotide and would like patient to be placed on a Protonix drip; hospitalist for admission
� Escalation of care including admission/observation vs risk of discharge considered: The patient has had a few episodes of hematemesis while in the ED however remained hemodynamically stable. I also spoke to Taryn Rojas who
evaluated the patient in the emergency department.
ANY OTHER UPDATES:
Past History
Past History
ED Past Medical History: GERD, HTN, Renal failure, Psychiatric (Anxiety, ) and Other (Alcoholism, diverticulitis, Neuropathy Cirrhosis of the liver, Fatty liver, Alcoholic hepatitis, Ulcers)
ED Past Surgical History: Orthopedic (Right leg surgery)
Social History
Tobacco: Smoker
Alcohol: Chronic alcoholic (daily whiskey pint to 1/2 gallon)
Drug: None
Personal: Single
Living: alone
Employment: Employed
Family History
Family History: Hypertension
Phy Exam
Physical Exam
Physical Exam:
See HPI
Course
Orders/Labs/Results
Orders:
Orders
08/30/24 Breakfast
NPO
Allow oral meds: No
Allow clear liquids: No
08/30/24 09:39
Type+Screen Urgent
Alcohol Urgent
B-Hydroxybutyrate Urgent
Basic Metabolic Panel Urgent
Complete Blood Count/With Diff Urgent
Direct Bilirubin Urgent
Comment: LFT ADDED ON TO [facility] BY FLOOR 1:15PM 08-30-24
GGTP Urgent
Manual Differential Urgent
PTT Urgent
Prothrombin Time Urgent
08/30/24 10:10
Octreotide [Sandostatin] 100 mcg IV NOW STA
08/30/24 10:12
Octreotide Acetate [Sandostatin] 600 mcg 0.9% Sodium Chloride 500 ml [Nss] 500 ml IV NOW
Ondansetron Injectable [Zofran] 4 mg IV NOW STA
Pantoprazole [Protonix IV] 80 mg IV NOW STA
08/30/24 10:22
Ammonia Urgent
08/30/24 10:24
0.9% Sodium Chloride 500 ml [Nss] 500 ml IV BOLUS
Famotidine [Pepcid] 20 mg IV NOW STA
08/30/24 11:36
CefTRIAXone [Rocephin] 1,000 mg IV NOW STA
Pantoprazole 80 mg/100 ml Nss [Protonix] 80 mg in 100 ml IV NOW
08/30/24 12:05
Admit/Transfer Patient As Directed
Co-Sign Provider:
Level of Care: Inpatient admission
Assign to:: ICU
Physician / Group: Dr Mendez
Diagnosis: Acute GI bleed
Reason for Hospitalization: pte with esophageal varices p/w acute gi bleed
Expected length of stay greater than two midnights?: Yes
ELOS- Estimated Length of Stay in days: 2
I certify the patient meets the requirements for IP care: Yes
PRN Pain Medication Management As Directed
May give lesser potent ordered pain med per pt: Yes
preference::
Protocol:: Medication orders for pain may be administered in a
manner that supports deferring to patient preference
when the pt is:
- Requesting an ordered lesser potent pain medication.
Least to most potent pain medications are defined
as: acetaminophen < NSAID < tramadol < opioids
(morphine, oxycodone, hydromorphone).
- Requesting a lesser dose of the same medication IF
ORDERED.
- Requesting a less intrusive route of administration
if both routes are prescribed by the provider (PO <
IV).
08/30/24 12:06
Code Status As Directed
Resuscitation Status: Full Code
08/30/24 12:09
Case Management Consult Once
Case Management Consult: Other
Comment: Substance abuse counseling
DIETARY CONSULT Routine
Reason for Consult: Nutrition support, possible refeeding guidelines
Urinalysis Routine
Urine Drug Abuse Screen Routine
0.9% Sodium Chloride [Nss (Preservative Free)] See Protocol IV PRN PRN
FOLic ACID [Folvite] 1 mg 0.9% Sodium Chloride 50 ml [Nss] 50 ml IV DAILYPRN
Lorazepam [Ativan] 1 mg IV Q1HPRN PRN
Lorazepam [Ativan] 1 mg PO Q2HPRN PRN
Lorazepam [Ativan] 2 mg IV Q1HPRN PRN
MSAS SCORE As Directed
MSAS Score 0-4: Repeat MSAS every 2 hours until 0-4 for three consecutive assessments, then every 4 hours x 48
hours.
MSAS Score 5-7: For MILD withdrawl symptoms. Repeat MSAS and RASS every 2 hours
MSAS Score 8-11: For MODERATE withdrawal symptoms. Repeat MSAS and RASS every 1 hour. Consider ICU or IMU
level of care.
MSAS Score > 11: For SEVERE withdrawal symptoms. Repeat MSAS and RASS every 1 hour. Notify provider, consider
ICU level of care.
MSAS Additional Instructions: If no improvement or no decrease in score from severe to moderate within 12
hours, consult psychiatry
MSAS Notify Provider: Notify provider if patient requires more than 10 mg of Lorazepam in eight hour period.
08/30/24 12:12
Consult Gastroenterology [GASTROINTESTINAL CONSULT] Urgent
Consulting Provider: Blayne Johnson
Was physician already notified: Yes
Reason for consult: GI bleed
08/30/24 12:14
Consult Diesel Engine Operator [Diesel Engine Operator Consult] Urgent
Consulting Provider: Martín Turner
Was physician already notified: Yes
Reason for consult: GI bleed/Alcohol withdrawal
08/30/24 13:00
FOLic ACID [Folvite] 1 mg PO DAILY
Lactated Ringers [Lr] 1,000 ml IV 125 mls/hr
08/30/24 13:28
Activity As Directed
Activity Level: Out of Bed-Early Mobility
INT (Intravenous Needle Therapy) As Directed
Comment: Place 2 IV catheters of the largest bore possible until stable
Orthostatic Vital Signs As Directed
Orthostatic VS Frequency: Now
Comment: then every four hours for twenty-four hours
Pneumatic Compression Sleeves As Directed
Type: Knee high
Vital Signs As Directed
Frequency: Per unit guidelines
DX Deep Vein Thrombosis Video Routine
08/30/24 13:41
H&H Q6H
08/30/24 16:00
Thiamine Injection 200 mg IV Q8
08/30/24 19:28
H&H Q6H
08/31/24 06:00
Complete Blood Count/No Diff IN AM
Comprehensive Metabolic Panel IN AM
Magnesium IN AM
Phosphorus IN AM
Prothrombin Time IN AM
08/31/24 10:00
CefTRIAXone [Rocephin] 1,000 mg IV Q24H
09/02/24 20:00
Thiamine HCl [Vitamin B1] 100 mg PO BID
Abnormal Lab Results
08/30/24 08/30/24
09:39 10:22
WBC 12.2 H 10^3/uL
(4.8-10.8)
MCV 94.8 H fL
(80.0-94.0)
MCH 31.3 H pg
(27.0-31.0)
RDW 17.5 H %
(11.5-14.5)
Abs Neuts (Manual) 7.0 H 10^3/uL
(1.4-6.5)
PT 17.2 H Sec
(11.4-14.6)
APTT 35.1 H Sec
(23.4-35.0)
Sodium 147 H mmol/L
(135-145)
Carbon Dioxide 21 L mmol/L
(22-30)
Glucose 165 H mg/dl
(70-99)
Direct Bilirubin 4.0 H mg/dl
(0.0-0.4)
GGT 305 H U/L
(15-73)
Ammonia 75 H umol/L
(9-30)
08/30/24 09:39
08/30/24 09:39
Vital Signs
Initial and Last Documented VS:
Initial Vital Signs
Temp Pulse Resp BP Pulse Ox
36.6 C 111 18 133/100 96
08/30/24 09:30 08/30/24 09:30 08/30/24 09:30 08/30/24 09:30 08/30/24 09:30
Last Documented Vital Signs
Temp Pulse Resp BP Pulse Ox
36.7 C 101 19 131/87 95
08/30/24 15:05 08/30/24 14:15 08/30/24 14:15 08/30/24 13:30 08/30/24 14:15
*Critical Care Note
Total Time (30-74mins, 75-104mins- exclusive of procedures): Not Applicable
ED Attending Note
-
Portions of this chart may have been created with voice recognition software.� Occasional wrong word or��sound alike� substitutions may have occurred due to the inherent limitations of voice recognition software.
Discharge Plan
Departure
Patient Disposition: Admit
Date of Disposition: 08/30/24
Time of Disposition: 11:27
Presentation/result/management discussed w/ accepting MD/DO: Hospitalist
Discharge Problem:
Hematemesis
Interventions
Interventions:
*General Assessment Last Done: 08/30/24 09:34
*Neglect/Abuse Screening Last Done: 08/30/24 09:34
*Nursing Disposition Last Done: 08/30/24 13:34
PB-Zijlxq-Fsdrnjizng Assessment Last Done: 08/30/24 12:04
ED- Cardiac Assessment Last Done: 08/30/24 12:04
ED- Pulmonary Assessment Last Done: 08/30/24 12:04
Discharge Date and Time
Discharge Date/Time: 08/30/24 13:35
[2024-08-30 10:01] LABS: INR 1.38; PT 17.2 Sec (11.4-14.6)
[2024-08-30 10:02] LABS: APTT 35.1 Sec (23.4-35.0)
[2024-08-30 10:18] LABS: Blood Urea Nitrogen 9 mg/dl (9-20); Carbon Dioxide 21 mmol/L (22-30); Chloride 106 mmol/L (98-107); Estimated Creatinine Clearance 111 ml/min; Glucose 165 mg/dl (70-99); Sodium 147 mmol/L (135-145); eGFR > 60.00
[2024-08-30 10:43] LABS: Ammonia 75 umol/L (9-30)
[2024-08-30 10:49] LABS: Hematocrit 45.7 % (39.0-52.0); Hemoglobin 15.1 g/dL (13.0-18.0); Mean Corpuscular Hgb 31.3 pg (27.0-31.0); Mean Corpuscular Volume 94.8 fL (80.0-94.0); Mean Platelet Volume 10.4 fL (7.4-10.4); Platelet Count 131 10^3/uL (130-400); Red Blood Cell Count 4.82 10^6/uL (4.70-6.10); Red Cell Dist. Width 17.5 % (11.5-14.5); White Blood Cell Count 12.2 10^3/uL (4.8-10.8)
[2024-08-30] MEDS: SANDOSTATIN 100 MCG IV (11:09)
[2024-08-30] MEDS: ZOFRAN 4 MG IV (11:13)
[2024-08-30] MEDS: PROTONIX IV 80 MG IV (11:14)
[2024-08-30] MEDS: NSS 500 IV (11:15)
[2024-08-30] MEDS: PEPCID 20 MG IV (11:16)
[2024-08-30] MEDS: SANDOSTATIN 500.6 MCG IV ×2 (11:20→23:01)
[2024-08-30 11:35] LABS: Band Neutrophils 0 % (0-3); Lymphocytes 36 % (20-51); Monocytes 6 % (2-9); Platelets Checked Yes; Segmented Neutrophils 58 % (42-75)
[2024-08-30 11:36] LABS: Anisocytosis 1+; Hypochromasia 1+; Normal RBC Morphology No; Polychromasia 1+; Total Cells Counted 100
[2024-08-30] MEDS: ROCEPHIN 1000 MG IV (11:52)
[2024-08-30] MEDS: PROTONIX 100 IV ×2 (11:52→17:35)
--- NOTE | 2024-08-30 12:15 | HPS.HSE ---
Family Physician
-
Family Physician: Jatin Caceres MD
Chief Complaint
-
hematemesis
History of Present Illness
Patient 49 years old male with history alcohol use disorder, esophageal varices, HTN, presented with hematemesis. Patient has been experiencing nausea and vomiting blood over a week associated with melena and worsening over the last 24 hrs. He had
recent esophageal banding about 3 weeks ago by report. He is drinking heavily about half a gallon of whiskey every day and tells me last drink was last night and feeling anxious and tremulous. He also complaints of abd pain moderate intensity and
diffusely. No fever or chills. No NSAIDs or aspirin or anticoagulants. He was started on PPI and he was referred to hospitalsit service for further evaluation.
Medical History
Past Medical History
Past Medical History: Reports Other
Additional Past Medical History:
Esophageal varices
Alcoholic liver cirrhosis with acute on chronic transaminitis/Chronic bilirubinemia/Alcohol use d/o
Active smoking with nicotine dependence
GERD, HTN
Alcoholism, diverticulitis
Past Surgical History: Reports Orthopedic
Social History
Tobacco: Smoker
Alcohol: Chronic Alcoholic (daily use 1 pint to 1/2 gallon whiskey daily)
Drug: None
Personal: Single
Living: With Family
Family History
Family History: Not pertinent
Allergies / Home Medications
Allergies reflects when Allergies were last updated in [employer].
Home Medications with original date entered in [employer]
Allergy/Medication List:
Allergies
Allergy/AdvReac Type Severity Reaction Status Date / Time
wool Allergy Rash Verified 02/10/24 20:53
Home Medications
gabapentin 300 mg capsule 300 mg PO TID Pain 10/08/22
carvedilol 6.25 mg tablet (Coreg) 6.25 mg PO BID Blood Pressure 02/10/23
duloxetine 30 mg capsule,delayed release 60 mg PO DAILY Mental Health/Anxiety 09/14/23
thiamine HCl (vitamin B1) 100 mg tablet 100 mg PO DAILY energy 09/14/23
trazodone 50 mg tablet 100 mg PO HS Sleep 09/14/23
sucralfate 1 gram tablet 1 g PO ACHS #0 tabs 03/14/24
furosemide 40 mg tablet (Lasix) 40 mg PO DAILYPRN PRN fluid retension 07/22/24
quetiapine 200 mg tablet (Seroquel) 200 mg PO HS Mental Health/Anxiety 07/22/24
cholestyramine (with sugar) 4 gram powder for susp in a packet 1 ea PO AC Gastrointestinal Issue 08/30/24
pantoprazole 40 mg tablet,delayed release 40 mg PO DAILY Gastrointestinal Issue 08/30/24
Review of Systems
-
A 12 point ROS was completed and negative except as noted: Yes
Physical Exam
Vital Signs
Vital Signs
Temp Pulse Resp BP Pulse Ox
97.8 F 103 17 145/88 97
08/30/24 09:30 08/30/24 11:45 08/30/24 11:30 08/30/24 11:16 08/30/24 11:45
Physical exam:
General: Acutely ill and in distress
HEENT: Normocephalic, Atraumatic and dry Mucous Membranes
Respiratory: Clear to Auscultation; Negative Wheezes, Rales or Rhonchi
Cardiac: Regular Rhythm and S1/S2
GI: Soft, tender and Nondistended
Musculoskeletal: No Clubbing, No Cyanosis and No Edema
Neuro: Awake, Alert and Oriented
Psych: Anxious, tremors present.
Physical Exam
General: Other
Laboratory Results
-
08/30/24 09:39
08/30/24 09:39
Laboratory Results
PT 17.2 Sec (11.4-14.6) H 08/30/24 09:39
INR 1.38 08/30/24 09:39
APTT 35.1 Sec (23.4-35.0) H 08/30/24 09:39
Total Bilirubin Cancelled 08/30/24 09:39
AST Cancelled 08/30/24 09:39
ALT Cancelled 08/30/24 09:39
Alkaline Phosphatase Cancelled 08/30/24 09:39
Data Reviewed
-
Diagnostic Radiology: Image Personally Visualized and interpreted
Lab Data: Labs Reviewed by me
Impression/Plan
-
IMPRESSION:
Patient 49 years old male with history esophageal varices status post banding, alcohol use disorder, among other multiple medical problem came into the hospital with acute GI bleed. Patient is also having active alcohol withdrawal at risk of
delirium tremens down the road. Patient critically ill at risk of increased morbidity mortality send is to be admitted to intensive care unit.
PLAN:
Acute GI bleed:
Likely upper GI due to peptic ulcer disease or esophageal bleeding or other
Keep n.p.o.
IV fluid
IV PPI drip
IV octreotide drip
GI consult
Environmental Project Manager consult
Alcohol intoxication and severe alcohol withdrawal:
MSA protocol
Thiamine
Folate
Resp failure s/p Mech Vent for airway protection
Metabolic acidosis with increased anion gap:
IVF
Monitor acidosis
Hyperammonemia:
Monitor ammonia
Transaminitis:
Monitor trend
Leukocytosis:
Likely reactive
Hypernatremia:
Monitor trend
Hypotonic after resuscitation
HTN:
Hold carvedilol
HLD:
hold oral cholestyramine
Anxiety:
Hold duloxetine, trazodone, quetiapine
DVT prophylaxis:
SCDs
CODE STATUS:
Full code
Total Critical Care Time__45___ minutes. I was immediately available to the patient and staff. I personally examined, reviewed labs, diagnostic images/reports, interpretations, treatment plans, discussed patient care with other providers and
family or caregivers (if patient is unable to make decisions), entered orders as appropriate and documented the medical record.
--- NOTE | 2024-08-30 12:43 | CON.GI ---
Addendum entered and electronically signed by Blayne Johnson DO 08/30/24 15:31:
I saw and examined the patient.
The PROTEIN PURIFICATION SCIENTIST's note was reviewed and I agree with the note.
Comment: Mr. Kelsey is a 49 y.o male with past medical history of decompensated EtOH cirrhosis with decompensations including history of EV bleeding (s/p recent EGD at [facility] on 08/05/2024 with EVL), portal hypertensive gastropathy, C Diff colitis,
and ongoing alcohol abuse who presented to the ED with multiple episodes of hematemesis. He was recently hospitalized at [facility] where an EGD on 08/05/2024 revealed grade III varices in the mid/distal esophagus without active bleeding at
that time s/p EVL with 6 bands deployed along with PHG and gastritis. Otherwise, no mention of GV or duodenal varices. He was supposed to have a repeat EGD in 6 to 8 weeks as an outpatient. He unfortunately resumed drinking after his discharge at
[facility] and reportedly drinks up to a half a bottle to a gallon of whiskey on a near daily basis. No other NSAIDs or other antiplatelets/anticoagulants. He experienced several episodes of erinn hematemesis this AM along with melena and subsequently
came to the ED at [place] for further evaluation. Labs revealed a MELD 3.0 of 17 and CBC with a Hgb 15.1, WBC 12.2, and plts 131. Etiology appears most suspicious for recurrent esophageal variceal hemorrhage versus post-banding esophageal
ulceration given recent banding four weeks earlier. Currently he is HD-stable but would benefit from an urgent endoscopy for further evaluation and potential rebanding.
Recommendations:
- Ensure two large bore IVs at all times
- Keep strict NPO, patient may be kept intubated for airway protection after procedure
- Trend daily MELD 3.0 labs- CMP, INR and CBC
- Trend Hgb with serial CBC, transfuse for goal Hgb > 7.0. Avoid over-transfusions given cirrhosis
- Ordered stat IV Erythromycin 250 mg to improve visualization at time of EGD
- IV PPI gtt x 72 hrs
- IV Octreotide gtt x 72 hrs
- IV Ceftriaxone 1 gm q daily
- Plan for urgent EGD later this afternoon, 08/30/2024
- At risk for HE given UGIB, low threshold to start lactulose if concern for HE
- Hold all diuretics and anti-hypertensives given brisk variceal GIB
- Monitor on CIWA protocol, needs strict EtOH cessation
- Avoidance of all NSAIDs and anticoagulants
- Rest of care as outlined below and per primary ICU team
GI team will continue to follow. See EGD report for additional recommendations later this afternoon/evening. Please do not hesitate to call for any further questions.
Original Note:
Consultation
-
Date/Time Consultation Requested: 08/30/24 1130
Date/Time Consultation Performed: 08/30/24 1135
Requesting Provider: Dr. Jauregui
Performing Provider: Dr. Johnson/KEIKO Villalobos
Reason for Consultation: Upper GI Bleed
Medical History
Chief Complaint / HPI
Chief Complaint: abdominal pain
History of Present Illness:
49-year-old male with a past medical history significant for alcohol abuse, liver cirrhosis, history of esophageal/gastric varices, portal HTN, C. difficile, ETOH hepatitis, GERD, hypertension who presents to the emergency room with erinn
hematemesis Asked to evaluate for the same. The patient was recently at [facility] and had variceal banding performed on 08/05/2024 (6 esophageal bands, report will be detailed below). The patient is supposed to have repeat banding
performed in 6 to 8 weeks. The patient states he resumed drinking alcohol upon discharge from [facility]. He did not resume any of his usual meds. He states 1 week ago he started having hematemesis and melena. The patient drinks up to a
gallon of whiskey daily. He states he drank over 9.5 gallons in 1 week. His last alcoholic beverage was last evening. He continued to have hematemesis and melena. 2 episodes of hematemesis in the emergency room. 4 in the ambulance. WBC 12.2,
hemoglobin 15.1, hematocrit 45.7, platelets 131 PT 17.2, INR 1.38, sodium 147, chloride 106, CO2 21, BUN 9, creatinine 0.9, glucose 165. Protonix bolus and drip have been started. Octreotide bolus and drip have been started. Ceftriaxone has been
given. Patient is nauseous will give erythromycin 250 mg IV now. Blood transfusion consent signed if needed. Urgent EGD planned for today. Patient did have water earlier this morning. However has vomited multiple times.
Past Medical History
Past Medical History: GERD, HTN and Other ( Alcoholic liver cirrhosis, alcoholic hepatitis, alcohol abuse, history of C. difficile, PUD, covid infection, hepatic encephalopathy, gastroesophageal varices (on imaging))
Past Surgical History: None
Social History
Tobacco: Smoker (1 PPD)
Alcohol: Chronic Alcoholic (1 pt of liquor daily)
Drug: None
Living: With Family
Employment: Employed
Family History
Family History: Reviewed & Not Pertinent
Allergies / Home Medications
Allergy/AdvReac Type Severity Reaction Status Date / Time
wool Allergy Rash Verified 02/10/24 20:53
�Medication �Instructions �Recorded
gabapentin 300 mg capsule 300 mg PO TID Pain 10/08/22
carvedilol 6.25 mg tablet (Coreg) 6.25 mg PO DAILY Blood Pressure 02/10/23
duloxetine 30 mg capsule,delayed 60 mg PO DAILY Mental 09/14/23
release Health/Anxiety
thiamine HCl (vitamin B1) 100 mg 100 mg PO DAILY energy 09/14/23
tablet
trazodone 50 mg tablet 100 mg PO HS Sleep 09/14/23
sucralfate 1 gram tablet 1 g PO ACHS #0 tabs 03/14/24
furosemide 40 mg tablet (Lasix) 40 mg PO DAILYPRN PRN fluid 07/22/24
retension
quetiapine 200 mg tablet (Seroquel) 200 mg PO HS 07/22/24
cholestyramine (with sugar) 4 gram 1 ea PO AC 08/30/24
powder for susp in a packet
pantoprazole 40 mg tablet,delayed 40 mg PO DAILY Gastrointestinal 08/30/24
release Issue
Review of Systems
-
All other systems: A 12 pt ROS was Negative except as stated above in HPI
Vital Signs
Temp Pulse Resp BP Pulse Ox
97.8 F 103 17 145/88 97
08/30/24 09:30 08/30/24 11:45 08/30/24 11:30 08/30/24 11:16 08/30/24 11:45
Physical Exam
Exam
General: Other (Appears older than stated age)
HEENT: Other ( sclera icteric)
Respiratory: Clear
Cardiac: Regular Rhythm
GI: Soft, Non Tender, Normal Bowel Sounds and Other (mildly distended)
Musculoskeletal: No Edema
Skin: Warm and Dry
Neuro: AO x 3
Psych: Calm
Results
WBC 12.2 10^3/uL (4.8-10.8) H 08/30/24 09:39
Hgb 15.1 g/dL (13.0-18.0) 08/30/24 09:39
Hct 45.7 % (39.0-52.0) 08/30/24 09:39
MCV 94.8 fL (80.0-94.0) H 08/30/24 09:39
Plt Count 131 10^3/uL (130-400) 08/30/24 09:39
PT 17.2 Sec (11.4-14.6) H 08/30/24 09:39
INR 1.38 08/30/24 09:39
APTT 35.1 Sec (23.4-35.0) H 08/30/24 09:39
Sodium 147 mmol/L (135-145) H 08/30/24 09:39
Potassium mmol/L (3.5-5.1) 08/30/24 09:39
Chloride 106 mmol/L (98-107) 08/30/24 09:39
Carbon Dioxide 21 mmol/L (22-30) L 08/30/24 09:39
BUN 9 mg/dl (9-20) 08/30/24 09:39
Creatinine 0.9 mg/dL (0.7-1.3) 08/30/24 09:39
Calcium 9.0 mg/dl (8.4-10.2) 08/30/24 09:39
Total Bilirubin Cancelled 08/30/24 09:39
AST Cancelled 08/30/24 09:39
ALT Cancelled 08/30/24 09:39
Alkaline Phosphatase Cancelled 08/30/24 09:39
Diagnostic Image Results:
Prior GI Procedures:
EGD: 08/05/2024 EGD (Dr. Wick [facility]) grade 3 varices were seen in the lower third of the esophagus and middle third of the esophagus. The varices were not bleeding. 6 plans were applied for hemostasis. Abnormal vascularity with
snakeskin appearance of the mucosa were noted in the fundus. These findings are compatible with portal hypertensive gastropathy. Patchy erythema of the mucosa with no bleeding noted in the antrum. Findings compatible with gastritis. Cold forcep
biopsies performed for H. pylori assessment in the antrum. Patchy erythema and congestion of the mucosa noted in the duodenal bulb. Normal mucosa noted in the second portion of the duodenum.
EGD 08/04/2021 (Dr. Wick [facility]) poor preparation. Food in stomach. Grade a esophagitis seen in the whole esophagus. Plaques and erosions may be consistent with Padmini versus reflux related esophagitis. Grade 3 varices fiend in the
distal and middle third esophagus. Varices were not bleeding. Varices were medium sized without stigmata. Given reported bleeding banding would be considered but electively when stomach is empty or if intubated for procedure. Food found in the
fundus. Diffuse abdominal vascularity with snake like appearance of the mucosa was noted in the fundus. Findings compatible with portal hypertensive gastropathy.
EGD:
11/21/2022, Dr. Fonseca:
Impression:� � � � � � - Normal esophagus.
�� � � � � � � � � � � - Erythematous mucosa in the antrum. Biopsied.
�� � � � � � � � � � � - Erythematous duodenopathy. Negative H. pylori
Colonoscopy: Never had Colonoscopy
Assessment / Plan
-
49-year-old male with a past medical history significant for alcohol abuse, liver cirrhosis, history of esophageal/gastric varices, portal HTN, C. difficile, ETOH hepatitis, GERD, hypertension who presents to the emergency room with erinn
hematemesis Asked to evaluate for the same. Patient with recent EGD at [facility] with grade 3 varices in lower third and middle third of the esophagus that were not bleeding. 6 bands were applied for hemostasis. Also with abnormal
vascularity with snakeskin appearance in the fundus compatible with portal hypertensive gastropathy. Discharged from [facility] and did not resume his routine medications (Coreg, cholestyramine, duloxetine, Lasix, gabapentin, pantoprazole,
Seroquel, Carafate, thiamine and trazodone). Resume drinking alcohol up to a gallon of whiskey daily. States he is consumed 9.5 gallons in 1 week. Last alcoholic beverage was last night. States he has had 1 week history of hematemesis as well as
melena. Presents to emergency room with hematemesis and melena. Vomited 4 times and ambulance and 2 times while here in the emergency room. WBC 12.2, hemoglobin 15.1, hematocrit 45.7, platelets 131 PT 17.2, INR 1.38, sodium 147, chloride 106, CO2
21, BUN 9, creatinine 0.9, glucose 165. Protonix bolus and drip have been started. Octreotide bolus and drip have been started. Ceftriaxone has been given. Patient is nauseous will give erythromycin 250 mg IV now. Blood transfusion consent
signed if needed. Urgent EGD planned for today. Temperature 97.8, pulse 103, BP 145/88, respirations 17, O2 sat 97% on room air. Patient awake alert and oriented. Able to give consent. He did ask that his Sister Amy Kelsey be contacted. I did
contact her. He did ask that if he is not able to make his own decisions that she be his decision maker. I did let Dr. Mendez know this as well. Amy Kelsey was also made aware of patient's decision. Amy Kelsey [phone]
Impression:
Upper GI Bleed
Esophageal Varices s/p 6 bands (08/05/24 [facility])
Portal Hypertensive Gastropathy
ETOH Abuse-> Drinking up to gallon of whiskey daily. Last drink 08/29/24
ETOH Cirrhosis
Plan:
-Admit to ICU
-NPO
-Pantoprazole bolus given, continue gtt
-Octreotide bolus given, continue gtt
-Ceftriaxone given, continue 1 gm daily for ppx
-Give Erythromycin 250 mg IV now for gastric emptying
-EGD today
-Trend CBC, transfuse if Hgb less then 7. Consent obtained
-ETOH withdrawal ppx as per IM
-Await pending labs
-Trend CBC, CMP, direct bili, PT/INR
-Further recommendations after EGD today
-
-
Thank you for consultation and allowing me to participate in the patient's care. Please call the hall monitor GI physician during the after hours with any questions or concerns.
--- NOTE | 2024-08-30 12:54 | CON.INTV ---
Consultation
Consultation Request
Date/Time Consultation Requested: 08/30/2024 12:06 pm
Date/Time Consultation Performed: 08/30/2024 12:25 pm
Requesting Provider: Ranulfo Yang
Performing Provider: Dr. Martín Turner
Reason for Consultation: Alcoholic cirrhosis with esophageal varicies
Medical History
-
Chief Complaint: Vomiting blood
History of Present Illness:
Patient has been vomiting blood for the past week. He has had 5 episodes of vahe hematemesis, the most recent episodes being in the ambulance and then two episodes in the ER. He has a long stand history of alcohol addiction and hepatic cirrhosis
with esophageal varices. He recently variceal banding done for this esophageal varices at [facility] around a week and a half ago. He only got half his varices banded and was advised to follow up again to get the rest of the varices banded in
a couple of weeks. Currently follows Dr. Fonseca who is his GI. Patient is a known patient and has had many admissions to [facility] in the past year for alcohol abuse related complications. He drinks around half a bottle a day of fireball whiskey.
He is full code.
Past Medical History
Past Medical History: None, GERD, HTN, Renal Failure, Psychiatric (Anxiety) and Other (alcoholism, diverticulitis, alcoholism, fatty liver, ulcers, cirrhosis)
Past Surgical History: Orthopedic (right leg surgery)
Social History
Tobacco: Smoker
Alcohol: Chronic Alcoholic (1/2 gallon of fireball every day)
Drug: None
Personal: Single
Living: Alone
Employment: Employed
Family History
Family History: Reviewed & Not Pertinent
Allergies / Home Medications
Allergies
Allergy/AdvReac Type Severity Reaction Status Date / Time
wool Allergy Rash Verified 02/10/24 20:53
Home Medications
�Medication �Instructions �Recorded �Confirmed �Last Taken �Type
gabapentin 300 mg capsule 300 mg PO TID Pain 10/08/22 08/30/24 07/22/24 History
600 mg
carvedilol 6.25 mg tablet (Coreg) 6.25 mg PO DAILY Blood Pressure 02/10/23 08/30/24 01/28/24 History
duloxetine 30 mg capsule,delayed 60 mg PO DAILY Mental 09/14/23 08/30/24 01/28/24 History
release Health/Anxiety
thiamine HCl (vitamin B1) 100 mg 100 mg PO DAILY energy 09/14/23 08/30/24 01/28/24 History
tablet
trazodone 50 mg tablet 100 mg PO HS Sleep 09/14/23 08/30/24 07/22/24 History
200 mg
sucralfate 1 gram tablet 1 g PO ACHS #0 tabs 03/14/24 08/30/24 Unknown Rx
furosemide 40 mg tablet (Lasix) 40 mg PO DAILYPRN PRN fluid 07/22/24 08/30/24 Unknown History
retension
quetiapine 200 mg tablet (Seroquel) 200 mg PO HS 07/22/24 08/30/24 07/22/24 History
cholestyramine (with sugar) 4 gram 1 ea PO AC 08/30/24 08/30/24 Unknown History
powder for susp in a packet
pantoprazole 40 mg tablet,delayed 40 mg PO DAILY Gastrointestinal 08/30/24 08/30/24 Unknown History
release Issue
Review of Systems
-
History Source: Patient
Abdomen/GI: Nausea and Vomiting
Neuro: Dizzy and Weakness
Vitals / Labs / Diagnostic Testing
Vital Signs
Temp Pulse Resp BP Pulse Ox
97.8 F 103 17 145/88 97
08/30/24 09:30 08/30/24 11:45 08/30/24 11:30 08/30/24 11:16 08/30/24 11:45
Lab Data
08/30/24 09:39
08/30/24 09:39
Laboratory Results
08/30/24
09:39
PT 17.2 H
INR 1.38
APTT 35.1 H
Diagnostic Testing:
Physical Exam
-
Cardiovascular: S1/S2 and Regular Rhythm
Respiratory: Clear
GI: Soft, Distended, Non Tender and Normal Bowel Sounds
Neurology: Awake, Alert, Oriented and AO x 3
Skin: Warm and Dry
Assessment
-
Vahe Hematemesis:
- 6 episodes in the past week with 2 in the ED
- Most likely due to variceal bleeding
- Continue IV fluids
- Continue Iv Octreotide
- Continue IV pantoprazole
- Administer ceftriaxone for 7 days
- Keep NPO
- trend PT/INR
- Gi consulted and want to perform EGD
Chronic Alcohol abuse:
- Drinks half a bottle of vodka a day
- MSAS protocol ( IV Ativan, thiamine, folate)
- Trend CMP, CBC- transfuse if hgb less than 7
- Vitamin b12 and folate testing because of increased mcv
- Hold gabapentin until GI done with scope
- Trend magnesium and phosphorus
GERD:
- continue on iv Protonix
HTN:
- Hold carvedilol
- Blood pressure is 131/87 and well controlled
HLD:
- hold oral cholestyramine
Anxiety:
- Hold duloxetine, trazadone, quetiapine until GI done with scoping patient
Hold lasix until GI done with scope
Full code
Data Reviewed
-
Medical Tests (Nuc Med, Echo etc): Image personally visualized and interpreted and Discussed with Physician
Labs: Labs reviewed by me and Discussed with Physician
[2024-08-30] MEDS: NSS (PRESERVATIVE FREE) 1 ML IV (13:36)
[2024-08-30] MEDS: ATIVAN 2 MG IV (13:36)
[2024-08-30 13:52] LABS: Alcohol 249 mg/dl; GGTP 305 U/L (15-73)
[2024-08-30] MEDS: LR 1000 IV ×2 (13:55→21:54)
[2024-08-30] MEDS: FOLVITE PO (13:55)
[2024-08-30 13:56] LABS: B-Hydroxybutyrate 0.12 mmol/L (0.02-0.27)
[2024-08-30] MEDS: ERYTHROCIN 105 MG IV (14:13)
--- NOTE | 2024-08-30 14:18 | PTCARENOTE ---
patient received from ED, assessments per work list. patient alert and oriented, see MSAS. medicated with Ativan per msas orders. post ativan administration, patient drowsy, pulse oximeter 88. placed on 2 liters nasal cannula.lungs diminished, sinus
tachycardia. labs sent. patient nauseated. no vomiting. abdomen with ascites. declines need to void. advised of bedrest at this time, VAT team in to place PICC line. GI HOSE TUBING BACKER at bedside. patient to go to GI lab once picc placed, erythromycin
administered.
[2024-08-30 14:37] LABS: Hematocrit 39.4 % (39.0-52.0); Hemoglobin 13.5 g/dL (13.0-18.0)
--- NOTE | 2024-08-30 16:02 | W.SUR.POST ---
Surgical Immediate Post Op
Note
Bedside Central Venous Catheter Insertion Procedure
Date of procedure: 08/30/2024
Pre Op Diagnosis: Inadequate IV access; acute upper gastrointestinal hemorrhage
Post Op Diagnosis: Same as above
Procedure Performed: Central Venous Catheter Insertion Procedure
Primary Surgeon/proceduralist: Dr. Turner
Secondary Surgeons: N/A
Anesthesia: N/A
Estimated Blood Loss: 5cc
Fluids: N/A
Drains/Shunts: N/A
Specimens/Cultures: N/A
Doppler/Duplex/Angio (Y/N): N/A
Complications: No immediate complications
Operative Findings: 7 thai, 16cm long central line inserted into right IJ. Time out performed prior to start of procedure. Verbal consent obtained from sister, Amy, over telephone. Pt placed into Trendelenburg position then procedure
started. Pt was draped in usual fashion using anti-septic technique. Gloves, cap, facemask, hand washing and cleaning his target skin area with chlorhexidine was also performed. Pt then anesthetized with 1% lidocaine without epinephrine. Trocar
inserted into right IJ under ultrasound guidance. Ultrasound probe cover also was used. Blood return seen which was nonpulsatile. Guidewire inserted and trocar was removed entirely. Incision was made over the guidewire and dilator was inserted.
Dilator then removed and triple-lumen central venous catheter was inserted successfully and guidewire was removed entirely. Central line was sutured into place. Blood flow was suctioned out with syringe from all 3 ports and normal saline was able
to be flushed as well into all 3 ports without resistance. Chlorhexidine Placed over central venous catheter hub and the entire hub was covered with a Tegaderm patch. Procedure ended, drape was removed and there were no immediate complications.
[2024-08-30] MEDS: FOLVITE 50.2 MG IV (16:09)
[2024-08-30] MEDS: THIAMINE INJECTION 200 MG IV ×2 (16:39→23:56)
[2024-08-30] MEDS: NSS (PRESERVATIVE FREE) 0.5 ML IV ×2 (16:48→19:04)
[2024-08-30] MEDS: ATIVAN 1 MG IV ×7 (16:49→23:57)
--- NOTE | 2024-08-30 17:00 | PTCARENOTE ---
VAT team unable to place PICC. midline inserted left arm. joint sealer placed right IJ triple line without issues, CXR taken and read by joint sealer, verbal permission given by joint sealer to use after viewed by MD. GI ROADABILITY MACHINE OPERATOR updated by tiger text that
adequate IV access was obtained. awaiting GI lab. ativan given per MSAS protocol. bed alarm activated. patient denies need to void. bladder scan 77
--- NOTE | 2024-08-30 17:51 | PTCARENOTE ---
transported to GI lab without issue. vebal bedside report given to GI nurse and anesthesia
--- NOTE | 2024-08-30 18:00 | PTCARENOTE ---
assumed care of pt, restless intubated, fent and prop gtt started, MSAS per worklist, sinus tach on the monitor B/L scds, lungs diminished and coarse, c
[2024-08-30] MEDS: SUBLIMAZE 50 MCG IV ×6 (19:02→23:02)
[2024-08-30] MEDS: DIPRIVAN 100 IV ×2 (19:16→23:01)
--- NOTE | 2024-08-30 19:29 | PTCARENOTE ---
patient received from GI [email or web address]. intubated. upon return to unit, patient very agitated, excessive oral secretions. ETT suctioned for copious amounts clear sputum, as well as orally suctioned. ammonium nitrate neutralizer INFANTRY UNIT LEADER at bedside, patient medicated with
fentanyl and ativan. ineffective for management of agitation. propofol gtt initiated per work list. wrist restraints placed for patient safety. condom cath applied. report to oncoming RN
--- NOTE | 2024-08-30 20:00 | PTCARENOTE ---
assumed care of pt, pt restless PATIÑO B/L wrist restraints, nodding head for pain, fent and prop gtt started, sinus tach on the monitor B/L scds diaphoretic, diminished and coarse throughout, AC 16/550/5/60 SpO2 97% excessive oral secretions, round
distended BSx4, CC pt due to void, R TL IJ, L midline, Protonix, octreotide, LR 125ml, labs sent otherwise refer to documentation
[2024-08-30 20:02] LABS: Hematocrit 38.6 % (39.0-52.0); Hemoglobin 12.4 g/dL (13.0-18.0)
[2024-08-30 20:25] LABS: Blood Urea Nitrogen 9 mg/dl (9-20); Calcium 8.1 mg/dl (8.4-10.2); Carbon Dioxide 22 mmol/L (22-30); Chloride 107 mmol/L (98-107); Estimated Creatinine Clearance 94 ml/min; Glucose 161 mg/dl (70-99); Potassium 4.4 mmol/L (3.5-5.1); Sodium 142 mmol/L (135-145); Triglycerides 245 mg/dl (10-149); eGFR > 60.00
[2024-08-30] MEDS: SUBLIMAZE 100 IV (20:34)
[2024-08-30] MEDS: NSS (PRESERVATIVE FREE) 0.25 ML IV (21:24)
[2024-08-31] VITALS (29 sets, daily range): BP systolic 95–161; BP diastolic 65–112; BMI 27.0
--- NOTE | 2024-08-31 00:37 | PTCARENOTE ---
systems reviewed, FIO2 decreased 40%, gtts titrated per worklist, CHG bath, IJ dressing changed, several doses of Ativan per MAR, pt more calm aroused to verbal not answering questions but not attempting to get up or fight the vent, otherwise refer
to documentation.
[2024-08-31] MEDS: PROTONIX 100 IV ×3 (03:07→23:01)
[2024-08-31] MEDS: DIPRIVAN 100 IV (04:54)
[2024-08-31] MEDS: LR 1000 IV ×3 (04:54→21:02)
[2024-08-31 05:10] LABS: Venous Blood Gas B.E. -0.8 mmol/L (-4 to +4); Venous Blood Gas HCO3 23.4 mmol/L (22-27); Venous Blood Gas O2 Sat % 99.7 %; Venous Blood Gas pCO2 36 mmHg (35-48); Venous Blood Gas pH 7.42 (7.32-7.43); Venous Blood Gas pO2 132 mmHg (30-50)
[2024-08-31 05:16] LABS: Venous Blood Gas O2 Therapy 40%
[2024-08-31 05:41] LABS: Hematocrit 35.2 % (39.0-52.0); Hemoglobin 11.2 g/dL (13.0-18.0); Mean Corp Hgb Conc. 31.8 g/dL (33.0-37.0); Mean Corpuscular Hgb 31.2 pg (27.0-31.0); Mean Corpuscular Volume 98.1 fL (80.0-94.0); Red Blood Cell Count 3.59 10^6/uL (4.70-6.10); Red Cell Dist. Width 17.6 % (11.5-14.5); White Blood Cell Count 5.4 10^3/uL (4.8-10.8)
[2024-08-31 05:45] LABS: PT 19.2 Sec (11.4-14.6)
[2024-08-31 05:48] LABS: Ammonia 49 umol/L (9-30)
[2024-08-31 06:02] LABS: ALT (SGPT) 25 U/L (0-50); AST (SGOT) 64 U/L (17-59); Albumin 3.2 g/dl (3.5-5.0); Alkaline Phosphatase 166 U/L (38-126); Blood Urea Nitrogen 9 mg/dl (9-20); Calcium 8.4 mg/dl (8.4-10.2); Carbon Dioxide 23 mmol/L (22-30); Chloride 106 mmol/L (98-107); Estimated Creatinine Clearance 86 ml/min; Glucose 205 mg/dl (70-99); Potassium 4.3 mmol/L (3.5-5.1); Sodium 141 mmol/L (135-145); Total Bilirubin 7.3 mg/dl (0.2-1.3); Total Protein 6.2 g/dl (6.3-8.2); eGFR > 60.00
--- NOTE | 2024-08-31 06:06 | W.PN.GI.CBS2 ---
Today's Communication / Plan
-
No signs to suggest rebleeding, slight drop in Hgb but drop in all cell lines (WBC and plts). Okay to extubate from GI standpoint, no plans for repeat EGD at this time. Continue IV PPI, IV Octreotide and IV Ceftriaxone. See rest of care as outlined
below.
Assessment / Plan
-
#UGIB 2/2
#Distal Esophageal, Post-Banding Ulcers
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
#Severe PHG
#Decompensated EtOH Cirrhosis
#Active, Recurrent EtOH Abuse
Mr. Kelsey is a 49 y.o male with past medical history of decompensated EtOH cirrhosis with decompensations including history of EV bleeding (s/p recent EGD at [place] on 08/05/2024 with EVL), portal hypertensive gastropathy, C Diff colitis, and
ongoing alcohol abuse who presented to the ED with multiple episodes of hematemesis. He was recently hospitalized at [facility] where an EGD on 08/05/2024 revealed grade III varices in the mid/distal esophagus without active bleeding at that
time s/p EVL with 6 bands deployed along with PHG and gastritis. Otherwise, no mention of GV or duodenal varices. He was supposed to have a repeat EGD in 6 to 8 weeks as an outpatient. He unfortunately resumed drinking after his discharge at
[place] and reportedly drinks up to a half a bottle to a gallon of whiskey on a near daily basis. No other NSAIDs or other antiplatelets/anticoagulants. He experienced several episodes of erinn hematemesis this AM along with melena and subsequently
came to the ED at [place] for further evaluation. Labs revealed a MELD 3.0 of 17 and CBC with a Hgb 15.1, WBC 12.2, and plts 131. Etiology appears most suspicious for recurrent esophageal variceal hemorrhage versus post-banding esophageal
ulceration given recent banding four weeks earlier.
S/p EGD 08/30/24 with multiple, linear and superficial well-healed esophageal ulcers at site of prior variceal banding consistent with post-banding ulcerations (likely source of presentation) along with grade II varices in the mid esophagus s/p
banding (x5) with complete eradication, old blood in stomach, severe PHG without GV or duodenal varices
Slight drop in H/h but likely dilutional given decrease in all cell lines (WBC and plts). Small amont of old blood throughout stomach, thus melena to be expected over next 24-48 hrs. No signs to suggest recurrent GI bleeding.
Recommendations:
- Keep NPO
- Ensure two large bore IVs at all times
- Okay to extubate from GI standpoint, no plans for repeat EGD at this time
- Trend daily MELD 3.0 labs- CMP, CBC and INR
- Trend Hgb with serial CBC, transfuse for goal Hgb > 7.0
- Continue IV PPI and IV Octreotide gtt (08/30- ) x 72 hrs
- IV Ceftriaxone 1 gm q daily for 7 days
- Hold all anticoagulants and antihypertensives
- Monitor for signs of HE given decompensated cirrhosis and GI bleed. Low threshold to start lactulose
- Agree with [facility] protocol given recent alcohol use, monitor for signs of autonomic instability / DTs
- Rest of supportive care as per primary ICU team
GI team will continue to follow closely. Discussed with primary team this afternoon. Please call with any questions or concerns.
Subjective
Subjective
Date of Service: August 31, 2024
- S/p EGD 08/30/24 with multiple, linear and superficial esophageal ulcers at site of prior variceal banding consistent with post-banding ulcerations (likely source of presentation) along with grade II varices in the mid esophagus s/p banding (x5)
with complete eradication, old blood in stomach, severe PHG without GV or duodenal varices
- Hgb 15.1 -> 12.4 -> 11.2
- Remains on IV PPI gtt, IV Octreotide and IV Ceftriaxone, kept intubated overnight
Sedated and intubated on vent. Remains HD-stable without evidence of compensatory tachycardia.
Objective
Data Reviewed
Laboratory Data:
Laboratory Results
08/31/24 04:52
08/31/24 04:52
Laboratory Results
PT 19.2 Sec (11.4-14.6) H 08/31/24 04:52
INR 1.60 08/31/24 04:52
APTT 35.1 Sec (23.4-35.0) H 08/30/24 09:39
Phosphorus 3.0 mg/dl (2.5-4.5) 08/31/24 04:52
Magnesium 1.0 mg/dl (1.6-2.3) L 08/31/24 04:52
Total Bilirubin 7.3 mg/dl (0.2-1.3) H 08/31/24 04:52
AST 64 U/L (17-59) H 08/31/24 04:52
ALT 25 U/L (0-50) 08/31/24 04:52
Alkaline Phosphatase 166 U/L (38-126) H 08/31/24 04:52
Vital Signs and I&O:
Vital Signs
Temp Pulse Resp BP Pulse Ox
97.7 F 89 18 133/92 97
08/31/24 03:24 08/31/24 05:00 08/31/24 05:00 08/31/24 05:00 08/31/24 05:00
I&O
08/29/24 08/30/24 08/31/24
06:59 06:59 06:59
Intake Total 3453.1 / 3453.1
Output Total 450 / 450
Balance 3003.1 / 3003.1
Physical Exam
Physical Exam
HEENT: Anicteric and Moist mucous membranes
Cardiology: Normal Sinus Rhythm
Pulmonary: Other (Normal WOB on vent)
GI: Soft, Distended and Non Tender
Extremities: No Edema
Neuro: Non Focal
[2024-08-31 06:55] LABS: Urine Albumin Trace (Neg - Trace); Urine Bilirubin 2+ (Negative); Urine Character Clear (Clear); Urine Color Amber; Urine Glucose Negative (Negative); Urine Ketone Negative (Negative); Urine Leukocyte Negative (Negative); Urine Nitrite Negative (Negative); Urine Occult Blood Negative (Negative); Urine Specific Gravity 1.025 (<1.030); Urine Urobilinogen 2+ (Neg - 1+)
[2024-08-31 07:19] LABS: Platelet Count 64 10^3/uL (130-400)
[2024-08-31 07:21] LABS: Amphetamines Negative (Negative); Barbiturates Negative (Negative); Benzodiazepines Positive (Negative); Buprenorphine Negative (Negative); Cocaine Negative (Negative); Marijuana Negative (Negative); Methadone Negative (Negative); Methamphetamines Negative (Negative); Opiates Negative (Negative); Phencyclidine Negative (Negative); Tricyclic Antidepressants Negative (Negative)
[2024-08-31 07:38] LABS: Fentanyl, Urine Positive (Negative)
[2024-08-31] MEDS: THIAMINE INJECTION 200 MG IV ×3 (08:11→23:55)
[2024-08-31] MEDS: ATIVAN 2 MG IV (08:11)
[2024-08-31] MEDS: FOLVITE PO (08:12)
--- NOTE | 2024-08-31 08:20 | PTCARENOTE ---
Pt sitting straight up in bed, pulling against restraints, vent alarming continuously, not getting volumes. Propofol at 30mcg/kg/min. Fentanyl at 75mcg/hr. PRN Ativan given. Diaphoretic and tremulous. Unable to assess orientation.
--- NOTE | 2024-08-31 08:29 | W.PN.ANS.POP ---
Anesthesia Post Operative
- Anesthesia Post Op Note
Vital Signs Stable-See Nursing Note: Yes
Airway Patent: Yes
Adequate Pain Control: Yes
Change in Mental Status: No
Current Postoperative Nausea & Vomiting: No
Anesthesia Complications: No
General Anesthetic Recall: No
Unplanned Admission: No
Post Op Hydration Adequate: Yes
[2024-08-31] MEDS: ROCEPHIN 1000 MG IV (10:32)
[2024-08-31] MEDS: STERILE WATER FOR INJECTION 10 ML IV (10:34)
[2024-08-31] MEDS: PHENOBARBITAL 104 MG IV (10:35)
[2024-08-31] MEDS: MAGNESIUM SULFATE 100 IV (10:39)
[2024-08-31] MEDS: FLUSH (NSS) IV ×2 (10:44)
[2024-08-31] MEDS: SANDOSTATIN 500.6 MCG IV ×2 (10:44→23:01)
--- NOTE | 2024-08-31 10:50 | W.PN.HOSP.TC ---
Today's Communication/Plan
-
Mechanical ventilation. IV PPI and octreotide.
Assessment / Plan
Assessment / Plan
Physical exam:
General: Acutely ill
HEENT: Normocephalic, Atraumatic and Moist Mucous Membranes
Respiratory: Clear to Auscultation; Negative Wheezes, Rales or Rhonchi
Cardiac: Regular Rhythm and S1/S2
GI: Soft, Nontender and Nondistended
Musculoskeletal: No Clubbing, No Cyanosis and No Edema
Neuro: Sedated on the vent
EGD on 08/30:
- Multiple linear and superficial esophageal ulcers at
site of prior variceal treatment, consistent with
post-banding ulcerations. Suspect this is the source
of patient's presentation
- Grade II and large (> 5 mm) esophageal varices in
the mid esophagus. Completely eradicated. Banded.
- Hematin (altered blood/cntihm-vgzuqs-dnxm material)
in the gastric body.
- Severe portal hypertensive gastropathy.
- Otherwise, normal stomach on direct and retroflexion
views. No evidence of gastric varices.
- Congested and erythematous duodenal mucosa.
Otherwise, normal duodenum without any duodenal varices
- The examination was otherwise normal.
- No specimens collected.
A/P:
Acute GI bleed due to distal esophageal post banding ulcers and grade 2 esophageal varices within mid esophagus status post band:
Status post EGD yesterday with findings as above and severe PHG
Keep n.p.o.
IV fluid
IV PPI drip
IV octreotide drip
GI consult appreciated
Pharmaceutical Service Representative consult appreciated
Alcohol intoxication and severe alcohol withdrawal:
MSA protocol
Thiamine
Folate
Resp failure s/p Mech Vent for airway protection:
Mechanical ventilation per pulmonary
Metabolic acidosis:
Resolved
Hyperammonemia:
Improving
Transaminitis:
Monitor trend
Leukocytosis:
Likely reactive
Back to normal
Hypernatremia:
Back to normal
HTN:
Hold carvedilol and resume later down the road.
HLD:
hold oral cholestyramine and resume later down the road.
Anxiety:
Hold duloxetine, trazodone, quetiapine and resume later down the road.
DVT prophylaxis:
SCDs
CODE STATUS:
Full code
Total time spent on today's encounter was 52 minutes which included time spent in counseling the patient/family regarding diagnosis and treatment plan as listed above, goals of care, and symptom management. Case was discussed with nursing staff,
specialists, and care coordinators/case management. All labs and imaging personally reviewed by me. Remainder the time spent in detailed review of previous records, lab data, imaging, and other medical provider documentation.
Anticipated Discharge: > 48 hours
Subjective/Interval History
-
Date of Service: August 31, 2024
Patient remains on the ventilator.
Objective Data
-
Labs:
Laboratory Results
08/31/24 08/31/24
04:52 12:00
WBC 5.4 Pending
Hgb 11.2 L Pending
Hct 35.2 L Pending
Plt Count 64 L D Pending
PT 19.2 H
INR 1.60
Sodium 141 Pending
Potassium 4.3 Pending
Chloride 106 Pending
Carbon Dioxide 23 Pending
BUN 9 Pending
Creatinine 1.2 Pending
Glucose 205 H Pending
Calcium 8.4 Pending
Total Bilirubin 7.3 H
AST 64 H
ALT 25
Alkaline Phosphatase 166 H
Vital Signs:
Vital Signs
Temp Pulse Resp BP Pulse Ox
97.9 F 57 16 110/73 98
08/31/24 08:16 08/31/24 10:00 08/31/24 10:00 08/31/24 10:00 08/31/24 10:00
I&O
08/30/24 08/31/24 09/01/24
06:59 06:59 06:59
Intake Total 3720.7 / 3920.8 800.4 / 800.4
Output Total 900 / 900
Balance 2820.7 / 3020.8 800.4 / 800.4
--- NOTE | 2024-08-31 11:24 | W.PN.INTV ---
Today's Communication / Plan
Recommendations
- plan to extubate based on how patients condition progresses
Assessment
-
Erinn Hematemesis:
- Patient intubated to protect airway, vent settings are rate- 16, tidal volume- 550, PEEp 5, fio2- 40, planning to extubate today
- Continue now on Iv fentanyl drip, propofol drip, pantoprazole drip, octreotide
- GI is following
- EGD shows multiple large esophageal varices which were banded
- 6 episodes of hematemesis in the past week with 2 in the ED on admission
- Continue IV fluids
- Administer ceftriaxone for 7 days
- Keep NPO
- trend PT/INR
Chronic Alcohol abuse:
- Phenobarbitol added to aid in possible alcoholic withdrawl symptoms upon extubation
- Drinks half a bottle of vodka a day
- MSAS protocol ( IV Ativan, thiamine, folate)
- Trend CMP, CBC- transfuse if hgb less than 7 every 6 hours, today hgb is 11.2 ( trending down from 12.4 yesterday)
- Vitamin b12 and folate testing because of increased mcv
- Hold gabapentin until extubation
- Trend phosphorus
- Magnesium repleted today, level was 1.
Hyperglycemia:
- no previous history of diabetes
- Sliding scale insulin
Elevated liver enzymes:
- ast- 64, alt 25 ( normal) and ggt 305 ( most likely due to cirrhosis)
- Follow up with GI outpatient
Hyperbilirubinemia:
- total bilirubin 7.3
- chronically elevated from previous admission
- follow up with GI outpatient
Hypertriglyceridemia:
- level is 245
- most likely due to chronic alcohol abuse
- Patient on cholestyramine, hold until extubated
GERD:
- continue on iv Protonix
HTN:
- Hold carvedilol until extubation
- Blood pressure is 110/73 and well controlled
Anxiety:
- Hold duloxetine, trazadone, quetiapine until extubation
Hold lasix until extuabtion
Full code
Subjective Dataa
Subjective Data
Date of Service:
Date of Service: August 31, 2024
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
Subjective:
Patient is here for erinn hematemesis and alcohol addiction.
He had a central line placed yesterday and a egd.
Patient was then placed on a ventilator.
Review of Systems
General: Unobtainable - Sedation
Objective Data
Data Reviewed
Vital Signs / I&O / Oxygen:
Vital Signs
Temp Pulse Resp BP Pulse Ox
97.9 F 57 16 110/73 98
08/31/24 08:16 08/31/24 10:00 08/31/24 10:00 08/31/24 10:00 08/31/24 10:00
Intake and Output
08/30/24 08/31/24 09/01/24
06:59 06:59 06:59
Intake Total 3720.7 / 3920.8 800.4 / 800.4
Output Total 900 / 900
Balance 2820.7 / 3020.8 800.4 / 800.4
SaO2 [A/C] 98
SaO2 98
Nasal Cannula flow liters per 2
minute
Physical Exam
General: Respiratory Distress (negative) and Fever (negative)
Cardiovascular: S1-S2 and Regular Rhythm
Respiratory: Clear
GI: Soft, Distended and Normal Bowel Sounds
Neurology: Other (Intubated on ventilator)
Labs/Micro/Reports
Laboratory Results
08/31/24
04:52
PT 19.2 H
INR 1.60
[2024-08-31] MEDS: NOVOLOG FLEXPEN-MODERATE RESISTANCE 1 UNITS SC ×3 (12:28→23:07)
--- NOTE | 2024-08-31 12:36 | PTCARENOTE ---
Pt on SBT. Very restless and diaphoretic. MSAS 7 but unable to test orientation/hallucination d/t still intubated. Requires staff at bedside for SBT d/t fighting vent and sitting up in bed causing vent to disconnect.
Remains on Octreotide and Protonix. Smear of black stool noted.
No urine output so far this shift. Bladder scan 113ml. Per report, shift supervisor nurse straight cath'd around 0600. Remains on LR at 125ml/hr.
All other assessments unchanged.
[2024-08-31 12:39] LABS: Glucose - Point of Care 172 mg/dl (70-99)
--- NOTE | 2024-08-31 13:04 | CM ---
CM following re: discharge planning.
Reviewed pt's chart, met with pt.
Pt is a 49 year old male, admitted with primary dx of
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 Patient has a B/P machine at home, no in-home services, has supportive mother and a sister.
Received consult request from attending for substance abuse counseling. Pt is not feeling well, lying in bed with eyes closed during assessment. Per chart review pt went to [facility] in February of this year. Pt referred to
[facility], spoke to GEOVANNA Tony and he will meet with the pt when clinically appropriate.
PCP is Dr. Jatin Caceres.
Ph[facility]acy is [facility]
D/C plan: uncertain at this time and will depend on pt's progress.
CM will follow with discharge plan updates as hospitalization progresses.
[2024-08-31 13:33] LABS: Hematocrit 35.1 % (39.0-52.0); Hemoglobin 11.5 g/dL (13.0-18.0); Mean Corp Hgb Conc. 32.8 g/dL (33.0-37.0); Mean Corpuscular Hgb 31.7 pg (27.0-31.0); Mean Corpuscular Volume 96.7 fL (80.0-94.0); Mean Platelet Volume 11.5 fL (7.4-10.4); Platelet Count 58 10^3/uL (130-400); Red Blood Cell Count 3.63 10^6/uL (4.70-6.10); Red Cell Dist. Width 17.6 % (11.5-14.5); White Blood Cell Count 9.8 10^3/uL (4.8-10.8)
[2024-08-31 13:40] LABS: Blood Urea Nitrogen 11 mg/dl (9-20); Calcium 8.4 mg/dl (8.4-10.2); Carbon Dioxide 24 mmol/L (22-30); Chloride 105 mmol/L (98-107); Estimated Creatinine Clearance 94 ml/min; Glucose 177 mg/dl (70-99); Magnesium 2.7 mg/dl (1.6-2.3); Sodium 138 mmol/L (135-145); eGFR > 60.00
--- NOTE | 2024-08-31 13:49 | CM ---
CM following re: discharge planning.
Reviewed pt's chart, met with pt.
Pt is a 49 year old male, admitted with primary dx of Vahe Hematemesis: perv Rounds meeting patient intubated yesterday to protect airway, plan to extubate today, continue supportive care.
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 Patient has a B/P machine at home, no in-home services, has supportive mother and a sister.
Received consult request from attending for substance abuse counseling. Per chart review pt went to [facility] inpatient [facility] in February of this year. Pt referred to [facility], spoke to GEOVANNA oTny and he will meet with the pt when clinically
appropriate.
PCP is Dr. Jatin Caceres.
Pharmacy is [facility]
D/C plan: uncertain at this time and will depend on pt's progress.
CM will follow with discharge plan updates as hospitalization progresses.
[2024-08-31] MEDS: PHENOBARBITAL 97.5 MG IV ×2 (16:38→21:48)
--- NOTE | 2024-08-31 18:14 | PTCARENOTE ---
Extubated at 1348 to 6L NC. SpO2 96% on 4L NC at this time.
Bladder scan 411mls. Assisted pt to stand. Voided 100ml orange urine.
Pt confused. When asked, pt stated he was at [facility]. Slightly tremulous. MSAS 5. Due for Phenobarbital at the time therefore PRN Ativan not given. Appears to be resting comfortably at this time.
Denies nausea. No bleeding noted.
All other assessments unchanged.
[2024-08-31 18:16] LABS: Glucose - Point of Care 161 mg/dl (70-99)
[2024-08-31] MEDS: COREG 6.25 MG PO (19:30)
--- NOTE | 2024-08-31 20:00 | PTCARENOTE ---
assumed care of pt, disoriented to time restless, gown ripped off and bed saturated, MSAS per worklist, sinus tach on the monitor + pulses B/L scds, coarse 4L NC SpO2 95%, round distended BSx4, CC aida orange output, skin diaphoretic, L midline, R
TL IJ, 22G R hand, Protonix octreotide LR gtts per worklist, call nichole within reach, bed alarm, otherwise refer to documentation
[2024-08-31] MEDS: CARAFATE 1 GRAM PO (21:47)
[2024-08-31] MEDS: NEURONTIN 300 MG PO (21:47)
[2024-08-31] MEDS: DESYREL 100 MG PO (21:47)
[2024-08-31] MEDS: SEROQUEL 200 MG PO (21:47)
[2024-08-31] MEDS: ATIVAN 1 MG IV (21:49)
[2024-08-31 23:17] LABS: Glucose - Point of Care 158 mg/dl (70-99)
[2024-09-01] VITALS (18 sets, daily range): BP systolic 108–146; BP diastolic 72–94; BMI 27.5
--- NOTE | 2024-09-01 01:14 | PTCARENOTE ---
systems reviewed, Q6 blood sugars, MSAS per worklist, otherwise refer to documentation
[2024-09-01] MEDS: ATIVAN 1 MG IV ×2 (01:56→06:16)
[2024-09-01] MEDS: LR 1000 IV ×2 (04:35→12:03)
--- NOTE | 2024-09-01 04:49 | PTCARENOTE ---
systems reviewed, labs drawn, pt removed CC and is incontinent attends on, otherwise refer to documentation.
[2024-09-01 05:20] LABS: INR 1.69; PT 20.1 Sec (11.4-14.6)
[2024-09-01 05:25] LABS: % Basophils 0.6 % (0-2); % Eosinophils 6.8 % (0-6); % Immature Granulocytes 0.3 % (0-0.5); % Lymphocytes 22.1 % (20.5-51.1); % Monocytes 7.1 % (1.7-9.3); % Neutrophils 63.1 % (42.2-75.2); Absolute Eosinophils 0.4 10^3/uL (0-0.7); Absolute Lymphocytes 1.4 10^3/uL (1.2-3.4); Absolute Monocytes 0.5 10^3/uL (0.1-0.6); Absolute Neutrophils 4.1 10^3/uL (1.4-6.5); Hematocrit 31.8 % (39.0-52.0); Hemoglobin 10.4 g/dL (13.0-18.0); Mean Corp Hgb Conc. 32.7 g/dL (33.0-37.0); Mean Corpuscular Hgb 31.7 pg (27.0-31.0); Mean Platelet Volume 11.9 fL (7.4-10.4); Nucleated Red Blood Cells % 0.3 % (-); Platelet Count 40 10^3/uL (130-400); Red Blood Cell Count 3.28 10^6/uL (4.70-6.10); Red Cell Dist. Width 17.2 % (11.5-14.5); White Blood Cell Count 6.5 10^3/uL (4.8-10.8)
[2024-09-01] MEDS: NOVOLOG FLEXPEN-MODERATE RESISTANCE SC ×3 (05:35→18:07)
[2024-09-01 05:42] LABS: ALT (SGPT) 23 U/L (0-50); AST (SGOT) 53 U/L (17-59); Alkaline Phosphatase 131 U/L (38-126); Blood Urea Nitrogen 12 mg/dl (9-20); Calcium 8.3 mg/dl (8.4-10.2); Carbon Dioxide 26 mmol/L (22-30); Chloride 103 mmol/L (98-107); Estimated Creatinine Clearance 103 ml/min; Glucose 140 mg/dl (70-99); Potassium 3.9 mmol/L (3.5-5.1); Sodium 137 mmol/L (135-145); eGFR > 60.00
[2024-09-01 05:45] LABS: Glucose - Point of Care 149 mg/dl (70-99)
--- NOTE | 2024-09-01 06:39 | W.PN.GI.CBS2 ---
Today's Communication / Plan
-
No signs of recurrent GI bleeding without any melena. No plans for repeat endoscopy. Continue IV Octreotide and IV PPI gtt today to complete total of 72 hrs. May resume NSBB for 2' ppx given prior EV hemorrhage. Low threshold to start lactulose if
concern for HE later this admission. See rest of care as outlined below.
Assessment / Plan
-
#UGIB 2/2
#Distal Esophageal, Post-Banding Ulcers
#Grade II EV within Mid Esophagus (s/p banding 08/30)
#Severe PHG
#Decompensated EtOH Cirrhosis
#Active, Recurrent EtOH Abuse
#EtOH Withdrawal
Mr. Kelsey is a 49 y.o male with past medical history of decompensated EtOH cirrhosis with decompensations including history of EV bleeding (s/p recent EGD at [place] on 08/05/2024 with EVL), portal hypertensive gastropathy, C Diff colitis, and
ongoing alcohol abuse who presented to the ED with multiple episodes of hematemesis. He was recently hospitalized at [facility] where an EGD on 08/05/2024 revealed grade III varices in the mid/distal esophagus without active bleeding at that
time s/p EVL with 6 bands deployed along with PHG and gastritis. Otherwise, no mention of GV or duodenal varices. He was supposed to have a repeat EGD in 6 to 8 weeks as an outpatient. He unfortunately resumed drinking after his discharge at
[facility] and reportedly drinks up to a half a bottle to a gallon of whiskey on a near daily basis. No other NSAIDs or other antiplatelets/anticoagulants. He experienced several episodes of erinn hematemesis this AM along with melena and subsequently
came to the ED at [place] for further evaluation. Labs revealed a MELD 3.0 of 17 and CBC with a Hgb 15.1, WBC 12.2, and plts 131. Etiology appears most suspicious for recurrent esophageal variceal hemorrhage versus post-banding esophageal
ulceration given recent banding four weeks earlier.
S/p EGD 08/30/24 with multiple, linear and superficial well-healed esophageal ulcers at site of prior variceal banding consistent with post-banding ulcerations (likely source of presentation) along with grade II varices in the mid esophagus s/p
banding (x5) with complete eradication, old blood in stomach, severe PHG without GV or duodenal varices
Slight drop in H/h with Hgb 15s -> 10s but likely dilutional given decrease in all cell lines (WBC and plts). Small amount of old blood throughout stomach, thus melena to be expected over next 24-48 hrs. No signs to suggest recurrent GI bleeding. No
significant or large volume melena or other maroon colored stools over the past 24-48 hrs.
Recommendations:
- Continue CLD, defer from further advancing diet
- Ensure two large bore IVs at all times while inpatient
- Trend daily MELD 3.0 labs- CMP, CBC and INR
- Trend Hgb with serial CBC, transfuse for goal Hgb > 7.0
- Continue IV PPI and IV Octreotide gtt (08/30- ) x 72 hrs
- Okay to restart Coreg 6.25 mg BiD for 2' ppx given EV bleed
- IV Ceftriaxone 1 gm q daily (08/30- ) for 7 days
- No plans for repeat EGD at this time as without any signs to suggest recurrent upper GI bleeding
- Continue to hold all anticoagulants and antihypertensives
- Monitor for signs of HE given decompensated cirrhosis and GI bleed
- Maintain low threshold to start empiric lactulose if concern for worsening mental status or arousability, however appears to be in withdrawal currently
- Agree with [facility] protocol given recent alcohol use, monitor for signs of autonomic instability / DTs
- Thiamine, folic acid, MVI. Needs strict EtOH cessation as an outpatient, would benefit from rehab if patient is willing after d/c
- Rest of supportive care as per primary ICU team
GI team will continue to follow closely while inpatient. Discussed with primary team this AM. Please call with any questions or concerns.
Subjective
Subjective
Date of Service: September 01, 2024
- Extubated on 08/31, no signs to suggest recurrent GI bleeding
- Drop in Hgb from yesterday, however decrease in all cell lines
- Otherwise, no acute events overnight and HD-stable without tachycardia
Drowsy this AM, appears to be withdrawing. Nurse at bedside, no recent melena or bloody stools over the past 24-48 hrs. Had one small smear of dark black stool. Otherwise, no further episodes of reported emesis or hematemesis/coffee ground emesis.
Denies any pain, rest limited due to mental status.
Objective
Data Reviewed
Laboratory Data:
Laboratory Results
09/01/24 04:34
09/01/24 04:34
Laboratory Results
PT 20.1 Sec (11.4-14.6) H 09/01/24 04:34
INR 1.69 09/01/24 04:34
APTT 35.1 Sec (23.4-35.0) H 08/30/24 09:39
Phosphorus 3.0 mg/dl (2.5-4.5) 08/31/24 04:52
Magnesium 2.7 mg/dl (1.6-2.3) H 08/31/24 13:10
Total Bilirubin 8.0 mg/dl (0.2-1.3) H 09/01/24 04:34
AST 53 U/L (17-59) 09/01/24 04:34
ALT 23 U/L (0-50) 09/01/24 04:34
Alkaline Phosphatase 131 U/L (38-126) H 09/01/24 04:34
Vital Signs and I&O:
Vital Signs
Temp Pulse Resp BP Pulse Ox
98.7 F 56 9 113/74 98
09/01/24 03:30 09/01/24 06:00 09/01/24 06:00 09/01/24 06:00 09/01/24 06:00
I&O
08/30/24 08/31/24 09/01/24
06:59 06:59 06:59
Intake Total 3720.7 / 3920.8 5264.9 / 5264.9
Output Total 900 / 900 850 / 850
Balance 2820.7 / 3020.8 4414.9 / 4414.9
Physical Exam
Physical Exam
HEENT: Anicteric and Moist mucous membranes
Cardiology: Other (RR on tele)
Pulmonary: Other (Normal WOB)
GI: Soft, Distended and Non Tender
Extremities: No Edema
Neuro: Non Focal and Other (Unable to assess for asterixis given mental status)
[2024-09-01] MEDS: THIAMINE INJECTION 200 MG IV ×2 (07:57→16:57)
[2024-09-01] MEDS: PHENOBARBITAL 97.5 MG IV ×3 (07:58→21:10)
--- NOTE | 2024-09-01 08:59 | VATNOTE ---
Called to assess left arm midline. Dressing found to be saturated with blood, and catheter displaced under dressing when dressing removed. Unknown if midline pulled on by patient. Midline removed, patient with adequate central access at this time
for multiple incompatible medications. Primary RN made aware.
--- NOTE | 2024-09-01 09:05 | W.PN.INTV ---
Today's Communication / Plan
Recommendations
- Monitor cbc and cmp
- follow up with gastro outpatient
- advise on alcohol cessation and rehab
Assessment
-
Vahe Hematemesis:
- Hemoglobin at 12 oclock today and if stable downgrade
- Patient was extubated yesterday night
- Continue now on Iv fluids, pantoprazole drip, octreotide
- Trend CBC, CMP, INR
- restart carvedilol 6.25 mg bid for 2 degree prophylaxes
- continue ceftriaxone
- Hold anticoagulants/ antihypertensives
- keep on clear liquid diet
Chronic Alcohol abuse:
- Continue phenobarbitol
- Ativan prn
- MSAS protocol ( IV Ativan, thiamine, folate) discontinued
- Vitamin b12 and folate testing because of increased mcv
- Keep gabapentin at TID
- Trend phosphorus
- Magnesium repleted
- advise on alcohol cessation and rehab
Hyperglycemia:
- no previous history of diabetes
- Sliding scale insulin
Elevated liver enzymes:
- ast- 64, alt 25 ( normal) and ggt 305 ( most likely due to cirrhosis)
- Follow up with GI outpatient
Hyperbilirubinemia:
- total bilirubin 7.3
- chronically elevated from previous admission
- follow up with GI outpatient
Hypertriglyceridemia:
- level is 245
- most likely due to chronic alcohol abuse
- Patient on cholestyramine, hold until extubated
GERD:
- continue on iv Protonix
HTN:
- restart carvedilol
- Blood pressure is 110/73 and well controlled
Anxiety:
- continue duloxetine, trazadone, quetiapine and if they are making him more lethargic then half the dose
Hold lasix until extuabtion
Full code
Subjective Dataa
Subjective Data
Date of Service:
Date of Service: September 01, 2024
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
Subjective:
Patient was extubated yesterday night
No acute medical problems.
Review of Systems
General: Fever (negative ) and Chills (negative )
HEENT: Epistaxis (negative )
Cardiopulmonary: Dyspnea (negative ) and Cough (negative )
GI: Abdominal Pain (negative ), Nausea (negative ), Vomiting (negative ) and Diarrhea (negative )
Neuro: Headache (negative ), Numbness (negative ) and Weakness (negative )
Objective Data
Data Reviewed
Vital Signs / I&O / Oxygen:
Vital Signs
Temp Pulse Resp BP Pulse Ox
97.8 F 67 9 109/94 95
09/01/24 09:00 09/01/24 08:00 09/01/24 08:00 09/01/24 08:00 09/01/24 08:25
Intake and Output
08/31/24 09/01/24 09/02/24
06:59 06:59 06:59
Intake Total 3720.7 / 3920.8 5264.9 / 5441.6 530.1 / 530.1
Output Total 900 / 900 850 / 850
Balance 2820.7 / 3020.8 4414.9 / 4591.6 530.1 / 530.1
SaO2 [A/C] 98
SaO2 95
Nasal Cannula flow liters per 2
minute
Physical Exam
General: Respiratory Distress (negative) and Fever (negative)
Cardiovascular: S1-S2 and Regular Rhythm
Respiratory: Clear
GI: Soft, Distended and Normal Bowel Sounds
Neurology: Other (Intubated on ventilator)
Labs/Micro/Reports
Lab Data
09/01/24 04:34
09/01/24 04:34
Laboratory Results
09/01/24
04:34
PT 20.1 H
INR 1.69
--- NOTE | 2024-09-01 09:11 | W.PN.HOSP.TC ---
Today's Communication/Plan
-
Clear liquid diet. PPI. Octreotide. Ceftriaxone. Lactulose.
Assessment / Plan
Assessment / Plan
Physical exam:
General: Acutely ill
HEENT: Normocephalic, Atraumatic and Moist Mucous Membranes
Respiratory: Clear to Auscultation; Negative Wheezes, Rales or Rhonchi
Cardiac: Regular Rhythm and S1/S2
GI: Soft, Nontender and Nondistended
Musculoskeletal: No Clubbing, No Cyanosis and No Edema
Neuro: Lethargic but responds to verbal stimuli and no neurological deficit
EGD on 08/30:
- Multiple linear and superficial esophageal ulcers at
site of prior variceal treatment, consistent with
post-banding ulcerations. Suspect this is the source
of patient's presentation
- Grade II and large (> 5 mm) esophageal varices in
the mid esophagus. Completely eradicated. Banded.
- Hematin (altered blood/cnalod-ryavxu-zwbs material)
in the gastric body.
- Severe portal hypertensive gastropathy.
- Otherwise, normal stomach on direct and retroflexion
views. No evidence of gastric varices.
- Congested and erythematous duodenal mucosa.
Otherwise, normal duodenum without any duodenal varices
- The examination was otherwise normal.
- No specimens collected.
A/P:
Acute GI bleed due to distal esophageal post banding ulcers and grade 2 esophageal varices within mid esophagus status post band:
Status post EGD as above with findings as above and severe PHG
On clear liquid diet
Stop IV fluid
Continue IV PPI but change drip to IV twice daily
Continue IV octreotide drip
Continue IV ceftriaxone
GI consult appreciated-discussed with GI today on 09/01
Fire Marshal consult appreciated and they are okay transferring to telemetry
PT OT eval
Alcohol intoxication and severe alcohol withdrawal:
MSA protocol
Thiamine
Folate
On phenobarbital
Hyperammonemia, concerns for hepatic encephalopathy:
Start him on lactulose
Improving
Resp failure s/p Mech Vent for airway protection:
Status post extubated
Metabolic acidosis:
Resolved
Transaminitis:
Monitor trend
Leukocytosis:
Likely reactive
Back to normal
Hypernatremia:
Back to normal
HTN:
Restart carvedilol
HLD:
Restart cholestyramine
Anxiety:
Restart duloxetine, trazodone, quetiapine
DVT prophylaxis:
SCDs
CODE STATUS:
Full code
Total time spent on today's encounter was 52 minutes which included time spent in counseling the patient/family regarding diagnosis and treatment plan as listed above, goals of care, and symptom management. Case was discussed with nursing staff,
specialists, and care coordinators/case management. All labs and imaging personally reviewed by me. Remainder the time spent in detailed review of previous records, lab data, imaging, and other medical provider documentation.
Anticipated Discharge: 24 - 48 hours
Subjective/Interval History
-
Date of Service: September 01, 2024
Patient extubated yesterday. Slightly lethargic but responds to verbal stimuli. Afebrile
Objective Data
-
Labs:
Laboratory Results
09/01/24
04:34
WBC 6.5
Hgb 10.4 L
Hct 31.8 L
Plt Count 40 L D
PT 20.1 H
INR 1.69
Sodium 137
Potassium 3.9
Chloride 103
Carbon Dioxide 26
BUN 12
Creatinine 1.0
Glucose 140 H
Calcium 8.3 L
Total Bilirubin 8.0 H
AST 53
ALT 23
Alkaline Phosphatase 131 H
Vital Signs:
Vital Signs
Temp Pulse Resp BP Pulse Ox
97.8 F 67 9 109/94 95
09/01/24 09:00 09/01/24 08:00 09/01/24 08:00 09/01/24 08:00 09/01/24 08:25
I&O
08/31/24 09/01/24 09/02/24
06:59 06:59 06:59
Intake Total 3720.7 / 3920.8 5264.9 / 5441.6 530.1 / 530.1
Output Total 900 / 900 850 / 850
Balance 2820.7 / 3020.8 4414.9 / 4591.6 530.1 / 530.1
[2024-09-01] MEDS: PROTONIX 100 IV (09:16)
--- NOTE | 2024-09-01 09:30 | PTCARENOTE ---
Rec'd care of patient at 0700. Patient lethargic. Arousable to verbal and tactile stimuli. Oriented to self and place. MSAS/Ativan dc'd by Floor Care Technician due to oversedation. Phenobarb taper maintained. SB/NSR on tele. Rate in the 50-60's with
prolonged QT. QTc 499 on EKG in am. Repeat ordered for tomorrow morning. Occasional ST with brief periods of restlessness. PRN Ativan not required. Pulse ox 95-98% on 2L nc. Lung sounds diminished. Fine crackles in b/l base. +BS. No BM. Not
appropriate for PO intake at current time. Incontinent of urine. #25 CC placed. [place] output. Octreotide/Protonix/LR infusing through RIJ. Left midline leaking- VAT notified. Line removed.
[2024-09-01] MEDS: COREG PO (10:01)
[2024-09-01] MEDS: QUESTRAN PO ×2 (10:01→11:16)
[2024-09-01] MEDS: CARAFATE PO ×2 (10:01→11:15)
[2024-09-01] MEDS: FOLVITE PO (10:10)
[2024-09-01] MEDS: CYMBALTA DELAYED RELEASE PO (10:10)
[2024-09-01] MEDS: NEURONTIN PO (10:10)
[2024-09-01] MEDS: FLUSH (NSS) 1 FLUSH IV ×2 (10:29→10:35)
[2024-09-01] MEDS: SANDOSTATIN 500.6 MCG IV (10:30)
[2024-09-01] MEDS: STERILE WATER FOR INJECTION 10 ML IV (10:30)
[2024-09-01] MEDS: ROCEPHIN 1000 MG IV (10:30)
[2024-09-01 11:42] LABS: Glucose - Point of Care 118 mg/dl (70-99)
--- NOTE | 2024-09-01 12:15 | PTCARENOTE ---
Minor changes in assessment. Patient more awake. Drowsy. Vitals stable. Protonix drip dc'd- switched to IV push Q12. Repeat Hgb sent.
[2024-09-01 12:26] LABS: Hemoglobin 10.4 g/dL (13.0-18.0)
--- NOTE | 2024-09-01 13:45 | CM ---
CM following re: discharge planning.
Reviewed pt's chart, met with pt.
TAMMY CRS met with the pt and he will re-visit the pt again when pt is more awake. Per TAMMY Tony, pt was at [facility] inpatient D&A rehab last month, was placed there from ED on 07/28/24.
D/c plan: Inpatient D&A rehab if pt agrees. TAMMY following.
CM will follow with discharge plan updates as hospitalization progresses
--- NOTE | 2024-09-01 14:32 | PTCARENOTE ---
Addendum entered by Brenna Crespo RN 09/01/24 14:50:
Clarification provided- patient may keep RIJ in for transfer.
Original Note:
Report given to 4E RN. RN notified that patient unable to be transferred to floors with RIJ. VAT notified.
--- NOTE | 2024-09-01 16:08 | PTCARENOTE ---
received pt in transfer from ICU via bed, accompanied by ICU staff. Pt drowsy, arousable to name; PATIÑO when disturbed, returns quickly to sleep. VSS. PLaced on telemetry:NSR. On nc 2 lpm- pulseox 97%, no SOB noted. Abd large, soft, BS(+).
Condom cath P/I small amts aida urine.Rt IJ TLC with RL @ 125 ml/hr and Octreotide drip @ 41.7 ml /hr infusing without sx of infiltration. pt sleeping at present. Will continue to monitor.
[2024-09-01] MEDS: DUPHALAC/CHRONULAC 20 GRAMS PO (16:55)
[2024-09-01] MEDS: NEURONTIN 300 MG PO ×2 (16:55→21:10)
[2024-09-01] MEDS: CARAFATE 1 GRAM PO ×2 (16:59→21:10)
[2024-09-01] MEDS: QUESTRAN 4 GRAM PO (16:59)
[2024-09-01 18:06] LABS: Glucose - Point of Care 113 mg/dl (70-99)
[2024-09-01] MEDS: COREG 6.25 MG PO (20:22)
[2024-09-01] MEDS: NSS (PRESERVATIVE FREE) 10 ML IV (20:23)
[2024-09-01] MEDS: PROTONIX IV 40 MG IV (20:23)
[2024-09-01] MEDS: DUPHALAC/CHRONULAC PO (21:04)
[2024-09-01] MEDS: DESYREL 100 MG PO (21:10)
[2024-09-01] MEDS: SEROQUEL 200 MG PO (21:10)
[2024-09-02] VITALS (8 sets, daily range): BP systolic 124–146; BP diastolic 78–99; PULSE 83–98; O2SAT 93–96
[2024-09-02] LABS: Glucose - Point of Care 115 mg/dl (70-99)
[2024-09-02] MEDS: NOVOLOG FLEXPEN-MODERATE RESISTANCE SC ×4 (00:10→18:35)
[2024-09-02] MEDS: SANDOSTATIN 500.6 MCG IV ×2 (00:23→14:30)
[2024-09-02] MEDS: THIAMINE INJECTION 200 MG IV ×2 (00:28→08:28)
[2024-09-02 05:02] LABS: Hematocrit 30.6 % (39.0-52.0); Hemoglobin 10.2 g/dL (13.0-18.0); Mean Corp Hgb Conc. 33.3 g/dL (33.0-37.0); Mean Corpuscular Hgb 32.2 pg (27.0-31.0); Mean Corpuscular Volume 96.5 fL (80.0-94.0); Mean Platelet Volume 11.1 fL (7.4-10.4); Platelet Count 32 10^3/uL (130-400); Red Blood Cell Count 3.17 10^6/uL (4.70-6.10); Red Cell Dist. Width 17.4 % (11.5-14.5); White Blood Cell Count 5.4 10^3/uL (4.8-10.8)
[2024-09-02 05:19] LABS: Ammonia 35 umol/L (9-30)
[2024-09-02 05:22] LABS: ALT (SGPT) 23 U/L (0-50); AST (SGOT) 51 U/L (17-59); Alkaline Phosphatase 132 U/L (38-126); Blood Urea Nitrogen 12 mg/dl (9-20); Calcium 8.2 mg/dl (8.4-10.2); Carbon Dioxide 26 mmol/L (22-30); Chloride 101 mmol/L (98-107); Estimated Creatinine Clearance 103 ml/min; Glucose 105 mg/dl (70-99); Magnesium 1.3 mg/dl (1.6-2.3); Phosphorus 1.5 mg/dl (2.5-4.5); Potassium 3.3 mmol/L (3.5-5.1); Sodium 133 mmol/L (135-145); Total Bilirubin 10.3 mg/dl (0.2-1.3); Total Protein 5.7 g/dl (6.3-8.2); eGFR > 60.00
--- NOTE | 2024-09-02 05:51 | W.PN.GI.CBS2 ---
Today's Communication / Plan
-
No signs to suggest recurrent GI bleeding with stable H/h. Will complete 72 hrs of IV Octreotide later this evening. Continue lactulose given concern for HE after UGIB and prior benzos given EtOH withdrawal. Obtain Abd US w/ Dopplers to ensure
patent vasculature and assess for any ascites. Rest of care as outlined below.
Assessment / Plan
-
#UGIB 2/2
#Distal Esophageal, Post-Banding Ulcers
#Grade II EV within Mid Esophagus (s/p banding 08/30)
#Severe PHG
#Decompensated EtOH Cirrhosis
#Active, Recurrent EtOH Abuse
#EtOH Withdrawal
Mr. Kelsey is a 49 y.o male with past medical history of decompensated EtOH cirrhosis with decompensations including history of EV bleeding (s/p recent EGD at [facility] on 08/05/2024 with EVL), portal hypertensive gastropathy, C Diff colitis, and
ongoing alcohol abuse who presented to the ED with multiple episodes of hematemesis. He was recently hospitalized at [facility] where an EGD on 08/05/2024 revealed grade III varices in the mid/distal esophagus without active bleeding at that
time s/p EVL with 6 bands deployed along with PHG and gastritis. Otherwise, no mention of GV or duodenal varices. He was supposed to have a repeat EGD in 6 to 8 weeks as an outpatient. He unfortunately resumed drinking after his discharge at
[facility] and reportedly drinks up to a half a bottle to a gallon of whiskey on a near daily basis. No other NSAIDs or other antiplatelets/anticoagulants. He experienced several episodes of erinn hematemesis this AM along with melena and subsequently
came to the ED at [facility] for further evaluation. Labs revealed a MELD 3.0 of 17 and CBC with a Hgb 15.1, WBC 12.2, and plts 131. Etiology appears most suspicious for recurrent esophageal variceal hemorrhage versus post-banding esophageal
ulceration given recent banding four weeks earlier.
S/p EGD 08/30/24 with multiple, linear and superficial well-healed esophageal ulcers at site of prior variceal banding consistent with post-banding ulcerations (likely source of presentation) along with grade II varices in the mid esophagus s/p
banding (x5) with complete eradication, old blood in stomach, severe PHG without GV or duodenal varices
Slight drop in H/h with Hgb 15s -> 10s but likely dilutional given decrease in all cell lines (WBC and plts). Small amount of old blood throughout stomach, thus melena to be expected over next 24-48 hrs. No signs to suggest recurrent GI bleeding. No
significant or large volume melena or other maroon colored stools over the past 72 hours.
Recommendations:
- May advance diet as tolerated once mental status improves. Maintain aspiration precautions
- Ensure two large bore IVs at all times while inpatient
- Trend daily MELD 3.0 labs- CMP, CBC and INR
- Trend Hgb with serial CBC, transfuse for goal Hgb > 7.0
- Continue IV PPI and IV Octreotide gtt (08/30- ) x 72 hrs, will complete IV Octreotide this afternoon
- May transition to oral PPI 40 mg BiD for at least 8 weeks given post-banding esophageal ulcers and repeat banding in mid esophagus
- Agree with continuing Coreg 6.25 mg BiD for 2' ppx given EV bleed
- IV Ceftriaxone 1 gm q daily (08/30- ) for 7 days
- No plans for repeat EGD at this time as without any signs to suggest recurrent upper GI bleeding
- Ordered Abd US w/ Dopplers as well given persistently elevated LFTs (likely 2/2 EtOH with AST > ALT) and distension on exam to r/o ascites
- Continue to hold all anticoagulants and antihypertensives
- Started on lactulose 20 grams TiD, titrate to 3-4 BMs while inpatient given HE and likely component of withdrawal. If worsening mentation, would start lactulose enemas from below
- Agree with [facility] protocol given recent alcohol use, monitor for signs of autonomic instability / DTs
- Thiamine, folic acid, MVI. Needs strict EtOH cessation as an outpatient, would benefit from rehab if patient is willing after d/c
- Needs an eventual repeat EGD in 4-6 weeks with [facility]
- Rest of care per primary team
GI team will continue to follow closely while inpatient. Discussed with primary team this afternoon. Please call with any questions or concerns.
Subjective
Subjective
Date of Service: September 02, 2024
- Hgb stable 10.4 -> 10.4 -> 10.2 this AM and BUN 11-12s, without signs to suggest recurrent GI bleeding
- Started on lactulose yesterday given lethargy on 09/01
- Otherwise, no acute events overnight
Lethargic this AM, reportedly had prior bowel movements since starting lactulose. Otherwise, denies any abdominal pain or fevers/chills. No further melena or bloody stools.
Objective
Data Reviewed
Laboratory Data:
Laboratory Results
09/02/24 04:47
09/02/24 04:47
Laboratory Results
PT 20.1 Sec (11.4-14.6) H 09/01/24 04:34
INR 1.69 09/01/24 04:34
APTT 35.1 Sec (23.4-35.0) H 08/30/24 09:39
Phosphorus 1.5 mg/dl (2.5-4.5) L 09/02/24 04:47
Magnesium 1.3 mg/dl (1.6-2.3) L 09/02/24 04:47
Total Bilirubin 10.3 mg/dl (0.2-1.3) H 09/02/24 04:47
AST 51 U/L (17-59) 09/02/24 04:47
ALT 23 U/L (0-50) 09/02/24 04:47
Alkaline Phosphatase 132 U/L (38-126) H 09/02/24 04:47
Vital Signs and I&O:
Vital Signs
Temp Pulse Resp BP Pulse Ox
97.8 F 98 22 143/93 93
09/02/24 03:40 09/02/24 03:40 09/02/24 03:40 09/02/24 03:40 09/02/24 03:40
I&O
08/31/24 09/01/24 09/02/24
06:59 06:59 06:59
Intake Total 3720.7 / 3920.8 5264.9 / 5441.6 2363.7 / 2363.7
Output Total 900 / 900 850 / 850 450 / 450
Balance 2820.7 / 3020.8 4414.9 / 4591.6 1913.7 / 1913.7
Physical Exam
Physical Exam
HEENT: Moist mucous membranes
Cardiology: Normal Sinus Rhythm
Pulmonary: Other (Normal WOB)
GI: Soft, Distended and Non Tender
Extremities: No Edema
Neuro: Non Focal and Other (Unable to appreciate asterixis as could not cooperate with exam)
[2024-09-02] MEDS: DUPHALAC/CHRONULAC 20 GRAMS PO ×2 (06:02→18:35)
[2024-09-02 06:11] LABS: Glucose - Point of Care 108 mg/dl (70-99)
[2024-09-02] MEDS: NSS (PRESERVATIVE FREE) 10 ML IV ×2 (08:25→21:27)
[2024-09-02] MEDS: PROTONIX IV 40 MG IV ×2 (08:25→21:28)
[2024-09-02] MEDS: FOLVITE 1 MG PO (08:26)
[2024-09-02] MEDS: NEURONTIN 300 MG PO ×3 (08:26→21:26)
[2024-09-02] MEDS: CARAFATE 1 GRAM PO ×4 (08:26→21:26)
[2024-09-02] MEDS: CYMBALTA DELAYED RELEASE 60 MG PO (08:27)
[2024-09-02] MEDS: QUESTRAN 4 GRAM PO ×2 (08:27→16:51)
[2024-09-02] MEDS: COREG 6.25 MG PO ×2 (08:27→21:27)
--- NOTE | 2024-09-02 08:38 | W.PN.HOSP.TC ---
Addendum entered and electronically signed by Dominik Mendez MD 09/02/24 20:37:
Acute blood loss anemia
Original Note:
Today's Communication/Plan
-
PPI. Octreotide. Phenobarbital. IV magnesium.
Assessment / Plan
Assessment / Plan
Physical exam:
General: Acutely ill
HEENT: Normocephalic, Atraumatic and Moist Mucous Membranes
Respiratory: Clear to Auscultation; Negative Wheezes, Rales or Rhonchi
Cardiac: Regular Rhythm and S1/S2
GI: Soft, Nontender and Nondistended
Musculoskeletal: No Clubbing, No Cyanosis and No Edema
Neuro: Lethargic but responds to verbal stimuli and no neurological deficit
EGD on 08/30:
- Multiple linear and superficial esophageal ulcers at
site of prior variceal treatment, consistent with
post-banding ulcerations. Suspect this is the source
of patient's presentation
- Grade II and large (> 5 mm) esophageal varices in
the mid esophagus. Completely eradicated. Banded.
- Hematin (altered blood/gitmpm-nkwrwy-ggrp material)
in the gastric body.
- Severe portal hypertensive gastropathy.
- Otherwise, normal stomach on direct and retroflexion
views. No evidence of gastric varices.
- Congested and erythematous duodenal mucosa.
Otherwise, normal duodenum without any duodenal varices
- The examination was otherwise normal.
- No specimens collected.
A/P:
Acute GI bleed due to distal esophageal post banding ulcers and grade 2 esophageal varices within mid esophagus status post band:
Status post EGD as above with findings as above and severe PHG
On clear liquid diet
Off IV fluid
Continue IV PPI twice daily
Continue IV octreotide drip but might be able to stop after 72 hours
Continue IV ceftriaxone to finish 7 days course
GI consult appreciated
PT OT eval
Alcohol intoxication and severe alcohol withdrawal:
MSA protocol
Thiamine
Folate
On phenobarbital
Hypomagnesemia:
Replete aggressively and trend
Hyperammonemia, concerns for hepatic encephalopathy:
Start him on lactulose
Improving
Resp failure s/p Mech Vent for airway protection:
Status post extubated
Metabolic acidosis:
Resolved
Transaminitis:
Monitor trend
Leukocytosis:
Likely reactive
Back to normal
Hypernatremia:
Back to normal
HTN:
Restarted carvedilol
HLD:
Restarted cholestyramine
Anxiety:
Restarted duloxetine, trazodone, quetiapine
DVT prophylaxis:
SCDs
CODE STATUS:
Full code
Total time spent on today's encounter was 52 minutes which included time spent in counseling the patient/family regarding diagnosis and treatment plan as listed above, goals of care, and symptom management. Case was discussed with nursing staff,
specialists, and care coordinators/case management. All labs and imaging personally reviewed by me. Remainder the time spent in detailed review of previous records, lab data, imaging, and other medical provider documentation.
Anticipated Discharge: > 48 hours
Subjective/Interval History
-
Date of Service: September 02, 2024
Patient had bowel movements today. He is relatively sleepy today. Afebrile
Objective Data
-
Labs:
Laboratory Results
09/02/24
04:47
WBC 5.4
Hgb 10.2 L
Hct 30.6 L
Plt Count 32 L
Sodium 133 L
Potassium 3.3 L
Chloride 101
Carbon Dioxide 26
BUN 12
Creatinine 1.0
Glucose 105 H
Calcium 8.2 L
Total Bilirubin 10.3 H
AST 51
ALT 23
Alkaline Phosphatase 132 H
Vital Signs:
Vital Signs
Temp Pulse Resp BP Pulse Ox
97.8 F 98 22 143/93 93
09/02/24 03:40 09/02/24 03:40 09/02/24 03:40 09/02/24 03:40 09/02/24 03:40
I&O
09/01/24 09/02/24 09/03/24
06:59 06:59 06:59
Intake Total 5264.9 / 5441.6 2843.7 / 2843.7
Output Total 850 / 850 1050 / 1050
Balance 4414.9 / 4591.6 1793.7 / 1793.7
[2024-09-02 09:39] LABS: Glycohemoglobin (HgbA1c) 5.4 % (4.0-5.6)
[2024-09-02] MEDS: PHENOBARBITAL IV (11:04)
[2024-09-02] MEDS: ROCEPHIN 1000 MG IV (11:27)
[2024-09-02] MEDS: STERILE WATER FOR INJECTION 10 ML IV (11:27)
[2024-09-02] MEDS: MAGNESIUM SULFATE 100 IV (11:28)
[2024-09-02] MEDS: KCL 40 MEQ PO ×2 (11:31→14:32)
[2024-09-02] MEDS: FLUSH (NSS) 1 FLUSH IV ×2 (11:33→11:37)
[2024-09-02] MEDS: QUESTRAN PO (11:37)
--- NOTE | 2024-09-02 13:50 | PN.CDI ---
CDI
- -
CDI:
Physician Documentation Request
Admit Date: 08/30/24 12:32
Dear Doctor Vanessa,
Patient admitted with acute GI bleed.
08/30 Hgb 15.1
09/02 Hgb 10.2
Based on the above, please clarify in your note, which of the following is the most likely diagnosis you are evaluating, monitoring and/or treating?
Acute blood loss anemia
Insignificant abnormal lab finding
Other
Use of terms such as suspected, likely, concern for, or probable (associated with a specific diagnosis that is being evaluated, monitored, or treated as if it exists) are acceptable and can be coded in the inpatient setting, when documented at the
time of discharge.
Thank you,
Loraine PAK,RN,CCDS
CDI Specialist
Available via [employer] text
Please use your independent medical judgment in providing your response.
[2024-09-02 14:35] LABS: Glucose - Point of Care 130 mg/dl (70-99)
--- NOTE | 2024-09-02 14:36 | CM ---
CM following for discharge planning for possible discharge to ETOH rehab. Currently on a phenobarb taper which will need to be completed prior to discharge for ETOH rehab to consider.
[facility] following to assist with coordination of post-discharge plans. Pt will need to pending completion of phenobarb taper and pt agreement to pursue outpatient services as recommended by [facility].
[2024-09-02 16:43] LABS: Glucose - Point of Care 105 mg/dl (70-99)
[2024-09-02] MEDS: LUMINAL 64.8 MG PO ×2 (16:51→21:26)
--- NOTE | 2024-09-02 17:25 | VATNOTE ---
Right IJ TLC removed per policy pressure held x 5min and occlusive dressing applied , no bleeding noted.
--- NOTE | 2024-09-02 19:51 | VATNOTE ---
called to assess right midline site bleeding. noted dsg soaked with blood however insertion site not bleeding. Biopatch applied and dsg changed per protocol.
[2024-09-02] MEDS: SEROQUEL 200 MG PO (21:27)
[2024-09-02] MEDS: VITAMIN B1 100 MG PO (21:27)
[2024-09-02] MEDS: DESYREL 100 MG PO (21:27)
[2024-09-02 21:30] LABS: Glucose - Point of Care 113 mg/dl (70-99)
[2024-09-03] VITALS (7 sets, daily range): BP systolic 117–150; BP diastolic 69–99; PULSE 98; O2SAT 96
[2024-09-03 00:11] LABS: Glucose - Point of Care 104 mg/dl (70-99)
[2024-09-03] MEDS: NOVOLOG FLEXPEN-MODERATE RESISTANCE SC ×4 (00:49→19:17)
[2024-09-03] MEDS: DUPHALAC/CHRONULAC 20 GRAMS PO ×2 (06:25→17:00)
[2024-09-03 06:29] LABS: Glucose - Point of Care 92 mg/dl (70-99)
[2024-09-03 06:31] LABS: Hematocrit 31.1 % (39.0-52.0); Hemoglobin 10.3 g/dL (13.0-18.0); Mean Corp Hgb Conc. 33.1 g/dL (33.0-37.0); Mean Corpuscular Hgb 32.7 pg (27.0-31.0); Mean Corpuscular Volume 98.7 fL (80.0-94.0); Mean Platelet Volume 12.7 fL (7.4-10.4); Platelet Count 34 10^3/uL (130-400); Red Blood Cell Count 3.15 10^6/uL (4.70-6.10); Red Cell Dist. Width 18.1 % (11.5-14.5); White Blood Cell Count 5.2 10^3/uL (4.8-10.8)
[2024-09-03 06:34] LABS: INR 1.46; PT 18.3 Sec (11.4-14.6)
[2024-09-03] MEDS: PROTONIX IV 40 MG IV ×2 (07:57→19:57)
[2024-09-03] MEDS: NSS (PRESERVATIVE FREE) 10 ML IV ×2 (07:58→19:57)
[2024-09-03 08:58] LABS: Ammonia 32 umol/L (9-30)
--- NOTE | 2024-09-03 09:05 | W.PN.HOSP.TC ---
Today's Communication/Plan
-
PT OT. Lactulose. Advance diet.
Assessment / Plan
Assessment / Plan
Physical exam:
General: Acutely ill
HEENT: Normocephalic, Atraumatic and Moist Mucous Membranes
Respiratory: Clear to Auscultation; Negative Wheezes, Rales or Rhonchi
Cardiac: Regular Rhythm and S1/S2
GI: Soft, Nontender and Nondistended
Musculoskeletal: No Clubbing, No Cyanosis and No Edema
Neuro: Lethargic but responds to verbal stimuli and no neurological deficit
EGD on 08/30:
- Multiple linear and superficial esophageal ulcers at
site of prior variceal treatment, consistent with
post-banding ulcerations. Suspect this is the source
of patient's presentation
- Grade II and large (> 5 mm) esophageal varices in
the mid esophagus. Completely eradicated. Banded.
- Hematin (altered blood/xtcbin-uiqkid-fsxw material)
in the gastric body.
- Severe portal hypertensive gastropathy.
- Otherwise, normal stomach on direct and retroflexion
views. No evidence of gastric varices.
- Congested and erythematous duodenal mucosa.
Otherwise, normal duodenum without any duodenal varices
- The examination was otherwise normal.
- No specimens collected.
A/P:
Acute GI bleed due to distal esophageal post banding ulcers and grade 2 esophageal varices within mid esophagus status post band:
Status post EGD as above with findings as above and severe PHG
On clear liquid diet--> advance to full liquid diet today
Off IV fluid
Continue IV PPI twice daily
Stop IV octreotide
Continue IV ceftriaxone to finish 7 days course
GI consult appreciated
PT OT eval
Alcohol intoxication and severe alcohol withdrawal:
MSA protocol
Thiamine
Folate
On phenobarbital
Hypomagnesemia:
Replete aggressively and trend
Hypophosphatemia:
Improving
Hyperammonemia, concerns for hepatic encephalopathy:
Continue him on lactulose
Improving
Resp failure s/p Mech Vent for airway protection:
Status post extubated
Metabolic acidosis:
Resolved
Transaminitis:
Monitor trend
Leukocytosis:
Likely reactive
Back to normal
Hypernatremia:
Back to normal
HTN:
Restarted carvedilol
HLD:
Restarted cholestyramine
Anxiety:
Restarted duloxetine, trazodone, quetiapine
DVT prophylaxis:
SCDs
CODE STATUS:
Full code
Anticipated Discharge: > 48 hours
Subjective/Interval History
-
Date of Service: September 03, 2024
Patient still lethargic but improving. Able to answer questions appropriately. He is having bowel movements reported by RN. Afebrile
Objective Data
-
Labs:
Laboratory Results
09/03/24 09/03/24
05:55 08:25
WBC 5.2
Hgb 10.3 L
Hct 31.1 L
Plt Count 34 L
PT 18.3 H
INR 1.46
Sodium Cancelled Pending
Potassium Cancelled Pending
Chloride Cancelled Pending
Carbon Dioxide Cancelled Pending
BUN Cancelled Pending
Creatinine Cancelled Pending
Glucose Cancelled Pending
Calcium Cancelled Pending
Total Bilirubin Cancelled Pending
AST Cancelled Pending
ALT Cancelled Pending
Alkaline Phosphatase Cancelled Pending
Vital Signs:
Vital Signs
Temp Pulse Resp BP Pulse Ox
98.7 F 79 20 122/69 96
09/03/24 07:21 09/03/24 07:21 09/03/24 07:21 09/03/24 07:21 09/03/24 07:21
I&O
09/02/24 09/03/24 09/04/24
06:59 06:59 06:59
Intake Total 2843.7 / 2843.7
Output Total 1050 / 1050 3200 / 3200
Balance 1793.7 / 1793.7 -3200 / -3200
[2024-09-03 09:12] LABS: ALT (SGPT) 21 U/L (0-50); AST (SGOT) 47 U/L (17-59); Albumin 3.1 g/dl (3.5-5.0); Alkaline Phosphatase 141 U/L (38-126); Blood Urea Nitrogen 9 mg/dl (9-20); Calcium 8.3 mg/dl (8.4-10.2); Carbon Dioxide 24 mmol/L (22-30); Chloride 99 mmol/L (98-107); Estimated Creatinine Clearance 103 ml/min; Glucose 101 mg/dl (70-99); Magnesium 1.7 mg/dl (1.6-2.3); Phosphorus 2.4 mg/dl (2.5-4.5); Potassium 3.7 mmol/L (3.5-5.1); Sodium 131 mmol/L (135-145); Total Bilirubin 11.3 mg/dl (0.2-1.3); eGFR > 60.00
[2024-09-03] MEDS: COREG PO (09:45)
[2024-09-03] MEDS: QUESTRAN PO (09:45)
[2024-09-03] MEDS: FOLVITE PO (09:45)
[2024-09-03] MEDS: CARAFATE PO (09:45)
[2024-09-03] MEDS: CYMBALTA DELAYED RELEASE PO (09:45)
[2024-09-03] MEDS: LUMINAL PO (09:45)
[2024-09-03] MEDS: NEURONTIN PO (09:45)
[2024-09-03] MEDS: VITAMIN B1 PO (09:46)
[2024-09-03 12:07] LABS: Glucose - Point of Care 144 mg/dl (70-99)
[2024-09-03] MEDS: ROCEPHIN 1000 MG IV (12:28)
[2024-09-03] MEDS: STERILE WATER FOR INJECTION 10 ML IV (12:30)
[2024-09-03] MEDS: FLUSH (NSS) 1 FLUSH IV ×2 (12:33→12:34)
[2024-09-03] MEDS: QUESTRAN 4 GRAM PO ×2 (12:34→17:01)
[2024-09-03] MEDS: CARAFATE 1 GRAM PO ×3 (12:34→21:05)
--- NOTE | 2024-09-03 14:36 | W.PN.GI.CBS2 ---
Addendum entered and electronically signed by Sony Scales MD 09/03/24 17:05:
I saw and evaluated the patient. I reviewed the resident�s note and agree with findings and plan as documented in the resident�s note.
Alert and conversant eating dinner. Denies complaints
ABD soft NTND
NEURO AAO x 3
REC:
Continue lactulose BID
No signs of recurrent bleeding. Hgb stable
Reinforced need for EtOH abstinence
F/U with [facility] after d/c
Will sign off. Please call back if needed
Original Note:
Today's Communication / Plan
-
Continue lactulose
Follow CBC
Advance diet as tolerated
Assessment / Plan
-
Impression: 49-year-old male with PMH of decompensated EtOH cirrhosis with esophageal varices, portal hypertension, gastropathy, C. difficile colitis, who presented to ED on 08/30 with a week history of nausea and hematemesis associated with
melena which worsened 24 hours [employer]LL[employer]. Patient had a recent EGD on 08/05/2024 at [facility] with EVL and 6 bands deployed along with PHG and gastritis revealing grade 3 varices in the mid/distal esophagus without active bleeding. The plan at that time
was to repeat EGD in 6 to 8 weeks as outpatient. Patient resumed drinking after discharge and reportedly drinks about an average of half a bottle to a gallon of whiskey nearly on daily basis. Patient does not take any NSAIDs or
antiplatelets/anticoagulants.
#UGIB 2/2
#Distal Esophageal, Post-Banding Ulcers
#Grade II EV within Mid Esophagus (s/p banding 08/30)
#Severe PHG
#Decompensated EtOH Cirrhosis
#Active, Recurrent EtOH Abuse
#EtOH Withdrawal
Labs today revealed a MELD 3.0 of 20 and CBC with a Hgb 10.3, WBC 5.2, platelets 34, INR 1.46. Etiology appears most suspicious for recurrent esophageal variceal hemorrhage versus post-banding esophageal ulceration given recent banding four weeks
earlier. Hemoglobin level has been stable and patient reports no large-volume melena in the past 24 hours.
There is also a slight drop in an ammonia level and patient appears to be fully oriented at the time of assessment.
EGD 01/29/2024 with multiple linear and superficial well-healed esophageal ulcers at the site of prior variceal banding consistent with post banding ulceration and grade 2 varices in the mid esophagus.
Recommendations:
-Continue to advance diet as tolerated, now on liquid diet.
-Aspiration precautions.
-Trend MELD 3.0 score with labs as above.
-Follow CBC and transfuse to maintain Hgb >7
-Continue lactulose and titrate for 3-4 BMs, IV PPI, and sucralfate; IV octreotide completed. Transition to pantoprazole 40 mg PO twice daily when able.
-Hold all anticoagulants and antihypertensives for now.
-With no signs of upper GI bleed, no plans for repeat EGD.
-Abdominal ultrasound with Dopplers 09/02/2024 noted cholelithiasis, mildly dilated CBD, full report below.
-Lactulose enemas if mentation worsens.
-Agree with CIWA protocol given recent alcohol use, monitor for signs of autonomic instability / DTs
-Thiamine, folic acid, MVI.
-Encourage EtOH cessation and rehab after discharge.
-Follow-up with scheduled 4 to 6 weeks repeat EGD at [facility].
GI team will sign off. Please call with any questions or concerns.
Abdominal ultrasound with Doppler 09/02/2024
The main and right portal veins are patent and have normal direction of flow. The left portal vein is not confidently identified.
Hepatic veins are patent. Dampened spectral waveforms, which are likely from cirrhosis.
Hepatic artery is visualized with resistive index of 0.69.
Cholelithiasis. Common bile duct measures up to 6.3 mm, considered mildly dilated in this 49-year-old.
Coarsening of hepatic echotexture, suggesting hepatocellular disease in this patient with a reported history of cirrhosis. Recanalization of the paraumbilical vein.
Liver length is in the upper range of normal. No evidence for hepatic mass lesion.
Splenomegaly.
Small amount of ascites adjacent to the spleen in the left upper quadrant.
Subjective
Subjective
Date of Service: September 03, 2024
I have seen and examined patient. Patient reports bilateral lower quadrant abdominal pain same that has not changed in quality or intensity since yesterday. Pain rated 5/10 worse with movement and no identifiable alleviating factors. Patient has
been on clear liquid diet and tolerating and advanced to full liquid diet per primary team. Labs this a.m. consistent with worsening hyperammonemia however patient is fully oriented. He denies chest pain, fever and chills. Vitals today are within
normal limits, patient remains afebrile saturating appropriately on room air. Discussed with patient that he need for inpatient rehab after discharge.
Objective
Data Reviewed
Laboratory Data:
Laboratory Results
09/03/24 05:55
09/03/24 08:25
Laboratory Results
PT 18.3 Sec (11.4-14.6) H 09/03/24 05:55
INR 1.46 09/03/24 05:55
APTT 35.1 Sec (23.4-35.0) H 08/30/24 09:39
Phosphorus 2.4 mg/dl (2.5-4.5) L 09/03/24 08:25
Magnesium 1.7 mg/dl (1.6-2.3) 09/03/24 08:25
Total Bilirubin 11.3 mg/dl (0.2-1.3) H 09/03/24 08:25
AST 47 U/L (17-59) 09/03/24 08:25
ALT 21 U/L (0-50) 09/03/24 08:25
Alkaline Phosphatase 141 U/L (38-126) H 09/03/24 08:25
Vital Signs and I&O:
Vital Signs
Temp Pulse Resp BP Pulse Ox
98.3 F 74 18 126/76 93
09/03/24 11:05 09/03/24 11:05 09/03/24 11:05 09/03/24 11:05 09/03/24 11:05
I&O
09/02/24 09/03/24 09/04/24
06:59 06:59 06:59
Intake Total 2843.7 / 2843.7
Output Total 1050 / 1050 3200 / 3200
Balance 1793.7 / 1793.7 -3200 / -3200
[2024-09-03] MEDS: LUMINAL 64.8 MG PO ×2 (17:00→21:05)
[2024-09-03] MEDS: NEURONTIN 300 MG PO ×2 (17:00→21:05)
[2024-09-03 18:12] LABS: Glucose - Point of Care 157 mg/dl (70-99)
[2024-09-03] MEDS: COREG 6.25 MG PO (19:58)
[2024-09-03] MEDS: VITAMIN B1 100 MG PO (19:58)
[2024-09-03] MEDS: DESYREL 100 MG PO (21:05)
[2024-09-03] MEDS: SEROQUEL 200 MG PO (21:06)
[2024-09-03 21:40] LABS: Glucose - Point of Care 151 mg/dl (70-99)
[2024-09-04 03:05] VITALS: BP 105/46
[2024-09-04] MEDS: DUPHALAC/CHRONULAC PO (05:43)
[2024-09-04 06:52] LABS: INR 1.48; PT 18.2 Sec (11.4-14.6)
[2024-09-04 07:09] LABS: ALT (SGPT) 20 U/L (0-50); AST (SGOT) 44 U/L (17-59); Alkaline Phosphatase 168 U/L (38-126); Blood Urea Nitrogen 6 mg/dl (9-20); Calcium 8.3 mg/dl (8.4-10.2); Carbon Dioxide 26 mmol/L (22-30); Chloride 101 mmol/L (98-107); Estimated Creatinine Clearance 103 ml/min; Glucose 122 mg/dl (70-99); Magnesium 1.5 mg/dl (1.6-2.3); Phosphorus 2.8 mg/dl (2.5-4.5); Potassium 3.6 mmol/L (3.5-5.1); Sodium 132 mmol/L (135-145); Total Bilirubin 11.6 mg/dl (0.2-1.3); Total Protein 5.8 g/dl (6.3-8.2); eGFR > 60.00
[2024-09-04 07:10] LABS: Hematocrit 30.8 % (39.0-52.0); Hemoglobin 10.4 g/dL (13.0-18.0); Mean Corp Hgb Conc. 33.8 g/dL (33.0-37.0); Mean Corpuscular Hgb 32.4 pg (27.0-31.0); Mean Platelet Volume 12.5 fL (7.4-10.4); Platelet Count 31 10^3/uL (130-400); Red Blood Cell Count 3.21 10^6/uL (4.70-6.10); Red Cell Dist. Width 18.8 % (11.5-14.5); White Blood Cell Count 5.9 10^3/uL (4.8-10.8)
[2024-09-04 07:21] LABS: Glucose - Point of Care 115 mg/dl (70-99)
[2024-09-04 07:30] VITALS: BP 102/64
[2024-09-04] MEDS: NOVOLOG FLEXPEN-MODERATE RESISTANCE SC ×2 (08:48→16:53)
[2024-09-04] MEDS: QUESTRAN 4 GRAM PO ×3 (08:49→16:53)
[2024-09-04] MEDS: NEURONTIN 300 MG PO ×3 (08:49→21:26)
[2024-09-04] MEDS: FOLVITE 1 MG PO (08:49)
[2024-09-04] MEDS: VITAMIN B1 100 MG PO ×2 (08:49→19:57)
[2024-09-04] MEDS: CYMBALTA DELAYED RELEASE 60 MG PO (08:49)
[2024-09-04] MEDS: CARAFATE 1 GRAM PO ×4 (08:49→21:26)
[2024-09-04] MEDS: LUMINAL 64.8 MG PO (08:50)
[2024-09-04] MEDS: COREG PO (08:50)
[2024-09-04] MEDS: STERILE WATER FOR INJECTION 10 ML IV (08:50)
[2024-09-04] MEDS: ROCEPHIN 1000 MG IV (08:51)
[2024-09-04] MEDS: NSS (PRESERVATIVE FREE) 10 ML IV ×2 (08:51→19:56)
[2024-09-04] MEDS: PROTONIX IV 40 MG IV ×2 (08:51→19:56)
[2024-09-04] MEDS: FLUSH (NSS) 1 FLUSH IV (08:52)
[2024-09-04] MEDS: FLUSH (NSS) 10 FLUSH IV (09:06)
--- NOTE | 2024-09-04 09:56 | W.PN.HOSP.TC ---
Today's Communication/Plan
-
PPI. Advance diet. PT OT
Assessment / Plan
Assessment / Plan
Physical exam:
General: Acutely ill
HEENT: Normocephalic, Atraumatic and Moist Mucous Membranes
Respiratory: Clear to Auscultation; Negative Wheezes, Rales or Rhonchi
Cardiac: Regular Rhythm and S1/S2
GI: Soft, Nontender and Nondistended
Musculoskeletal: No Clubbing, No Cyanosis and No Edema
Neuro: Lethargic but responds to verbal stimuli and no neurological deficit
EGD on 08/30:
- Multiple linear and superficial esophageal ulcers at
site of prior variceal treatment, consistent with
post-banding ulcerations. Suspect this is the source
of patient's presentation
- Grade II and large (> 5 mm) esophageal varices in
the mid esophagus. Completely eradicated. Banded.
- Hematin (altered blood/iunppj-[id number]-dzyk material)
in the gastric body.
- Severe portal hypertensive gastropathy.
- Otherwise, normal stomach on direct and retroflexion
views. No evidence of gastric varices.
- Congested and erythematous duodenal mucosa.
Otherwise, normal duodenum without any duodenal varices
- The examination was otherwise normal.
- No specimens collected.
A/P:
Acute GI bleed due to distal esophageal post banding ulcers and grade 2 esophageal varices within mid esophagus status post band:
Status post EGD as above with findings as above and severe PHG
On regular diet today
Off IV fluid
Continue IV PPI twice daily
Off IV octreotide
Continue IV ceftriaxone to finish 7 days course
GI consult appreciated
PT OT eval
Alcohol intoxication and severe alcohol withdrawal:
MSA protocol
Thiamine
Folate
On phenobarbital
Hypomagnesemia:
Replete aggressively and trend
Hypophosphatemia:
Improving
Hyperammonemia, concerns for hepatic encephalopathy:
Continue him on lactulose
Improving
Resp failure s/p Mech Vent for airway protection:
Status post extubated
Metabolic acidosis:
Resolved
Transaminitis:
Monitor trend
Leukocytosis:
Likely reactive
Back to normal
Hypernatremia:
Back to normal
HTN:
Restarted carvedilol
HLD:
Restarted cholestyramine
Anxiety:
Restarted duloxetine, trazodone, quetiapine
DVT prophylaxis:
SCDs
CODE STATUS:
Full code
Anticipated Discharge: > 48 hours
Subjective/Interval History
-
Date of Service: September 04, 2024
Patient more alert today but weak overall. Describes of abdominal discomfort. Tolerating diet.
Objective Data
-
Labs:
Laboratory Results
09/04/24
06:32
WBC 5.9
Hgb 10.4 L
Hct 30.8 L
Plt Count 31 L
PT 18.2 H
INR 1.48
Sodium 132 L
Potassium 3.6
Chloride 101
Carbon Dioxide 26
BUN 6 L
Creatinine 1.0
Glucose 122 H
Calcium 8.3 L
Total Bilirubin 11.6 H
AST 44
ALT 20
Alkaline Phosphatase 168 H
Vital Signs:
Vital Signs
Temp Pulse Resp BP Pulse Ox
98.7 F 73 20 102/64 97
09/04/24 07:30 09/04/24 08:50 09/04/24 07:30 09/04/24 08:50 09/04/24 07:30
I&O
09/03/24 09/04/24 09/05/24
06:59 06:59 06:59
Output Total 3200 / 3200
Balance -3200 / -3200
[2024-09-04 11:38] VITALS: BP 107/72
[2024-09-04 11:51] LABS: Glucose - Point of Care 213 mg/dl (70-99)
[2024-09-04] MEDS: NOVOLOG FLEXPEN-MODERATE RESISTANCE 3 UNITS SC (12:26)
[2024-09-04 15:20] VITALS: BP 118/74
[2024-09-04] MEDS: MAGNESIUM SULFATE 50 IV (15:27)
[2024-09-04] MEDS: LUMINAL 32.4 MG PO ×2 (16:53→21:26)
[2024-09-04] MEDS: DUPHALAC/CHRONULAC 20 GRAMS PO (16:53)
[2024-09-04 16:55] LABS: Glucose - Point of Care 127 mg/dl (70-99)
[2024-09-04] MEDS: COREG 6.25 MG PO (19:57)
[2024-09-04 20:46] VITALS: BP 125/79
[2024-09-04] MEDS: SEROQUEL 200 MG PO (21:26)
[2024-09-04] MEDS: DESYREL 100 MG PO (21:26)
[2024-09-04] MEDS: BENADRYL 6.25 MG IV (21:41)
[2024-09-04 21:47] LABS: Glucose - Point of Care 172 mg/dl (70-99)
[2024-09-04 23:10] VITALS: BP 107/70
[2024-09-05 03:55] VITALS: BP 107/65
[2024-09-05] MEDS: DUPHALAC/CHRONULAC 20 GRAMS PO ×2 (05:18→17:01)
[2024-09-05 07:20] VITALS: BP 131/81
[2024-09-05 07:42] LABS: Glucose - Point of Care 139 mg/dl (70-99)
[2024-09-05] MEDS: NOVOLOG FLEXPEN-MODERATE RESISTANCE SC ×2 (07:58→17:16)
[2024-09-05 08:10] LABS: INR 1.41; PT 17.5 Sec (11.4-14.6)
[2024-09-05] MEDS: CYMBALTA DELAYED RELEASE 60 MG PO (08:18)
[2024-09-05] MEDS: VITAMIN B1 100 MG PO ×2 (08:18→19:35)
[2024-09-05] MEDS: LUMINAL 32.4 MG PO ×3 (08:18→21:22)
[2024-09-05] MEDS: NEURONTIN 300 MG PO ×3 (08:18→21:22)
[2024-09-05] MEDS: COREG 6.25 MG PO ×2 (08:18→21:21)
[2024-09-05] MEDS: QUESTRAN 4 GRAM PO ×3 (08:18→17:01)
[2024-09-05] MEDS: FOLVITE 1 MG PO (08:20)
[2024-09-05] MEDS: CARAFATE 1 GRAM PO ×4 (08:20→21:21)
[2024-09-05] MEDS: NSS (PRESERVATIVE FREE) 10 ML IV ×2 (08:21→19:35)
[2024-09-05] MEDS: PROTONIX IV 40 MG IV ×2 (08:21→19:35)
[2024-09-05 08:25] LABS: Hemoglobin 10.4 g/dL (13.0-18.0); Mean Corp Hgb Conc. 33.5 g/dL (33.0-37.0); Mean Corpuscular Hgb 31.8 pg (27.0-31.0); Mean Corpuscular Volume 94.8 fL (80.0-94.0); Platelet Count 41 10^3/uL (130-400); Red Blood Cell Count 3.27 10^6/uL (4.70-6.10); Red Cell Dist. Width 19.5 % (11.5-14.5); White Blood Cell Count 5.6 10^3/uL (4.8-10.8)
--- NOTE | 2024-09-05 08:27 | W.PN.HOSP.TC ---
Today's Communication/Plan
-
CT scan of the abdomen and pelvis today.
Assessment / Plan
Assessment / Plan
Physical exam:
General: Acutely ill
HEENT: Normocephalic, Atraumatic and Moist Mucous Membranes
Respiratory: Clear to Auscultation; Negative Wheezes, Rales or Rhonchi
Cardiac: Regular Rhythm and S1/S2
GI: Soft, tender and distended
Musculoskeletal: No Clubbing, No Cyanosis and No Edema
Neuro: Alert and oriented x 3, no neurological deficits, generalized weakness present.
EGD on 08/30:
- Multiple linear and superficial esophageal ulcers at
site of prior variceal treatment, consistent with
post-banding ulcerations. Suspect this is the source
of patient's presentation
- Grade II and large (> 5 mm) esophageal varices in
the mid esophagus. Completely eradicated. Banded.
- Hematin (altered blood/atiqjc-yjpasy-zgqb material)
in the gastric body.
- Severe portal hypertensive gastropathy.
- Otherwise, normal stomach on direct and retroflexion
views. No evidence of gastric varices.
- Congested and erythematous duodenal mucosa.
Otherwise, normal duodenum without any duodenal varices
- The examination was otherwise normal.
- No specimens collected.
A/P:
Acute GI bleed due to distal esophageal post banding ulcers and grade 2 esophageal varices within mid esophagus status post band:
Status post EGD as above with findings as above and severe PHG
On regular diet
Off IV fluid
Continue IV PPI twice daily
Off IV octreotide
Continue IV ceftriaxone to finish 7 days course
GI consult appreciated
PT OT eval
Due to some worsening abdominal distention and pain, we will obtain a CT scan of the abdomen and pelvis with contrast today.
Alcohol intoxication and severe alcohol withdrawal:
MSA protocol
Thiamine
Folate
On phenobarbital
Anemia and thrombocytopenia:
Related to acute blood loss anemia and liver disease
Hemoglobin stable and platelet count starting to trend up
Hemoglobin 10.4
Platelet count 41
Hypomagnesemia:
Replete aggressively and trend
Hypophosphatemia:
Improved
Hyperammonemia, concerns for hepatic encephalopathy:
Continue him on lactulose
Improving
Resp failure s/p Mech Vent for airway protection:
Status post extubated
Metabolic acidosis:
Resolved
Transaminitis:
Monitor trend
Leukocytosis:
Likely reactive
Back to normal
Hypernatremia:
Back to normal
HTN:
Restarted carvedilol
HLD:
Restarted cholestyramine
Anxiety:
Restarted duloxetine, trazodone, quetiapine
DVT prophylaxis:
SCDs
CODE STATUS:
Full code
Anticipated Discharge: 24 - 48 hours
Subjective/Interval History
-
Date of Service: September 05, 2024
Patient complaining of abdominal pain since last evening. Denies nausea or vomiting. Remains afebrile. He is alert today and oriented.
Objective Data
-
Labs:
Laboratory Results
09/05/24
07:22
WBC 5.6
Hgb 10.4 L
Hct 31.0 L
Plt Count 41 L D
PT 17.5 H
INR 1.41
Sodium Pending
Potassium Pending
Chloride Pending
Carbon Dioxide Pending
BUN Pending
Creatinine Pending
Glucose Pending
Calcium Pending
Total Bilirubin Pending
AST Pending
ALT Pending
Alkaline Phosphatase Pending
Vital Signs:
Vital Signs
Temp Pulse Resp BP Pulse Ox
99.1 F 85 20 131/81 99
09/05/24 03:55 09/05/24 08:18 09/05/24 03:55 09/05/24 08:18 09/05/24 03:55
I&O
09/04/24 09/05/24 09/06/24
06:59 06:59 06:59
Intake Total 3680 / 3680
Output Total 500 / 500
Balance 3180 / 3180
[2024-09-05 08:31] LABS: ALT (SGPT) 23 U/L (0-50); AST (SGOT) 45 U/L (17-59); Albumin 3.1 g/dl (3.5-5.0); Alkaline Phosphatase 205 U/L (38-126); Blood Urea Nitrogen 5 mg/dl (9-20); Calcium 8.5 mg/dl (8.4-10.2); Carbon Dioxide 24 mmol/L (22-30); Chloride 100 mmol/L (98-107); Estimated Creatinine Clearance 79 ml/min; Glucose 120 mg/dl (70-99); Magnesium 1.6 mg/dl (1.6-2.3); Potassium 3.7 mmol/L (3.5-5.1); Sodium 131 mmol/L (135-145); Total Bilirubin 12.5 mg/dl (0.2-1.3); Total Protein 6.1 g/dl (6.3-8.2); eGFR > 60.00
[2024-09-05] MEDS: DILAUDID 0.25 MG IV (09:11)
[2024-09-05] MEDS: STERILE WATER FOR INJECTION 10 ML IV (09:12)
[2024-09-05] MEDS: ROCEPHIN 1000 MG IV (09:12)
[2024-09-05] MEDS: OMNIPAQUE 50 ML PO (09:34)
[2024-09-05] MEDS: FLUSH (NSS) 1 FLUSH IV (09:35)
[2024-09-05 11:15] VITALS: BP 117/77
[2024-09-05] MEDS: FLUSH (NSS) IV (12:05)
[2024-09-05] MEDS: NOVOLOG FLEXPEN-MODERATE RESISTANCE 1 UNITS SC (12:52)
[2024-09-05 12:53] LABS: Glucose - Point of Care 158 mg/dl (70-99)
[2024-09-05] MEDS: MAGNESIUM SULFATE 50 IV (13:01)
[2024-09-05] MEDS: LR 1000 IV (13:16)
[2024-09-05 13:24] LABS: Lipase 80 U/L (23-300)
[2024-09-05] MEDS: DILAUDID 0.5 MG IV ×2 (13:51→17:13)
[2024-09-05 15:20] VITALS: BP 120/71
[2024-09-05 17:15] LABS: Glucose - Point of Care 105 mg/dl (70-99)
[2024-09-05 19:53] VITALS: BP 132/75
[2024-09-05] MEDS: DESYREL 100 MG PO (21:21)
[2024-09-05] MEDS: SEROQUEL 200 MG PO (21:22)
[2024-09-05 21:39] LABS: Glucose - Point of Care 113 mg/dl (70-99)
[2024-09-05 23:38] VITALS: BP 104/63
[2024-09-06] MEDS: LR 1000 IV ×3 (02:10→18:17)
[2024-09-06 03:02] VITALS: BP 102/51
[2024-09-06] MEDS: DUPHALAC/CHRONULAC PO (05:13)
[2024-09-06 05:41] LABS: INR 1.53; PT 18.7 Sec (11.4-14.6)
[2024-09-06 05:42] LABS: % Basophils 0.8 % (0-2); % Eosinophils 1.5 % (0-6); % Immature Granulocytes 1.3 % (0-0.5); % Lymphocytes 29.4 % (20.5-51.1); % Monocytes 19.9 % (1.7-9.3); % Neutrophils 47.1 % (42.2-75.2); Absolute Eosinophils 0.1 10^3/uL (0-0.7); Absolute Immature Granulocytes 0.1 10^3/uL (0-0.05); Absolute Lymphocytes 1.4 10^3/uL (1.2-3.4); Absolute Monocytes 0.9 10^3/uL (0.1-0.6); Absolute Neutrophils 2.2 10^3/uL (1.4-6.5); Hematocrit 28.7 % (39.0-52.0); Hemoglobin 9.7 g/dL (13.0-18.0); Mean Corp Hgb Conc. 33.8 g/dL (33.0-37.0); Mean Corpuscular Hgb 32.2 pg (27.0-31.0); Mean Corpuscular Volume 95.3 fL (80.0-94.0); Mean Platelet Volume 12.5 fL (7.4-10.4); Nucleated Red Blood Cells % 0 % (-); Platelet Count 41 10^3/uL (130-400); Red Blood Cell Count 3.01 10^6/uL (4.70-6.10); Red Cell Dist. Width 20.1 % (11.5-14.5); White Blood Cell Count 4.7 10^3/uL (4.8-10.8)
[2024-09-06 06:05] LABS: ALT (SGPT) 18 U/L (0-50); AST (SGOT) 40 U/L (17-59); Alkaline Phosphatase 168 U/L (38-126); Blood Urea Nitrogen 4 mg/dl (9-20); Calcium 8.6 mg/dl (8.4-10.2); Carbon Dioxide 24 mmol/L (22-30); Chloride 101 mmol/L (98-107); Estimated Creatinine Clearance 115 ml/min; Glucose 96 mg/dl (70-99); Lipase 56 U/L (23-300); Magnesium 1.8 mg/dl (1.6-2.3); Potassium 3.9 mmol/L (3.5-5.1); Sodium 132 mmol/L (135-145); Total Bilirubin 13.3 mg/dl (0.2-1.3); Total Protein 5.7 g/dl (6.3-8.2); eGFR > 60.00
[2024-09-06 06:52] LABS: Glucose - Point of Care 86 mg/dl (70-99)
[2024-09-06 07:30] VITALS: BP 109/64
[2024-09-06] MEDS: NOVOLOG FLEXPEN-MODERATE RESISTANCE SC ×2 (08:02→11:23)
[2024-09-06] MEDS: QUESTRAN PO (08:08)
[2024-09-06] MEDS: FOLVITE 1 MG PO (08:09)
[2024-09-06] MEDS: CARAFATE 1 GRAM PO ×4 (08:09→23:00)
[2024-09-06] MEDS: CYMBALTA DELAYED RELEASE 60 MG PO (08:09)
[2024-09-06] MEDS: NEURONTIN 300 MG PO ×3 (08:09→23:00)
[2024-09-06] MEDS: LUMINAL 32.4 MG PO (08:09)
[2024-09-06] MEDS: VITAMIN B1 100 MG PO ×2 (08:09→20:29)
[2024-09-06] MEDS: COREG 6.25 MG PO ×2 (08:09→20:28)
[2024-09-06] MEDS: NSS (PRESERVATIVE FREE) 10 ML IV ×2 (08:10→20:29)
[2024-09-06] MEDS: PROTONIX IV 40 MG IV ×2 (08:10→20:29)
[2024-09-06] MEDS: DILAUDID 0.5 MG IV ×3 (08:19→18:29)
[2024-09-06 11:19] LABS: Glucose - Point of Care 119 mg/dl (70-99)
[2024-09-06 11:23] VITALS: BP 120/76
[2024-09-06] MEDS: QUESTRAN 4 GRAM PO ×2 (11:24→16:24)
[2024-09-06] MEDS: ROCEPHIN 1000 MG IV (11:24)
[2024-09-06] MEDS: STERILE WATER FOR INJECTION 10 ML IV (11:24)
[2024-09-06] MEDS: FLUSH (NSS) 1 FLUSH IV ×2 (11:25)
--- NOTE | 2024-09-06 15:28 | W.PN.HOSP.TC ---
Today's Communication/Plan
-
Maddreys 34.9 - start Prednisolone, recall GI, follow labs
cont IVF and pain mgmt
tolerating diet - advance to full liquid
Assessment / Plan
Assessment / Plan
49yo M with alcohol dependency, liver cirrhosis, esophageal varicies, anxiety came with hematemesis. EGD on 08/30 with esophageal ulcers, varices, banded. Patient still was drinking alcohol prior to this occurence. Later found possible pancreatitis
as well as worsening alcoholic hepatitis
A/P:
#Acute upper GIB 2/2 esophageal varices
s/po EGD on 08/30
cont PPI
completed octreotide
GI followed
Ceftriaxone x7 days for SBP PPX in GIB patient with cirrhosis - completed on 09/06/24
Daily MELD labs
#Acute pancreatitis
IVF
advance diet
pain mgmt as needed
#Alcohol abuse with withdrawal
MSAS protocol
Thiamin/Folate
phenobarb taper - completed
CM for rehab
#Anemia
#thrombocytopenia
#leukopenia
2/2 alcohol abuse
counseled on cessation
follow CBC
#Liver cirrhosis with hepatic encephalopathy
#Elevated alk.phos - no RUQ pain, cholelithiasis on US
cont lactulose
US abd - no sufficient fluid for paracentesis as of 09/05/24
#Essential HTN
#HLD
#Anxiety
cont home meds
DVT ppx SCDs
Full code
I have spent at least 56min reviewing chart, test results, communication with consultants and direct patient care
Anticipated Discharge: > 48 hours
Subjective/Interval History
-
Date of Service: September 06, 2024
Objective Data
-
Labs:
Laboratory Results
09/06/24
05:08
WBC 4.7 L
Hgb 9.7 L
Hct 28.7 L
Plt Count 41 L
PT 18.7 H
INR 1.53
Sodium 132 L
Potassium 3.9
Chloride 101
Carbon Dioxide 24
BUN 4 L
Creatinine 0.9
Glucose 96
Calcium 8.6
Total Bilirubin 13.3 H
AST 40
ALT 18
Alkaline Phosphatase 168 H
Vital Signs:
Vital Signs
Temp Pulse Resp BP Pulse Ox
98.1 F 72 18 120/76 97
09/06/24 11:23 09/06/24 11:23 09/06/24 11:23 09/06/24 11:23 09/06/24 11:23
I&O
09/05/24 09/06/24 09/07/24
06:59 06:59 06:59
Intake Total 3680 / 3680 3745 / 3745
Output Total 500 / 500
Balance 3180 / 3180 3745 / 3745
Review of Systems
-
History Source: Patient
All other systems: Reviewed and negative
Abdomen/GI: Reports Abdominal Pain (LUQ)
Physical Exam
-
General: No Apparent Distress and Comfortable
HEENT: Normocephalic
Respiratory: Clear to Auscultation
GI: Soft, Nondistended and Tender
Skin: Jaundice
Neuro: Awake, Alert, Oriented and AO x 3
Psych: Calm
[2024-09-06 15:30] VITALS: BP 116/70
[2024-09-06] MEDS: PRELONE 40 MG PO (16:25)
[2024-09-06 16:44] LABS: Glucose - Point of Care 163 mg/dl (70-99)
--- NOTE | 2024-09-06 17:26 | W.PN.GI.CBS2 ---
Today's Communication / Plan
-
Recommendations:
-Elevated discriminant function suggesting acute alcoholic hepatitis with rising bilirubin and prothrombin time.
No evidence of leukocytosis or fevers, GI bleed now resolved
Okay with continuing prednisolone 40 mg daily, calculate Lille score on Day 7, if Lille score is improving, needs to continue prednisolone for 28 days.
Follow-up bilirubin and prothrombin time closely. Creatinine in normal limits.
-Diarrhea with previous history of C. difficile
Will check C. difficile again
-History of GI bleeding in the setting of alcoholic liver disease/cirrhosis. On endoscopy noted to have bleeding related to ulcers at the site of previous banding and also had esophageal varices status post banding this admission without any active
bleeding now.
Continue Protonix twice a day and Carafate.
Monitor H&H.
-Patient reports diarrhea, currently getting lactulose 20 mg twice a day
I would hold off on lactulose for now until diarrhea resolves and also check stool for C. difficile.
-Left upper quadrant discomfort and CT scan showing mild peripancreatic edema, lipase is normal
Not a significant concern for pancreatitis .
currently on full liquid diet, once abdominal pain is better, then I would advance to 2 g sodium diet.
-Encourage EtOH cessation and rehab after discharge.
-Follow-up with scheduled 4 to 6 weeks repeat EGD at [facility].
Will follow for now
Assessment / Plan
-
Impression: 49-year-old male with PMH of decompensated EtOH cirrhosis with esophageal varices, portal hypertension, gastropathy, C. difficile colitis, who presented to ED on 08/30 with a week history of nausea and hematemesis associated with
melena which worsened 24 hours [employer]. Patient had a recent EGD on 08/05/2024 at [facility] with EVL and 6 bands deployed along with PHG and gastritis revealing grade 3 varices in the mid/distal esophagus without active bleeding. The plan at that time
was to repeat EGD in 6 to 8 weeks as outpatient. Patient resumed drinking after discharge and reportedly drinks about an average of half a bottle to a gallon of whiskey nearly on daily basis. Patient does not take any NSAIDs or
antiplatelets/anticoagulants.
#UGIB 2/2
#Distal Esophageal, Post-Banding Ulcers
#Grade II EV within Mid Esophagus (s/p banding 08/30)
#Severe PHG
#Decompensated EtOH Cirrhosis
#Active, Recurrent EtOH Abuse
#EtOH Withdrawal
Labs on admission revealed a MELD 3.0 of 20 and CBC with a Hgb 10.3, WBC 5.2, platelets 34, INR 1.46. Etiology appears most suspicious for recurrent esophageal variceal hemorrhage versus post-banding esophageal ulceration given recent banding four
weeks earlier. Hemoglobin level has been stable and patient reports no large-volume melena in the past 24 hours.
There is also a slight drop in an ammonia level and patient appears to be fully oriented at the time of assessment.
EGD 08/30/24-#Distal Esophageal, Post-Banding Ulcers
#Grade II EV within Mid Esophagus (s/p banding and eradication)
#Severe PHG
Abdominal ultrasound with Doppler 09/02/2024
The main and right portal veins are patent and have normal direction of flow. The left portal vein is not confidently identified.
Hepatic veins are patent. Dampened spectral waveforms, which are likely from cirrhosis.
Hepatic artery is visualized with resistive index of 0.69.
Cholelithiasis. Common bile duct measures up to 6.3 mm, considered mildly dilated in this 49-year-old.
Coarsening of hepatic echotexture, suggesting hepatocellular disease in this patient with a reported history of cirrhosis. Recanalization of the paraumbilical vein.
Liver length is in the upper range of normal. No evidence for hepatic mass lesion.
Splenomegaly.
Small amount of ascites adjacent to the spleen in the left upper quadrant.
09/06/24-GI reconsulted for discomfort in the left upper abdomen and also continued elevation in the total bilirubin with history of active alcohol abuse prior to admission.
Currently reports discomfort in the left upper abdomen without any nausea or vomiting. No heartburn or trouble swallowing. Has been having diarrhea and history of C. difficile in February 2024.No fevers or chills.
Currently patient is on pantoprazole 40 mg twice a day and sucralfate with meals and at night. Also on ceftriaxone likely for SBP prophylaxis with history of mild ascites. Not enough for paracentesis.
Discriminant function -39 started on prednisolone 40 mg 09/06/24.
Held off on admission due to active GI bleeding at that time.
CT scan A/P with IV contrast 09/05/24-IMPRESSION:
1).There is peripancreatic hazy inflammatory stranding versus edema suggesting pancreatitis. Correlation with the patient's serum amylase and lipase is recommended
2.). Cholelithiasis 3). Hepatosplenomegaly with patchy fatty infiltration of the liver. 4).There is evidence of portal hypertension with paraesophageal varices and recanalization of the umbilical vein
There is small volume ascites in the abdomen and pelvis. 5). 4 cm left inguinal hernia
Recommendations:
-Elevated discriminant function suggesting acute alcoholic hepatitis with rising bilirubin and prothrombin time.
No evidence of leukocytosis or fevers, GI bleed now resolved
Okay with continuing prednisolone 40 mg daily, calculate Lille score on Day 7, if Lille score is improving, needs to continue prednisolone for 28 days.
Follow-up bilirubin and prothrombin time closely. Creatinine in normal limits.
-Diarrhea with previous history of C. difficile
Will check C. difficile again
-History of GI bleeding in the setting of alcoholic liver disease/cirrhosis. On endoscopy noted to have bleeding related to ulcers at the site of previous banding and also had esophageal varices status post banding this admission without any active
bleeding now.
Continue Protonix twice a day and Carafate.
Monitor H&H.
-Patient reports diarrhea, currently getting lactulose 20 mg twice a day
I would hold off on lactulose for now until diarrhea resolves and also check stool for C. difficile.
-Left upper quadrant discomfort and CT scan showing mild peripancreatic edema, lipase is normal
Not a significant concern for pancreatitis .
currently on full liquid diet, once abdominal pain is better, then I would advance to 2 g sodium diet.
-Encourage EtOH cessation and rehab after discharge.
-Follow-up with scheduled 4 to 6 weeks repeat EGD at [facility].
Will follow for now
Subjective
Subjective
Date of Service: September 06, 2024
Patient reports some discomfort in the left upper abdomen , no nausea or vomiting. Currently on full liquid diet and reports loose stool. No fevers or chills.
Objective
Data Reviewed
Laboratory Data:
Laboratory Results
09/06/24 05:08
09/06/24 05:08
Laboratory Results
PT 18.7 Sec (11.4-14.6) H 09/06/24 05:08
INR 1.53 09/06/24 05:08
APTT 35.1 Sec (23.4-35.0) H 08/30/24 09:39
Phosphorus 2.8 mg/dl (2.5-4.5) 09/04/24 06:32
Magnesium 1.8 mg/dl (1.6-2.3) 09/06/24 05:08
Total Bilirubin 13.3 mg/dl (0.2-1.3) H 09/06/24 05:08
AST 40 U/L (17-59) 09/06/24 05:08
ALT 18 U/L (0-50) 09/06/24 05:08
Alkaline Phosphatase 168 U/L (38-126) H 09/06/24 05:08
Lipase 56 U/L (23-300) 09/06/24 05:08
Vital Signs and I&O:
Vital Signs
Temp Pulse Resp BP Pulse Ox
97.6 F 69 18 116/70 96
09/06/24 15:30 09/06/24 15:30 09/06/24 15:30 09/06/24 15:30 09/06/24 15:30
I&O
09/05/24 09/06/24 09/07/24
06:59 06:59 06:59
Intake Total 3680 / 3680 3745 / 3745
Output Total 500 / 500
Balance 3180 / 3180 3745 / 3745
Physical Exam
Physical Exam
GI: Soft and Tender (Some discomfort on palpation in the left upper quadrant without guarding or rigidity.)
[2024-09-06] MEDS: NOVOLOG FLEXPEN-MODERATE RESISTANCE 1 UNITS SC (18:17)
[2024-09-06 22:06] LABS: Glucose - Point of Care 139 mg/dl (70-99)
[2024-09-06 23:00] VITALS: BP 133/78
[2024-09-06] MEDS: DESYREL 100 MG PO (23:00)
[2024-09-06] MEDS: SEROQUEL 200 MG PO (23:00)
[2024-09-06] MEDS: NICODERM TRANSDERMAL 21 MG TRANSDERM (23:26)
[2024-09-07 05:32] LABS: INR 1.56; PT 18.9 Sec (11.4-14.6)
[2024-09-07 05:33] LABS: % Basophils 0.2 % (0-2); % Immature Granulocytes 1.8 % (0-0.5); % Lymphocytes 20.1 % (20.5-51.1); % Monocytes 18.1 % (1.7-9.3); % Neutrophils 59.8 % (42.2-75.2); Absolute Immature Granulocytes 0.1 10^3/uL (0-0.05); Absolute Lymphocytes 0.9 10^3/uL (1.2-3.4); Absolute Monocytes 0.8 10^3/uL (0.1-0.6); Absolute Neutrophils 2.7 10^3/uL (1.4-6.5); Hematocrit 29.1 % (39.0-52.0); Hemoglobin 9.7 g/dL (13.0-18.0); Mean Corp Hgb Conc. 33.3 g/dL (33.0-37.0); Mean Corpuscular Hgb 31.6 pg (27.0-31.0); Mean Corpuscular Volume 94.8 fL (80.0-94.0); Mean Platelet Volume 12.4 fL (7.4-10.4); Nucleated Red Blood Cells % 0 % (-); Platelet Count 58 10^3/uL (130-400); Red Blood Cell Count 3.07 10^6/uL (4.70-6.10); Red Cell Dist. Width 19.8 % (11.5-14.5); White Blood Cell Count 4.5 10^3/uL (4.8-10.8)
[2024-09-07] MEDS: LR 1000 IV (05:35)
[2024-09-07 06:05] LABS: ALT (SGPT) 18 U/L (0-50); AST (SGOT) 31 U/L (17-59); Albumin 2.9 g/dl (3.5-5.0); Alkaline Phosphatase 153 U/L (38-126); Blood Urea Nitrogen 5 mg/dl (9-20); Calcium 8.7 mg/dl (8.4-10.2); Carbon Dioxide 24 mmol/L (22-30); Chloride 103 mmol/L (98-107); Estimated Creatinine Clearance > 125 ml/min; Glucose 141 mg/dl (70-99); Potassium 4.4 mmol/L (3.5-5.1); Sodium 134 mmol/L (135-145); Total Bilirubin 13.3 mg/dl (0.2-1.3); Total Protein 5.8 g/dl (6.3-8.2); eGFR > 60.00
[2024-09-07] MEDS: CARAFATE 1 GRAM PO ×3 (06:37→17:02)
[2024-09-07 08:01] VITALS: BP 112/67
[2024-09-07 08:08] LABS: Glucose - Point of Care 129 mg/dl (70-99)
[2024-09-07] MEDS: NOVOLOG FLEXPEN-MODERATE RESISTANCE SC ×2 (09:09→13:00)
[2024-09-07] MEDS: PROTONIX IV 40 MG IV ×2 (09:17→21:16)
[2024-09-07] MEDS: NSS (PRESERVATIVE FREE) 10 ML IV ×2 (09:17→21:16)
[2024-09-07] MEDS: VITAMIN B1 100 MG PO ×2 (09:18→21:17)
[2024-09-07] MEDS: NEURONTIN 300 MG PO ×3 (09:18→21:17)
[2024-09-07] MEDS: CYMBALTA DELAYED RELEASE 60 MG PO (09:18)
[2024-09-07] MEDS: FLUSH (NSS) 2 FLUSH IV ×2 (09:18→09:35)
[2024-09-07] MEDS: PRELONE 40 MG PO (09:18)
[2024-09-07] MEDS: COREG 6.25 MG PO ×2 (09:19→21:28)
[2024-09-07] MEDS: FOLVITE 1 MG PO (09:19)
[2024-09-07] MEDS: ROCEPHIN 1000 MG IV (09:21)
[2024-09-07] MEDS: STERILE WATER FOR INJECTION 10 ML IV (09:22)
[2024-09-07] MEDS: DILAUDID 0.5 MG IV ×3 (09:34→21:28)
--- NOTE | 2024-09-07 10:59 | W.PN.GI.CBS2 ---
Addendum entered and electronically signed by Rosa Ojeda MD 09/07/24 19:20:
Discontinues sucralfate and cholestyramine as he is on lactulose and cannot get a sense of his BM on all these meds that counteract.
Lactulose on hold for now as well
Addendum entered and electronically signed by Rosa Ojeda MD 09/07/24 11:14:
Got an appointment with [employer] REPRESENTATIVE in our office 10/20-my office will call patient to confirm.
Original Note:
Today's Communication / Plan
-
Recommendations:
-Elevated discriminant function suggesting acute alcoholic hepatitis with rising bilirubin and prothrombin time.
No evidence of leukocytosis or fevers, GI bleed now resolved
Bilirubin seems to have stabilized
Continue prednisolone 40 mg daily 11/12 today, calculate Lille score on Day 7, if Lille score is improving, needs to continue prednisolone for 28 days.
Follow-up bilirubin and prothrombin time closely. Creatinine in normal limits.
-Diarrhea with previous history of C. difficile
C. difficile antigen positive but toxin negative
If he has multiple loose stool, could empirically treat with oral vancomycin.
For now held off on the lactulose as it will make the diarrhea worse, if he gets constipated, we could restart the lactulose at that time.
-History of GI bleeding in the setting of alcoholic liver disease/cirrhosis. On endoscopy noted to have bleeding related to ulcers at the site of previous banding and also had esophageal varices status post banding this admission without any active
bleeding now.
Continue Protonix twice a day and Carafate.
Monitor H&H.
At some point, he will need nadolol/coreg
-Left upper quadrant discomfort and CT scan showing mild peripancreatic edema, lipase is normal
Not a significant concern for pancreatitis .
currently on 2 g sodium diet. If he complains of significant abdominal pain, could repeat imaging at that time to rule out pancreatitis.
-Encourage EtOH cessation and rehab after discharge.
He needs follow-up with hepatology either here or at [place], wherever he would want to follow-up with.
I will arrange for follow-up with our office in 6 weeks.
Will follow for now
Assessment / Plan
-
Impression: 49-year-old male with PMH of decompensated EtOH cirrhosis with esophageal varices, portal hypertension, gastropathy, C. difficile colitis, who presented to ED on 08/30 with a week history of nausea and hematemesis associated with
melena which worsened 24 hours [employer]. Patient had a recent EGD on 08/05/2024 at [place] with EVL and 6 bands deployed along with PHG and gastritis revealing grade 3 varices in the mid/distal esophagus without active bleeding. The plan at that time
was to repeat EGD in 6 to 8 weeks as outpatient. Patient resumed drinking after discharge and reportedly drinks about an average of half a bottle to a gallon of whiskey nearly on daily basis. Patient does not take any NSAIDs or
antiplatelets/anticoagulants.
#UGIB 2/2
#Distal Esophageal, Post-Banding Ulcers
#Grade II EV within Mid Esophagus (s/p banding 08/30)
#Severe PHG
#Decompensated EtOH Cirrhosis
#Active, Recurrent EtOH Abuse
#EtOH Withdrawal
Labs on admission revealed a MELD 3.0 of 20 and CBC with a Hgb 10.3, WBC 5.2, platelets 34, INR 1.46. Etiology appears most suspicious for recurrent esophageal variceal hemorrhage versus post-banding esophageal ulceration given recent banding four
weeks earlier. Hemoglobin level has been stable and patient reports no large-volume melena in the past 24 hours.
There is also a slight drop in an ammonia level and patient appears to be fully oriented at the time of assessment.
EGD 08/30/24-#Distal Esophageal, Post-Banding Ulcers
#Grade II EV within Mid Esophagus (s/p banding and eradication)
#Severe PHG
Abdominal ultrasound with Doppler 09/02/2024
The main and right portal veins are patent and have normal direction of flow. The left portal vein is not confidently identified.
Hepatic veins are patent. Dampened spectral waveforms, which are likely from cirrhosis.
Hepatic artery is visualized with resistive index of 0.69.
Cholelithiasis. Common bile duct measures up to 6.3 mm, considered mildly dilated in this 49-year-old.
Coarsening of hepatic echotexture, suggesting hepatocellular disease in this patient with a reported history of cirrhosis. Recanalization of the paraumbilical vein.
Liver length is in the upper range of normal. No evidence for hepatic mass lesion.
Splenomegaly.
Small amount of ascites adjacent to the spleen in the left upper quadrant.
09/06/24-GI reconsulted for discomfort in the left upper abdomen and also continued elevation in the total bilirubin with history of active alcohol abuse prior to admission.
Currently reports discomfort in the left upper abdomen without any nausea or vomiting. No heartburn or trouble swallowing. Has been having diarrhea and history of C. difficile in February 2024.No fevers or chills.
Currently patient is on pantoprazole 40 mg twice a day and sucralfate with meals and at night. Also on ceftriaxone likely for SBP prophylaxis with history of mild ascites. Not enough for paracentesis.
Discriminant function -39 started on prednisolone 40 mg 09/06/24.
Held off on admission due to active GI bleeding at that time.
CT scan A/P with IV contrast 09/05/24-IMPRESSION:
1).There is peripancreatic hazy inflammatory stranding versus edema suggesting pancreatitis. Correlation with the patient's serum amylase and lipase is recommended
2.). Cholelithiasis 3). Hepatosplenomegaly with patchy fatty infiltration of the liver. 4).There is evidence of portal hypertension with paraesophageal varices and recanalization of the umbilical vein
There is small volume ascites in the abdomen and pelvis. 5). 4 cm left inguinal hernia
Recommendations:
-Elevated discriminant function suggesting acute alcoholic hepatitis with rising bilirubin and prothrombin time.
No evidence of leukocytosis or fevers, GI bleed now resolved
Bilirubin seems to have stabilized
Continue prednisolone 40 mg daily 11/12 today, calculate Lille score on Day 7, if Lille score is improving, needs to continue prednisolone for 28 days.
Follow-up bilirubin and prothrombin time closely. Creatinine in normal limits.
-Diarrhea with previous history of C. difficile
C. difficile antigen positive but toxin negative
If he has multiple loose stool, could empirically treat with oral vancomycin.
For now held off on the lactulose as it will make the diarrhea worse, if he gets constipated, we could restart the lactulose at that time.
-History of GI bleeding in the setting of alcoholic liver disease/cirrhosis. On endoscopy noted to have bleeding related to ulcers at the site of previous banding and also had esophageal varices status post banding this admission without any active
bleeding now.
Continue Protonix twice a day and Carafate.
Monitor H&H.
At some point, he will need nadolol/coreg
-Left upper quadrant discomfort and CT scan showing mild peripancreatic edema, lipase is normal
Not a significant concern for pancreatitis .
currently on 2 g sodium diet. If he complains of significant abdominal pain, could repeat imaging at that time to rule out pancreatitis.
-Encourage EtOH cessation and rehab after discharge.
He needs follow-up with hepatology either here or at [place], wherever he would want to follow-up with.
I will arrange for follow-up with our office in 6 weeks.
Will follow for now
Subjective
Subjective
Date of Service: September 07, 2024
Patient continues to complain of abdominal discomfort, reports having to soft stool this morning but nothing overnight.
Objective
Data Reviewed
Laboratory Data:
Laboratory Results
09/07/24 05:03
09/07/24 05:03
Laboratory Results
PT 18.9 Sec (11.4-14.6) H 09/07/24 05:03
INR 1.56 09/07/24 05:03
APTT 35.1 Sec (23.4-35.0) H 08/30/24 09:39
Phosphorus 2.8 mg/dl (2.5-4.5) 09/04/24 06:32
Magnesium 1.8 mg/dl (1.6-2.3) 09/06/24 05:08
Total Bilirubin 13.3 mg/dl (0.2-1.3) H 09/07/24 05:03
AST 31 U/L (17-59) 09/07/24 05:03
ALT 18 U/L (0-50) 09/07/24 05:03
Alkaline Phosphatase 153 U/L (38-126) H 09/07/24 05:03
Lipase 56 U/L (23-300) 09/06/24 05:08
Vital Signs and I&O:
Vital Signs
Temp Pulse Resp BP Pulse Ox
97.4 F 64 18 112/67 95
09/07/24 08:01 09/07/24 09:19 09/07/24 08:01 09/07/24 09:19 09/07/24 08:01
I&O
09/06/24 09/07/24 09/08/24
06:59 06:59 06:59
Intake Total 3745 / 3745 1200 / 1200
Balance 3745 / 3745 1200 / 1200
Physical Exam
Physical Exam
GI: Soft and Tender (Some discomfort on palpation in the left upper/mid abdomen)
[2024-09-07 11:00] VITALS: BP 128/81; BP 129/79; PULSE 60; O2SAT 95
--- NOTE | 2024-09-07 11:05 | W.PN.HOSP.TC ---
Today's Communication/Plan
-
cont prednisone
start vanco oral
monitor AM labs
Assessment / Plan
Assessment / Plan
49yo M with alcohol dependency, liver cirrhosis, esophageal varicies, anxiety came with hematemesis. EGD on 08/30 with esophageal ulcers, varices, banded. Patient still was drinking alcohol prior to this occurence. Later found possible pancreatitis
as well as worsening alcoholic hepatitis
A/P:
#Acute upper GIB 2/2 esophageal varices
s/po EGD on 08/30
cont PPI
completed octreotide
GI followed
Ceftriaxone x7 days for SBP PPX in GIB patient with cirrhosis - completed on 09/06/24
Daily MELD labs, Beronica score on 09/13/24
#C. difficile antigen positive, toxin negative
Since patient immunosuppressed (liver cirrhosis) with chronic diarrhea - reasonable to treat - oral vanco started
#Acute pancreatitis
IVF
advance diet
pain mgmt as needed
#Alcohol abuse with withdrawal
MSAS protocol
Thiamin/Folate
phenobarb taper - completed
CM for rehab
#Anemia
#thrombocytopenia
#leukopenia
2/2 alcohol abuse
counseled on cessation
follow CBC
#Liver cirrhosis with hepatic encephalopathy
#Elevated alk.phos - no RUQ pain, cholelithiasis on US
cont lactulose
US abd - no sufficient fluid for paracentesis as of 09/05/24
#Essential HTN
#HLD
#Anxiety
cont home meds
DVT ppx SCDs
Full code
I have spent at least 36min reviewing chart, test results, communication with consultants and direct patient care
Anticipated Discharge: > 48 hours
Subjective/Interval History
-
Date of Service: September 07, 2024
Objective Data
-
Labs:
Laboratory Results
09/07/24
05:03
WBC 4.5 L
Hgb 9.7 L
Hct 29.1 L
Plt Count 58 L D
PT 18.9 H
INR 1.56
Sodium 134 L
Potassium 4.4
Chloride 103
Carbon Dioxide 24
BUN 5 L
Creatinine 0.8
Glucose 141 H
Calcium 8.7
Total Bilirubin 13.3 H
AST 31
ALT 18
Alkaline Phosphatase 153 H
Vital Signs:
Vital Signs
Temp Pulse Resp BP Pulse Ox
97.4 F 64 18 112/67 95
09/07/24 08:01 09/07/24 09:19 09/07/24 08:01 09/07/24 09:19 09/07/24 08:01
I&O
09/06/24 09/07/24 09/08/24
06:59 06:59 06:59
Intake Total 3745 / 3745 1200 / 1200
Balance 3745 / 3745 1200 / 1200
Review of Systems
-
History Source: Patient
All other systems: Reviewed and negative
Physical Exam
-
General: No Apparent Distress
Respiratory: Clear to Auscultation
Cardiac: Regular Rhythm
GI: Soft, Nontender and Distended
Musculoskeletal: No Clubbing, No Cyanosis and No Edema
Skin: Jaundice
Neuro: Awake, Alert, Oriented and AO x 3
Psych: Calm
[2024-09-07] MEDS: QUESTRAN PO (11:29)
[2024-09-07] MEDS: QUESTRAN 4 GRAM PO ×2 (11:33→17:03)
[2024-09-07] MEDS: FIRVANQ 125 MG PO ×3 (11:34→23:57)
[2024-09-07 11:43] LABS: Glucose - Point of Care 95 mg/dl (70-99)
[2024-09-07] MEDS: NICODERM TRANSDERMAL 21 MG TRANSDERM (13:01)
[2024-09-07 15:58] VITALS: BP 130/78
--- NOTE | 2024-09-07 16:05 | CM ---
[facility] followed up with TAMMY (Sebastian) regarding anticipated discharge in 48 hours.
TAMMY will follow up with Bryson for admission to [facility] facility at discharge.
[2024-09-07 16:47] LABS: Glucose - Point of Care 178 mg/dl (70-99)
[2024-09-07] MEDS: NOVOLOG FLEXPEN-MODERATE RESISTANCE 1 UNITS SC (17:02)
[2024-09-07] MEDS: DESYREL 100 MG PO (21:17)
[2024-09-07] MEDS: SEROQUEL 200 MG PO (21:18)
[2024-09-07 21:24] LABS: Glucose - Point of Care 120 mg/dl (70-99)
[2024-09-07 23:00] VITALS: BP 116/67
[2024-09-08 04:19] LABS: % Basophils 0.8 % (0-2); % Immature Granulocytes 0.6 % (0-0.5); % Lymphocytes 21.7 % (20.5-51.1); % Monocytes 17.1 % (1.7-9.3); % Neutrophils 57.8 % (42.2-75.2); Absolute Basophils 0.1 10^3/uL (0-0.2); Absolute Eosinophils 0.1 10^3/uL (0-0.7); Absolute Lymphocytes 1.4 10^3/uL (1.2-3.4); Absolute Monocytes 1.1 10^3/uL (0.1-0.6); Absolute Neutrophils 3.8 10^3/uL (1.4-6.5); Hematocrit 28.6 % (39.0-52.0); Mean Corpuscular Hgb 32.3 pg (27.0-31.0); Mean Corpuscular Volume 92.3 fL (80.0-94.0); Mean Platelet Volume 11.2 fL (7.4-10.4); Nucleated Red Blood Cells % 0 % (-); Platelet Count 75 10^3/uL (130-400); Red Cell Dist. Width 20.4 % (11.5-14.5); White Blood Cell Count 6.6 10^3/uL (4.8-10.8)
[2024-09-08 04:26] LABS: INR 1.37; PT 17.1 Sec (11.4-14.6)
[2024-09-08 04:37] LABS: Blood Urea Nitrogen 6 mg/dl (9-20); Calcium 8.9 mg/dl (8.4-10.2); Carbon Dioxide 25 mmol/L (22-30); Chloride 102 mmol/L (98-107); Estimated Creatinine Clearance > 125 ml/min; Glucose 115 mg/dl (70-99); Potassium 4.1 mmol/L (3.5-5.1); Sodium 135 mmol/L (135-145); eGFR > 60.00
[2024-09-08] MEDS: FIRVANQ 125 MG PO ×4 (05:28→23:46)
[2024-09-08 06:17] LABS: ALT (SGPT) 19 U/L (0-50); AST (SGOT) 36 U/L (17-59); Albumin 3.2 g/dl (3.5-5.0); Alkaline Phosphatase 155 U/L (38-126); Direct Bilirubin 9.5 mg/dl (0.0-0.4); Total Bilirubin 11.4 mg/dl (0.2-1.3); Total Protein 6.1 g/dl (6.3-8.2)
[2024-09-08 07:40] LABS: Glucose - Point of Care 110 mg/dl (70-99)
[2024-09-08 08:11] VITALS: BP 118/75
[2024-09-08] MEDS: NEURONTIN 300 MG PO ×3 (08:54→21:22)
[2024-09-08] MEDS: NOVOLOG FLEXPEN-MODERATE RESISTANCE SC ×3 (08:54→16:50)
[2024-09-08] MEDS: PROTONIX IV 40 MG IV ×2 (08:55→20:32)
[2024-09-08] MEDS: NSS (PRESERVATIVE FREE) 10 ML IV ×2 (08:56→20:32)
[2024-09-08] MEDS: NICODERM TRANSDERMAL 21 MG TRANSDERM (08:57)
[2024-09-08] MEDS: PRELONE 40 MG PO (08:58)
[2024-09-08] MEDS: VITAMIN B1 100 MG PO ×2 (08:58→20:31)
[2024-09-08] MEDS: FOLVITE 1 MG PO (08:58)
[2024-09-08] MEDS: COREG 6.25 MG PO ×2 (08:58→20:31)
[2024-09-08] MEDS: CYMBALTA DELAYED RELEASE 60 MG PO (08:58)
[2024-09-08] MEDS: FLUSH (NSS) IV ×2 (09:03→09:06)
[2024-09-08] MEDS: ROCEPHIN 1000 MG IV (09:06)
[2024-09-08] MEDS: STERILE WATER FOR INJECTION 10 ML IV (09:07)
[2024-09-08] MEDS: DILAUDID 0.5 MG IV (09:19)
--- NOTE | 2024-09-08 09:41 | W.PN.GI.CBS2 ---
Today's Communication / Plan
-
Calculate day 4 Lille score (if still inpatient) or outpatient day 7 lille score to determine if full 28 day course of prednisone should be completed. Outpatient f/u arranged in our office. GI will sign off, please call with questions.
Assessment / Plan
-
Impression: 49-year-old male with PMH of decompensated EtOH cirrhosis with esophageal varices, portal hypertension, gastropathy, C. difficile colitis, who presented to ED on 08/30 with a week history of nausea and hematemesis associated with
melena which worsened 24 hours [employer]. Patient had a recent EGD on 08/05/2024 at [place] with EVL and 6 bands deployed along with PHG and gastritis revealing grade 3 varices in the mid/distal esophagus without active bleeding. The plan at that time
was to repeat EGD in 6 to 8 weeks as outpatient. Patient resumed drinking after discharge and reportedly drinks about an average of half a bottle to a gallon of whiskey nearly on daily basis. Patient does not take any NSAIDs or
antiplatelets/anticoagulants.
#UGIB 2/2
#Distal Esophageal, Post-Banding Ulcers
#Grade II EV within Mid Esophagus (s/p banding 08/30)
#Severe PHG
#Decompensated EtOH Cirrhosis
#Active, Recurrent EtOH Abuse
#EtOH Withdrawal
Labs on admission revealed a MELD 3.0 of 20 and CBC with a Hgb 10.3, WBC 5.2, platelets 34, INR 1.46. Etiology appears most suspicious for recurrent esophageal variceal hemorrhage versus post-banding esophageal ulceration given recent banding four
weeks earlier. Hemoglobin level has been stable without recurrence of GI bleeding. He is AAOx3 and no asterixes
EGD 08/30/24-#Distal Esophageal, Post-Banding Ulcers
#Grade II EV within Mid Esophagus (s/p banding and eradication)
#Severe PHG
Abdominal ultrasound with Doppler 09/02/2024
The main and right portal veins are patent and have normal direction of flow. The left portal vein is not confidently identified.
Hepatic veins are patent. Dampened spectral waveforms, which are likely from cirrhosis.
Hepatic artery is visualized with resistive index of 0.69.
Cholelithiasis. Common bile duct measures up to 6.3 mm, considered mildly dilated in this 49-year-old.
Coarsening of hepatic echotexture, suggesting hepatocellular disease in this patient with a reported history of cirrhosis. Recanalization of the paraumbilical vein.
Liver length is in the upper range of normal. No evidence for hepatic mass lesion.
Splenomegaly.
Small amount of ascites adjacent to the spleen in the left upper quadrant.
09/06/24-GI reconsulted for discomfort in the left upper abdomen and also continued elevation in the total bilirubin with history of active alcohol abuse prior to admission.
Currently reports discomfort in the left upper abdomen without any nausea or vomiting. No heartburn or trouble swallowing. Has been having diarrhea and history of C. difficile in February 2024.No fevers or chills.
Currently patient is on pantoprazole 40 mg twice a day and sucralfate with meals and at night. Also on ceftriaxone likely for SBP prophylaxis with history of mild ascites. Not enough for paracentesis.
Discriminant function -39 started on prednisolone 40 mg 09/06/24 --> Tbili improving.
Held off on admission due to active GI bleeding at that time.
CT scan A/P with IV contrast 09/05/24-IMPRESSION:
1).There is peripancreatic hazy inflammatory stranding versus edema suggesting pancreatitis. Correlation with the patient's serum amylase and lipase is recommended
2.). Cholelithiasis 3). Hepatosplenomegaly with patchy fatty infiltration of the liver. 4).There is evidence of portal hypertension with paraesophageal varices and recanalization of the umbilical vein
There is small volume ascites in the abdomen and pelvis. 5). 4 cm left inguinal hernia
Recommendations:
-Elevated discriminant function suggesting acute alcoholic hepatitis with rising bilirubin and prothrombin time.
No evidence of leukocytosis or fevers, GI bleed now resolved
Bilirubin peaked, now improving.
Continue prednisolone 40 mg daily 11/12 today, calculate Lille score on Day 7, if Lille score is improving, needs to continue prednisolone for 28 days.
Follow-up bilirubin and prothrombin time closely. Creatinine in normal limits.
-Diarrhea with previous history of C. difficile
C. difficile antigen positive but toxin negative --> do not recommend treating with vanc as this is consistent with colonization and not active infection.
Holding lactulose due to diarrhea. I would recommend continuing xifaxin as this could also treat for possible post-infectious IBS given his hx of recent c.diff infection.
-History of GI bleeding in the setting of alcoholic liver disease/cirrhosis. On endoscopy noted to have bleeding related to ulcers at the site of previous banding and also had esophageal varices status post banding this admission without any active
bleeding now.
Continue Protonix once daily; sucralfate and cholestyramine d/c'ed yesterday
Monitor H&H.
Currently on Coreg 6.125 mg BID
-Left upper quadrant discomfort and CT scan showing mild peripancreatic edema, lipase is normal; unclear if this represents true pancreatitis or not, techincally, does not meet criteria, as his pain is LUQ in nature
Not a significant concern for pancreatitis .
currently on 2 g sodium diet. Trial simethicone as he does have significant distension however, only small amount of ascites
-Encourage EtOH cessation and rehab after discharge-- steroids will not help with alc hep if he continues to drink, which we discussed at length today and he expressed understanding. He will follow-up with us in the office,
GI will sign off, outpatient f/u scheduled. Please call with questions.
Subjective
Subjective
Date of Service: September 08, 2024
Patient continues to complain of LUQ abdominal discomfort, reports diarrhea this morning. Only small volume ascites demonstrated on imaging. Questionable pancreatitis seen, normal Lipase.
Objective
Data Reviewed
Laboratory Data:
Laboratory Results
09/08/24 04:06
09/08/24 04:05
Laboratory Results
PT 17.1 Sec (11.4-14.6) H 09/08/24 04:06
INR 1.37 09/08/24 04:06
APTT 35.1 Sec (23.4-35.0) H 08/30/24 09:39
Phosphorus 2.8 mg/dl (2.5-4.5) 09/04/24 06:32
Magnesium 1.8 mg/dl (1.6-2.3) 09/06/24 05:08
Total Bilirubin 11.4 mg/dl (0.2-1.3) H 09/08/24 04:05
AST 36 U/L (17-59) 09/08/24 04:05
ALT 19 U/L (0-50) 09/08/24 04:05
Alkaline Phosphatase 155 U/L (38-126) H 09/08/24 04:05
Lipase 56 U/L (23-300) 09/06/24 05:08
Vital Signs and I&O:
Vital Signs
Temp Pulse Resp BP Pulse Ox
98.2 F 71 18 118/75 98
09/08/24 08:11 09/08/24 08:58 09/08/24 08:11 09/08/24 08:58 09/08/24 08:11
I&O
09/07/24 09/08/24 09/09/24
06:59 06:59 06:59
Intake Total 1200 / 1200 480 / 480
Balance 1200 / 1200 480 / 480
Physical Exam
Physical Exam
GI: Soft and Tender (Some discomfort on palpation in the left upper/mid abdomen)
--- NOTE | 2024-09-08 11:26 | W.PN.HOSP.TC ---
Today's Communication/Plan
-
Bili improving
Needs outpatient rehab - CM aware
Assessment / Plan
Assessment / Plan
49yo M with alcohol dependency, liver cirrhosis, esophageal varicies, anxiety came with hematemesis. EGD on 08/30 with esophageal ulcers, varices, banded. Patient still was drinking alcohol prior to this occurence. Later found possible pancreatitis
as well as worsening alcoholic hepatitis
A/P:
#Acute upper GIB 2/2 esophageal varices
s/po EGD on 08/30
cont PPI
completed octreotide
GI followed
Ceftriaxone x7 days for SBP PPX in GIB patient with cirrhosis - completed on 09/06/24
Daily MELD labs, Beronica score on 09/13/24
#C. difficile antigen positive, toxin negative
Since patient immunosuppressed (liver cirrhosis) with chronic diarrhea - reasonable to treat - oral vanco started
#Acute pancreatitis
IVF
advance diet
pain mgmt as needed
#Alcohol abuse with withdrawal
MSAS protocol
Thiamin/Folate
phenobarb taper - completed
CM for rehab
#Anemia
#thrombocytopenia
#leukopenia
2/2 alcohol abuse
counseled on cessation
follow CBC
#Liver cirrhosis with hepatic encephalopathy
#Elevated alk.phos - no RUQ pain, cholelithiasis on US
cont lactulose
US abd - no sufficient fluid for paracentesis as of 09/05/24
#Essential HTN
#HLD
#Anxiety
cont home meds
DVT ppx SCDs
Full code
I have spent at least 36min reviewing chart, test results, communication with consultants and direct patient care
Anticipated Discharge: Within 24 hours
Subjective/Interval History
-
Date of Service: September 08, 2024
Objective Data
-
Labs:
Laboratory Results
09/08/24 09/08/24
04:05 04:06
WBC 6.6
Hgb 10.0 L
Hct 28.6 L
Plt Count 75 L D
PT 17.1 H
INR 1.37
Sodium 135
Potassium 4.1
Chloride 102
Carbon Dioxide 25
BUN 6 L
Creatinine 0.8
Glucose 115 H
Calcium 8.9
Total Bilirubin 11.4 H
AST 36
ALT 19
Alkaline Phosphatase 155 H
Vital Signs:
Vital Signs
Temp Pulse Resp BP Pulse Ox
98.2 F 71 18 118/75 98
09/08/24 08:11 09/08/24 08:58 09/08/24 08:11 09/08/24 08:58 09/08/24 08:11
I&O
09/07/24 09/08/24 09/09/24
06:59 06:59 06:59
Intake Total 1200 / 1200 480 / 480 480 / 480
Balance 1200 / 1200 480 / 480 480 / 480
Physical Exam
-
General: No Apparent Distress
HEENT: Normocephalic and Atraumatic
Respiratory: Clear to Auscultation
GI: Soft, Nontender and Nondistended
Neuro: Awake, Alert, Oriented and AO x 3
Psych: Calm
--- NOTE | 2024-09-08 11:57 | CM ---
Addendum entered by Claudia Mejia 09/08/24 14:06:
Per [facility], Inpatient Rehab bed available tomorrow
Plan: Discharge to [facility], [address] [place] [address]
Original Note:
Per Attending's request, contacted [facility] Counselor via phone in regards to referral for rehab placement.
Counselor was on site in the ED; CM provided copies of patient's Clinical and Demographic information
Plan: Discharge to inpatient rehab facility when medically stable; pending bed availability
[2024-09-08 12:23] LABS: Glucose - Point of Care 120 mg/dl (70-99)
[2024-09-08] MEDS: MYLICON 80 MG PO ×3 (13:48→21:23)
[2024-09-08] MEDS: ULTRAM 50 MG PO ×2 (14:14→21:22)
[2024-09-08 16:33] VITALS: BP 124/78
[2024-09-08 16:47] LABS: Glucose - Point of Care 134 mg/dl (70-99)
[2024-09-08 20:56] LABS: Glucose - Point of Care 135 mg/dl (70-99)
[2024-09-08] MEDS: DESYREL 100 MG PO (21:23)
[2024-09-08] MEDS: SEROQUEL 200 MG PO (21:23)
[2024-09-08 23:43] VITALS: BP 110/72
[2024-09-09 05:19] LABS: INR 1.28; PT 16.5 Sec (11.4-14.6)
[2024-09-09] MEDS: FIRVANQ 125 MG PO ×2 (05:24→11:56)
[2024-09-09 05:25] LABS: ALT (SGPT) 21 U/L (0-50); AST (SGOT) 39 U/L (17-59); Albumin 3.3 g/dl (3.5-5.0); Alkaline Phosphatase 169 U/L (38-126); Blood Urea Nitrogen 8 mg/dl (9-20); Calcium 8.8 mg/dl (8.4-10.2); Carbon Dioxide 28 mmol/L (22-30); Chloride 98 mmol/L (98-107); Estimated Creatinine Clearance 115 ml/min; Glucose 116 mg/dl (70-99); Potassium 4.5 mmol/L (3.5-5.1); Sodium 134 mmol/L (135-145); Total Bilirubin 10.8 mg/dl (0.2-1.3); Total Protein 6.3 g/dl (6.3-8.2); eGFR > 60.00
--- NOTE | 2024-09-09 05:34 | PTCARENOTE ---
Pt awake intermittently t/o the night with TV turned up very loud. Pt reports 'a few' loose stools overnight. PRN pain medication administered as ordered for LUQ abd pain/ Tenderness, 10 pain. No other issues to report. Vital signs stable. will
continue to monitor.
[2024-09-09 07:10] VITALS: BP 122/75
[2024-09-09 07:15] LABS: Glucose - Point of Care 108 mg/dl (70-99)
[2024-09-09] MEDS: NOVOLOG FLEXPEN-MODERATE RESISTANCE SC ×2 (09:53→11:56)
[2024-09-09] MEDS: PROTONIX IV 40 MG IV (09:54)
[2024-09-09] MEDS: PRELONE 40 MG PO (09:54)
[2024-09-09] MEDS: NSS (PRESERVATIVE FREE) 10 ML IV (09:54)
[2024-09-09] MEDS: NEURONTIN 300 MG PO (09:54)
[2024-09-09] MEDS: VITAMIN B1 100 MG PO (09:55)
[2024-09-09] MEDS: COREG 6.25 MG PO (09:55)
[2024-09-09] MEDS: CYMBALTA DELAYED RELEASE 60 MG PO (09:55)
[2024-09-09] MEDS: FLUSH (NSS) 2 FLUSH IV (09:55)
[2024-09-09] MEDS: FOLVITE 1 MG PO (09:55)
[2024-09-09] MEDS: NICODERM TRANSDERMAL 21 MG TRANSDERM (09:56)
[2024-09-09] MEDS: MYLICON 80 MG PO (09:56)
[2024-09-09] MEDS: ULTRAM 50 MG PO (09:58)
--- NOTE | 2024-09-09 10:55 | W.PN.HOSP.TC ---
Today's Communication/Plan
-
dc
Assessment / Plan
Assessment / Plan
49yo M with alcohol dependency, liver cirrhosis, esophageal varicies, anxiety came with hematemesis. EGD on 08/30 with esophageal ulcers, varices, banded. Patient still was drinking alcohol prior to this occurence. Later found possible pancreatitis
as well as worsening alcoholic hepatitis, improved on prednisolone. Medically stable for d/c for outpatient follow up by GI as mentioned in their note - its to be arranged. [facility] involved for alcohol rehab.
A/P:
#Acute upper GIB 2/2 esophageal varices
s/po EGD on 08/30
cont PPI
completed octreotide
GI followed
Ceftriaxone x7 days for SBP PPX in GIB patient with cirrhosis - completed on 09/06/24
Daily MELD labs, Beronica score on 09/13/24
#C. difficile antigen positive, toxin negative
Since patient immunosuppressed (liver cirrhosis) with chronic diarrhea - reasonable to treat - oral vanco started
#Acute pancreatitis
IVF
advance diet
pain mgmt as needed
#Alcohol abuse with withdrawal
MSAS protocol
Thiamin/Folate
phenobarb taper - completed
CM for rehab
#Anemia
#thrombocytopenia
#leukopenia
2/2 alcohol abuse
counseled on cessation
follow CBC
#Liver cirrhosis with hepatic encephalopathy
#Elevated alk.phos - no RUQ pain, cholelithiasis on US
cont lactulose
US abd - no sufficient fluid for paracentesis as of 09/05/24
#Essential HTN
#HLD
#Anxiety
cont home meds
DVT ppx SCDs
Full code
I have spent at least 36min reviewing chart, test results, communication with consultants and direct patient care
Anticipated Discharge: Today
Subjective/Interval History
-
Date of Service: September 09, 2024
Objective Data
-
Labs:
Laboratory Results
09/09/24
04:46
PT 16.5 H
INR 1.28
Sodium 134 L
Potassium 4.5
Chloride 98
Carbon Dioxide 28
BUN 8 L
Creatinine 0.9
Glucose 116 H
Calcium 8.8
Total Bilirubin 10.8 H
AST 39
ALT 21
Alkaline Phosphatase 169 H
Vital Signs:
Vital Signs
Temp Pulse Resp BP Pulse Ox
97.9 F 66 16 122/75 95
09/09/24 07:10 09/09/24 09:55 09/09/24 07:10 09/09/24 09:55 09/09/24 07:10
I&O
09/08/24 09/09/24 09/10/24
06:59 06:59 06:59
Intake Total 480 / 480 2280 / 2280 360 / 360
Balance 480 / 480 2280 / 2280 360 / 360
--- NOTE | 2024-09-09 11:04 | W.DCSUMMARY ---
Discharge Summary
Discharge Data
Date of Admission: 08/30/24
Date of Discharge: 09/09/24
-
Pending Results: No
Hospital Course
49yo M with alcohol dependency, liver cirrhosis, esophageal varicies, anxiety came with hematemesis. EGD on 08/30 with esophageal ulcers, varices, banded. Patient still was drinking alcohol prior to this occurence. Later found possible pancreatitis
as well as worsening alcoholic hepatitis, improved on prednisolone. Medically stable for d/c for outpatient follow up by GI as mentioned in their note - its to be arranged. [facility] involved for alcohol rehab. Repeat EGD in 4-6 weeks - referral
provided
I have spent at least 36min reviewing chart, test results, communication with consultants and direct patient care
Patient was managed for:
#Acute upper GIB 2/2 esophageal varices
#C. difficile antigen positive, toxin negative
#Acute pancreatitis
#Alcohol abuse with withdrawal
#Nicotine dependency - counseled on cessation
#Anemia
#thrombocytopenia
#leukopenia
#Liver cirrhosis with hepatic encephalopathy
#Elevated alk.phos - no RUQ pain, cholelithiasis on US
#Essential HTN
#HLD
#Anxiety
Discharge Plan
-
Patient Disposition: Home (Routine Discharge)
Discharge Diagnosis/Procedures: GIB
Diet: Low Cholesterol
Activity: As tolerated
Driving Restrictions: As prior to admission
Activity Restrictions/Additional Instructions:
FOllow up with your GI or GI in 1-2 weeks to manage steroids and schedule repeated EGD
Referrals:
Jatin Caceres MD [Family Provider] -
Rosa Ojeda MD [Active] - in one to two weeks (repeat blood test to decide on steroids)
Prescriptions:
New
prednisolone sodium phosphate 15 mg/5 mL (3 mg/mL) Solution
40 mg PO DAILY Qty: 15 0RF
vancomycin 50 mg/mL Recon Soln
125 mg PO Q6 Qty: 80 0RF
folic acid 1 mg Tablet
1 mg PO DAILY Qty: 30 0RF
Continued
gabapentin 300 mg capsule
300 mg PO TID
carvedilol [Coreg] 6.25 mg tablet
6.25 mg PO BID
Patient Comments:
08/30/24-patient claims his bottles only says one a day but pharmacy has 6.25mg bid
trazodone 50 mg tablet
100 mg PO HS
duloxetine 30 mg capsule,delayed release(DR/EC)
60 mg PO DAILY
thiamine HCl (vitamin B1) 100 mg tablet
100 mg PO DAILY
sucralfate 1 gram Tablet
1 g PO ACHS Qty: 0 0RF
furosemide [Lasix] 40 mg Tablet
40 mg PO DAILYPRN PRN (Reason: fluid retension)
quetiapine [Seroquel] 200 mg Tablet
200 mg PO HS
cholestyramine (with sugar) 4 gram powder in packet
1 ea PO AC
pantoprazole 40 mg tablet,delayed release (DR/EC)
40 mg PO BID Qty: 60 0RF
Discharge Orders:
Discharge Patient (As Directed); Ordered 09/09/24
Ordered By: Martínez Prince
Discharge Date and Time
Print Language: GEORGIAN
[2024-09-09 11:49] LABS: Glucose - Point of Care 112 mg/dl (70-99)
--- NOTE | 2024-09-09 11:53 | CM ---
EMMA spoke with Chavo ([facility]) who advised that pt has been accepted for [facility] services. Pt does not have any belongings with him, so NEREIDA arranged for 12:30 citrus picker to home. Chavo will coordinate citrus picker at pt's home with
[facility].
Plan: Discharge to [facility]
[2024-09-09] MEDS: AFLURIA (36 mos+) 2024-2025 FORMULA 0.5 ML IM (11:54)
[2024-09-09 12:08] VITALS: BP 124/76
== END 2024-09-09 12:26 | disposition home or self-care (01) | DRG 432 ==
LOC: 4 EAST ACU 12:32
PROVIDERS: Nurse Practitioner Primary Care; ADMITTING PHYSICIAN Hospitalist; ATTENDING PHYSICIAN Internal Medicine; CONSULT PHYSICIAN Internal Medicine Critical Care Medicine; CONSULT PHYSICIAN Student in an Organized Health Care Education/Training Program; EMERGENCY PHYSICIAN Emergency Medicine; FAMILY PHYSICIAN Family Medicine
PROC: 5A1935Z Respiratory Ventilation, Less than 24 Consecutive Hours (ICD-10-PCS; 2024-08-30)
PROC: 0DJ08ZZ Inspection of Upper Intestinal Tract, Via Natural or Artificial Opening Endoscopic (ICD-10-PCS; 2024-08-30)
PROC: 0BH17EZ Insertion of Endotracheal Airway into Trachea, Via Natural or Artificial Opening (ICD-10-PCS; 2024-08-30)
PROC: 0BP1XDZ Removal of Intraluminal Device from Trachea, External Approach (ICD-10-PCS; 2024-08-31)
PROC: 3E02340 Introduction of Influenza Vaccine into Muscle, Percutaneous Approach (ICD-10-PCS; 2024-09-09)
DX: K70.11 Alcoholic hepatitis with ascites (principal); I85.11 Secondary esophageal varices with bleeding; J96.90 Respiratory failure, unspecified, unspecified whether with hypoxia or hypercapnia; K85.90 Acute pancreatitis without necrosis or infection, unspecified; K57.33 Diverticulitis of large intestine without perforation or abscess with bleeding; D62 Acute posthemorrhagic anemia; E87.0 Hyperosmolality and hypernatremia; E87.20 Acidosis, unspecified; F10.239 Alcohol dependence with withdrawal, unspecified; K76.6 Portal hypertension; D84.81 Immunodeficiency due to conditions classified elsewhere; K92.1 Melena; K70.30 Alcoholic cirrhosis of liver without ascites; F41.9 Anxiety disorder, unspecified; I10 Essential (primary) hypertension; K21.9 Gastro-esophageal reflux disease without esophagitis; K76.0 Fatty (change of) liver, not elsewhere classified; G62.9 Polyneuropathy, unspecified; F17.210 Nicotine dependence, cigarettes, uncomplicated; K31.89 Other diseases of stomach and duodenum; R73.9 Hyperglycemia, unspecified; E80.6 Other disorders of bilirubin metabolism; E78.1 Pure hyperglyceridemia; K80.20 Calculus of gallbladder without cholecystitis without obstruction; E83.42 Hypomagnesemia; K76.82 Hepatic encephalopathy; D69.6 Thrombocytopenia, unspecified; E83.39 Other disorders of phosphorus metabolism; F10.229 Alcohol dependence with intoxication, unspecified; E78.5 Hyperlipidemia, unspecified; Y90.8 Blood alcohol level of 240 mg/100 ml or more; Z87.11 Personal history of peptic ulcer disease; Z23 Encounter for immunization
CPT/HCPCS: 71045; 74177; 76700; 76705; 80048; 80053; 80306; 80307; 81003; 82010; 82077; 82140; 82248; 82805; 82962; 82977; 83036; 83690; 83735; 84100; 84478; 85014; 85018; 85025; 85027; 85610; 85730; 86850; 86900; 86901; 87324; 87449; 90686; 93005; 93975; 94002; 94003; 96374; 96375; 96376; 97116; 97163; 97167; 97530; 97535; 99285; 99406; G0008; J1364; Q9967